=== PATIENT | female | born 1955 | race Caucasian/White ===

== ENCOUNTER 2018-07-12 14:17 | Emergency (ER) | payer OTHER, SELFPAY ==
[2018-07-12 14:29] VITALS: BP 122/84; PULSE 86; RESP 18; TEMP 36.6; O2SAT 99
--- NOTE | 2018-07-12 16:24 | W.ED.GENAD ---
Discharge Plan Disposition Patient Disposition: HOME Condition: Improving Discharge Details Chief Complaint: Laceration Clinical Impression: Laceration of knee, right Primary Care Provider: None,None ED Provider: Franky Reardon Home Meds and New Rx's Prescriptions: No Action cephalexin [Keflex] 500 mg capsule 500 mg PO QID 10 Days Qty: 40 RF: 0 trazodone 50 mg Tablet 50 mg PO HS PRNRF: 0 sertraline 100 mg Tablet 100 mg PO DAILY RF: 0 ranitidine HCl 150 mg Tablet 150 mg PO BID RF: 0 Discharge Instructions Instructions: Laceration (ED) Additional Instructions: Watch for signs of infection return immediately if these occur otherwise return to the emergency department in 12-14 days for suture removal. Stand Alone Forms: Work Release Referrals: [facility] Emergency Dept. [Outside] (12-14 days for suture removal) Discharge Data Discharge Date/Time-TO BE ENTERED AT DEPARTURE: 07/12/18 16:57 Medical Decision Making Right knee laceration with skin tear, irregular border wound edges revised. Approximately total area of injury is 6 cm x 4 cm. visible tendon is slightly noted with exploring wound to base but no obvious tendon injury. Patient has full range of motion of lower extremity, pulse sensation and full range of motion is also noted distal to the injury with no other apparent injury noted. Patient is full weightbearing so I doubt fracture. Patient gave verbal consent for wound closure. Please see procedure note for wound closure. Tdap was updated. Given clean wound that was extensively irrigated I do not feel that patient needs to be prophylactically placed upon antibiotic's but patient was encouraged to watch for signs of infection and return immediately if these occur otherwise to keep wound clean and dry and to utilize an Goyo wrap and to not perform any deep bending or squatting type motions of the knee as skin was very thin and possible for tearing through sutures may occur given location of large flap-like wound with skin tear. After discussion of diagnosis and plan of care patient has no further needs, questions, or concerns and states clear understanding to return to the emergency department for any worsening symptoms. HPI General Mode of arrival: wheelchair. Date/Time Provider Initiated Documentation: 07/12/18 14:32. Limitations to Documentation: no limitations. Information obtained by: patient and RN notes reviewed. History of Present Illness 63 year old F presents to the emergency department with the chief complaint of right knee injury, described as moderate, with intensity rated at 8. Quality is described as sharp, and is localized to the right and lower extremity. Patient started experiencing this minute(s) (30) and it has been constant. No relieving factors improve symptom(s), Patient notes no other symptoms.. Patient did receive the following treatments prior to arrival, none Related Data Home Medications Medication Instructions Recorded Confirmed ranitidine HCl 150 mg PO BID 07/12/18 07/15/18 sertraline 100 mg PO DAILY 07/12/18 07/15/18 trazodone 50 mg PO HS PRN 07/12/18 07/15/18 cephalexin [Keflex] 500 mg PO QID 10 Days #40 cap 07/15/18 Previous Rx's Medication Instructions Recorded cephalexin [Keflex] 500 mg PO QID 10 Days #40 cap 07/15/18 Allergies Allergy/AdvReac Type Severity Reaction Status Date / Time peanut Allergy Severe Anaphylaxsi Unverified 07/15/18 14:10 s Sulfa (Sulfonamide Allergy Anaphylaxsi Unverified 07/15/18 14:10 Antibiotics) s General Stated Complaint: Laceration YONATAN: 3 Review of Systems Cardiovascular Denies syncope and Denies lightheadedness Musculoskeletal Denies deformity, Denies limited range of motion and Denies numbness Integumentary/Breasts Reports as per HPI Neurologic Denies syncope, Denies numbness and Denies paresthesias [facility] Medical History Anxiety (Chronic) COPD (chronic obstructive pulmonary disease) (Chronic) GERD (gastroesophageal reflux disease) (Chronic) Social History Smoking/Tobacco Use Status: Current every day Exam Const General: cooperative and no acute distress Orientation: alert, awake and oriented x3 Limitations: mental status not altered Resp Effort & Inspection: normal respiratory effort and able to speak in complete sentences Cardio Rate: regular rate Rhythm: regular rhythm Neuro General: alert, awake, oriented x3, gait normal, tone normal, moves all extremities, normal light touch, pain and propioception and no focal motor deficits Motor: no movement abnormalities noted Sensory Exam: no sensory deficits noted Extrem General: normal exam except as noted Right lower extremity: knee Details: laceration (distal anterior knee) Course Vital Signs Temperature 36.6 C 07/12/18 14:29 Pulse 86 07/12/18 14:29 Respiratory Rate 18 07/12/18 14:29 Blood Pressure 122/84 07/12/18 14:29 Pulse Oximetry 99 07/12/18 14:29 Temperature 36.6 C 07/12/18 14:29 Temperature Source Temporal Artery Scan 07/12/18 14:29 Pulse 86 07/12/18 14:29 Respiratory Rate 18 07/12/18 14:29 Respiratory Effort Non-Labored 07/12/18 14:31 Blood Pressure 122/84 07/12/18 14:29 Blood Pressure Position Sitting 07/12/18 14:29 Pulse Oximetry 99 07/12/18 14:29 Oxygen Delivery Method Room Air 07/12/18 14:29 Oxygen Flow Rate 0 07/12/18 14:29 Pain Level 3 07/12/18 14:54 Procedures Laceration right knee: Site: lower extremity Side (If applicable): right Description: flap, irregular, clean and other Depth: involves tendon (Visible tendon but no injury) Local Anesthetic: Lidocaine 1% and with Epi Amount of anesthesia used (mL): 10 Pre-repair: wound explored, irrigated extensively, deep structures intact and wound margins revised Skin layer closed with: vicryl Size (cm): 4-0 Number of sutures: 9 Technique: simple, interrupted Subcutaneous layer closed with: vicryl Size: 4-0 Number of sutures: 2 Technique: simple, interrupted
--- NOTE | 2018-07-12 16:27 | ED.GENADUL_ITS ---
Discharge Plan Disposition Patient Disposition: HOME Condition: Improving Discharge Details Chief Complaint: Laceration Clinical Impression: Laceration of knee, right Primary Care Provider: None,None ED Provider: Franky Reardon Home Meds and New Rx's Prescriptions: No Action cephalexin [Keflex] 500 mg capsule 500 mg PO QID 10 Days Qty: 40 RF: 0 trazodone 50 mg Tablet 50 mg PO HS PRNRF: 0 sertraline 100 mg Tablet 100 mg PO DAILY RF: 0 ranitidine HCl 150 mg Tablet 150 mg PO BID RF: 0 Discharge Instructions Instructions: Laceration (ED) Additional Instructions: Watch for signs of infection return immediately if these occur otherwise return to the emergency department in 12-14 days for suture removal. Stand Alone Forms: Work Release Referrals: [facility] Emergency Dept. [Outside] (12-14 days for suture removal) Discharge Data Discharge Date/Time-TO BE ENTERED AT DEPARTURE: 07/12/18 16:57 Medical Decision Making Right knee laceration with skin tear, irregular border wound edges revised. Approximately total area of injury is 6 cm x 4 cm. visible tendon is slightly noted with exploring wound to base but no obvious tendon injury. Patient has full range of motion of lower extremity, pulse sensation and full range of motion is also noted distal to the injury with no other apparent injury noted. Patient is full weightbearing so I doubt fracture. Patient gave verbal consent for wound closure. Please see procedure note for wound closure. Tdap was updated. Given clean wound that was extensively irrigated I do not feel that patient needs to be prophylactically placed upon antibiotic's but patient was encouraged to watch for signs of infection and return immediately if these occur otherwise to keep wound clean and dry and to utilize an Goyo wrap and to not perform any deep bending or squatting type motions of the knee as skin was very thin and possible for tearing through sutures may occur given location of large flap-like wound with skin tear. After discussion of diagnosis and plan of care patient has no further needs, questions, or concerns and states clear understanding to return to the emergency department for any worsening symptoms. HPI General Mode of arrival: wheelchair . Date/Time Provider Initiated Documentation: 07/12/18 14:32 . Limitations to Documentation: no limitations . Information obtained by: patient and RN notes reviewed . History of Present Illness 63 year old F presents to the emergency department with the chief complaint of right knee injury, described as moderate, with intensity rated at 8. Quality is described as sharp, and is localized to the right and lower extremity. Patient started experiencing this minute(s) (30) and it has been constant. No relieving factors improve symptom(s), Patient notes no other symptoms.. Patient did receive the following treatments prior to arrival, none Related Data Home Medications Medication Instructions Recorded Confirmed ranitidine HCl 150 mg PO BID 07/12/18 07/15/18 sertraline 100 mg PO DAILY 07/12/18 07/15/18 trazodone 50 mg PO HS PRN 07/12/18 07/15/18 cephalexin [Keflex] 500 mg PO QID 10 Days #40 cap 07/15/18 Previous Rx's Medication Instructions Recorded cephalexin [Keflex] 500 mg PO QID 10 Days #40 cap 07/15/18 Allergies Allergy/AdvReac Type Severity Reaction Status Date / Time peanut Allergy Severe Anaphylaxsi Unverified 07/15/18 14:10 s Sulfa (Sulfonamide Allergy Anaphylaxsi Unverified 07/15/18 14:10 Antibiotics) s General Stated Complaint: Laceration YONATAN: 3 Review of Systems Cardiovascular Denies syncope and Denies lightheadedness Musculoskeletal Denies deformity, Denies limited range of motion and Denies numbness Integumentary/Breasts Reports as per HPI Neurologic Denies syncope, Denies numbness and Denies paresthesias [facility] Medical History Anxiety (Chronic) COPD (chronic obstructive pulmonary disease) (Chronic) GERD (gastroesophageal reflux disease) (Chronic) Social History Smoking/Tobacco Use Status: Current every day Exam Const General: cooperative and no acute distress Orientation: alert, awake and oriented x3 Limitations: mental status not altered Resp Effort & Inspection: normal respiratory effort and able to speak in complete sentences Cardio Rate: regular rate Rhythm: regular rhythm Neuro General: alert, awake, oriented x3, gait normal, tone normal, moves all extremities, normal light touch, pain and propioception and no focal motor deficits Motor: no movement abnormalities noted Sensory Exam: no sensory deficits noted Extrem General: normal exam except as noted Right lower extremity: knee Details: laceration (distal anterior knee) Course Vital Signs Temperature 36.6 C 07/12/18 14:29 Pulse 86 07/12/18 14:29 Respiratory Rate 18 07/12/18 14:29 Blood Pressure 122/84 07/12/18 14:29 Pulse Oximetry 99 07/12/18 14:29 Temperature 36.6 C 07/12/18 14:29 Temperature Source Temporal Artery Scan 07/12/18 14:29 Pulse 86 07/12/18 14:29 Respiratory Rate 18 07/12/18 14:29 Respiratory Effort Non-Labored 07/12/18 14:31 Blood Pressure 122/84 07/12/18 14:29 Blood Pressure Position Sitting 07/12/18 14:29 Pulse Oximetry 99 07/12/18 14:29 Oxygen Delivery Method Room Air 07/12/18 14:29 Oxygen Flow Rate 0 07/12/18 14:29 Pain Level 3 07/12/18 14:54 Procedures Laceration right knee: Site: lower extremity Side (If applicable): right Description: flap, irregular, clean and other Depth: involves tendon (Visible tendon but no injury) Local Anesthetic: Lidocaine 1% and with Epi Amount of anesthesia used (mL): 10 Pre-repair: wound explored, irrigated extensively, deep structures intact and wound margins revised Skin layer closed with: vicryl Size (cm): 4-0 Number of sutures: 9 Technique: simple, interrupted Subcutaneous layer closed with: vicryl Size: 4-0 Number of sutures: 2 Technique: simple, interrupted
--- NOTE | 2018-07-12 16:30 | NUR.NOTE ---
STENOCAPTIONER approximated right knee lac with 2 internal sutures and 9 external sutures, area dressed with bactracin under gauze zelalem wrap Nursing Note:
== END 2018-07-12 16:57 | disposition home or self-care (01) ==
LOC: ER 16:48
PROVIDERS: Emergency Provider Nurse Practitioner Family
DX: S81.011A Laceration without foreign body, right knee, initial encounter (principal); W01.0XXA Fall on same level from slipping, tripping and stumbling without subsequent striking against object, initial encounter
CPT/HCPCS: 12031; 90471

== ENCOUNTER 2018-07-15 13:22 | Emergency (ER) | payer OTHER, SELFPAY ==
[2018-07-15 14:05] VITALS: BP 108/75; PULSE 117; RESP 18; TEMP 36.5; O2SAT 95
--- NOTE | 2018-07-15 15:09 | DI.RAD_ITS ---
SYMPTOM/DIAGNOSIS: FELL, KNEE PAIN RIGHT KNEE: There are no prior comparison exams. No fracture or joint effusion is seen. There are degenerative changes of the lateral femoral tibial joint with spurring at the lateral femoral condyle. Mild spurring is seen at the patella. IMPRESSION: Degenerative changes. No acute abnormality.
--- NOTE | 2018-07-15 16:28 | DI.VRAD_ITS ---
EXAM: XR Right Knee, 3 Views EXAM DATE/TIME: 07/15/2018 3:40 PM CLINICAL HISTORY: 63 years old, female; Signs and symptoms; Other: Fell yesterday, generalized knee pain TECHNIQUE: XR Right knee 3 views. COMPARISON: No relevant prior studies available. FINDINGS: Bones/joints: Vertical lucency through the lateral tibial plateau extending into proximal tibial shaft may represent nondisplaced fracture. Recommend CT for further evaluation. Mild suprapatellar joint effusion. Tricompartmental joint space narrowing consistent with degenerative changes 7 mm ossific fragment along the lateral tibial plateau may represent old avulsion fracture Soft tissues: Normal. IMPRESSION: 1. Vertical lucency through the lateral tibial plateau extending into proximal tibial shaft may represent nondisplaced fracture. Recommend CT for further evaluation. 2. Mild suprapatellar joint effusion. Dictated and Authenticated by: Nancy Rasheed MD. Ordering:EVANGELIST Bates MD
--- NOTE | 2018-07-15 16:32 | DI.CT_ITS ---
SYMPTOM/DIAGNOSIS: ? TIBIAL PLATEAU FX RIGHT KNEE CT: Comparison is made with plain films performed earlier the same day. The bones appear osteopenic. A joint effusion is seen. There is a small Johnson's cyst. There is a question of an ACL tear. The proximal tibia appears more anteriorly positioned with respect to the distal femur. There are smoothly corticated bony densities seen posterior and lateral to the tibia. No tibial plateau fracture is seen. There is a small declivity at the medial articular aspect of the patella suspicious for an acute fracture. Degenerative changes are seen in the femoral tibial and patellofemoral joints. IMPRESSION: 1. Fracture at the medial border of the patella. 2. Question of an ACL tear. Joint effusion. 3. No evidence of a tibial plateau fracture.
[2018-07-15] MEDS: Acetaminophen 500 MG TAB 1000 MG PO (16:44)
[2018-07-15] MEDS: Ibuprofen 800 MG TAB PO (16:44)
--- NOTE | 2018-07-15 17:06 | DI.VRAD_ITS ---
EXAM: CT Right Lower Extremity Without IV Contrast, Knee EXAM DATE/TIME: 07/15/2018 4:33 PM CLINICAL HISTORY: 63 years old, female; Signs and symptoms; Other: Concern for tibial plateau FX TECHNIQUE: CT of the Right lower extremity without intravenous contrast was performed. Exam focused on the knee. All CT scans at this facility use at least one of these dose optimization techniques: automated exposure control; mA and/or kV adjustment per patient size (includes targeted exams where dose is matched to clinical indication); or iterative reconstruction. Coronal and sagittal reformatted images were created and reviewed. COMPARISON: CR XR knee RT 3V AP,lat,ti 07/15/2018 3:35 PM FINDINGS: Bones/joints: There is no evidence of acute fracture. There is no evidence of malalignment or dislocation.Well-corticated avulsion fracture adjacent to the lateral tibial plateau consistent with prior fracture. Osteophyte formation in the medial femoral condyle and lateral tibial plateau Mild suprapatellar joint effusion. Soft tissues: 2.1 cm Johnson's cyst IMPRESSION: 1. There is no evidence of acute fracture. There is no evidence of malalignment or dislocation. 2. Well-corticated avulsion fracture adjacent to the lateral tibial plateau consistent with prior fracture. 3. Mild suprapatellar joint effusion. Dictated and Authenticated by: Nancy Rasheed MD. Ordering:EVANGELIST Bates MD
--- NOTE | 2018-07-15 17:26 | W.ED.GENAD ---
Discharge Plan Disposition Patient Disposition: HOME Condition: Good Discharge Details Chief Complaint: Cellulitis Clinical Impression: Dehiscence of wound of skin, Acute pain of right knee Reason For Visit: right leg pain ( sutures ) Primary Care Provider: None,None ED Provider: Paulo Reese Home Meds and New Rx's Prescriptions: New cephalexin [Keflex] 500 mg capsule 500 mg PO QID 10 Days Qty: 40 RF: 0 No Action trazodone 50 mg Tablet 50 mg PO HS PRNRF: 0 sertraline 100 mg Tablet 100 mg PO DAILY RF: 0 ranitidine HCl 150 mg Tablet 150 mg PO BID RF: 0 Discharge Instructions Instructions: Knee Pain (ED) Additional Instructions: Please take the antibiotic as directed. Please return in the next 5 days for wound reassessment, and please return in the next 7-10 days for suture removal. Please change the bandages daily and the way that we showed you. If you notice any worsening of your symptoms, or any new symptoms such as spreading redness, worsening swelling, worsening pain vomiting, diarrhea, fever, chills, shortness of breath, chest pain, numbness, weakness, or fainting , please return immediately to the emergency department for reevaluation. Please follow up with your primary care provider as soon as possible for reassessment and reevaluation. As always, it was a pleasure participating in your medical care today. Stand Alone Forms: Work Release Discharge Data Discharge Date/Time-TO BE ENTERED AT DEPARTURE: 07/15/18 18:00 Medical Decision Making This is a pleasant 63-year-old female who presents for evaluation of persistent knee pain after a fall 3 days ago with subsequent suturing. Physical exam demonstrates unfortunate dehiscence of the lateral lower component of the suturing. I feel this is most likely secondary to the patient bending her knee, perhaps during her sleep, and the area of notable tension over the anterior component of the knee. Although dehiscence was present for the 2-3 lateral sutures there, there is no evidence of significant infection, erythema, discharge, or other abnormality. The other locations demonstrate excellent wound edge healing. No evidence of significant erythema to suggest severe cellulitis. No evidence of exposed bone or tendon. Because of the patient's mild persistent pain we did get an x-ray which showed potential lucency, however subsequent CT scan shows no evidence of tibial plateau fracture. There is evidence of an old healing fracture but no other significant abnormality. Patient's pain appears to be well controlled at this time with Tylenol and Motrin. She is able to ambulate with the assistance of a cane. Because the area has been dehisced for up to 2 days, I do not think that it is appropriate to re-suture at this time. Because of the dehiscence though we will prescribe an antibiotic for prevention of infection. We have cleaned the wound here in the ED, a place triple antibiotic ointment, and re-bandaged and covered the wound. Myself and nursing staff has spent a notable amount of time educating the patient on ways to clean, the importance of daily bandage changes, and signs or symptoms concerning for infection. Because the patient has recently reestablished here in [place] she does not yet have a primary care provider I have recommended that she return for wound check in the next 3-4 days. We will reassess potential need for orthopedic follow-up at that time. We will contact case management per primary care provider set up in follow-up. I have extensively reviewed the treatment plan and discharge instructions with the patient. I have addressed all patient concerns at this time. The patient was made aware of what symptoms to monitor for that would warrant a return to the emergency department. Discussed the plan with the patient, they demonstrate verbal understanding and agreement with our assessment and plan at this time. Knee Xray FINDINGS: Bones/joints: Vertical lucency through the lateral tibial plateau extending into proximal tibial shaft may represent nondisplaced fracture. Recommend CT for further evaluation. Mild suprapatellar joint effusion. Tricompartmental joint space narrowing consistent with degenerative changes 7 mm ossific fragment along the lateral tibial plateau may represent old avulsion fracture Soft tissues: Normal. IMPRESSION: 1. Vertical lucency through the lateral tibial plateau extending into proximal tibial shaft may represent nondisplaced fracture. Recommend CT for further evaluation. 2. Mild suprapatellar joint effusion. Dictated and Authenticated by: Nancy Rasheed MD. CT Knee FINDINGS: Bones/joints: There is no evidence of acute fracture. There is no evidence of malalignment or dislocation.Well-corticated avulsion fracture adjacent to the lateral tibial plateau consistent with prior fracture. Osteophyte formation in the medial femoral condyle and lateral tibial plateau Mild suprapatellar joint effusion. Soft tissues: 2.1 cm Johnson's cyst IMPRESSION: 1. There is no evidence of acute fracture. There is no evidence of malalignment or dislocation. 2. Well-corticated avulsion fracture adjacent to the lateral tibial plateau consistent with prior fracture. 3. Mild suprapatellar joint effusion. Dictated and Authenticated by: Nancy Rasheed MD. HPI General Date/Time Provider Initiated Documentation: 07/15/18 14:57. HPI Narrative: This is a pleasant 63-year-old female who 3 days ago fell and tripped, landing on her right knee, and suffering from a laceration on the knee. At that time she had a chevron shaped laceration over the anterior aspect of the knee. 2 deep sutures were placed, as well as multiple superficial sutures. She has kept the area bandaged, however she has noticed continued pain over the last 2 days. She has mild to moderate pain with ambulating. She has noticed continued mild discharge from the wound, denies any redness, or systemic symptoms of fever, chills, numbness tingling or weakness. She denies any new trauma. She denies any other complaints at this time. She is come in for reevaluation out of concern for her symptoms. Patient denies any recent surgeries, IV illicit drug use, pertinent family history. Of note the patient recently just moved back to the area, and has not been established with a primary care provider yet. Related Data Home Medications Medication Instructions Recorded Confirmed ranitidine HCl 150 mg PO BID 07/12/18 07/15/18 sertraline 100 mg PO DAILY 07/12/18 07/15/18 trazodone 50 mg PO HS PRN 07/12/18 07/15/18 cephalexin [Keflex] 500 mg PO QID 10 Days #40 cap 07/15/18 Previous Rx's Medication Instructions Recorded cephalexin [Keflex] 500 mg PO QID 10 Days #40 cap 07/15/18 Allergies Allergy/AdvReac Type Severity Reaction Status Date / Time peanut Allergy Severe Anaphylaxsi Unverified 07/15/18 14:10 s Sulfa (Sulfonamide Allergy Anaphylaxsi Unverified 07/15/18 14:10 Antibiotics) s General Stated Complaint: Cellulitis YONATAN: 4 Review of Systems Review of Systems All systems reviewed & are unremarkable except as noted in HPI and below PFSH Medical History Anxiety (Chronic) COPD (chronic obstructive pulmonary disease) (Chronic) GERD (gastroesophageal reflux disease) (Chronic) Social History Smoking/Tobacco Use Status: Current every day Exam Narrative Exam Narrative: 1.Const: Well-nourished, Well-developed, appearing stated age 2.Eyes: PERRL, no conjunctival injection, and symmetrical lids. 3.ENT: Atraumatic external nose and ears. Moist MM. Neck: Symmetric, trachea midline, No thyromegaly. 4.CVS: +S1/S2, No murmurs or gallops. Peripheral pulses 2+ and equal in all extremities. Brisk capillary refill in all extremities. 5.RESP: Unlabored respiratory effort. Clear to auscultation bilaterally. No wheezes rales or rhonchi 6.GI: Soft, Nontender/Nondistended, No hepatosplenomegaly. No guarding or rebound. 7.MSK: Mild to moderate tenderness over proximal tibia over the tibial plateau, as well as mild tenderness over the patella, unfortunately this is slightly obfuscated by the location of her laceration being over the areas of tenderness. No significant tenderness of the proximal fibula. Compartments are soft, sensation, and pulses are intact distal to the injury site. No evidence of significant erythema, purulent drainage, or other abnormality. Range of motion is intact, present for the knee without difficulty. 8.Skin: Over the area of the right knee excellent suturing with good wound edge reapproximation is in place except for the lateral lower component. There appears to be an unfortunate dehiscence of 3 simple interrupted sutures. No evidence of bony or tendon involvement or exposure. Skin appears to otherwise be healing well. Does appear to be good granulation tissue forming. No evidence of active bleeding, no clear significant erythema or signs of severe infection. No odor suggestive of gangrene. 9.Neuro: strategic account director II-XII grossly intact. Sensation grossly intact, no focal neurologic deficits. 10.Psych: (AAO) x3. Appropriate mood and affect Course Vital Signs Temperature 36.5 C 07/15/18 14:05 Pulse 117 H 07/15/18 14:05 Respiratory Rate 18 07/15/18 14:05 Blood Pressure 108/75 07/15/18 14:05 Pulse Oximetry 95 07/15/18 14:05 Temperature 36.5 C 07/15/18 14:05 Temperature Source Temporal Artery Scan 07/15/18 14:05 Pulse 117 H 07/15/18 14:05 Respiratory Rate 18 07/15/18 14:05 Respiratory Effort 07/15/18 14:08 Blood Pressure 108/75 07/15/18 14:05 Pulse Oximetry 95 07/15/18 14:05 Oxygen Delivery Method Room Air 07/15/18 14:05 Oxygen Flow Rate 0 07/15/18 14:05 Pain Level 5 07/15/18 14:05
[2018-07-15] MEDS: Cephalexin 500 MG CAP PO (17:54)
[2018-07-15 17:55] VITALS: BP 110/75; PULSE 85; RESP 18; TEMP 36.5; O2SAT 95
--- NOTE | 2018-07-16 09:29 | PDOC.ERCMPRO ---
Care Management Progress Note 07/16-Dr. Reese requested assistance with a PCP (patient does not have one) f/u and establishing care as soon as possible for wound dehiscence. Johanna Beard, [facility] research consultant. Called [facility] and spoke with Seema. Seema scheduled Cathie for Sunday, 07/17 at 2:45 with Alberta Barrios NP. Seema requested provider notes and demographics be sent to [facility] for which they were. This CM called Cathie with the above appt and she states she can make appt. Cathie has this CM's contact information if further assistance is needed.
--- NOTE | 2018-07-16 09:34 | CMPROGNOTE_ITS ---
Care Management Progress Note 07/16-Dr. Reese requested assistance with a PCP (patient does not have one) f/u and establishing care as soon as possible for wound dehiscence. Johanna Beard, [facility] button machine operator. Called [facility] and spoke with Seema. Seema scheduled Cathie for Sunday, 07/17 at 2:45 with Alberta Barrios NP. Seema requested provider notes and demographics be sent to [facility] for which they were. This CM called Cathie with the above appt and she states she can make appt. Cathie has this CM's contact information if further assistance is needed.
== END 2018-07-15 18:00 | disposition home or self-care (01) ==
PROVIDERS: Emergency Provider Student in an Organized Health Care Education/Training Program
DX: T81.30XA Disruption of wound, unspecified, initial encounter (principal); M25.561 Pain in right knee; M25.461 Effusion, right knee
CPT/HCPCS: 73562; 99284; 73700

== ENCOUNTER 2018-07-16 14:00 | Emergency (ER) | payer OTHER, SELFPAY ==
[2018-07-16 14:17] VITALS: BP 120/70; PULSE 96; RESP 16; TEMP 36.4; O2SAT 96
--- NOTE | 2018-07-16 15:01 | W.ED.GENAD ---
Discharge Plan Disposition Patient Disposition: HOME Discharge Details Chief Complaint: Orthopedic Clinical Impression: Patella fracture, Wound infection Primary Care Provider: None,None ED Provider: Bony Morillo Home Meds and New Rx's Prescriptions: Continued trazodone 50 mg Tablet 50 mg PO HS PRNRF: 0 sertraline 100 mg Tablet 100 mg PO DAILY RF: 0 ranitidine HCl 150 mg Tablet 150 mg PO BID RF: 0 Discharge Instructions Instructions: Wound Infection (ED), Patellar Fracture (ED), Knee Immobilizer (ED) Additional Instructions: Please follow-up with Dr. Norris. He will be happy to see you in his clinic today. Continue to take antibiotic as prescribed. Use knee and low crutches crutches until cleared. Return to the ER for any worsening or new concerning symptoms. Referrals: Murtaza Norris MD [ [facility] STAFF PHYSICIAN] - Discharge Data Discharge Date/Time-TO BE ENTERED AT DEPARTURE: 07/16/18 15:51 Medical Decision Making 63-year-old female who tripped and fell on 07/12/2018 and sustained rt knee laceration. She was seen here in the emerge department and had primary closure performed with deep sutures placed. Wound dehisced and she was seen here in the ED again yesterday. Imaging was done and initially interpreted as negative. CT of the rt knee over read by radiology as patellar fracture. Patient called to return to the emergency department. Patient has full active extension of right knee. Patient is afebrile. She has been taking Keflex as prescribed. Wound assessed -erythema noted with granulation tissue. Dressing applied. Patient placed in knee immobilizer and provided crutches. I called and spoke with Dr. Norris who will see the patient today in office. Patient was called and advised to return to the ED given new findings seen on imaging. She should not be charged for this repeat visit today in ED. HPI General Mode of arrival: ambulatory. Date/Time Provider Initiated Documentation: 07/16/18 14:34. Limitations to Documentation: no limitations. Information obtained by: patient. HPI Narrative: 63-year-old female who tripped and fell on 07/12/2018 and sustained rt knee laceration. She was seen here in the emergency department and had primary closure performed with deep sutures placed. Wound dehisced and she was seen here in the ED again yesterday. Imaging was done and initially interpreted as negative. CT of the rt knee over read by radiology as patellar fracture. Patient called to return to the emergency department for further evaluation. Related Data Home Medications Medication Instructions Recorded Confirmed ranitidine HCl 150 mg PO BID 07/12/18 07/30/18 sertraline 100 mg PO DAILY 07/12/18 07/30/18 trazodone 50 mg PO HS PRN 07/12/18 07/30/18 Allergies Allergy/AdvReac Type Severity Reaction Status Date / Time peanut Allergy Severe Anaphylaxsi Verified 07/30/18 11:01 s Sulfa (Sulfonamide Allergy Anaphylaxsi Verified 07/30/18 11:01 Antibiotics) s General Stated Complaint: Orthopedic YONATAN: 4 Review of Systems Musculoskeletal Reports as per HPI [facility] Medical History Anxiety (Chronic) COPD (chronic obstructive pulmonary disease) (Chronic) GERD (gastroesophageal reflux disease) (Chronic) Social History Smoking and Tabacco status: Current every day Exam Skin Wounds: wounds noted (deep right knee wound with mild surrounding erythema and granulation tissue) Extrem Right lower extremity: knee Details: tenderness (about laceration), normal ROM and knee ligament exam normal Course Vital Signs Temperature 36.4 C L 07/16/18 14:17 Pulse 96 H 07/16/18 14:17 Respiratory Rate 16 07/16/18 14:17 Blood Pressure 120/70 07/16/18 14:17 Pulse Oximetry 96 07/16/18 14:17 Temperature 36.4 C L 07/16/18 14:17 Temperature Source Skin 07/16/18 14:17 Pulse 96 H 07/16/18 14:17 Respiratory Rate 16 07/16/18 14:17 Respiratory Effort Non-Labored 07/16/18 14:17 Blood Pressure 120/70 07/16/18 14:17 Blood Pressure Position Sitting 07/16/18 14:17 Pulse Oximetry 96 07/16/18 14:17 Oxygen Delivery Method Room Air 07/16/18 14:17 Oxygen Flow Rate 0 07/16/18 14:17 Pain Level 3 07/16/18 14:17
--- NOTE | 2018-07-16 15:04 | ED.GENADUL_ITS ---
Discharge Plan Disposition Patient Disposition: HOME Discharge Details Chief Complaint: Orthopedic Clinical Impression: Patella fracture, Wound infection Primary Care Provider: None,None ED Provider: Bony Morillo Home Meds and New Rx's Prescriptions: Continued trazodone 50 mg Tablet 50 mg PO HS PRNRF: 0 sertraline 100 mg Tablet 100 mg PO DAILY RF: 0 ranitidine HCl 150 mg Tablet 150 mg PO BID RF: 0 Discharge Instructions Instructions: Wound Infection (ED), Patellar Fracture (ED), Knee Immobilizer (ED) Additional Instructions: Please follow-up with Dr. Norris. He will be happy to see you in his clinic today. Continue to take antibiotic as prescribed. Use knee and low crutches crutches until cleared. Return to the ER for any worsening or new concerning symptoms. Referrals: Murtaza Norris MD [ [facility] STAFF PHYSICIAN] - Discharge Data Discharge Date/Time-TO BE ENTERED AT DEPARTURE: 07/16/18 15:51 Medical Decision Making 63-year-old female who tripped and fell on 07/12/2018 and sustained rt knee l aceration. She was seen here in the emerge department and had primary closure performed with deep sutures placed. Wound dehisced and she was seen here in the ED again yesterday. Imaging was done and initially interpreted as negative. CT of the rt knee over read by radiology as patellar fracture. Patient called to return to the emergency department. Patient has full active extension of right knee. Patient is afebrile. She has been taking Keflex as prescribed. Wound assessed - erythema noted with granulation tissue. Dressing applied. Patient placed in knee immobilizer and provided crutches. I called and spoke with Dr. Norris who will see the patient today in office. Patient was called and advised to return to the ED given new findings seen on imaging. She should not be charged for this repeat visit today in ED. HPI General Mode of arrival: ambulatory . Date/Time Provider Initiated Documentation: 07/16/18 14:34 . Limitations to Documentation: no limitations . Information obtained by: patient . HPI Narrative: 63-year-old female who tripped and fell on 07/12/2018 and sustained rt knee laceration. She was seen here in the emergency department and had primary closure performed with deep sutures placed. Wound dehisced and she was seen here in the ED again yesterday. Imaging was done and initially interpreted as negative. CT of the rt knee over read by radiology as patellar fracture. Patient called to return to the emergency department for further evaluation. Related Data Home Medications Medication Instructions Recorded Confirmed ranitidine HCl 150 mg PO BID 07/12/18 07/30/18 sertraline 100 mg PO DAILY 07/12/18 07/30/18 trazodone 50 mg PO HS PRN 07/12/18 07/30/18 Allergies Allergy/AdvReac Type Severity Reaction Status Date / Time peanut Allergy Severe Anaphylaxsi Verified 07/30/18 11:01 s Sulfa (Sulfonamide Allergy Anaphylaxsi Verified 07/30/18 11:01 Antibiotics) s General Stated Complaint: Orthopedic YONATAN: 4 Review of Systems Musculoskeletal Reports as per HPI [facility] Medical History Anxiety (Chronic) COPD (chronic obstructive pulmonary disease) (Chronic) GERD (gastroesophageal reflux disease) (Chronic) Social History Smoking and Tabacco status: Current every day Exam Skin Wounds: wounds noted (deep right knee wound with mild surrounding erythema and granulation tissue) Extrem Right lower extremity: knee Details: tenderness (about laceration), normal ROM and knee ligament exam normal Course Vital Signs Temperature 36.4 C L 07/16/18 14:17 Pulse 96 H 07/16/18 14:17 Respiratory Rate 16 07/16/18 14:17 Blood Pressure 120/70 07/16/18 14:17 Pulse Oximetry 96 07/16/18 14:17 Temperature 36.4 C L 07/16/18 14:17 Temperature Source Skin 07/16/18 14:17 Pulse 96 H 07/16/18 14:17 Respiratory Rate 16 07/16/18 14:17 Respiratory Effort Non-Labored 07/16/18 14:17 Blood Pressure 120/70 07/16/18 14:17 Blood Pressure Position Sitting 07/16/18 14:17 Pulse Oximetry 96 07/16/18 14:17 Oxygen Delivery Method Room Air 07/16/18 14:17 Oxygen Flow Rate 0 07/16/18 14:17 Pain Level 3 07/16/18 14:17
[2018-07-16 15:23] VITALS: BP 120/70; PULSE 96; RESP 16; TEMP 36.4; O2SAT 96
== END 2018-07-16 15:51 | disposition home or self-care (01) ==
PROVIDERS: Emergency Provider Student in an Organized Health Care Education/Training Program
DX: S82.001A Unspecified fracture of right patella, initial encounter for closed fracture (principal); T81.41XA Infection following a procedure, superficial incisional surgical site, initial encounter; W01.0XXA Fall on same level from slipping, tripping and stumbling without subsequent striking against object, initial encounter; J44.9 Chronic obstructive pulmonary disease, unspecified; F17.210 Nicotine dependence, cigarettes, uncomplicated
CPT/HCPCS: E0114; L1830

== ENCOUNTER 2018-10-08 13:24 | Outpatient (REF) | payer OTHER, SELFPAY ==
[2018-10-08 21:29] LABS: HCT 38.7 % (36.0-46.0); HGB 12.9 g/dL (12.0-15.5); Mean Corp. HGB Concentration 33.3 g/dL (32.0-36.0); Mean Corpuscular Hemoglobin 31.2 pg (27.0-33.0); Mean Corpuscular Volume 93.5 fL (80-95); Platelet Count 359 x1000/uL (130-400); RBC 4.14 m/cumm (4.00-5.20); RBC Distribution Width 14.3 % (11.7-14.6); White Blood Cell Count 12.39 k/cumm (4.4-10.8)
[2018-10-08 21:35] LABS: Iron 47 ug/dL (50-175); Total Iron Binding Capacity 316 ug/dL (250-450); Transferrin Sat 15 % (15-50)
[2018-10-08 21:47] LABS: ALT 35 U/L (12-78); AST 24 U/L (15-37); Albumin 3.8 g/dL (3.4-5.0); Alkaline Phosphatase 97 U/L (46-116); Anion Gap 7.1 mmol/L (3-11); BUN 19 mg/dL (7-18); Bilirubin, Total 0.1 mg/dL (0.2-1.0); CO2 28.9 mmol/L (21.0-32.0); CREATININE 0.64 mg/dL (0.55-1.02); Calcium 8.8 mg/dL (8.5-10.1); Chloride 102 mmol/L (98-107); Glucose 67 mg/dL (70-100); Potassium 3.9 mmol/L (3.5-5.1); Sodium 138 mmol/L (136-145); TSH (W/Ref FT4) 1.47 uIU/mL (0.358-3.74); Total Protein 6.8 g/dL (6.4-8.2)
== END 2018-10-08 13:44 ==
LOC: NCHCN 13:24
PROVIDERS: PCP Orthopaedic Surgery; Visit Provider Nurse Practitioner Family
DX: R53.83 Other fatigue (principal); F10.11 Alcohol abuse, in remission
CPT/HCPCS: 80053; 85027; 83540; 83550; 84443

== ENCOUNTER 2018-10-22 15:13 | Outpatient (REF) | payer OTHER, SELFPAY ==
--- NOTE | 2018-10-22 14:45 | PAPFT_PTH ---
PATIENT: Cathie Stern LOC: [facility]#:[id number] AGE/SX: 63/F ROOM: RE10/22/[address]: Meme Brown : 1955 BED: DIS: 10/22/2018 SPEC #: [id number] RECD: 10/23/18 13:02 STATUS: MANJINDER RESlava #: [id number] [place]: 10/22/18 14:[address]: Meme Brown DEPT: [facility] Cytology RECD BY: Heavenly Voss ENTERED: 10/23/18 13:02 SP TYPE: PAPFT OTHR DR: Murtaza Norris MD Tissues: 1 - CX/ENDOCX FOR PAP SMEARS Procedures: PAP THIN PREP/UVM Screening HPV DNA PROBE Comments: [id number] (CHLAMYDIA/GC)
[2018-10-22 22:48] LABS: Abs Immature Grans 0.03 k/cumm (0.0-0.09); Absolute Basophil Count 0.06 k/cumm (0.0-0.2); Absolute Eosinophil Count 0.17 k/cumm (0.0-0.7); Absolute Lymphocyte Count 4.31 k/cumm (1.2-3.4); Absolute Monocyte Count 0.82 k/cumm (0.11-0.7); Absolute Neutrophil Count 4.82 k/cumm (1.2-6.7); Basophils % 0.6; Eosinophils % 1.7; HCT 42.5 % (36.0-46.0); HGB 14.3 g/dL (12.0-15.5); Immature Grans % 0.3; Lymphocytes % 42.2; Mean Corp. HGB Concentration 33.6 g/dL (32.0-36.0); Mean Corpuscular Hemoglobin 31.2 pg (27.0-33.0); Mean Corpuscular Volume 92.8 fL (80-95); Neutrophils % 47.2; Platelet Count 424 x1000/uL (130-400); RBC 4.58 m/cumm (4.00-5.20); White Blood Cell Count 10.21 k/cumm (4.4-10.8)
[2018-10-22 23:14] LABS: ALT 26 U/L (12-78); AST 21 U/L (15-37); Albumin 4.2 g/dL (3.4-5.0); Alkaline Phosphatase 69 U/L (46-116); Anion Gap 11.1 mmol/L (3-11); BUN 12 mg/dL (7-18); Bilirubin, Total 0.4 mg/dL (0.2-1.0); CO2 27.9 mmol/L (21.0-32.0); CREATININE 0.62 mg/dL (0.55-1.02); Calcium 9.4 mg/dL (8.5-10.1); Chloride 100 mmol/L (98-107); Cholesterol 243 mg/dL (50-200); Glucose 83 mg/dL (70-100); HDL Cholesterol 64 mg/dL (40-60); LDL CHOLESTEROL 161 mg/dL (<100); Magnesium 1.9 mg/dL (1.8-2.4); Sodium 139 mmol/L (136-145); Total Protein 7.3 g/dL (6.4-8.2); Triglyceride 72 mg/dL (30-150); Vitamin B12 503 pg/mL (193-986)
[2018-10-24 09:50] LABS: Hepatitis C Ab w Rflx HCV PCR Negative (NEGAT)
[2018-10-24 13:40] LABS: Chlamydia Result Negative; GC Result Negative; Specimen Description SEE COMMENTS
== END 2018-10-22 15:33 ==
LOC: NCHCN 15:13
PROVIDERS: PCP Orthopaedic Surgery; Visit Provider Nurse Practitioner Family
DX: Z00.00 Encounter for general adult medical examination without abnormal findings (principal); R42 Dizziness and giddiness; R07.9 Chest pain, unspecified; D72.829 Elevated white blood cell count, unspecified; K92.1 Melena; M19.90 Unspecified osteoarthritis, unspecified site; Z72.0 Tobacco use; Z11.59 Encounter for screening for other viral diseases; Z12.4 Encounter for screening for malignant neoplasm of cervix; Z11.51 Encounter for screening for human papillomavirus (HPV)
CPT/HCPCS: 80053; 80061; 83721; 86803; 87491; 87591; 88142; 82607; 83735; 85025; 87624

== ENCOUNTER 2018-10-22 15:30 | Outpatient (CLI) | payer OTHER, SELFPAY ==
--- NOTE | 2018-10-22 16:40 | DI.RAD_ITS ---
SYMPTOMS/DIAGNOSIS: CHEST PAIN, FATIGUE, TOBACCO USE, R07.0, R53.83, Z72.0 PA AND LATERAL CHEST: The heart is normal in size. The lungs are clear. The mediastinal structures and pleura appear intact. CONCLUSION: Normal chest.
== END 2018-10-22 15:50 ==
PROVIDERS: PCP Nurse Practitioner Family; Visit Provider Nurse Practitioner Family
DX: R07.9 Chest pain, unspecified (principal); R53.83 Other fatigue; Z72.0 Tobacco use
CPT/HCPCS: 71046

== ENCOUNTER 2018-11-01 10:43 | Emergency (ER) | payer OTHER, SELFPAY ==
[2018-11-01] VITALS (31 sets, daily range): BP systolic 86–131; BP diastolic 40–69; PULSE 74–97; RESP 13–41; TEMP 36.6; O2SAT 92–98
--- NOTE | 2018-11-01 10:49 | W.ED.GENAD ---
Discharge Plan Disposition Patient Disposition: HOME Condition: Fair Discharge Details Chief Complaint: Chest Pain Clinical Impression: Pneumonia, Pneumonitis, Leukocytosis, Current smoker Primary Care Provider: Meme Brown ED Provider: Stephany Quarles Home Meds and New Rx's Prescriptions: New azithromycin 250 mg tablet See Rx Instructions .ROUTE .COMPLEX Qty: 6 RF: 0 prednisone 20 mg tablet 40 mg PO DAILY Qty: 10 RF: 0 Continued omeprazole 20 mg capsule,delayed release(DR/EC) 20 mg PO DAILY RF: 0 albuterol sulfate [Ventolin HFA] 90 mcg/actuation HFA aerosol inhaler 2 puff IH Q6H PRNRF: 0 loratadine [Claritin] 10 mg tablet 10 mg PO DAILY RF: 0 bisacodyl [Dulcolax (bisacodyl)] 5 mg tablet,delayed release (DR/EC) 5 mg PO ONCE Qty: 4 RF: 0 polyethylene glycol 3350 17 gram powder in packet 255 g PO DAILY Qty: 15 RF: 0 trazodone 50 mg Tablet 50 mg PO HS PRNRF: 0 sertraline 100 mg Tablet 100 mg PO DAILY RF: 0 Discharge Instructions Instructions: How to Stop Smoking (ED), Pneumonia (ED) Additional Instructions: Encourage hydration. Tylenol and ibuprofen as needed for discomfort. Please take antibiotic and steroids as prescribed. If you develop fever/chills, increased pain, difficulty breathing, shortness of breath or other new/worsening symptoms please seek care urgently once again Stop smoking, information on how to stop is attached. Please keep appointment on Sunday with your primary care provider Referrals: Meme Brown [Primary Care Provider] - Discharge Data Discharge Date/Time-TO BE ENTERED AT DEPARTURE: 11/01/18 14:09 Medical Decision Making Patient is 63-year-old female presenting today with chief complaint of chest pain and shakiness. She reports she has had chest heaviness intermittently, primarily when it worked with exertion, for some time now. However, yesterday and today she states that this was greatly increased and she was experiencing shakiness with this symptom. Is currently asymptomatic. Denies any recent illness. States that she has pain is more to the right side, does not radiate. States that she can have shortness of breath associated with this, is not feeling short of breath at this time. No personal or familial history of cardiac disease. Does have a family history of blood clot. Patient reports that she took full dose of aspirin this morning. Patient has history of anxiety, COPD, GERD. EKG reviewed by Dr. Mann, no acute ischemic findings noted. Patient has normal sinus rhythm. Was seen for similar episode last year at another emergency department. At that point she reports it was much worse, I could not breathe and my oxygen was in the 80s. States that she was diagnosed with COPD exacerbation. Patient is an active smoker. For the chest x-ray, I am concerned for possible lesion in left lower lobe. Contacted by lab, WBC 26. this was last measured 10/22 at which time it was 10. Will obtain CT of chest. Patient denies any cough, she is an active smoker and smoked for several years. D-dimer still pending. Lactate 1.8. Patient has received 1L of fluid thus far. Troponin is less than 0.02. His symptoms again yesterday, I do not feel that this needs to be repeated. Consulted with radiologist regarding CT findings. She advised she needs upper lobe groundglass lesions consistent with emphysema. Also notes changes lower concerning for infection versus inflammatory or allergic etiology. Advises no focal abnormality. Discussed these findings with Dr. Mann. We reviewed the CT scan. Discussed the patient's lactate and white count. We decided upon treating patient with antibiotics and steroids. Encourage smoking cessation. This combination will cover both infectious source as well as possible inflammatory source. This is likely the source of the chest discomfort and shortness of breath. Patient has an appointment with primary care on Sunday. She is given strict return precautions. All of her questions and concerns were addressed, she is in agreement this plan. [facility] General Mode of arrival: ambulatory. Date/Time Provider Initiated Documentation: 11/01/18 10:47. Limitations to Documentation: no limitations. Information obtained by: patient and RN notes reviewed. History of Present Illness 63 year old F presents to the emergency department with the chief complaint of Chest pain, described as moderate, with intensity rated at 6. Quality is described as other (heavy and pressure), and is localized to the chest. Patient reports no radiation. Patient started experiencing this month(s) and it has been intermittent and now resolved. Immobilization improves symptom(s), Movement worsens symptoms (notes it more when at work, can happen when at rest) . Patient notes chest pain, shortness of breath (when havind symptoms, currently asymptomatic) and weakness; denies confusion, cough, diaphoresis, fever/chills, headaches, loss of appetite, malaise, nausea/vomiting, rash and syncope. Patient did receive the following treatments prior to arrival, none Related Data Home Medications Medication Instructions Recorded Confirmed sertraline 100 mg PO DAILY 07/12/18 10/25/18 trazodone 50 mg PO HS PRN 07/12/18 10/25/18 albuterol sulfate HFA 90 2 puff IH Q6H PRN 10/25/18 10/25/18 mcg/actuation aerosol inhaler bisacodyl 5 mg tablet,delayed 5 mg PO ONCE #4 tab 10/25/18 10/25/18 release loratadine 10 mg tablet 10 mg PO DAILY 10/25/18 10/25/18 omeprazole 20 mg capsule,delayed 20 mg PO DAILY 10/25/18 10/25/18 release polyethylene glycol 3350 17 gram 255 g PO DAILY #15 each 10/25/18 10/25/18 oral powder packet azithromycin See Rx Instructions .ROUTE 11/01/18 .COMPLEX #6 tab prednisone 40 mg PO DAILY #10 tab 11/01/18 Previous Rx's Medication Instructions Recorded bisacodyl 5 mg tablet,delayed 5 mg PO ONCE #4 tab 10/25/18 release polyethylene glycol 3350 17 gram 255 g PO DAILY #15 each 10/25/18 oral powder packet azithromycin See Rx Instructions .ROUTE 11/01/18 .COMPLEX #6 tab prednisone 40 mg PO DAILY #10 tab 11/01/18 Allergies Allergy/AdvReac Type Severity Reaction Status Date / Time peanut Allergy Severe Anaphylaxsi Verified 10/25/18 10:59 s Sulfa (Sulfonamide Allergy Anaphylaxsi Verified 10/25/18 10:59 Antibiotics) s General YONATAN: 4 Review of Systems Constitutional Reports as per HPI, Denies chills, Denies fever(s), Denies headache(s), Denies lethargy and Denies poor appetite Eyes Denies change in vision ENT Denies dizziness and Denies headache(s) Cardiovascular Reports as per HPI, Reports chest pain (intermittent, since resolved), Denies syncope, Denies rapid heart rate, Denies pedal edema, Denies irregular heart rhythm, Denies lightheadedness, Denies radiating jaw, neck or arm pain, Denies palpitations, Denies dyspnea and Reports dyspnea on exertion Respiratory Reports as per HPI, Denies chest congestion, Denies cough, Denies hemoptysis, Denies pain on inspiration, Denies pain with cough, Denies dyspnea, Reports dyspnea on exertion and Denies wheezing Gastrointestinal Reports as per HPI, Denies abdominal pain, Denies diarrhea, Denies nausea and Denies vomiting Musculoskeletal Reports as per HPI and Denies back pain Integumentary/Breasts Reports as per HPI and Denies rash Neurologic Reports as per HPI, Denies dizziness, Denies syncope and Denies headache(s) Endocrine Denies palpitations Allergic/Immunologic Denies wheezing [facility] Medical History Blood in stool (Acute) Chest pain (Acute) Anxiety (Chronic) COPD (chronic obstructive pulmonary disease) (Chronic) GERD (gastroesophageal reflux disease) (Chronic) Leukocytosis (Chronic) Tobacco abuse (Chronic) Alcohol abuse, in remission (Inactive) Social History Smoking/Tobacco Use Status: Current every day Tobacco Type: cigarettes Alcohol Intake: former Year quit: 2016 Drug use: Never Do you feel safe at home: Yes Do you feel safe in your relationship?: Yes Exam Const General: cooperative, healthy appearing, comfortable, no acute distress and well developed Nutritional Appearance: average body habitus and well nourished Orientation: alert, awake and oriented x3 HENMT Head: normal to inspection Ears: hearing grossly normal bilaterally Mouth: moist mucous membranes Chest Chest: normal inspection of the chest, normal palpation of entire chest wall and no crepitus Resp Effort & Inspection: normal respiratory effort, able to speak in complete sentences and no respiratory distress Auscultation: clear to auscultation bilaterally, no rales, no rhonchi and no wheezes Cardio Rate: regular rate Rhythm: regular rhythm Heart Sounds: S1 normal and S2 normal GI Inspection: normal to inspection, no edema and non-distended Palpation: soft, no hepatosplenomegaly, not firm, no guarding, not rigid and nontender Auscultation: normal bowel sounds Back/Spine/Pelvis Back: no CVA tenderness Thoracic/Lumbar Spine: thoracic and lumbar spine normal to inspection Skin General skin exam: no rashes or lesions noted Trauma: no lacerations or abrasions Neuro General: alert, awake and oriented x3 Cognition: normal cognition Speech: speech normal Gait: normal gait Extrem General: normal to inspection, normal capillary refill, no pedal edema, no calf tenderness and normal gait Psych Appearance: grossly normal and well kempt Mental Status: mental status grossly normal Speech and Movement: speech and movement normal
[2018-11-01 11:21] LABS: Abs Immature Grans 0.11 k/cumm (0.0-0.09); Basophils % 0.2; Eosinophils % 0.5; HGB 14.2 g/dL (12.0-15.5); Immature Grans % 0.4; Lymphocytes % 16.1; Mean Corp. HGB Concentration 33.8 g/dL (32.0-36.0); Mean Corpuscular Hemoglobin 31.6 pg (27.0-33.0); Mean Corpuscular Volume 93.3 fL (80-95); Mean Platelet Volume 10.2 fL (8.0-11.0); Monocytes % 1.4; Neutrophils % 81.4; Platelet Count 386 x1000/uL (130-400); RBC Distribution Width 13.7 % (11.7-14.6)
--- NOTE | 2018-11-01 11:31 | DI.RAD_ITS ---
SYMPTOMS/DIAGNOSIS: CHEST PAIN Comparison is made with [id number]. The cardiac and mediastinal contours have a normal appearance. The lungs appear clear. There are old left lateral rib fractures. There is mild hyperinflation. There are mild degenerative changes in the spine. IMPRESSION: No acute abnormality.
[2018-11-01 11:34] LABS: Absolute Basophil Count 0.05 k/cumm (0.0-0.2); Absolute Eosinophil Count 0.13 k/cumm (0.0-0.7); Absolute Monocyte Count 0.37 k/cumm (0.11-0.7); Absolute Neutrophil Count 21.24 k/cumm (1.2-6.7); Diff Comment Diff Reviewed; RBC Morphology Normal; White Blood Cell Count 26.09 k/cumm (4.4-10.8)
[2018-11-01 11:38] LABS: ALT 30 U/L (12-78); AST 28 U/L (15-37); Albumin 4.2 g/dL (3.4-5.0); Alkaline Phosphatase 75 U/L (46-116); Anion Gap 9.8 mmol/L (3-11); BUN 12 mg/dL (7-18); Bilirubin, Total 0.3 mg/dL (0.2-1.0); CO2 28.2 mmol/L (21.0-32.0); CREATININE 0.68 mg/dL (0.55-1.02); Calcium 9.4 mg/dL (8.5-10.1); Chloride 101 mmol/L (98-107); Glucose 110 mg/dL (70-100); Magnesium 1.8 mg/dL (1.8-2.4); Potassium 3.6 mmol/L (3.5-5.1); Sodium 139 mmol/L (136-145); Total Protein 7.8 g/dL (6.4-8.2)
[2018-11-01 11:39] LABS: Troponin I < 0.02 ng/mL (0.00-0.06)
[2018-11-01 11:45] LABS: INR 0.9 (0.9-1.1); PTT Activated 25.2 sec (21.0-31.4); Prothrombin Time 9.3 sec (9.3-11.0)
[2018-11-01] MEDS: Normal Saline 1,000 ML 1000 ML IV (11:45)
--- NOTE | 2018-11-01 11:54 | DI.CT_ITS ---
SYMPTOMS/DIAGNOSIS: LEUKOCYTOSIS, CHEST PAIN, SHORTNESS OF BREATH WITH EXERTION CHEST CT FOR PULMONARY EMBOLISM: CT angiography was performed with multi slice acquisition and multi planar and 3D reconstruction. The pulmonary arteries and aorta are well opacified with IV contrast and no pulmonary emboli or aortic dissection is seen. There are no pleural or pericardial effusions. There is no hilar or mediastinal adenopathy. There are changes of mild central lobular emphysema. There are also mildly increased interstitial markings in the upper lobes. There are bilateral ground-glass opacities, which are greater peripherally. The lower lobes show some motion but appear clear. No bony abnormalities are seen. The visualized portions of the upper abdomen are unremarkable. IMPRESSION: Bilateral upper lobe ground-glass opacities could represent pneumonitis. There are mild underlying emphysematous changes in the upper lobes. No pulmonary emboli are seen.
[2018-11-01 11:58] LABS: Lactate-non-spesis 1.8 mmol/l (0.6-1.4)
[2018-11-01 12:00] LABS: D-Dimer 675 ng/mlFEU (<500)
[2018-11-01] MEDS: Omnipaque 350 MG/ML 100 ML BTL IJ (12:13)
== END 2018-11-01 14:09 | disposition home or self-care (01) ==
PROVIDERS: Emergency Provider Physician Assistant; PCP Nurse Practitioner Family
DX: J18.9 Pneumonia, unspecified organism (principal); F17.210 Nicotine dependence, cigarettes, uncomplicated; J44.9 Chronic obstructive pulmonary disease, unspecified
CPT/HCPCS: 36415; 71275; 80053; 93005; 96360; 96361; 99285; 71046; 83605; 83735; 84484; 85025; 85379; 85610; 85730; 93010; 99284; J3490

== ENCOUNTER 2018-11-13 00:56 | Outpatient (CLI) | payer OTHER, SELFPAY ==
--- NOTE | 2018-11-13 08:15 | MERGE_ITS ---
*[facility]* *[facility]* [address] [place] [address] Date of study: 11/13/2018 Transthoracic Echocardiography M-mode, complete 2D, complete spectral Doppler, and color Doppler *STUDY CONCLUSIONS* Summary: 1. Left ventricle: The cavity size was normal. Wall thickness was normal. Systolic function was normal. The estimated ejection fraction was 60-65%. Wall motion was normal; there were no regional wall motion abnormalities. Diastolic parameters were normal. 2. Right ventricle: The cavity size was normal. Wall thickness was normal. Systolic function was normal. 3. Pulmonary arteries: Pulmonary systolic pressure was mildly increased, in the range of 35mm Hg to 40mm Hg. *PATIENT PRESENTATION* Height: 175.3cm ((69in) ) S/D Pressure: 112 / 63 Weight: 65.8kg ((144.7lb) ) BSA: 1.79m^2 Test start time: 08:15 AM. Test stop time: 09:15 AM. PERFORMING Unknown ORDERING Meme Brown Aprn REFERRING Meme Brown Aprn PERFORMING [facility] [employer] WORK[employer] RT Isabell Ba)(KORTNEY)TATYANA *PROCEDURE DATA* Procedure information: The patient was identified by two identifiers. This study was interpreted by [facility]. Pertinent images and digital data are archived for permanent storage and are available for subsequent review. No prior study was available for comparison. Study status: Routine. Transthoracic echocardiography. M-mode, complete 2D, complete spectral Doppler, and color Doppler. A Transthoracic Echocardiogram was performed. Scanning was performed from the parasternal, apical, subcostal, and suprasternal notch acoustic windows. Images were obtained using an [id number] cardiac ultrasound machine. Image quality was adequate. Study completion: The patient tolerated the procedure well. There were no complications. History: PMH: Chest pain r07.9. *CARDIAC ANATOMY* Left ventricle: The cavity size was normal. Wall thickness was normal. Systolic function was normal. The estimated ejection fraction was 60-65%. Wall motion was normal; there were no regional wall motion abnormalities. Diastolic parameters were normal. Aortic valve: Trileaflet; normal thickness leaflets. Mobility was not restricted. Doppler: Transvalvular velocity was within the normal range. There was no stenosis. There was no significant regurgitation. VTI ratio of LVOT to aortic valve: 0.59. Valve area (VTI): 1.8cm^2. Indexed valve area (VTI): 1cm^2/m^2. Peak velocity ratio of LVOT to aortic valve: 0.66. Valve area (Vmax): 2.1cm^2. Indexed valve area (Vmax): 1.1cm^2/m^2. Mean velocity ratio of LVOT to aortic valve: 0.57. Valve area (Vmean): 1.8cm^2. Indexed valve area (Vmean): 1cm^2/m^2. Mean gradient (S): 4.6mm Hg. Peak gradient (S): 7.5mm Hg. Aorta: Aortic root: The aortic root was normal in size. Ascending aorta: The ascending aorta was normal in size. Mitral valve: Structurally normal valve. Mobility was not restricted. Doppler: Transvalvular velocity was within the normal range. There was no evidence for stenosis. There was trivial regurgitation. Valve area by pressure half-time: 4.2cm^2. Indexed valve area by pressure half-time: 2.3cm^2/m^2. Peak gradient (D): 2.5mm Hg. Left atrium: The atrium was normal in size. Right ventricle: The cavity size was normal. Wall thickness was normal. Systolic function was normal. Pulmonic valve: Doppler: Transvalvular velocity was within the normal range. There was no evidence for stenosis. There was no significant regurgitation. Tricuspid valve: Structurally normal valve. Doppler: Transvalvular velocity was within the normal range. There was no evidence for stenosis. There was mild regurgitation. Pulmonary artery: Pulmonary systolic pressure was mildly increased, in the range of 35mm Hg to 40mm Hg. Right atrium: The atrium was normal in size. Pericardium: There was no pericardial effusion. Systemic veins: Inferior vena cava: Well visualized. The vessel was patent and normal in size. The respirophasic diameter changes were in the normal range (greater than or equal to 50%). Baseline ECG: Normal sinus rhythm. Measurements Left ventricle Value Reference LV ID, ED, PLAX 4.5 cm 3.5 - 6.0 LV ID, ES, PLAX 2.6 cm 2.1 - 4.0 LV PW thickness, ED, PLAX 1.0 cm LV end-diastolic volume, 1-p A2C 85 ml LV ejection fraction, 1-p A2C 70 % LV end-diastolic volume, 1-p A4C 66 ml LV ejection fraction, 1-p A4C 67 % LV e', lateral 0.09 m/sec LV E/e', lateral 9 LV e', medial 0.114 m/sec LV E/e', medial 7 LV e', average 0.102 m/sec LV E/e', average 8 Ventricular septum Value Reference IVS thickness, ED, PLAX 0.8 cm LVOT Value Reference LVOT ID, A-P 2.0 cm LVOT area 3.1 cm^2 LVOT peak velocity, S 0.9 m/sec LVOT mean velocity, S 0.59 m/sec LVOT VTI, S 20.2 cm LVOT peak gradient, S 3.3 mm Hg LVOT mean gradient, S 1.6 mm Hg Stroke volume (SV), LVOT DP 63 ml Stroke index (SV/bsa), LVOT DP 35 ml/m^2 Aortic valve Value Reference Aortic valve peak velocity, S 1.4 m/sec Aortic valve mean velocity, S 1.03 m/sec Aortic valve VTI, S 34.0 cm Aortic mean gradient, S 4.6 mm Hg Aortic peak gradient, S 7.5 mm Hg VTI ratio, LVOT/AV 0.59 Aortic valve area, VTI 1.8 cm^2 Velocity ratio, peak, LVOT/AV 0.66 Aortic valve area, peak velocity 2.1 cm^2 Velocity ratio, mean, LVOT/AV 0.57 Aortic valve area, mean velocity 1.8 cm^2 Aortic valve area/bsa, mean velocity 1 cm^2/m^2 Aorta Value Reference Aortic root ID, ED 2.9 cm Ascending aorta ID, A-P, S 3.3 cm Left atrium Value Reference LA ID, A-P, ES 2.4 cm LA ID/bsa, A-P 1.3 cm/m^2 <=2.2 LA area, ES, A4C 17.3 cm^2 8.8 - 23.4 LA area, ES, A2C 16 cm^2 LA volume/bsa, ES, 1-p A4C 29 ml/m^2 LA volume, ES, 2-p 44 ml LA volume/bsa, ES, 2-p 25 ml/m^2 LA/aortic root ratio 0.83 Mitral valve Value Reference Mitral E-wave peak velocity 0.79 m/sec Mitral A-wave peak velocity 0.75 m/sec Mitral deceleration time 181 ms 150 - 230 Mitral pressure half-time 53 ms Mitral peak gradient, D 2.5 mm Hg Mitral E/A ratio, peak 1.05 Mitral valve area, PHT, DP 4.2 cm^2 Pulmonary veins Value Reference Pulmonary vein peak velocity, S 0.78 m/sec Pulmonary vein peak velocity, D 0.56 m/sec Pulmonary vein velocity ratio, peak, 1.38 S/D Pulmonary vein A-wave reversal peak 0.3 m/sec velocity Tricuspid valve Value Reference Tricuspid regurg peak velocity 2.2 m/sec Tricuspid peak RV-RA gradient 18.8 mm Hg Right atrium Value Reference RA area, ES, A4C 12.9 cm^2 8.3 - 19.5 Legend: (L) and (H) melani values outside specified reference range. I have personally reviewed the images and have reviewed and edited the reported findings. Electronically signed by Zaheer Ruiz 11/13/2018 10:17
== END 2018-11-13 01:16 ==
PROVIDERS: PCP Nurse Practitioner Family; Visit Provider Nurse Practitioner Family
DX: R07.9 Chest pain, unspecified (principal); J44.9 Chronic obstructive pulmonary disease, unspecified
CPT/HCPCS: 93306

== ENCOUNTER 2018-11-15 01:14 | Outpatient (CLI) | payer OTHER, SELFPAY ==
--- NOTE | 2018-11-15 08:30 | ETT_ITS ---
*[facility]* *[facility]* [address] [place] [address] Stress Electrocardiography Daren protocol Date of study: 11/15/2018 *PATIENT PRESENTATION* Height: 175.3cm (69in) Blood Pressure: Weight: 65.9kg (145lb) BSA: 1.79m^2 Referring physician: Meme Brown Aprn Ordering physician: Meme Brown Aprn Impressions: Normal study after maximal exercise. Summary: 1. Stress: The target heart rate was achieved. Indication: R07.9. History: REASON FOR TESTING: PATIENT PRESENTED TO THE ER ON 11/01/18 WITH NONRADIATING RIGHT SIDED CHEST PAIN/PRESSURE. PATIENT REPORTS INCREASED FATIGUE AND INTERMITTENT RIGHT SIDED CHEST PRESSURE (OCCASIONALLY WITH SOB) WITH ACTIVITY OVER THE LAST 3-4 MONTHS. SHE REPORTS CHEST PAIN/PRESSURE THAT IS RELEIVED WITH REST. SHE DENIES CHEST PAIN/PRESSURE SOB UPON ARRIVAL TO TESTING TODAY. SIGNIFICANT PAST MEDICAL HISTORY: GERD, ANXIETY. SMOKING STATUS: CURRENT SMOKER. SMOKED 45 YEARS 1 PPD. EXERCISE ROUTINE: DAILY ADL'S. PMH: COPD. Risk factors: Current tobacco use. Dyslipidemia. Cholesterol: 243mg/dl. HDL: 64mg/dl. LDL: 161mg/dl. Triglycerides: 72mg/dl. ALLERGIES: SULFA, PEANUTS. MEDICATIONS: TRAZODONE 50 MG HS PRN, SERTRALINE 100 MG DAILY, LORATADINE 10 MG DAILY, VENTOLIN HFA 90 MCG IH PRN, OMEPRAZOLE 20 MG DAILY, ALEVE 200 MG PRN. Protocol: Daren protocol. Baseline ECG: NORMAL SINUS RHYTHM. HR 78 BPM. Stress protocol: + +---+ + !Stage !HR !BP (mmHg) ! + +---+ + !Baseline supine !78 !108/60 (76) ! + +---+ + !Baseline standing !88 !100/60 (73) ! + +---+ + !Stage I; 1.7mph, 10degrees; 3 min!138!180/90 (120)! + +---+ + !Recovery; 1 min !122!180/60 (100)! + +---+ + !Recovery; 3 min !85 !130/70 (90) ! + +---+ + !Recovery; 6 min !90 !110/60 (77) ! + +---+ + * Stress results: STRESS TEST ENDED IN 4 MINUTES 55 SECONDS DUE TO FATIGUE AND SOB. NORMAL HEART RATE AND BLOOD PRESSURE. MAX HEART RATE: 146. 91 % OF TARGET HEART RATE ACHIEVED. MET'S: 6.93. RARE PAC AND PVC. NO ANGINA. NO SIGNIFICANT ST SEGMENT CHANGES. MILDLY DIMINISHED FUNCTIONAL CAPACITY: Maximal heart rate during stress was 146bpm (92% of maximal predicted heart rate). The maximal predicted heart rate was 159bpm. The target heart rate was achieved. The rate-pressure product for the peak heart rate and blood pressure was 53045hf Hg/min. Study data: Mitesh Glasgow MD supervised and was readily available during the procedure. This study was interpreted by [facility]. Study status: Routine. Consent: The risks, benefits, and alternatives to the procedure were explained to the patient and informed consent was obtained. Procedure: Initial setup. A baseline ECG was recorded. Surface ECG leads and manual cuff blood pressure measurements were monitored. Heart sounds: Normal. Lung sounds: Normal. Treadmill exercise testing was performed using the Daren protocol. Study completion: The patient tolerated the procedure well and was discharged from the lab. Discharge: The patient left the laboratory in stable condition. Birthdate: Patient birthdate: 1955. Sex: Gender: female. Study date: Study date: 11/15/2018. Study time: 00:01 AM. Signature Documentation: The Stress ECG portion of this study was interpreted by Mitesh Glasgow MD. Electronically signed by Mitesh Glasgow 11/15/2018 15:10
== END 2018-11-15 01:34 ==
PROVIDERS: PCP Nurse Practitioner Family; Visit Provider Nurse Practitioner Family
DX: R07.9 Chest pain, unspecified (principal); R06.02 Shortness of breath
CPT/HCPCS: 93017

== ENCOUNTER 2018-11-26 06:27 | Day surgery (SDC) | payer OTHER, SELFPAY ==
--- NOTE | 2018-11-26 06:32 | W.PM.HP.N ---
Date of service: 11/26/18 Assessment and Plan (1) Family history of colon cancer requiring screening colonoscopy: Current visit: Yes Status: Acute A\\ 63 year old with extensive family history of colon cancer and occult blood positive here to discuss colonoscopy She complains of fatigue, increased SOB and chest heaviness P\\ Colonoscopy under sedation. Risks, benefits and complications have been reviewed. Complications include but are not limited to bleeding, pain, perforation, missed small lesion/polyp, sore throat, aspiration and adverse reaction to the medications. Questions were entertained and answered to their satisfaction and they wished to proceed. No guarantees were given or implied. (2) Family history of colon cancer: (3) Occult blood positive stool: History of Present Illness Narrative: Ms. Stern is a pleasant 63-year-old female who has a strong family history of colon cancer. She has 2 paternal aunts that were diagnosed with colon cancer in their early to mid 60s. Her father was diagnosed with stage IV colon cancer at age 70. There is also a family history of pancreatic cancer stomach cancer Fallopian tube cancer. She was having colonoscopies every 5 years starting at age 42 until she had a splenic rupture in 2012 due to the colonoscopy. She cannot remember if she ever had polyps. She comes in today to discuss another colonoscopy. She had some occult blood test done which was positive. She is not anemic although has been having fatigue since June of this year. She also complains of some heaviness in her chest. She had an EKG done at the primary care physician's office and is now scheduled for a stress test on October 31 and an echo on November 14. She also feels more short of breath and she did last year. She had extensive blood work done which did not show any significant abnormalities. She denies any unintentional weight loss, changes in bowel habits, melena or hematochezia, pain. She is a former heavy drinker but quit 3 years ago. She does still smoke on a daily basis and is working on trying to quit that. ECHO done after I saw her: Summary: 1. Left ventricle: The cavity size was normal. Wall thickness was normal. Systolic function was normal. The estimated ejection fraction was 60-65%. Wall motion was normal; there were no regional wall motion abnormalities. Diastolic parameters were normal. 2. Right ventricle: The cavity size was normal. Wall thickness was normal. Systolic function was normal. 3. Pulmonary arteries: Pulmonary systolic pressure was mildly increased, in the range of 35mm Hg to 40mm Hg. Stress Test: Impressions: Normal study after maximal exercise. Summary: 1. Stress: The target heart rate was achieved. Review of Systems Cardiovascular Denies chest pain, Denies chest pain at rest, Denies rapid heart rate, Denies irregular heart rhythm, Denies dyspnea and Denies dyspnea on exertion Respiratory Denies cough, Denies dyspnea and Denies dyspnea on exertion PFSH Medical History Blood in stool (Acute) Chest pain (Acute) Anxiety (Chronic) COPD (chronic obstructive pulmonary disease) (Chronic) GERD (gastroesophageal reflux disease) (Chronic) Leukocytosis (Chronic) Tobacco abuse (Chronic) Alcohol abuse, in remission (Inactive) Surgical History History of colonoscopy (Chronic) Family History Father Colon cancer Paternal Aunt Colon cancer Paternal Aunt Colon cancer Mother Fallopian tube malignant neoplasm Maternal Uncle Stomach cancer Other Pancreatic cancer Social History Smoking/Tobacco Use Status: Current every day Tobacco Type: cigarettes Smoking cigarettes per day: 10 Alcohol Intake: former Year quit: 2015 Drug use: Never Substance use type: does not use Do you feel safe at home: Yes Meds Home Medications Medication Instructions Recorded Confirmed Type sertraline 100 mg PO DAILY 07/12/18 11/25/18 History trazodone 50 mg PO HS PRN 07/12/18 11/25/18 History albuterol sulfate HFA 90 2 puff IH Q6H PRN 10/25/18 11/25/18 History mcg/actuation aerosol inhaler bisacodyl 5 mg tablet,delayed 5 mg PO ONCE #4 tab 10/25/18 10/25/18 Rx release loratadine 10 mg tablet 10 mg PO DAILY 10/25/18 11/25/18 History omeprazole 20 mg capsule,delayed 20 mg PO DAILY 10/25/18 11/25/18 History release polyethylene glycol 3350 17 gram 255 g PO DAILY #15 each 10/25/18 10/25/18 Rx oral powder packet Allergies Allergy/AdvReac Type Severity Reaction Status Date / Time peanut Allergy Severe Anaphylaxsi Verified 11/25/18 11:10 s Sulfa (Sulfonamide Allergy Anaphylaxsi Verified 11/25/18 11:10 Antibiotics) s Exam HENMT Head: normocephalic and atraumatic Resp Effort & Inspection: normal respiratory effort Auscultation: clear to auscultation bilaterally Cardio Rate: regular rate Rhythm: regular rhythm Heart Sounds: no gallops, no murmurs and no rubs
--- NOTE | 2018-11-26 06:39 | W.COLOREPORT ---
Date of service: 11/26/18 Time of Service: : Colonoscopy Report Date of procedure: 11/26/18 Pre-op diagnosis general: Family hx of colon cancer, occult blood, colon cancer screening Post-op diagnosis procedure note: other (Multiple polyps and sigmoid diverticulosis) Procedure: Colonoscopy with polypectomy Surgeon: Magda Connell Anesthesia proc note operative: other (General/ ASA 2/Mikhail Snider, LORENZO) Estimated blood loss (mL): 3 Pathology: other (Sigmoid polyps X6, rectal polyps x3) Complications: None Disposition: same day Indications: Mrs. Stern is a pleasant 63 year old female with positive occult blood and a family history of colon cancer who was seen in the office for a colonoscopy. Risks, benefits and complications have been reviewed. Complications include but are not limited to bleeding, pain, perforation, missed small lesion/polyp, sore throat, aspiration and adverse reaction to the medications. Questions were entertained and answered to their satisfaction and they wished to proceed. No guarantees were given or implied. Prep: Miralax/Dulcolax Procedure Start Time: Procedure End Time: : Retraction Time: 28 minutes Findings: Multiple small (<1cm) flat polyps in the sigmoid and rectum. Moderate sigmoid diverticula Procedure Description: After informed consent was obtained the patient was taken to the procedure room and placed in a left decubitous position. Monitors were applied and a time out was done. The patients name, date of , procedure, allergies to medications and metal in their body was reviewed. The patient was then sedated. Once sedated and comfortable a rectal exam was done. External exam was normal. Internal exam revealed a normal sphincter tone and no palpable masses. The scope was then introduced and retro-flexed. Small internal hemorrhoids were identified. There were no masses. A couple of flat polyps were noted. The scope was then advanced to the cecum with some difficulty due to tortuousity. The TI and appendiceal orifice were identified. The prep was good. The scope was then slowly retracted over 28 minutes back into the rectum. Polyps were removed with cold forceps x6 in the sigmoid colon and x3 in the rectum. Moderate Dicverticulosis was also noted in the sigmoid colon. The scope was removed and the patient was woken up and taken back to Same day surgery in stable condition. The patient tolerated the procedure well and there were no immediate complications. Follow up: The patient should follow up in 3-5 years unless they develop changes in bowel habits or other new gastrointestinal complaints.
--- NOTE | 2018-11-26 06:41 | W.PM.DSUDISC ---
Discharge Plan Disposition Patient Disposition: HOME Condition: Good Discharge Details Reason For Visit: Colonoscopy Attending Provider: Magda Connell Primary Care Provider: Meme Brown Home Meds and New Rx's Prescriptions: Continued omeprazole 20 mg capsule,delayed release(DR/EC) 20 mg PO DAILY RF: 0 albuterol sulfate [Ventolin HFA] 90 mcg/actuation HFA aerosol inhaler 2 puff IH Q6H PRNRF: 0 loratadine [Claritin] 10 mg tablet 10 mg PO DAILY RF: 0 trazodone 50 mg Tablet 50 mg PO HS PRNRF: 0 sertraline 100 mg Tablet 100 mg PO DAILY RF: 0 Discontinued bisacodyl [Dulcolax (bisacodyl)] 5 mg tablet,delayed release (DR/EC) 5 mg PO ONCE Qty: 4 RF: 0 polyethylene glycol 3350 17 gram powder in packet 255 g PO DAILY Qty: 15 RF: 0 Discharge Instructions Instructions: Colonoscopy (DC), Diverticulosis (DC), Colorectal Polyps (DC) Additional Instructions: Findings: multiple small polyps Diverticulosis Follow up: 3-5 years Please call if you develop: fevers >101.5 Nausea or Vomiting Abdominal pain that is not transient DAY SURGERY UNIT POST COLONOSCOPY INSTRUCTIONS 1. Because there will be medication in your system for the next 24 hours, you may feel a little sleepy. Your coordination will be affected. Therefore: a. Do not drive or operate dangerous equipment for 24 hours. b. Do not drink alcohol beverages for 24 hours (not even beer). c. Plan to go home and rest for the day. 2. Generally there are no restrictions on your activity after a day or so has gone by, but you may feel a bit fatigued for a few days. 3 After you arrive home you may have a light meal and return to a normal diet as you can tolerate it without feeling sick to your stomach. 4. After surgery, you may feel pain or discomfort. This should be only transient, but if it persists please contact your doctor. 5. If there are any questions regarding the findings of your procedure, please feel free to contact your doctor. 6. If you are unable to contact your doctor with a problem, contact the hospital at [phone]. 7. Continue all your regular medications unless directed otherwise. I understand the above instructions and have no questions. Signature of Patient or Responsible Adult Escort Date/Time Name of Responsible Adult Escort Signature of Nurse Date/Time Activity:: Activity as Tolerated Diet:: High Fiber diet Discharge Orders Discharge Orders: Discharge Order (Routine); Ordered 11/26/18 Ordered By: Magda Connell DS: Diagnosis Discharge Diagnosis (1) Family history of colon cancer requiring screening colonoscopy: Status: Acute (2) Diverticulosis: Status: Acute (3) Colorectal polyp detected on colonoscopy: Status: Acute (4) S/P colonoscopy: Status: Acute
[2018-11-26 06:52] VITALS: BP 106/68; PULSE 90; RESP 16; TEMP 36.3; O2SAT 97
[2018-11-26] MEDS: Lactated Ringers 1,000 ML 80 ML IV (07:07)
--- NOTE | 2018-11-26 07:55 | BOWEL_PTH ---
PATIENT: Cathie Stern LOC: [facility] U#:[id number] AGE/SX: 63/F ROOM: RE11/26/[address]: Magda Connell MD : [id number] BED: DIS: 11/26/2018 SPEC #: [id number] RECD: 11/26/18 12:49 STATUS: MANJINDER REQ #: [id number] [place]: 11/26/18 07:[address]: Magda Connell DEPT: Surgical Specimen RECD BY: Heavenly Voss ENTERED: 11/26/18 12:49 SP TYPE: Bowel OTHR DR: Meme Brown Tissues: 1 - BIOPSY BOWEL 2 - BIOPSY BOWEL Procedures: GROSS AND MICRO LEVEL 4 Comments: [id number]
[2018-11-26 08:54] VITALS: BP 105/64; PULSE 70; RESP 16; TEMP 35.5; O2SAT 98
== END 2018-11-26 09:34 | disposition home or self-care (01) ==
PROVIDERS: PCP Nurse Practitioner Family; Visit Provider Surgery
PROC: 0DJD8ZZ Inspection of Lower Intestinal Tract, Via Natural or Artificial Opening Endoscopic (ICD-10-PCS; CPT 45378; principal; 2018-11-26 07:30)
DX: Z12.11 Encounter for screening for malignant neoplasm of colon (principal); Z80.0 Family history of malignant neoplasm of digestive organs; K63.5 Polyp of colon; K62.1 Rectal polyp; K57.30 Diverticulosis of large intestine without perforation or abscess without bleeding; K64.8 Other hemorrhoids; Q43.8 Other specified congenital malformations of intestine
CPT/HCPCS: 45380; 88305; NC

== ENCOUNTER 2018-12-18 14:40 | Outpatient (CLI) | payer OTHER, SELFPAY | END 2018-12-18 15:00 | PROVIDERS: PCP Nurse Practitioner Family; Visit Provider Nurse Practitioner Family | DX: R69 Illness, unspecified (principal) ==

== ENCOUNTER 2019-01-13 00:51 | Outpatient (CLI) | payer OTHER, SELFPAY ==
--- NOTE | 2019-01-13 13:00 | DI.CTLCSR_ITS ---
SYMPTOMS/DIAGNOSIS: TOBACCO USE, Z72.[address] FOR LUNG CANCER SCREENING: Comparison is made with chest CT for pulmonary embolism dated [id number]. The heart size is normal. There are mild coronary artery and aortic calcifications. The aorta is normal in diameter. No pleural or pericardial effusions are seen. No mass or adenopathy is identified. The previously noted infiltrates have cleared. There are mild underlying emphysematous changes. A few tiny calcifications are seen in the left lower lobe. No suspicious pulmonary nodules are identified. IMPRESSION: Lung RADS Category I, negative annual low dose screening CT is recommended.
== END 2019-01-13 01:11 ==
PROVIDERS: PCP Nurse Practitioner Family; Visit Provider Nurse Practitioner Family
DX: Z12.2 Encounter for screening for malignant neoplasm of respiratory organs (principal); J43.9 Emphysema, unspecified; Z72.0 Tobacco use; I70.0 Atherosclerosis of aorta; R91.8 Other nonspecific abnormal finding of lung field
CPT/HCPCS: G0297

== ENCOUNTER 2019-04-17 03:30 | Outpatient (CLI) | payer OTHER, SELFPAY ==
[2019-04-17] MEDS: Inhaler, Assist Device 1 EACH MC (10:54)
[2019-04-17] MEDS: Albuterol HFA 18 GM 200 PUFF INH IH (10:55)
--- NOTE | 2019-04-17 11:22 | PFT_ITS ---
PULMONARY FUNCTION TEST REPORT DATE OF SERVICE: April 17, 2019 REQUESTING PROVIDER: Meme Brown APRN Spirometry shows severe obstructive airways disease with significant bronchodilator response. Lung volumes show no evidence of restriction. There is mild hyperinflation and air trapping. Diffusion capacity severely reduced, even when corrected to alveolar volume. Airways resistance elevated. IMPRESSION: Severe obstructive airways disease with significant bronchodilator response. This is associated with mild hyperinflation and air trapping and severe diffusion defect. Clinical correlation recommended. JO/rai D/
== END 2019-04-17 03:50 ==
PROVIDERS: PCP Nurse Practitioner Family; Visit Provider Nurse Practitioner Family
DX: I27.20 Pulmonary hypertension, unspecified (principal); F17.210 Nicotine dependence, cigarettes, uncomplicated
CPT/HCPCS: 94060; 94150; 94726; 94729

== ENCOUNTER 2019-07-19 08:15 | Emergency (ER) | payer OTHER, SELFPAY ==
[2019-07-19] VITALS (50 sets, daily range): BP systolic 90–155; BP diastolic 37–93; PULSE 79–107; RESP 1–27; TEMP 36.6; O2SAT 90–100
--- NOTE | 2019-07-19 08:30 | ED.GENADUL_ITS ---
Discharge Plan Disposition Patient Disposition: HOME Condition: Improving Discharge Details Chief Complaint: Chest Pain Clinical Impression: Acute exacerbation of chronic obstructive pulmonary disease Primary Care Provider: Meme Brown ED Provider: Kenia Guevara Home Meds and New Rx's Prescriptions: New ipratropium-albuterol 0.5 mg-3 mg(2.5 mg base)/3 mL solution for nebulization 3 ml IH Q6H PRN (Reason: shortness of breath or wheezing) Qty: 15 RF: 0 prednisone 20 mg tablet See Rx Instructions .ROUTE .COMPLEX Qty: 12 RF: 0 doxycycline hyclate 100 mg tablet 100 mg PO BID 7 Days Qty: 14 RF: 0 Continued omeprazole 20 mg capsule,delayed release(DR/EC) 20 mg PO BID RF: 0 albuterol sulfate [Ventolin HFA] 90 mcg/actuation HFA aerosol inhaler 2 puff IH Q6H PRNRF: 0 loratadine [Claritin] 10 mg tablet 10 mg PO DAILY PRNRF: 0 sertraline 100 mg Tablet 100 mg PO DAILY RF: 0 Discharge Instructions Instructions: COPD (Chronic Obstructive Pulmonary Disease) (ED) Additional Instructions: Take the steroids until finished. Use the Symbicort inhaler twice daily. Use the albuterol inhaler and nebulizer machine as needed and directed. If you have no improvement or worsening of symptoms in the next several days, you can start the antibiotics. Call your primary care doctor's office on Sunday to schedule a follow-up appointment for reevaluation within the next week. Follow-up with the respiratory therapy department for pulmonary rehab. Return to the emergency department if you develop any significant worsening or concerning symptoms. Discharge Data Discharge Physician: Kenia Guevara Medical Decision Making 62-year-old female with a history of COPD, current tobacco smoker, anxiety, GERD presents with cough and cold symptoms for the past 4 days, worse with chest pressure this morning. She admits to cough with green and yellow sputum. Denies any known fever and has had a slightly decreased appetite. States her symptoms are improved at this time. EKG on arrival notes a rate of 91, sinus with no acute ST ischemic changes. She has diminished breath sounds with scattered wheezing throughout. Differential diagnosis most likely consistent with COPD, bronchitis, versus pneumonia or other acute viral process. History and presentation not consistent with ACS, dissection or PE. Considering patient's age and history, will obtain a cardiac work-up, chest x-ray and give a DuoNeb and Solu-Medrol and reassess. 0940 --labs and imaging reviewed. White blood cell count 10.9. Magnesium 1.6. Troponin negative. Chest x-ray notes findings consistent with COPD but no acute disease. 0950 -- pt reassessed --states she feels slightly better. O2 sat 93% on room air. She has improvement in air movement but increasing wheezing left chest. Will give another albuterol neb and reassess. 1045 -- pt reassessed --states she only feels slightly better. O2 sat 92% when sleeping, increases to 96% awake. She has improved air movement but increase in wheezing throughout. Nurse states that pt is falling asleep during treatments and questions whether she is receiving all of it. Respiratory called to give additional albuterol and will reassess. 1130 -- pt reassessed --states she feels better but would like another neb. Continued improved air movement and wheezing. Will give another neb and reassess. She states she thinks she feels ok to go home. 1205 --patient feels much better and is requesting to go home. Per discussion with respiratory therapy, patient can qualify for pulmonary rehab and would benefit from Symbicort per her recent PFT results in April. She never followed up with her PCP following these results. Patient would also benefit from home nebulizer machine which was provided. Urinalysis obtained due to intermittent dysuria and results negative. She was advised to call her primary care doctor on Sunday for follow-up and to return here with any worsening symptoms. Medical Records Medical records reviewed: Yes I reviewed the patient's medical records. Imaging Data Radiologic Study: Radiologist's impression: XR Chest, 2 Views Exam date and time: 07/19/2019 9:01 AM Age: 64 years old Clinical indication: Other: Cough, shortness of breath, R/O pneumonia TECHNIQUE: Imaging protocol: XR of the chest Views: 2 views. COMPARISON: CR XR CHEST 2V PA LATERAL 11/01/2018 11:29 AM FINDINGS: Lungs: Hyperexpanded lung senior consistent with COPD.. No focal consolidation Pleural space: Unremarkable. No pleural effusion. No pneumothorax. Heart/Mediastinum: Unremarkable. No cardiomegaly. Bones/joints: Unremarkable. IMPRESSION: Hyperexpanded lung senior consistent with COPD. Lab Data Lab results reviewed: Yes I reviewed the patient's lab results. Labs: Laboratory Tests Range/Units 07/19/19 07/19/19 08:25 08:25 WBC (4.4-10.8) k/cumm 10.91 H RBC (4.00-5.20) m/cumm 4.58 Hgb (12.0-15.5) g/dL 14.2 Hct (36.0-46.0) % 41.7 MCV (80-95) fL 91.0 MCH (27.0-33.0) pg 31.0 MCHC (32.0-36.0) g/dL 34.1 RDW (11.7-14.6) % 13.6 Plt Count (130-400) x1000/uL 389 MPV (8.0-11.0) fL 10.4 Immature Gran % % 0.2 Neutrophils % 60.1 Lymphocytes % 25.3 Monocytes % 10.2 Eosinophils % 3.4 Basophils % 0.8 Absolute Neutrophils (1.2-6.7) k/cumm 6.56 Absolute Lymphocytes (1.2-3.4) k/cumm 2.76 Absolute Monocytes (0.11-0.7) k/cumm 1.11 H Absolute Eosinophils (0.0-0.7) k/cumm 0.37 Absolute Basophils (0.0-0.2) k/cumm 0.09 Sodium (136-145) mmol/L 141 Potassium (3.5-5.1) mmol/L 4.0 Chloride (98-107) mmol/L 103 Carbon Dioxide (21.0-32.0) mmol/L 28.9 Anion Gap (3-11) mmol/L 9.1 BUN (7-18) mg/dL 11 Creatinine (0.55-1.02) mg/dL 0.60 Estimated GFR/1.73 m2 (mL/min/1.73m2) >= 60.00 Glucose (74-106) mg/dL 105 Calcium (8.5-10.1) mg/dL 8.4 L Magnesium (1.8-2.4) mg/dL 1.6 L Total Bilirubin (0.2-1.0) mg/dL 0.2 AST (15-37) U/L 23 ALT (14-59) U/L 25 Alkaline Phosphatase (46-116) U/L 72 Troponin I (<0.06) ng/Ml < 0.05 NT-Pro-B Natriuret Pep (<300) pg/mL 88 Total Protein (6.4-8.2) g/dL 7.7 Albumin (3.4-5.0) g/dL 4.0 ECG Data Attestation: I personally reviewed and interpreted this ECG (s) as follows: Interpretation: Rate of 91, sinus, occasional PACs. No acute ST elevation or depression. OH 138. QTc 431. QRS 84. HPI General Mode of arrival: ambulatory . Date/Time Provider Initiated Documentation: 07/19/19 08:18 . Limitations to Documentation: no limitations . Information obtained by: patient . History of Present Illness 64 year old F presents to the emergency department with the chief complaint of cough with yellow/green sputum, shortness of breath, chest tightness, and is localized to the chest. Patient reports no radiation. Patient started experiencing this day(s) (4) and it has been intermittent. Rest improves symptom(s), Other factors that worsen symptoms (shortness of breath, chest tightness worse with exertion) . Patient notes chest pain (tightness; none at present), cough (yellow/green sputum) and shortness of breath (intermittent; none at present); denies fever/chills, loss of appetite, malaise, nausea/vomiting, rash and seizure. Patient did receive the following treatments prior to arrival, other (inhaler w/ some relief; dayquil) Related Data Home Medications Medication Instructions Recorded Confirmed sertraline 100 mg PO DAILY 07/12/18 07/19/19 albuterol sulfate 90 mcg/actuation 2 puff IH Q6H PRN 10/25/18 07/19/19 aerosol inhaler loratadine 10 mg tablet 10 mg PO DAILY PRN 10/25/18 07/19/19 omeprazole 20 mg capsule,delayed 20 mg PO BID 10/25/18 07/19/19 release doxycycline hyclate 100 mg PO BID 7 Days #14 tab 07/19/19 ipratropium-albuterol 3 ml IH Q6H PRN #15 ml 07/19/19 prednisone See Rx Instructions .ROUTE 07/19/19 .COMPLEX #12 tab Previous Rx's Medication Instructions Recorded doxycycline hyclate 100 mg PO BID 7 Days #14 tab 07/19/19 ipratropium-albuterol 3 ml IH Q6H PRN #15 ml 07/19/19 prednisone See Rx Instructions .ROUTE 07/19/19 .COMPLEX #12 tab Allergies Allergy/AdvReac Type Severity Reaction Status Date / Time peanut Allergy Severe Anaphylaxsi Verified 07/19/19 08:25 s Sulfa (Sulfonamide Allergy Anaphylaxsi Verified 07/19/19 08:25 Antibiotics) s General Stated Complaint: Chest Pain YONATAN: 2 Review of Systems All systems reviewed & are unremarkable except as noted in HPI and below Constitutional Constitutional: Reports as per HPI, Denies chills and Denies fever(s) Eyes Eyes: Denies blurry vision ENT Ears, Nose, Mouth, and Throat: Denies dizziness, Denies sore throat and Denies throat swelling Cardiovascular Cardiovascular: Reports chest pain and Reports dyspnea Respiratory Respiratory: Reports cough and Reports dyspnea Gastrointestinal Gastrointestinal: Denies abdominal pain, Denies diarrhea and Denies vomiting Genitourinary Genitourinary: Denies hematuria and Denies dysuria Musculoskeletal Musculoskeletal: Denies back pain and Denies numbness Integumentary/Breasts Skin/Breast: Denies lesions and Denies rash Neurologic Neurologic: Denies dizziness, Denies focal weakness and Denies numbness Allergic/Immunologic Allergic/Immunologic: Denies throat swelling [facility] Medical History Alcohol abuse, in remission (Inactive) Anxiety (Chronic) Blood in stool (Acute) Chest pain (Acute) COPD (chronic obstructive pulmonary disease) (Chronic) GERD (gastroesophageal reflux disease) (Chronic) Leukocytosis (Chronic) Tobacco abuse (Chronic) Surgical History History of colonoscopy (Chronic) Pt states ruptured spleen s/p colonoscopy 2012 requiring ICU stay and two month recovery. History of hammer toe correction (Acute) (right) History of knee surgery (Acute) Torn meniscus repair (left) Family History Father Colon cancer Stage 4 at diagnosis at age 70 Paternal Aunt Colon cancer Paternal Aunt Colon cancer Mother Fallopian tube malignant neoplasm Maternal Uncle Stomach cancer Other Pancreatic cancer Social History Smoking/Tobacco Use Status: Current every day Tobacco Type: cigarettes Alcohol Intake: former Year quit: 2016 Drug use: Never Substance use type: does not use Do you feel safe at home: Yes Do you feel safe in your relationship?: Yes Exam Const General: cooperative, healthy appearing and no acute distress HENMT Head: normal to inspection Face and sinus: normal facial exam Eyes General: appearance normal, both eyes and all related structures EOM: EOM intact bilaterally Neck Neck: normal visual inspection and No submandibular swelling Lymphatic: no lymphadenopathy noted Chest Chest: normal inspection of the chest and no tenderness Resp Effort & Inspection: normal respiratory effort and able to speak in complete sentences Auscultation: diminished lung sounds bilaterally throughout and wheezes scattered wheezes Cardio Rate: regular rate Rhythm: regular rhythm GI Inspection: normal to inspection Palpation: soft, not firm, not rigid and nontender Auscultation: normal bowel sounds Skin General skin exam: no rashes or lesions noted Neuro General: alert, awake and oriented x3 Cognition: normal cognition Speech: speech normal Motor: muscle tone normal throughout Sensory Exam: no sensory deficits noted Extrem General: normal to inspection, full ROM, normal capillary refill, no calf tenderness bilaterally and no edema Psych Appearance: grossly normal Mental Status: mental status grossly normal Speech and Movement: speech and movement normal Affect: normal affect Course Vital Signs Vital signs: Vital Signs Temperature 97.9 F 07/19/19 08:19 Pulse 99 H 07/19/19 08:19 Respiratory Rate 20 07/19/19 08:19 Blood Pressure 155/90 H 07/19/19 08:19 Pulse Oximetry 96 07/19/19 08:19 Temperature 97.9 F 07/19/19 08:19 Temperature Source Skin 07/19/19 08:19 Pulse 99 H 07/19/19 08:19 Respiratory Rate 20 07/19/19 08:26 Respiratory Effort Non-Labored 07/19/19 08:26 Respiratory Depth Normal 07/19/19 08:26 Respiratory Pattern Normal 07/19/19 08:26 Blood Pressure 155/90 H 07/19/19 08:19 Blood Pressure Position Sitting 07/19/19 08:19 Pulse Oximetry 96 07/19/19 08:19 Oxygen Delivery Method Room Air 07/19/19 08:19 Oxygen Flow Rate 0 07/19/19 08:19 Pain Level 6 07/19/19 08:26
[2019-07-19] MEDS: methylPREDNISolone SUCC 125 MG VIAL IVP (08:56)
[2019-07-19] MEDS: Albuterol/Ipratropium 3 ML UPD VIAL UPD ×3 (08:56→11:42)
[2019-07-19 08:57] LABS: Abs Immature Grans 0.02 k/cumm (0.0-0.09); Absolute Basophil Count 0.09 k/cumm (0.0-0.2); Absolute Eosinophil Count 0.37 k/cumm (0.0-0.7); Absolute Lymphocyte Count 2.76 k/cumm (1.2-3.4); Absolute Monocyte Count 1.11 k/cumm (0.11-0.7); Absolute Neutrophil Count 6.56 k/cumm (1.2-6.7); Basophils % 0.8; Eosinophils % 3.4; HCT 41.7 % (36.0-46.0); HGB 14.2 g/dL (12.0-15.5); Immature Grans % 0.2 %; Lymphocytes % 25.3; Mean Corp. HGB Concentration 34.1 g/dL (32.0-36.0); Mean Platelet Volume 10.4 fL (8.0-11.0); Monocytes % 10.2; Neutrophils % 60.1; Platelet Count 389 x1000/uL (130-400); RBC 4.58 m/cumm (4.00-5.20); RBC Distribution Width 13.6 % (11.7-14.6); White Blood Cell Count 10.91 k/cumm (4.4-10.8)
--- NOTE | 2019-07-19 09:01 | DI.RAD_ITS ---
EXAM: XR CHEST 2V PA LATERAL INDICATION: cough, shortness of breath, r/o pneumonia. COMPARISON: CT CHEST LUNG CANCER SCREEN from 01/13/2019 TECHNIQUE: 2D digital imaging was performed. FINDINGS: The heart size is normal. The lungs are hyperinflated consistent with COPD. There are old left rib fractures. No infiltrate, effusion or pneumothorax is seen. IMPRESSION: No acute abnormality.
[2019-07-19 09:16] LABS: ALT 25 U/L (14-59); AST 23 U/L (15-37); Alkaline Phosphatase 72 U/L (46-116); Anion Gap 9.1 mmol/L (3-11); BUN 11 mg/dL (7-18); Bilirubin, Total 0.2 mg/dL (0.2-1.0); CO2 28.9 mmol/L (21.0-32.0); Calcium 8.4 mg/dL (8.5-10.1); Chloride 103 mmol/L (98-107); Glucose 105 mg/dL (74-106); Magnesium 1.6 mg/dL (1.8-2.4); NT-proBNP 88 pg/mL (<300); Sodium 141 mmol/L (136-145); Total Protein 7.7 g/dL (6.4-8.2)
--- NOTE | 2019-07-19 09:16 | DI.VRAD_ITS ---
PROCEDURE INFORMATION: Exam: XR Chest, 2 Views Exam date and time: 07/19/2019 9:01 AM Age: 64 years old Clinical indication: Other: Cough, shortness of breath, R/O pneumonia TECHNIQUE: Imaging protocol: XR of the chest Views: 2 views. COMPARISON: CR XR CHEST 2V PA LATERAL 11/01/2018 11:29 AM FINDINGS: Lungs: Hyperexpanded lung senior consistent with COPD.. No focal consolidation Pleural space: Unremarkable. No pleural effusion. No pneumothorax. Heart/Mediastinum: Unremarkable. No cardiomegaly. Bones/joints: Unremarkable. IMPRESSION: Hyperexpanded lung senior consistent with COPD. Dictated and Authenticated by: Nancy Rasheed MD. Ordering:LUIS Aquino MD
[2019-07-19 09:17] LABS: Troponin I < 0.05 ng/Ml (<0.06)
[2019-07-19] MEDS: Albuterol 2.5 MG/3 ML INH SOLN VIAL 5 MG UPD (10:05)
[2019-07-19] MEDS: MAGNESIUM SULFATE 1 GM/100 ML BAG IVPB (10:05)
[2019-07-19] MEDS: Normal Saline Flush 10 ML SYR IVP ×2 (10:11→11:11)
[2019-07-19] MEDS: Normal Saline 1,000 ML 1000 ML IV (11:11)
[2019-07-19 12:17] LABS: Bilirubin Negative (Negative); Blood Negative (Negative); Clarity Clear (Clear); Glucose Negative (Negative); Ketones Negative (Negative); Leukocyte Esterase Negative (Negative); Nitrite Negative (Negative); Urobilinogen 0.2 EU/dL (Up TO 0.2)
[2019-07-19] MEDS: Budesonide/Formoterol 160/4.5 6 GM 60 PUFF INH IH (13:00)
--- NOTE | 2019-07-19 13:08 | RESPIRATORY ---
07/19/19-Met withPt to discuss her COPD symptoms and how to manage them by introducing her to the [facility] initiative and COPD Action plan. Instructed Pt on MDI and spacer use . Pt was able to demonstrate back to me satisfactory.A Pulm Rehab referral was obtained,as well.
== END 2019-07-19 13:05 | disposition home or self-care (01) ==
PROVIDERS: Emergency Provider Physician Assistant; PCP Nurse Practitioner Family
DX: J44.1 Chronic obstructive pulmonary disease with (acute) exacerbation (principal); R05 Cough; E83.42 Hypomagnesemia; R30.0 Dysuria; F17.210 Nicotine dependence, cigarettes, uncomplicated
CPT/HCPCS: 36415; 80053; 94640; 96361; 96365; 96375; 99285; 71046; 81003; 83735; 83880; 84484; 85025; J2930; J3475; J7613; J7620

== ENCOUNTER 2019-07-20 09:01 | Emergency (ER) | payer OTHER, SELFPAY ==
[2019-07-20] VITALS (32 sets, daily range): BP systolic 98–138; BP diastolic 53–72; PULSE 87–119; RESP 4–30; TEMP 36.7–37; O2SAT 94–108
--- NOTE | 2019-07-20 09:28 | W.ED.GENAD ---
Discharge Plan Disposition Patient Disposition: HOME Condition: Improving Discharge Details Chief Complaint: Chest Pain Clinical Impression: Acute exacerbation of chronic obstructive pulmonary disease Primary Care Provider: Meme Brown ED Provider: Kenia Guevara Home Meds and New Rx's Prescriptions: Continued omeprazole 20 mg capsule,delayed release(DR/EC) 20 mg PO BID RF: 0 albuterol sulfate [Ventolin HFA] 90 mcg/actuation HFA aerosol inhaler 2 puff IH Q6H PRNRF: 0 loratadine [Claritin] 10 mg tablet 10 mg PO DAILY PRNRF: 0 sertraline 100 mg Tablet 100 mg PO DAILY RF: 0 ipratropium-albuterol 0.5 mg-3 mg(2.5 mg base)/3 mL solution for nebulization 3 ml IH Q6H PRN (Reason: shortness of breath or wheezing) Qty: 15 RF: 0 prednisone 20 mg tablet See Rx Instructions .ROUTE .COMPLEX Qty: 12 RF: 0 doxycycline hyclate 100 mg tablet 100 mg PO BID 7 Days Qty: 14 RF: 0 budesonide-formoterol [Symbicort] 160-4.5 mcg/actuation Hfa Aerosol Inhaler 2 puff INHALATION BID RF: 0 Discharge Instructions Instructions: COPD (Chronic Obstructive Pulmonary Disease) (ED) Additional Instructions: Take your steroids and antibiotics until finished. Take the next dose tomorrow. Continue your albuterol neb treatments as needed and directed. Take your Symbicort as directed. Call your primary care doctor's office tomorrow to schedule a follow-up appointment for reevaluation this week. Follow-up with respiratory for follow-up for pulmonary rehab. Return to the emergency department if you develop any worsening or new concerning symptoms. Stand Alone Forms: Work Release Discharge Data Discharge Date/Time-TO BE ENTERED AT DEPARTURE: 07/20/19 12:27 Discharge Physician: Kenia Guevara Medical Decision Making [id number] -- 64-year-old female with a history of anxiety, COPD and GERD who was seen here yesterday for acute COPD exacerbation and discharged after improved returns today with shortness of breath and chest tightness that is worse with ambulation. She states she was able to eat last night but was up all night due to her symptoms. She states she smoked 1 cigarette last night and this morning. She states she feels fine when at rest but with walking she becomes much more short of breath with chest tightness. She denies any known fever. Patient was seen here yesterday for cold symptoms in addition to shortness of breath and chest tightness and was diagnosed with COPD exacerbation and treated with multiple nebs and steroids with improvement. She was sent home with a nebulizer machine and started on Symbicort. She states she used several nebs at home without significant relief. She takes she took her steroid dose that was due for today last evening because she thought this when she was supposed to take it. EKG on arrival notes a rate of 94, sinus with no acute ST ischemic changes. Patient appears in no acute distress. She is speaking in full sentences. Her oxygen saturation is 97%. She appears pleasant, talkative and comfortable. She has slightly diminished breath sounds throughout with wheezing noted in right chest. Suspect that patient still with COPD exacerbation, but will obtain a CT chest to rule out any other acute disease. Will ambulate to assess her oxygen saturation. 1030 --labs reviewed. White blood cell count 14, which is likely due to steroids. Normal troponin. BNP 377. CT chest pending. Patient states she feels better. She states she returned because she was concerned about a previous episode 2 years ago in which she came to the ED and then returned the following day due to worsening symptoms. Reassured patient that her lung sounds have improved, her oxygen saturation is 97%, and she appears clinically improved and stable. Will ambulate patient. 1130 --CT chest negative. Patient ambulated with respiratory and O2 saturation 95%. Patient did have some increase of heart rate but she stated she felt fine while ambulating. Patient feels good to go home. Advised to follow up with the primary care doctor for re-evaluation this week and with respiratory for pulmonary rehab. Usual and customary return precautions given prior to discharge. Medical Records Medical records reviewed: Yes I reviewed the patient's medical records. Imaging Data Radiologic Study: Radiologist's impression: CT Angiography Chest With Contrast Exam date and time: 07/20/2019 10:22 AM Age: 64 years old Clinical indication: Other: Chest tightness, SOB, R/O pe TECHNIQUE: Imaging protocol: Computed tomographic angiography of the chest with intravenous contrast. 3D rendering: MIP and/or 3D reconstructed images were created by the technologist. Radiation optimization: All CT scans at this facility use at least one of these dose optimization techniques: automated exposure control; mA and/or kV adjustment per patient size (includes targeted exams where dose is matched to clinical indication); or iterative reconstruction. Contrast material: OMNIPAQUE 350; Contrast volume: 62 ml; Contrast route: IV; COMPARISON: CT CHEST LUNG CANCER SCREEN 01/13/2019 12:57 PM FINDINGS: Pulmonary arteries: Negative for acute pulmonary embolism. Aorta: Unremarkable. No aortic aneurysm. No aortic dissection. Lungs: Emphysematous changes. No consolidation. No masses. Pleural space: Unremarkable. No pneumothorax. No pleural effusion. Heart: Unremarkable. No cardiomegaly. No pericardial effusion. Lymph nodes: Unremarkable. No enlarged lymph nodes. Bones/joints: Unremarkable. No acute fracture. Soft tissues: Unremarkable. IMPRESSION: Negative for acute pulmonary embolism. Lab Data Lab results reviewed: Yes I reviewed the patient's lab results. Labs: Laboratory Tests Range/Units 07/20/19 07/20/19 07/20/19 09:30 09:30 09:30 WBC (4.4-10.8) k/cumm 14.83 H D RBC (4.00-5.20) m/cumm 4.44 Hgb (12.0-15.5) g/dL 13.5 Hct (36.0-46.0) % 40.7 MCV (80-95) fL 91.7 MCH (27.0-33.0) pg 30.4 MCHC (32.0-36.0) g/dL 33.2 RDW (11.7-14.6) % 13.8 Plt Count (130-400) x1000/uL 395 MPV (8.0-11.0) fL 10.3 Immature Gran % % 0.3 Neutrophils % 83.7 Lymphocytes % 12.1 Monocytes % 2.9 Eosinophils % 0.5 Basophils % 0.5 Absolute Neutrophils (1.2-6.7) k/cumm 12.41 H Absolute Lymphocytes (1.2-3.4) k/cumm 1.79 Absolute Monocytes (0.11-0.7) k/cumm 0.43 Absolute Eosinophils (0.0-0.7) k/cumm 0.07 Absolute Basophils (0.0-0.2) k/cumm 0.07 Sodium (136-145) mmol/L 142 Potassium (3.5-5.1) mmol/L 3.3 L Chloride (98-107) mmol/L 103 Carbon Dioxide (21.0-32.0) mmol/L 29.9 Anion Gap (3-11) mmol/L 9.1 BUN (7-18) mg/dL 10 Creatinine (0.55-1.02) mg/dL 0.60 Estimated GFR/1.73 m2 (mL/min/1.73m2) >= 60.00 Glucose (74-106) mg/dL 109 H Calcium (8.5-10.1) mg/dL 8.8 Magnesium (1.8-2.4) mg/dL 1.9 Total Bilirubin (0.2-1.0) mg/dL 0.2 AST (15-37) U/L 17 ALT (14-59) U/L 22 Alkaline Phosphatase (46-116) U/L 72 Troponin I (<0.06) ng/Ml < 0.05 NT-Pro-B Natriuret Pep (<300) pg/mL 377 H Total Protein (6.4-8.2) g/dL 7.5 Albumin (3.4-5.0) g/dL 3.8 Urine Color (Yellow) Urine Clarity (Clear) Urine pH (5-8) Ur Specific [place] (1.005-1.025) Urine Protein (Negative) mg/dL Urine Ketones (Negative) mg/dL Urine Blood (Negative) Urine Nitrite (Negative) Urine Bilirubin (Negative) Urine Urobilinogen (Up TO 0.2) EU/dL Ur Leukocyte Esterase (Negative) Urine Glucose (Negative) mg/dL Range/Units 07/20/19 10:35 WBC (4.4-10.8) k/cumm RBC (4.00-5.20) m/cumm Hgb (12.0-15.5) g/dL Hct (36.0-46.0) % MCV (80-95) fL MCH (27.0-33.0) pg MCHC (32.0-36.0) g/dL RDW (11.7-14.6) % Plt Count (130-400) x1000/uL MPV (8.0-11.0) fL Immature Gran % % Neutrophils % Lymphocytes % Monocytes % Eosinophils % Basophils % Absolute Neutrophils (1.2-6.7) k/cumm Absolute Lymphocytes (1.2-3.4) k/cumm Absolute Monocytes (0.11-0.7) k/cumm Absolute Eosinophils (0.0-0.7) k/cumm Absolute Basophils (0.0-0.2) k/cumm Sodium (136-145) mmol/L Potassium (3.5-5.1) mmol/L Chloride (98-107) mmol/L Carbon Dioxide (21.0-32.0) mmol/L Anion Gap (3-11) mmol/L BUN (7-18) mg/dL Creatinine (0.55-1.02) mg/dL Estimated GFR/1.73 m2 (mL/min/1.73m2) Glucose (74-106) mg/dL Calcium (8.5-10.1) mg/dL Magnesium (1.8-2.4) mg/dL Total Bilirubin (0.2-1.0) mg/dL AST (15-37) U/L ALT (14-59) U/L Alkaline Phosphatase (46-116) U/L Troponin I (<0.06) ng/Ml NT-Pro-B Natriuret Pep (<300) pg/mL Total Protein (6.4-8.2) g/dL Albumin (3.4-5.0) g/dL Urine Color (Yellow) Straw Urine Clarity (Clear) Clear Urine pH (5-8) 6.0 Ur Specific [place] (1.005-1.025) 1.010 Urine Protein (Negative) mg/dL Negative Urine Ketones (Negative) mg/dL Negative Urine Blood (Negative) Negative Urine Nitrite (Negative) Negative Urine Bilirubin (Negative) Negative Urine Urobilinogen (Up TO 0.2) EU/dL 0.2 Ur Leukocyte Esterase (Negative) Negative Urine Glucose (Negative) mg/dL Negative ECG Data Attestation: I personally reviewed and interpreted this ECG (s) as follows: Interpretation: Rate of 94, sinus, no acute ST elevation or depression. RI 128. QTc 423. QRS 84. HPI General Mode of arrival: ambulatory. Date/Time Provider Initiated Documentation: 07/20/19 09:02. Limitations to Documentation: no limitations. Information obtained by: patient. History of Present Illness 64 year old F presents to the emergency department with the chief complaint of Chest tightness and shortness of breath, Patient started experiencing this day(s) (5) and it has been intermittent. Rest improves symptom(s), Movement worsens symptoms . Patient notes chest pain (Tightness with ambulation), cough and shortness of breath; denies fever/chills, headaches, loss of appetite, malaise, nausea/vomiting, rash and seizure. Patient did receive the following treatments prior to arrival, other (Nebs, Symbicort, steroids) Related Data Home Medications Medication Instructions Recorded Confirmed sertraline 100 mg PO DAILY 07/12/18 07/20/19 albuterol sulfate 90 mcg/actuation 2 puff IH Q6H PRN 10/25/18 07/20/19 aerosol inhaler loratadine 10 mg tablet 10 mg PO DAILY PRN 10/25/18 07/20/19 omeprazole 20 mg capsule,delayed 20 mg PO BID 10/25/18 07/20/19 release doxycycline hyclate 100 mg PO BID 7 Days #14 tab 07/19/19 07/20/19 ipratropium-albuterol 3 ml IH Q6H PRN #15 ml 07/19/19 07/20/19 prednisone See Rx Instructions .ROUTE 07/19/19 07/20/19 .COMPLEX #12 tab budesonide-formoterol [Symbicort] 2 puff INHALATION BID 07/20/19 07/20/19 Previous Rx's Medication Instructions Recorded doxycycline hyclate 100 mg PO BID 7 Days #14 tab 07/19/19 ipratropium-albuterol 3 ml IH Q6H PRN #15 ml 07/19/19 prednisone See Rx Instructions .ROUTE 07/19/19 .COMPLEX #12 tab Allergies Allergy/AdvReac Type Severity Reaction Status Date / Time peanut Allergy Severe Anaphylaxsi Verified 07/20/19 09:24 s Sulfa (Sulfonamide Allergy Anaphylaxsi Verified 07/20/19 09:24 Antibiotics) s General Stated Complaint: Chest Pain YONATAN: 2 Review of Systems All systems reviewed & are unremarkable except as noted in HPI and below Constitutional Constitutional: Reports as per HPI, Denies chills and Denies fever(s) Eyes Eyes: Denies blurry vision ENT Ears, Nose, Mouth, and Throat: Denies dizziness, Denies sore throat and Denies throat swelling Cardiovascular Cardiovascular: Reports chest pain and Reports dyspnea Respiratory Respiratory: Reports cough and Reports dyspnea Gastrointestinal Gastrointestinal: Denies abdominal pain, Denies diarrhea and Denies vomiting Genitourinary Genitourinary: Denies hematuria and Denies dysuria Musculoskeletal Musculoskeletal: Denies back pain and Denies numbness Integumentary/Breasts Skin/Breast: Denies lesions and Denies rash Neurologic Neurologic: Denies dizziness, Denies focal weakness and Denies numbness Allergic/Immunologic Allergic/Immunologic: Denies throat swelling [facility] Social History Smoking/Tobacco Use Status: Current every day Tobacco Type: cigarettes Alcohol Intake: former Year quit: 2016 Drug use: Never Substance use type: does not use Do you feel safe at home: Yes Do you feel safe in your relationship?: Yes Exam Const General: cooperative, healthy appearing and no acute distress HENMT Head: normal to inspection Face and sinus: normal facial exam Eyes General: appearance normal, both eyes and all related structures EOM: EOM intact bilaterally Neck Neck: normal visual inspection and No submandibular swelling Lymphatic: no lymphadenopathy noted Chest Chest: normal inspection of the chest and no tenderness Resp Effort & Inspection: normal respiratory effort and able to speak in complete sentences Auscultation: diminished lung sounds bilaterally (slightly diminished throughout) and wheezes right lower and right upper Cardio Rate: tachycardic Rhythm: regular rhythm GI Inspection: normal to inspection Palpation: soft, not firm, not rigid and nontender Auscultation: normal bowel sounds Skin General skin exam: no rashes or lesions noted Neuro General: alert, awake and oriented x3 Cognition: normal cognition Speech: speech normal Motor: muscle tone normal throughout Sensory Exam: no sensory deficits noted Extrem General: normal to inspection, full ROM, normal capillary refill, no calf tenderness bilaterally and no edema Psych Appearance: grossly normal Mental Status: mental status grossly normal Speech and Movement: speech and movement normal Affect: normal affect Course Vital Signs Vital signs: Vital Signs Temperature 98.1 F 07/20/19 09:20 Pulse 104 H 07/20/19 09:20 Respiratory Rate 29 H 07/20/19 09:20 Blood Pressure 127/60 07/20/19 09:20 Pulse Oximetry 96 07/20/19 09:20 Temperature 98.1 F 07/20/19 09:20 Temperature Source Skin 07/20/19 09:20 Pulse 104 H 07/20/19 09:20 Respiratory Rate 29 H 07/20/19 09:20 Blood Pressure 127/60 07/20/19 09:20 Blood Pressure Position Sitting 07/20/19 09:20 Pulse Oximetry 96 07/20/19 09:20 Oxygen Delivery Method Room Air 07/20/19 09:20 Oxygen Flow Rate 0 07/20/19 09:20 Pain Level 3 07/20/19 09:20
[2019-07-20] MEDS: methylPREDNISolone SUCC 125 MG VIAL 80 MG IVP (09:30)
[2019-07-20] MEDS: Albuterol/Ipratropium 3 ML UPD VIAL (09:31)
[2019-07-20 09:46] LABS: Abs Immature Grans 0.04 k/cumm (0.0-0.09); Absolute Lymphocyte Count 1.79 k/cumm (1.2-3.4); Absolute Monocyte Count 0.43 k/cumm (0.11-0.7); Absolute Neutrophil Count 12.41 k/cumm (1.2-6.7); Basophils % 0.5; Eosinophils % 0.5; HCT 40.7 % (36.0-46.0); HGB 13.5 g/dL (12.0-15.5); Immature Grans % 0.3 %; Lymphocytes % 12.1; Mean Corp. HGB Concentration 33.2 g/dL (32.0-36.0); Mean Corpuscular Hemoglobin 30.4 pg (27.0-33.0); Mean Corpuscular Volume 91.7 fL (80-95); Mean Platelet Volume 10.3 fL (8.0-11.0); Monocytes % 2.9; Neutrophils % 83.7; Platelet Count 395 x1000/uL (130-400); RBC 4.44 m/cumm (4.00-5.20); RBC Distribution Width 13.8 % (11.7-14.6); White Blood Cell Count 14.83 k/cumm (4.4-10.8)
[2019-07-20] MEDS: Normal Saline 500 ML IV (09:50)
[2019-07-20 09:51] LABS: Absolute Basophil Count 0.07 k/cumm (0.0-0.2); Absolute Eosinophil Count 0.07 k/cumm (0.0-0.7)
[2019-07-20 09:57] LABS: ALT 22 U/L (14-59); AST 17 U/L (15-37); Albumin 3.8 g/dL (3.4-5.0); Alkaline Phosphatase 72 U/L (46-116); Anion Gap 9.1 mmol/L (3-11); BUN 10 mg/dL (7-18); Bilirubin, Total 0.2 mg/dL (0.2-1.0); CO2 29.9 mmol/L (21.0-32.0); Calcium 8.8 mg/dL (8.5-10.1); Chloride 103 mmol/L (98-107); Glucose 109 mg/dL (74-106); Potassium 3.3 mmol/L (3.5-5.1); Sodium 142 mmol/L (136-145); Total Protein 7.5 g/dL (6.4-8.2)
[2019-07-20 10:04] LABS: Magnesium 1.9 mg/dL (1.8-2.4); NT-proBNP 377 pg/mL (<300)
[2019-07-20 10:06] LABS: Troponin I < 0.05 ng/Ml (<0.06)
[2019-07-20] MEDS: Omnipaque 350 MG/ML 100 ML BTL IJ (10:23)
--- NOTE | 2019-07-20 10:24 | DI.CT_ITS ---
EXAM: CT CHEST PE CTA CLINICAL HISTORY: chest tightness, sob, r/o PE TECHNIQUE: Post IV contrast using pulmonary embolism protocol. Axial CT angiography was performed with multi-slice acquisition and multi-planar and/or 3D reconstruc tions. COMPARISON: No exams were available for comparison FINDINGS: There is no evidence of pulmonary emboli or aortic dissection. No pericardial effusions are seen. T here is no evidence of pneumothorax, rib or spine fracture. The heart size is normal. There are mil d underlying emphysematous changes. Visualized portions of the upper abdomen are unremarkable. IMPRESSION: Negative CT angiography of the chest. No evidence of pulmonary emboli.
[2019-07-20 10:41] LABS: Bilirubin Negative (Negative); Blood Negative (Negative); Clarity Clear (Clear); Glucose Negative (Negative); Ketones Negative (Negative); Leukocyte Esterase Negative (Negative); Nitrite Negative (Negative); Urobilinogen 0.2 EU/dL (Up TO 0.2)
--- NOTE | 2019-07-20 11:25 | DI.VRAD_ITS ---
PROCEDURE INFORMATION: Exam: CT Angiography Chest With Contrast Exam date and time: 07/20/2019 10:22 AM Age: 64 years old Clinical indication: Other: Chest tightness, SOB, R/O pe TECHNIQUE: Imaging protocol: Computed tomographic angiography of the chest with intravenous contrast. 3D rendering: MIP and/or 3D reconstructed images were created by the technologist. Radiation optimization: All CT scans at this facility use at least one of these dose optimization techniques: automated exposure control; mA and/or kV adjustment per patient size (includes targeted exams where dose is matched to clinical indication); or iterative reconstruction. Contrast material: OMNIPAQUE 350; Contrast volume: 62 ml; Contrast route: IV; COMPARISON: CT CHEST LUNG CANCER SCREEN 01/13/2019 12:57 PM FINDINGS: Pulmonary arteries: Negative for acute pulmonary embolism. Aorta: Unremarkable. No aortic aneurysm. No aortic dissection. Lungs: Emphysematous changes. No consolidation. No masses. Pleural space: Unremarkable. No pneumothorax. No pleural effusion. Heart: Unremarkable. No cardiomegaly. No pericardial effusion. Lymph nodes: Unremarkable. No enlarged lymph nodes. Bones/joints: Unremarkable. No acute fracture. Soft tissues: Unremarkable. IMPRESSION: Negative for acute pulmonary embolism. Dictated and Authenticated by: Janis Diehl MD. Ordering:LUIS Aquino MD
== END 2019-07-20 12:27 | disposition home or self-care (01) ==
PROVIDERS: Emergency Provider Physician Assistant; PCP Nurse Practitioner Family
DX: J44.1 Chronic obstructive pulmonary disease with (acute) exacerbation (principal); R07.89 Other chest pain; F17.210 Nicotine dependence, cigarettes, uncomplicated
CPT/HCPCS: 36415; 71275; 80053; 93005; 94640; 96361; 96374; 99285; 81003; 83735; 83880; 84484; 85025; 93010; J2930; J3490; J7620

== ENCOUNTER 2019-08-01 13:06 | Outpatient (CLI) | payer OTHER, SELFPAY ==
--- NOTE | 2019-08-01 | DI.RAD_ITS ---
EXAM: XR CHEST 2V PA LATERAL INDICATION: COPD, J44.9. COMPARISON: XR CHEST 2V PA LATERAL from 07/19/2019 TECHNIQUE: 2D digital imaging was performed. FINDINGS: The lungs again appear hyperinflated. The heart size is normal. There are old left rib fractures. No infiltrate, effusion or pneumothorax is seen. IMPRESSION: No acute abnormality. DATA REPOSITORY: RADIATION DOSE DELIVERED:
== END 2019-08-01 13:26 ==
PROVIDERS: PCP Nurse Practitioner Family; Visit Provider Nurse Practitioner Family
DX: J44.9 Chronic obstructive pulmonary disease, unspecified (principal)
CPT/HCPCS: 71046

== ENCOUNTER 2019-08-12 15:33 | Outpatient (REF) | payer OTHER, SELFPAY ==
[2019-08-12 21:25] LABS: HCT 39.9 % (36.0-46.0); HGB 13.1 g/dL (12.0-15.5); Mean Corp. HGB Concentration 32.8 g/dL (32.0-36.0); Mean Corpuscular Hemoglobin 30.5 pg (27.0-33.0); Mean Corpuscular Volume 92.8 fL (80-95); Mean Platelet Volume 10.6 fL (8.0-11.0); Platelet Count 364 x1000/uL (130-400); RBC Distribution Width 14.4 % (11.7-14.6); White Blood Cell Count 8.74 k/cumm (4.4-10.8)
[2019-08-12 23:08] LABS: ALT 17 U/L (14-59); AST 19 U/L (15-37); BUN 15 mg/dL (7-18); CREATININE 0.57 mg/dL (0.55-1.02); Calcium 8.9 mg/dL (8.5-10.1); Calculated LDL 172 mg/dL (<100); Chloride 104 mmol/L (98-107); Cholesterol 257 mg/dL (<200); Glucose 73 mg/dL (74-106); HDL Cholesterol 64 mg/dL (40-60); Potassium 4.8 mmol/L (3.5-5.1); Sodium 141 mmol/L (136-145); Triglyceride 106 mg/dL (<150)
[2019-08-13 09:25] LABS: TSH 1.04 uIU/mL (0.36-3.74)
[2019-08-14 05:30] LABS: Vitamin D 25 Total 31.4 ng/ml (30-100)
== END 2019-08-12 15:53 ==
LOC: NCHCN 15:33
PROVIDERS: PCP Nurse Practitioner Family; Visit Provider Nurse Practitioner Family
DX: E78.5 Hyperlipidemia, unspecified (principal); R53.83 Other fatigue
CPT/HCPCS: 80048; 80061; 82306; 85027; 84443; 84450; 84460

== ENCOUNTER 2019-08-26 01:33 | Outpatient (CLI) | payer OTHER, SELFPAY ==
--- NOTE | 2019-08-26 08:00 | ETT_ITS ---
APPROVED REPORT Exam: Exercise Treadmill Patient Location: Out-Patient Room/Bed: Stress Nurse: Mira Farias RN BMI: 20.37 Baseline Rhythm: Sinus Rhythm Indications: Chest pain. Medical History Medical History: COPD, HTN, Hyperlipidemia, Smoking Allergies: sulfa Cardiac Risk Factors: HTN, Hyperlipidemia, COPD, Smoking Pretest Chest Pain Characteristics: Exertional Chest pain Exercise History: Physically active Stress Test Details Test: Exercise stress testing was performed using a Daren protocol. Rest Stress HR Resting HR Supine: 62 bpm Max Heart Rate (APMHR): 158 bpm Resting HR Standin bpm Target HR (85% APMHR): 134 bpm Max HR Achieved: 148 bpm % of APMHR: 93 Recovery HR: 73 bpm HR response to stress: Abnormal HR response to stress BP Resting BP Supine: 128/70 mmHg Resting BP Standin/100 mmHg Max BP: 170/78 mmHg Recovery BP: 138/80 mmHg BP response to stress: Normal blood pressure response to stress. ECG Resting ECG: Sinus Rhythm Stress ECG: Sinus Tachycardia ST Change: No significant ST segment changes Arrhythmia: None Recovery ECG: Sinus Rhythm Recovery ST Change: No significant ST segment changes Recovery Arrhythmia: None Medications Administered Nitroglycerlin ( mg at ) Clinical Reason for Termination: Dyspnea Stress Symptoms: Dyspnea Exercise duration: 4 min9 sec Highest Stage Reached: Stage 2: 2.5 mph at 12% grade. Exercise capacity: 6.00 METs Functional Capacity: Moderately diminished capacity Angina Score: None Stress ECG Conclusion 1. The patient exercised for 4 minutes (6 METS). Rate-pressure product was 24,000. 2. Exercise was stopped due to dyspnea. 3. There is no evidence of ischemia on the ECG at this level of stress. 4. The Barajas Score ( 4) estimates an annual cardiovascular mortality of 1% and a five year survival of 94%. Using the Barajas Score there is an intermediate probability of angiographic coronary disease. Protocol Used: Daren Protocol Stress Test Summary STAGE Time (mins) Speed (mph) Grade (%) HR BP SYMPTOMS METS Supine 62 128/70 Standing 73 150/100 1 3 1.7 10 130 160/94 4.6 2 6 2.5 12 140 Dyspnea 7 1 min recovery 121 170/78 3 min recovery 83 140/80 6 min recovery 73 138/80
== END 2019-08-26 01:53 ==
PROVIDERS: PCP Nurse Practitioner Family; Visit Provider Nurse Practitioner Family
DX: R07.89 Other chest pain (principal); I10 Essential (primary) hypertension; E78.5 Hyperlipidemia, unspecified; J44.9 Chronic obstructive pulmonary disease, unspecified; F17.200 Nicotine dependence, unspecified, uncomplicated
CPT/HCPCS: 93017

== ENCOUNTER 2019-09-24 01:09 | Outpatient (CLI) | payer OTHER, SELFPAY ==
--- NOTE | 2019-09-24 14:10 | DI.US_ITS ---
APPROVED REPORT EXAM: Comprehensive 2D, Doppler, and color-flow Echocardiogram Patient Location: Out-Patient Web Engineer: Sona Hampton RDCS (AE) Indications: MAZARIEGOS Conclusion Left Ventricle : The left ventricle is normal size. The left ventricular systolic function is normal. The left ventricular ejection fraction is within the normal range. There is normal left ventricular wall thickness. There is normal LV segmental wall motion. The left ventricular diastolic function is normal. LVEF is 50-55%. Right Ventricle : The right ventricle is normal size. The right ventricular systolic function is norm al. Atria : The left atrium size is normal. The right atrium size is normal. Valves: There are no hemodynamically significant valvular lesions. Great Vessels : IVC is normal in size and collapses >50% with inspiration. RVSP is 27 mmHg. Compared to echocardiogram dated 11/13/2018: There is no significant change. Wall motion Left Ventricle The left ventricle is normal size. The left ventricular systolic function is normal. The left ventric ular ejection fraction is within the normal range. There is normal left ventricular wall thickness. T here is normal LV segmental wall motion. The left ventricular diastolic function is normal. There is no ventricular septal defect visualized. LVEF is 50-55%. Right Ventricle The right ventricle is normal size. The right ventricular systolic function is normal. Atria The left atrium size is normal. The right atrium size is normal. The interatrial septum is intact wit h no evidence for an atrial septal defect. Aortic Valve Aortic valve is probably trileaflet. There is no aortic valvular stenosis. No aortic regurgitation is present. Mitral Valve The mitral valve is normal in structure. No evidence of mitral valve stenosis. Trace mitral regurgita tion. Tricuspid Valve The tricuspid valve is normal in structure. There is no tricuspid valve stenosis. Trace tricuspid reg urgitation. Pulmonic Valve Pulmonic valve is not well visualized. There is no pulmonic valvular stenosis. There is no pulmonic v alvular regurgitation. Great Vessels The aortic root is normal in size. Ascending aorta is not well visualized. Aortic arch is not well vi sualized. IVC is normal in size and collapses >50% with inspiration. RVSP is 27 mmHg. Pericardium There is no pericardial effusion. 2D Dimensions IVSD d PLAX 0.84 cm F: 0.6-1.0 LV Vol A2C d MOD 65.3 mL LVPW d PLAX 0.86 cm F: 0.6 - 1.0 LV Vol A4C d MOD 57.9 mL LVID d PLAX 4.26 cm F: 3.8 - 5.2 LA vol/ BSA A2C s A-L 8.7 mL/m2 LVDs 3.45 cm F: 2.2 - 3.5 LA vol/ BSA A4C s A-L 12.3 mL/m2 Ao Root d 2.46 cm F: 2.7 - 3.3 LA Vol/ BSA Biplane s A-L 11.3 mL/m2 LV EF Teichholz 38.4 % LA Area A4C s MOD 10.09 cm2 LVEF (Diamond's) 53.59 % F: 54 - 74 LA Area A2C s MOD 7.80 cm2 LV Volume 50.45 mL F: 46 - 106 LV EF A4C MOD 50.8 % LV Volume Index 28.02 mL/m2 F: 29 - 61 LV EF A2C MOD 54.0 % LV Vol Biplane MOD 64.9 mL LV EF Biplane MOD 53.6 % FS 18.35 % M-Mode TAPSE 1.98 cm (M/F) <1.7 LV Diastology MV E' medial 0.070 (>0.07 m/s) E/A Ratio 0.7 LV E/e MED 7.85 (<14) MV E Vmax 0.55 (0.4-1.3 m/s) MV E' lateral 0.083 (>0.1 m/s) MV A Vmax 0.80 (0.4-1.3 m/s) LV E/e LAT 6.55 (<14) MV E/A Ratio 0.67 MV E/E' medial 7.86 MV E/E' lateral 6.59 Aortic Valve LVOT Vmax 0.90 m/s LVOT Mean Cliff. 0.63 m/s LVOT Peak Grad 3.2 mmHg LVOT Mean Grad 1.8 mmHg LVOT VTI 0.171 m AoV Vmax 1.27 (0.5-1.3 m/s) Velocity Ratio 0.70 AoV Mean Cliff. 0.90 m/s AoV Peak Grad 6.5 mmHg AoV Mean Grad 3.6 (<5 mmHg) AoV VTI 0.227 (0.18-0.25 m) Mitral Valve MV DT 256 (160-240 msec) MV PHT 74 msec MV Area PHT 2.97 cm2 Pulmonary Valve PV Vmax 0.93 (0.5-1.5 m/s) RVOT Peak Gr. 1.36 mmHg PV Peak Grad 3.5 mmHg RVOT Mean Gr. 0.70 mmHg PV Mean Grad 1.7 mmHg RVOT VTI 0.127 m PV VTI 0.192 m RVOT Vmax 0.58 m/s Tricuspid Valve TR Peak Grad 24.5 mmHg TR Vmax 2.48 m/s RA Pressure 3.00 mmHg RVSP (TR) 27.5 mmHg
== END 2019-09-24 01:29 ==
PROVIDERS: PCP Nurse Practitioner Family; Visit Provider Nurse Practitioner Family
DX: R06.09 Other forms of dyspnea (principal); I10 Essential (primary) hypertension
CPT/HCPCS: 93306

== ENCOUNTER 2020-01-29 00:27 | Outpatient (CLI) | payer MEDICAID, SELFPAY ==
--- NOTE | 2020-01-29 13:24 | DI.MAMMO_ITS ---
EXAM: MAMMO SCREENING CLINICAL HISTORY: SCREENING, Z12.31, TECHNIQUE: Mammograms were interpreted according to the usual protocol including computer analysis w [employer] CAD system, tomosynthesis and C-view imaging. COMPARISON: FINDINGS: The breasts are of moderate density with fairly symmetrical distribution of tissue. No dominant mass or clumped microcalcification identified in either breast. No prior studies available for compariso n. IMPRESSION: No specific evidence of malignancy at this time. Routine screening examinations are suggested yearly intervals in this age group according to the ACS ACR guidelines. BI-RADS Cat 1 - Negative Breast Density - Category B - Scattered areas of fibroglandular density
== END 2020-01-29 00:47 ==
PROVIDERS: PCP Nurse Practitioner Family; Visit Provider Nurse Practitioner Family
DX: Z12.31 Encounter for screening mammogram for malignant neoplasm of breast (principal); R92.2 Inconclusive mammogram
CPT/HCPCS: 77063; 77067

== ENCOUNTER 2020-04-19 13:47 | Outpatient (CLI) | payer MEDICAID, SELFPAY ==
--- NOTE | 2020-04-19 13:15 | DI.RAD_ITS ---
EXAM: XR KNEE LT 4V AP,LAT,IBAN,PAT CLINICAL HISTORY: knee pain TECHNIQUE: COMPARISON: CR XR KNEE RT 4V AP,LAT,IBAN,PAT from 04/19/2020 FINDINGS: Four views of each knee were obtained. The cartilaginous joint spaces appear fairly well maintained except for probable mild narrowing lateral tibiofemoral cartilaginous joint spaces. There are mild m arginal osteophytes involving tibiofemoral joints and patellofemoral joints bilaterally. No other si gnificant focal bony abnormality is seen. IMPRESSION: Mild degenerative changes of both knees. RADIATION DOSE DELIVERED: Total DLP
== END 2020-04-19 14:07 ==
PROVIDERS: PCP Nurse Practitioner Family; Referring Provider Nurse Practitioner Family; Visit Provider Physician Assistant
DX: M17.0 Bilateral primary osteoarthritis of knee (principal)
CPT/HCPCS: 73562; 73564

== ENCOUNTER 2020-04-21 01:40 | Outpatient (CLI) | payer MEDICAID, SELFPAY ==
--- NOTE | 2020-04-21 | DI.US_ITS ---
EXAM: US CAROTID CLINICAL HISTORY: RT CAROTID BRUIT,R09.89. TECHNIQUE: Ultrasound carotids performed using grayscale, color-flow, and spectral Doppler imaging. COMPARISON: No exams were available for comparison FINDINGS: RIGHT CAROTID ARTERY: Plaque: Minimal. Velocity elevation: None. LEFT CAROTID ARTERY: Plaque: Minimal. Velocity elevation: None. VERTEBRAL ARTERIES: Antegrade flow. Measurements: R Bulb: 64.3cm/s PS / 18cm/s ED R CCA: 85.5cm/s PS / 25.1cm/s ED R ECA: 122.9cm/s PS / 13.7cm/s ED R ICA Prox: 75.9cm/s PS /24.6cm/s ED R ICA Mid: 81cm/s PS / 30.4cm/s ED R ICA Distal: 127.3cm/s PS /44.1cm/s ED R Vert: 70.9cm/s PS / 21cm/s ED R SVR: 1.49 R DVR: 1.76 L Bulb: 75.9cm/s PS /25.3cm/s ED L CCA: 102.7cm/s PS / 30.4cm/s ED L ECA: 137.4cm/s PS /18.1cm/s ED L ICA Prox:100.5cm/s PS / 35.4cm/s ED L ICA Mid: 98.3cm/sPS / 34cm/s ED L ICA Distal: 106.3cm/s PS / 44.8cm/s ED L Vert: 54.7cm/s PS / 16.3cm/s ED L SVR: 1.04 L DVR: 1.47 IMPRESSION: No evidence for hemodynamically significant carotid stenosis. Criteria for Carotid Stenosis: Normal: ICA PSV <125 cm/s no plaque or intimal thickening is visible. <50% stenosis: ICA PSV <125 cm/s and plaque or intimal thickening is visible. 50-69% stenosis: ICA PSV is 125-250 cm/s and plaque is visible. >70% stenosis to near occlusion: ICA PSV >250 cm/s with visible plaque and luminal narrowing. DATA REPOSITORY:
== END 2020-04-21 02:00 ==
PROVIDERS: PCP Nurse Practitioner Family; Visit Provider Nurse Practitioner Family
DX: R09.89 Other specified symptoms and signs involving the circulatory and respiratory systems (principal)
CPT/HCPCS: 93880

== ENCOUNTER 2020-04-26 10:04 | Outpatient (REF) | payer MEDICAID, SELFPAY | END 2020-04-26 10:24 | LOC: NCHCN 10:04 | PROVIDERS: PCP Nurse Practitioner Family; Visit Provider Nurse Practitioner Family | DX: F32.9 Major depressive disorder, single episode, unspecified (principal); F41.9 Anxiety disorder, unspecified | CPT/HCPCS: 82306 ==

== ENCOUNTER 2020-08-11 15:12 | Outpatient (REF) | payer MEDICAID, SELFPAY ==
[2020-08-11 22:24] LABS: ALT 22 U/L (14-59); AST 17 U/L (15-37); Anion Gap 7.7 mmol/L (3-11); BUN 18 mg/dL (7-18); CO2 26.3 mmol/L (21.0-32.0); CREATININE 0.6 mg/dL (0.55-1.02); Calculated LDL 217 mg/dL (<100); Chloride 104 mmol/L (98-107); Cholesterol 301 mg/dL (<200); Glucose 88 mg/dL (74-106); HDL Cholesterol 61 mg/dL (40-60); Potassium 4.5 mmol/L (3.5-5.1); Sodium 138 mmol/L (136-145); Triglyceride 116 mg/dL (<150)
[2020-08-11 22:32] LABS: Calcium 9.5 mg/dL (8.5-10.1)
[2020-08-12 04:59] LABS: Vitamin D 25 Total 73.6 ng/ml (30-100)
== END 2020-08-11 15:13 | disposition home or self-care (01) ==
LOC: NCHCN 15:12
PROVIDERS: PCP Nurse Practitioner Family; Visit Provider Nurse Practitioner Family
DX: E78.5 Hyperlipidemia, unspecified (principal); F32.9 Major depressive disorder, single episode, unspecified; Z13.21 Encounter for screening for nutritional disorder
CPT/HCPCS: 80048; 80061; 82306; 84450; 84460

== ENCOUNTER 2020-09-16 15:02 | Outpatient (REF) | payer MEDICAID, SELFPAY ==
[2020-09-16 20:47] LABS: Iron 93 ug/dL (50-170); Total Iron Binding Capacity 382 ug/dL (250-450); Transferrin Sat 24 % (15-50)
[2020-09-16 20:57] LABS: Ferritin 103 ng/mL (8-252); TSH (W/Ref FT4) 0.92 uIU/mL (0.36-3.74)
== END 2020-09-16 15:03 | disposition home or self-care (01) ==
LOC: NCHCN 15:02
PROVIDERS: PCP Nurse Practitioner Family; Visit Provider Nurse Practitioner Family
DX: G25.81 Restless legs syndrome (principal); E78.5 Hyperlipidemia, unspecified; R79.89 Other specified abnormal findings of blood chemistry
CPT/HCPCS: 82728; 83540; 83550; 84443

== ENCOUNTER 2020-12-15 18:42 | Emergency (ER) | payer MEDICAID, SELFPAY ==
[2020-12-15] VITALS (29 sets, daily range): BP systolic 94–142; BP diastolic 54–72; PULSE 79–107; RESP 7–26; TEMP 36.6; O2SAT 91–100
--- NOTE | 2020-12-15 18:45 | DI.RAD_ITS ---
Exam(s) XR PORTABLE CHEST AP EXAM: XR PORTABLE CHEST AP CLINICAL HISTORY: sob TECHNIQUE: 2D digital imaging was performed. COMPARISON: CR XR CHEST 2V PA LATERAL from 08/01/2019 FINDINGS: LUNGS: Clear. No pleural abnormality seen. HEART: Normal. MEDIASTINUM: Normal. BONES: Old left lateral rib fractures. IMPRESSION: No acute pulmonary findings. DATA REPOSITORY: RADIATION DOSE DELIVERED:
--- NOTE | 2020-12-15 18:45 | RT.EKG_ITS ---
APPROVED REPORT Exam: Resting ECG Reason for Exam: sob Patient Location: E HR:88 bpm ECG Measurements Heart Rate 88 AXIS NE 140 P 87 QRSd 77 QRS 80 QT 354 T 72 QTc 429 Conclusion Sinus rhythm...normal P axis, V-rate 60- 99 Probable left atrial enlargement...P >50mS, <-0.10mV V1. No STEMI. I have reviewed and interpreted ECG and agree with software generated interpretation.
--- NOTE | 2020-12-15 18:51 | ED.GENADUL_ITS ---
Discharge Plan Disposition Patient Disposition: HOME Condition: Improving Discharge Details Clinical Impression: Acute exacerbation of chronic obstructive pulmonary disease Primary Care Provider: Meme Brown ED Provider: Stephany Quarles Home Meds and New Rx's Prescriptions: New cefpodoxime 200 mg tablet 200 mg PO BID Qty: 10 RF: 0 prednisone 50 mg tablet 50 mg PO DAILY Qty: 4 RF: 0 Continued omeprazole 20 mg capsule,delayed release(DR/EC) 20 mg PO DAILY RF: 0 albuterol sulfate [Ventolin HFA] 90 mcg/actuation HFA aerosol inhaler 2 puff IH Q6H PRNRF: 0 sertraline 100 mg Tablet 150 mg PO DAILY RF: 0 ipratropium-albuterol 0.5 mg-3 mg(2.5 mg base)/3 mL solution for nebulization 3 ml IH Q6H PRN (Reason: shortness of breath or wheezing) Qty: 15 RF: 0 budesonide-formoterol [Symbicort] 160-4.5 mcg/actuation Hfa Aerosol Inhaler 2 puff INHALATION BID RF: 0 atorvastatin 40 mg tablet 40 mg PO HS RF: 0 trazodone 50 mg tablet 50 mg PO HS PRNRF: 0 famotidine 20 mg tablet 20 mg PO DAILY RF: 0 ropinirole 2 mg tablet See Rx Instructions .ROUTE .COMPLEX RF: 0 fluticasone propionate 50 mcg/actuation spray,suspension 1 spray INTRANASAL BID RF: 0 Discharge Instructions Instructions: Cefpodoxime Proxetil (By mouth), COPD (Chronic Obstructive Pulmonary Disease) (ED) Additional Instructions: Your history, exam and work-up is most consistent with COPD exacerbation. Please encourage hydration. Please continue to try to cut back on smoking. You are given a dose of steroids here tonight, your next dose is not due until tomorrow, please continue with the prednisone as prescribed. We will also begin you on antibiotics in the event that there is also a bacterial component to this. Please take the antibiotics as prescribed. Even if symptoms improve, please take the entire course. Please continue with your inhalers as previously prescribed. Please follow-up with your primary care as previously scheduled tomorrow. If you develop increased shortness of breath, increased work of breathing or other new/worsening symptom please seek care urgently once again. Referrals: Alberta Barrios [NURSE PRACTITIONER] - Discharge Data Discharge Date/Time-TO BE ENTERED AT DEPARTURE: 12/15/20 22:13 Medical Decision Making Patient is a pleasant 65-year-old female presenting today with chief complaint of shortness of breath x4 days. Symptoms have progressively been worsening. Feels similar to when she had COPD historically. States that she has been having some chest pressure. Symptoms are worsened with exertion and improves when at rest. Patient has been taking her typical medication with no missed doses. States that initially her symptoms were improved with her inhaler. However, this is no longer offering relief for her. She denies any fevers or chills. Denies any GI upset. Patient is fully vaccinated against COVID-19. Past medical history significant for COPD, active smoker, anxiety, GERD. Patient did undergo surgery in September for bunion on left foot. Describes healing well and uneventfully after surgical intervention. On exam, patient appears anxious. She is hypertensive and tachycardic. She is tachypneic but did not appreciate any of her work of breathing. She is diffusely wheezing noted on exam, questions of some rhonchi in the lower lobes. No lower extremity edema, no calf discomfort. Differential at this time includes COPD exacerbation, ACS, infection, pulmonary embolism. History and exam is not consistent with dissection. Will give full dose aspirin, DuoNeb, obtain chest x-ray. After DuoNeb, patient reports feeling slightly improved. Her wheezing is much diminished compared to initial exam. Will augment with Solu-Medrol and give second neb FINDINGS: Lungs: Unremarkable. No consolidation. Pleural spaces: Unremarkable. No pleural effusion. No pneumothorax. Heart/Mediastinum: Unremarkable. No cardiomegaly. Bones/joints: Unremarkable. IMPRESSION: No acute findings. Labs reviewed. H&H stable. Jitendra has WBC of 18. She has been afebrile. No signficant sputum production. No other areas of infection. As patient has hx of COPD. and is an active smoker, will augment with abx for her COPD exacerbation. D-dimer WNL. Troponin WNL, as this has been ongoing for 3 days, and she reports full resolution of her pressure after improving her respiratory status, repeat troponin is not warranted at this time. BNP WNL. Patient continues to be much improved, resting comfortably. Will continue on abx and steroids. She has appointment with PCP tomorrow. Encouraged smoking cessation. Strict return precautions discussed. She has inhaler at home. Has been maintaining her O2 well. We discussed disposition. She feels ready to go home at this time. All of her questions and concerns were addressed, she is in agreement with this plan. HPI General Mode of arrival: wheelchair . Date/Time Provider Initiated Documentation: 12/15/20 18:48 . Limitations to Documentation: no limitations . Information obtained by: patient and RN notes reviewed . History of Present Illness 65 year old F presents to the emergency department with the chief complaint of shortness of breath, described as moderate, with intensity rated at 6. Quality is described as other (pressure), and is localized to the chest. Patient reports no radiation. Patient started experiencing this day(s) and it has been intermittent. No relieving factors improve symptom( s), Movement worsens symptoms . Patient notes no other symptoms.. Patient did receive the following treatments prior to arrival, none Related Data Home Medications Medication Instructions Recorded Confirmed sertraline 150 mg PO DAILY 07/12/18 12/15/20 albuterol sulfate 90 mcg/actuation 2 puff IH Q6H PRN 10/25/18 12/15/20 aerosol inhaler omeprazole 20 mg capsule,delayed 20 mg PO DAILY 10/25/18 12/15/20 release ipratropium-albuterol 3 ml IH Q6H PRN #15 ml 07/19/19 04/19/20 budesonide-formoterol [Symbicort] 2 puff INHALATION BID 07/20/19 12/15/20 atorvastatin 40 mg PO HS 12/15/20 12/15/20 cefpodoxime 200 mg PO BID #10 tab 12/15/20 famotidine 20 mg PO DAILY 12/15/20 12/15/20 fluticasone propionate 1 spray INTRANASAL BID 12/15/20 12/15/20 prednisone 50 mg PO DAILY #4 tab 12/15/20 ropinirole See Rx Instructions .ROUTE .COMPLEX 12/15/20 12/15/20 trazodone 50 mg PO HS PRN 12/15/20 12/15/20 Previous Rx's Medication Instructions Recorded ipratropium-albuterol 3 ml IH Q6H PRN #15 ml 07/19/19 cefpodoxime 200 mg PO BID #10 tab 12/15/20 prednisone 50 mg PO DAILY #4 tab 12/15/20 Allergies Allergy/AdvReac Type Severity Reaction Status Date / Time peanut Allergy Severe Anaphylaxsi Verified 04/19/20 13:07 s disulfiram [From Antabuse] Allergy Unverified 12/15/20 18:50 Sulfa (Sulfonamide Allergy Anaphylaxsi Verified 04/19/20 13:07 Antibiotics) s General Stated Complaint: SOB YONATAN: 2 Review of Systems Constitutional Constitutional: Reports as per HPI, Denies chills, Denies fever(s), Denies headache(s), Denies lethargy and Denies poor appetite Eyes Eyes: Denies change in vision ENT Ears, Nose, Mouth, and Throat: Denies dizziness and Denies headache(s) Cardiovascular Cardiovascular: Reports as per HPI, Reports dyspnea and Reports dyspnea on exertion Respiratory Respiratory: Reports as per HPI, Denies chest congestion, Denies cough, Denies pain on inspiration, Denies pain with cough, Reports dyspnea and Reports dyspnea on exertion Gastrointestinal Gastrointestinal: Reports as per HPI, Denies abdominal pain, Denies diarrhea, Denies nausea and Denies vomiting Musculoskeletal Musculoskeletal: Reports as per HPI and Denies back pain Integumentary/Breasts Skin/Breast: Reports as per HPI and Denies rash Neurologic Neurologic: Reports as per HPI, Denies dizziness and Denies headache(s) [facility] Medical History (Updated 12/15/20 @ 21:42 by SAVANAH Galicia) Alcohol abuse, in remission Anxiety Blood in stool Chest pain COPD (chronic obstructive pulmonary disease) GERD (gastroesophageal reflux disease) Leukocytosis Primary osteoarthritis of left knee Steroid injection: 04/19/2020 Primary osteoarthritis of right knee Steroid injection: 04/19/2020 Tobacco abuse Surgical History History of colonoscopy 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 History of hammer toe correction (right) History of knee surgery Torn meniscus repair (left) Family History Father Colon cancer Stage 4 at diagnosis at age 70 Paternal Aunt Colon cancer Paternal Aunt Colon cancer Mother Fallopian tube malignant neoplasm Maternal Uncle Stomach cancer Other Pancreatic cancer Social History Smoking/Tobacco Use Status: Current every day Tobacco Type: cigarettes Smoking risk assessment performed?: Yes Alcohol Intake: former Year quit: 2016 Drug use: Never Substance use type: does not use Do you feel safe at home: Yes Do you feel safe in your relationship?: Yes Exam Const General: cooperative, comfortable, no acute distress, well developed, anxious and ill appearing acutely Nutritional Appearance: average body habitus and well nourished Orientation: alert, awake and oriented x3 HENMT Head: normal to inspection Ears: hearing grossly normal bilaterally Mouth: moist mucous membranes Chest Chest: normal inspection of the chest, normal palpation of entire chest wall and no crepitus Resp Effort & Inspection: normal respiratory effort, able to speak in complete sentences, no cough, labored, no respiratory distress and tachypneic Auscultation: no rales, no rhonchi and wheezes (diffuse ) expiratory wheezes Cardio Rate: tachycardic Rhythm: regular rhythm Heart Sounds: S1 normal and S2 normal GI Inspection: normal to inspection, no edema and non-distended Palpation: soft, no hepatosplenomegaly, not firm, no guarding, not rigid and nontender Auscultation: normal bowel sounds Back/Spine/Pelvis Back: no CVA tenderness Thoracic/Lumbar Spine: thoracic and lumbar spine normal to inspection Skin General skin exam: no rashes or lesions noted Trauma: no lacerations or abrasions Neuro General: patient alert, patient awake and patient oriented x3 Cognition: normal cognition Speech: speech normal Gait: normal gait Extrem General: normal to inspection, capillary refill normal, no pedal edema, no calf tenderness, normal gait and other (2+ distal pulses in all extremities) Psych Appearance: grossly normal and well kempt Mental Status: mental status grossly normal Speech and Movement: speech and movement normal Course Vital Signs Vital signs: Vital Signs Temperature 36.6 C 12/15/20 18:46 Pulse 107 H 12/15/20 18:46 Respiratory Rate 26 H 12/15/20 18:46 Blood Pressure 142/72 H 12/15/20 18:46 Pulse Oximetry 95 12/15/20 18:46 Temperature 36.6 C 12/15/20 18:46 Temperature Source Skin 12/15/20 18:46 Pulse 107 H 12/15/20 18:46 Respiratory Rate 26 H 12/15/20 18:46 Blood Pressure 142/72 H 12/15/20 18:46 Blood Pressure Position Sitting 12/15/20 18:46 Pulse Oximetry 95 12/15/20 18:46 Oxygen Delivery Method Room Air 12/15/20 18:46 Oxygen Flow Rate 0 12/15/20 18:46 Pain Level 6 12/15/20 18:46
--- NOTE | 2020-12-15 19:12 | DI.VRAD_ITS ---
PROCEDURE INFORMATION: Exam: XR Chest Exam date and time: 12/15/2020 6:53 PM Age: 65 years old Clinical indication: Other: SOB TECHNIQUE: Imaging protocol: XR of the chest. Views: 1 view. COMPARISON: CR XR CHEST 2V PA LATERAL 08/01/2019 12:38 PM FINDINGS: Lungs: Unremarkable. No consolidation. Pleural spaces: Unremarkable. No pleural effusion. No pneumothorax. Heart/Mediastinum: Unremarkable. No cardiomegaly. Bones/joints: Unremarkable. IMPRESSION: No acute findings. Dictated and Authenticated by: Joseph Mccullough MD. Ordering:DEREK Hammond MD
[2020-12-15] MEDS: Albuterol/Ipratropium 3 ML UPD VIAL UPD ×2 (19:15→21:39)
[2020-12-15 19:45] LABS: Abs Immature Grans 0.08 10^3/uL (0.0-0.06); Absolute Lymphocyte Count 6.15 10^3/uL (1.2-3.4); Absolute Monocyte Count 0.87 10^3/uL (0.1-0.8); Basophils % 0.8; Eosinophils % 2.9; HCT 39.9 % (36.0-46.0); HGB 13.3 g/dL (11.2-15.7); Immature Grans % 0.4; Lymphocytes % 33.4; MCH 31.2 pg (27.0-33.0); MCHC 33.3 % (32.0-36.0); MCV 93.7 fL (80-95); Monocytes % 4.7; Neutrophils % 57.8; Nucleated RBC 0 %; Platelet Count 397 10^3/uL (130-400); RBC 4.26 10^6/uL (3.93-5.22); RDW 15.1 % (11.7-14.6); RDW-SD 52.1 fL; WBC 18.42 10^3/uL (4.4-10.8)
[2020-12-15 20:46] LABS: Absolute Basophil Count 0.15 10^3/uL (0.0-0.2); Absolute Eosinophil Count 0.53 10^3/uL (0.0-0.7); Absolute Neutrophil Count 10.65 10^3/uL (1.2-6.7)
[2020-12-15 20:52] LABS: ALT 24 U/L (14-59); AST 22 U/L (15-37); Albumin 3.7 g/dL (3.4-5.0); Alkaline Phosphatase 70 U/L (46-116); Anion Gap 12.6 mmol/L (3-11); BUN 10 mg/dL (7-18); Bilirubin, Total 0.2 mg/dL (0.2-1.0); CO2 25.4 mmol/L (21.0-32.0); CREATININE 0.7 mg/dL (0.55-1.02); Calcium 8.8 mg/dL (8.5-10.1); Chloride 107 mmol/L (98-107); Glucose 101 mg/dL (74-106); NT-proBNP 98 pg/mL (<300); Potassium 3.4 mmol/L (3.5-5.1); Sodium 145 mmol/L (136-145); Total Protein 7.2 g/dL (6.4-8.2)
[2020-12-15 20:53] LABS: Troponin I < 0.05 ng/mL (<0.06)
[2020-12-15 20:54] LABS: INR 0.9 (0.9-1.1); Prothrombin Time 9.4 sec (9.3-11.0)
[2020-12-15 21:13] LABS: D-Dimer 396 ng/mlFEU (<500)
[2020-12-15 21:24] LABS: Diff Comment Diff Reviewed; RBC Morphology Normal
[2020-12-15] MEDS: Cefpodoxime 200 MG TAB 400 MG PO (21:49)
== END 2020-12-15 22:13 | disposition home or self-care (01) ==
PROVIDERS: Emergency Provider Physician Assistant; PCP Nurse Practitioner Family
DX: J44.1 Chronic obstructive pulmonary disease with (acute) exacerbation (principal); F17.210 Nicotine dependence, cigarettes, uncomplicated
CPT/HCPCS: 80053; 93005; 94640; 99284; 71045; 83735; 83880; 84484; 85025; 85379; 85610; 85730; 93010; 99283; J7620

== ENCOUNTER 2020-12-16 17:55 | Outpatient (REF) | payer MEDICAID, SELFPAY ==
[2020-12-18 13:00] LABS: COVID-19 RT-PCR UVMMC Result Negative (Negative)
== END 2020-12-16 17:56 | disposition home or self-care (01) ==
LOC: NCHCN 17:55
PROVIDERS: PCP Nurse Practitioner Family; Visit Provider Nurse Practitioner Family
DX: R06.03 Acute respiratory distress (principal); Z20.822 Contact with and (suspected) exposure to COVID-19
CPT/HCPCS: U0003

== ENCOUNTER 2020-12-30 09:18 | Outpatient (CLI) | payer MEDICAID, SELFPAY ==
--- NOTE | 2020-12-30 | DI.RAD_ITS ---
Exam(s) XR KNEE RT 3V AP,LAT,IBAN EXAM: XR KNEE RT 3V AP,LAT,IBAN CLINICAL HISTORY: RT KNEE JOINT PAIN, M25.561. TECHNIQUE: 2D digital imaging was performed. COMPARISON: CR XR KNEE RT 3V AP,LAT,IBAN from 04/19/2020 FINDINGS: There is no evidence of fracture. There appears to be a small joint effusion. There are advanced de generative changes in the lateral compartment again noted. Lesser degenerative changes in the medial and patellofemoral compartment. Degenerative subarticular cyst in the lateral tibial plateau is not ed. IMPRESSION: DATA REPOSITORY: RADIATION DOSE DELIVERED:
== END 2020-12-30 09:38 ==
PROVIDERS: PCP Nurse Practitioner Family; Visit Provider Nurse Practitioner Family
DX: M25.561 Pain in right knee (principal)
CPT/HCPCS: 73562

== ENCOUNTER 2021-06-14 01:10 | Outpatient (CLI) | payer MEDICAID, SELFPAY ==
--- NOTE | 2021-06-14 | DI.CTLCSR_ITS ---
Exam(s) CT CHEST LUNG CANCER SCREEN EXAM: CT CHEST LUNG CANCER SCREEN CLINICAL HISTORY: SCREENING FOR LUNG CA, SMOKER, F17.200 TECHNIQUE: Imaging Protocol: Axial computed tomography images with coronal and sagittal reformatted images were created and reviewed COMPARISON: CT CT CHEST LUNG CANCER SCREEN from 01/13/[address] CHEST PE CTA from 07/20/2019 FINDINGS: Tracheobronchial tree: Patent where visualized. Pulmonary parenchyma: No consolidation or dominant measurable mass. Centrilobular and paraseptal emph ysematous changes are present. There is a calcified granuloma in the left lower lobe. There is a st able perifissural nodule associated with the right major fissure. Lung Nodules: No noncalcified pulmonary nodules. Mediastinum and Chanda: No dominant adenopathy or fluid collection. The esophagus is unremarkable. Thyroid gland: Unremarkable. Lymph nodes: Unremarkable. Pleura: No effusion or pneumothorax. Heart: The heart is not dilated. Coronary artery calcifications are present. No pericardial effusion . Aorta: Thoracic aorta non-dilated.Atherosclerosis. Upper abdomen: Unremarkable. Soft Tissues: Unremarkable. Bones: Within normal limits. IMPRESSION: 1. Stable left lower lobe calcified granuloma and right perifissural nodule. 2. No noncalcified pulmonary nodules. Lung RADS Cat 2 - Benign Appearance / Behavior: Nodules with a very low likelihood of becoming a clin ically active cancer due to size or lack of growth Lung-RADS 1.0 CATEGORIES: Category 0 - Prior chest CT exam(s) being located for comparison. Category 1 - Annual screening in 12 months. No nodules or definitely benign nodules. Category 2 - Annual screening in 12 months. Benign appearance. Nodules with low likelihood of becomin g active cancer. Category 3 - 6-month follow-up. Probably benign. Short-term follow-up suggested. Nodules with low lik elihood of becoming active cancer. Category 4A - 3-month follow-up and CT/PET if >8 mm in size. Suspicious finding. Findings which requi re additional testing. Category 4B - Findings which require additional testing and tissue sampling. Suspicious finding. Modifier S- Potentially clinically significant finding. (Non lung cancer) RADIATION DOSE DELIVERED: 79.89mGy.cm Total DLP 1.84mGy CTDIvol 79.89mGy.cm Total DLP 1.84mGy CTDIvol DATA REPOSITORY: All CT scans at this facility are submitted to the National Radiology Data Registry (NRDR) Dose Index Registry (DIR) with the [employer] (ACR). RADIATION OPTIMIZATION: All CT scans at this facility use at least one of these dose optimization te chniques: automated exposure control; mA and/or kV adjustment per patient size (includes targeted exa ms where dose is matched to clinical indication); or iterative reconstruction.
== END 2021-06-14 01:30 ==
PROVIDERS: PCP Nurse Practitioner Family; Visit Provider Nurse Practitioner Family
DX: Z12.2 Encounter for screening for malignant neoplasm of respiratory organs (principal); F17.210 Nicotine dependence, cigarettes, uncomplicated; J98.4 Other disorders of lung; J84.10 Pulmonary fibrosis, unspecified
CPT/HCPCS: 71271

== ENCOUNTER 2021-10-23 12:07 | Emergency (ER) | payer MEDICAID, SELFPAY ==
[2021-10-23] VITALS (20 sets, daily range): BP systolic 114–133; BP diastolic 66; PULSE 91–108; RESP 18–30; TEMP 37.8; O2SAT 90–96
--- NOTE | 2021-10-23 11:45 | DI.RAD_ITS ---
Exam(s) XR CHEST 2V PA LATERAL EXAM: XR CHEST 2V PA LATERAL CLINICAL HISTORY: SOB. TECHNIQUE: 2D digital imaging was performed. COMPARISON: CR,XR XR PORTABLE CHEST AP from 12/15/2020 FINDINGS: 2 views: Heart size is normal. The mediastinum is not widened. Bilateral hyperinflation noted. There is platelike atelectasis in the left lung base. Mild pleural thickening in the right lung base. No pleural effusions. No pneumothorax. IMPRESSION: Bilateral hyperinflation. Platelike atelectasis in left lung base. Pleural thickening in the right lung base. Recommend follow-up chest x-ray in 2 weeks, earlier if clinically indicated DATA REPOSITORY: RADIATION DOSE DELIVERED:
--- NOTE | 2021-10-23 12:00 | RT.EKG_ITS ---
APPROVED REPORT Exam: Resting ECG Reason for Exam: chest pain Patient Location: E HR:90 bpm ECG Measurements Heart Rate 90 AXIS MI 136 P 86 QRSd 78 QRS 81 QT 361 T 73 QTc 442 Conclusion Sinus rhythm...normal P axis, V-rate 60- 99. Sinus. Normal axis. No STEMI. I have reviewed and interpreted ECG and agree with software generated interpretation.
[2021-10-23] MEDS: methylPREDNISolone SUCC 125 MG VIAL IVP (12:51)
[2021-10-23 12:53] LABS: Abs Immature Grans 0.04 10^3/uL (0.0-0.06); Absolute Basophil Count 0.05 10^3/uL (0.0-0.2); Absolute Eosinophil Count 0.02 10^3/uL (0.0-0.7); Absolute Lymphocyte Count 2.75 10^3/uL (1.2-3.4); Absolute Neutrophil Count 5.09 10^3/uL (1.2-6.7); Basophils % 0.6; Eosinophils % 0.2; HCT 41.9 % (36.0-46.0); HGB 13.6 g/dL (11.2-15.7); Immature Grans % 0.4; Lymphocytes % 30.4; MCH 30.2 pg (27.0-33.0); MCHC 32.5 % (32.0-36.0); MCV 93 fL (80-95); Monocytes % 12.2; Neutrophils % 56.2; Platelet Count 323 10^3/uL (130-400); RBC 4.51 10^6/uL (3.93-5.22); RDW 14.7 % (11.7-14.6); RDW-SD 50.8 fL; WBC 9.05 10^3/uL (4.4-10.8)
--- NOTE | 2021-10-23 13:14 | DI.VRAD_ITS ---
PROCEDURE INFORMATION: Exam: XR Chest Exam date and time: 10/23/2021 1:05 PM Age: 66 years old Clinical indication: Shortness of breath TECHNIQUE: Imaging protocol: XR of the chest. Views: 2 views. COMPARISON: CT CHEST LUNG CANCER SCREEN 06/14/2021 1:47 PM FINDINGS: Lungs: Clear lungs. Pleural spaces: No sizable pleural effusion. No pneumothorax. Heart/Mediastinum: Cardiomediastinal silhouette is within normal limits. Bones/joints: No acute displaced fracture or dislocation. IMPRESSION: No acute cardiopulmonary process. Dictated and Authenticated by: Hay Morris MD. Ordering:HUYEN Wilkins MD
[2021-10-23 13:15] LABS: ALT 35 U/L (14-59); AST 32 U/L (15-37); Albumin 3.8 g/dL (3.4-5.0); Alkaline Phosphatase 72 U/L (46-116); Anion Gap 7.9 mmol/L (3-11); BUN 14 mg/dL (7-18); Bilirubin, Total 0.2 mg/dL (0.2-1.0); CO2 29.1 mmol/L (21.0-32.0); CREATININE 0.6 mg/dL (0.55-1.02); Calcium 8.5 mg/dL (8.5-10.1); Chloride 99 mmol/L (98-107); Glucose 92 mg/dL (74-106); Magnesium 2.2 mg/dL (1.8-2.4); NT-proBNP 242 pg/mL (<300); Potassium 3.9 mmol/L (3.5-5.1); Sodium 136 mmol/L (136-145); Total Protein 7.6 g/dL (6.4-8.2); Troponin I < 50 ng/L (<or=60)
[2021-10-23 13:24] LABS: D-Dimer 751 ng/mlFEU (<500)
[2021-10-23] MEDS: Albuterol/Ipratropium 3 ML UPD VIAL UPD (13:30)
[2021-10-23 13:37] LABS: COVID-19 PCR Negative (Negative); Influenza B PCR Negative (Negative); RSV PCR Negative (Negative)
[2021-10-23 13:40] LABS: Influenza A PCR Positive (Negative)
--- NOTE | 2021-10-23 15:03 | W.ED.GENAD ---
Discharge Plan Disposition Patient Disposition: HOME Condition: Stable Discharge Details Clinical Impression: Influenza A, Acute exacerbation of chronic obstructive pulmonary disease Primary Care Provider: Alberta Barrios ED Provider: Franky Reardon Home Meds and New Rx's Prescriptions: New Xofluza 40 mg tablet 40 mg PO ONCE Qty: 2 0RF Rx Instructions: as a single dose albuterol sulfate 1.25 mg/3 mL solution for nebulization 1.25 mg inhalation QID PRN (Reason: shortness of breath or wheezing) Qty: 75 0RF prednisone 20 mg tablet 40 mg PO DAILY Qty: 8 0RF Continued omeprazole 20 mg capsule,delayed release(DR/EC) 20 mg PO DAILY albuterol sulfate [Ventolin HFA] 90 mcg/actuation HFA aerosol inhaler 2 puff IH Q6H PRN loratadine [Claritin] 10 mg tablet 10 mg PO DAILY gabapentin 300 mg capsule 300 mg PO BID sertraline 100 mg Tablet 100 mg PO DAILY ipratropium-albuterol 0.5 mg-3 mg(2.5 mg base)/3 mL solution for nebulization 3 ml IH Q6H PRN (Reason: shortness of breath or wheezing) Qty: 15 0RF Label Comments: does not use budesonide-formoterol [Symbicort] 160-4.5 mcg/actuation Hfa Aerosol Inhaler 2 puff INHALATION BID atorvastatin 40 mg tablet 40 mg PO HS Label Comments: TAKE 1 TABLET BY MOUTH ONCE DAILY AT BEDTIME trazodone 50 mg tablet 50 mg PO HS PRN Label Comments: TAKE 1 TABLET BY MOUTH AT BEDTIME NEEDED famotidine 20 mg tablet 20 mg PO DAILY Label Comments: TAKE 1 TABLET BY MOUTH ONCE DAILY fluticasone propionate 50 mcg/actuation spray,suspension 1 spray INTRANASAL BID Discharge Instructions Instructions: Influenza (ED), COPD (Chronic Obstructive Pulmonary Disease) (ED) Additional Instructions: Please stay well-hydrated and get plenty of rest. It is important that you start Xofluza immediately this evening including your onset of symptoms. If the pharmacy is unable to service medication or it is too expensive for you please have them call the emergency department and we will switch this to Tamiflu. Please be aware that you were seen during a time of global shortage of iodine contrast media. This means an alternative approach to your diagnosis and treatment may have been employed in order to provide optimal care during the shortage. If you have any worsening of symptoms please go to the emergency department at his nearest ER or call 911. Stand Alone Forms: Work Release Referrals: Alberta Barrios [Primary Care Provider] - 5 days Discharge Data Discharge Date/Time-TO BE ENTERED AT DEPARTURE: 10/23/21 15:25 Medical Decision Making Patient presenting to the emergency department via EMS for chief complaint of shortness of breath. Patient reports that this is similar to her COPD exacerbation that she gets almost yearly in the spring. Patient does state mild cough that she has had since Sunday and overall not feeling well. Patient recently had COVID approximately 1 month ago and recovered after about 10 days. Patient is fully vaccinated and has received a booster. Physical exam shows mild tachypnea with increased work of breathing but no severe respiratory distress, diminished lung sounds with very mild scattered wheezing but no focal findings noted, no tachycardia, no hypoxia. Review of vital signs show slightly elevated temp at 37 8 but patient denies any fever. We will plan on giving patient steroids, DuoNeb, and performing standard work-up for chest pain/shortness of breath. Review of EKG shows sinus rhythm, rate of 90, no acute signs of STEMI, otherwise nondiagnostic EKG. Review of labs show a unremarkable CBC that only shows slightly elevated monocytes, CMP is unremarkable, negative troponin, BNP of 242, patient is positive for influenza A but negative for COVID or RSV. Patient did have slightly elevated D-dimer of 751. Chest x-ray and radiologist interpretation shows no acute cardiopulmonary process. Reassessed patient and breathing has improved along with airflow on lung sounds. Given that patient is stable with no worrisome findings I feel that she is safe for discharge. Did discuss with patient elevated D-dimer along with national shortage of contrast media for PE CT studies. Given that this patient was evaluated during a time of global shortage of iodinated contrast media and based on the guidance from the [employer] of [employer], best practices, and local institutional approaches to alternative paths for evaluating and managing the patient that may have been employed in order to provide optimal care during the shortage. Current situation was discussed with the patient. After this discussion and patient's clinical indication and course appearing more consistent with influenza type illness versus PE I do feel that she is still safe for discharge. Patient does state understanding to return immediately for reassessment for any new or significant worsening of symptoms. After discussion of diagnosis and plan of care patient has no further needs, questions, or concerns and states clear understanding to return to the emergency department for any worsening symptoms. HPI General Mode of arrival: EMS. Date/Time Provider Initiated Documentation: 10/23/21 13:28. Limitations to Documentation: no limitations. Information obtained by: patient and RN notes reviewed. History of Present Illness 66 year old F presents to the emergency department with the chief complaint of Shortness of breath and fatigue, described as moderate and similar to prior episodes, with intensity rated at 3. Quality is described as other (Chest tightness), Patient started experiencing this day(s) (2) and it has been constant. No relieving factors improve symptom(s), Other factors that worsen symptoms (Activity) . Patient notes no other symptoms.. Patient did receive the following treatments prior to arrival, other ([id number] cold meds) Related Data Home Medications Medication Instructions Recorded Confirmed sertraline 100 mg tablet 100 mg PO DAILY 07/12/18 10/23/21 albuterol sulfate 90 mcg/actuation 2 puff inhalation Q6H PRN 10/25/18 10/23/21 aerosol inhaler (Ventolin HFA) omeprazole 20 mg capsule,delayed 20 mg PO DAILY 10/25/18 10/23/21 release ipratropium 0.5 mg-albuterol 3 mg 3 ml inhalation Q6H PRN shortness 07/19/19 09/12/21 (2.5 mg base)/3 mL nebulization of breath or wheezing #15 mL soln budesonide-formoterol HFA 160 2 puff inhalation BID 07/20/19 10/23/21 mcg-4.5 mcg/actuation aerosol inhaler (Symbicort) atorvastatin 40 mg tablet 40 mg PO HS 12/15/20 10/23/21 famotidine 20 mg tablet 20 mg PO DAILY 12/15/20 10/23/21 fluticasone propionate 50 1 spray intranasal BID 12/15/20 10/23/21 mcg/actuation nasal spray,suspension trazodone 50 mg tablet 50 mg PO HS PRN 12/15/20 10/23/21 gabapentin 300 mg capsule 300 mg PO BID 08/19/21 10/23/21 loratadine 10 mg tablet (Claritin) 10 mg PO DAILY 09/12/21 10/23/21 albuterol sulfate 1.25 mg/3 mL 1.25 mg (3 mL) inhalation QID PRN 10/23/21 solution for nebulization shortness of breath or wheezing #75 mL baloxavir marboxil 40 mg tablet 40 mg PO ONCE #2 tabs 10/23/21 (Xofluza) prednisone 20 mg tablet 40 mg PO DAILY #8 tabs 10/23/21 Previous Rx's Medication Instructions Recorded ipratropium 0.5 mg-albuterol 3 mg 3 ml inhalation Q6H PRN shortness 07/19/19 (2.5 mg base)/3 mL nebulization of breath or wheezing #15 mL soln albuterol sulfate 1.25 mg/3 mL 1.25 mg (3 mL) inhalation QID PRN 10/23/21 solution for nebulization shortness of breath or wheezing #75 mL baloxavir marboxil 40 mg tablet 40 mg PO ONCE #2 tabs 10/23/21 (Xofluza) prednisone 20 mg tablet 40 mg PO DAILY #8 tabs 10/23/21 Allergies Allergy/AdvReac Type Severity Reaction Status Date / Time disulfiram [From Antabuse] Allergy Unverified 09/12/21 11:29 Sulfa (Sulfonamide Allergy Anaphylaxsi Verified 09/12/21 11:29 Antibiotics) s tree nut Allergy ANGIO EDEMA Verified 09/12/21 11:29 General Stated Complaint: SOB YONATAN: 2 Review of Systems Constitutional Constitutional: Reports body ache(s), Reports chills, Denies headache(s) and Reports malaise Eyes Eyes: Denies eye discharge ENT Ears, Nose, Mouth, and Throat: Denies headache(s), Denies nasal congestion and Denies neck pain Cardiovascular Cardiovascular: Reports chest pain, Denies rapid heart rate, Denies pedal edema, Denies leg edema, Reports dyspnea and Reports dyspnea on exertion Respiratory Respiratory: Denies chest congestion, Reports cough, Reports dyspnea, Reports dyspnea on exertion and Denies wheezing Gastrointestinal Gastrointestinal: Denies abdominal pain, Denies diarrhea and Denies nausea Musculoskeletal Musculoskeletal: Denies joint swelling and Denies neck pain Integumentary/Breasts Skin/Breast: Denies rash Neurologic Neurologic: Denies headache(s) Allergic/Immunologic Allergic/Immunologic: Denies wheezing PFSH All Active Problems Influenza A (Acute) Nasal septal perforation (Acute) Insomnia (Acute) Restless leg syndrome (Acute) Ptosis (Acute) Chronic rhinitis (Acute) Primary osteoarthritis of left knee (Acute) Steroid injection:07/28/21; 04/04/2021; 12/27/2020; 04/19/2020 Primary osteoarthritis of right knee (Acute) Steroid injection: 07/28/21; 04/04/2021; 12/27/2020; 04/19/2020 Acute exacerbation of chronic obstructive pulmonary disease (Acute) Acute exacerbation of chronic obstructive pulmonary disease (Acute) S/P colonoscopy (Acute ~11/26/18) Colorectal polyp detected on colonoscopy (Acute ~11/26/18) Diverticulosis (Acute ~11/26/18) Encounter for colorectal cancer screening (Acute) Family history of colon cancer requiring screening colonoscopy (Acute) Medical History Alcohol abuse, in remission Anxiety Blood in stool Chest pain COPD (chronic obstructive pulmonary disease) GERD (gastroesophageal reflux disease) Leukocytosis Tobacco abuse Surgical History History of colonoscopy Pt states ruptured spleen s/p colonoscopy 2012 requiring ICU stay and two month recovery. History of hammer toe correction (right) History of knee surgery Torn meniscus repair (left) History of tonsillectomy History of wisdom tooth extraction Family History Father Colon cancer Stage 4 at diagnosis at age 70 Paternal Aunt Colon cancer Paternal Aunt Colon cancer Mother Fallopian tube malignant neoplasm Maternal Uncle Stomach cancer Other Pancreatic cancer Social History Smoking/Tobacco Use Status: Current every day Tobacco Type: cigarettes Smoking risk assessment performed?: Yes Alcohol Intake: former Year quit: 2016 Drug use: Never Substance use type: does not use Pets and animals: No Do you feel safe at home: Yes Do you feel safe in your relationship?: Yes Exam Const General: cooperative, comfortable and in distress mild and respiratory Orientation: alert, awake and oriented x3 HENMT Head: normal to inspection, normocephalic and atraumatic Neck Neck: normal visual inspection, full ROM, no meningeal signs and trachea midline Resp Effort & Inspection: normal respiratory effort, able to speak in complete sentences, cough Quality of cough: dry and tachypneic Auscultation: diminished lung sounds bilaterally throughout and wheezes (Mild diffuse) scattered wheezes Cardio Rate: regular rate Rhythm: regular rhythm Heart Sounds: S1 normal, S2 normal, normal S1 and S2, no click, no gallops, no murmurs and no rubs Pulses: radial pulses present Skin General skin exam: no rashes or lesions noted and dry skin (warm) Neuro General: patient alert, patient awake, patient oriented x3, gait normal and moves all extremities Cognition: normal cognition Speech: speech normal Extrem General: normal to inspection, full ROM, capillary refill normal and no pedal edema Course Vital Signs Vital signs: Vital Signs Temperature 37.8 C H 10/23/21 12:09 Pulse 91 H 10/23/21 12:09 Respiratory Rate 18 10/23/21 12:09 Blood Pressure 114/66 10/23/21 12:09 Pulse Oximetry 94 10/23/21 12:09 Temperature 37.8 C H 10/23/21 12:09 Temperature Source Skin 10/23/21 12:09 Pulse 91 H 10/23/21 12:17 Pulse 105 H 10/23/21 14:40 Respiratory Rate 19 10/23/21 14:40 Respiratory Effort 10/23/21 12:55 Respiratory Depth Normal 10/23/21 12:55 Respiratory Pattern Normal 10/23/21 12:55 Blood Pressure 114/66 10/23/21 12:17 Blood Pressure Mean 75 10/23/21 12:17 Pulse Oximetry 92 10/23/21 14:40 Oxygen Delivery Method Room Air 10/23/21 12:09 Oxygen Flow Rate 0 10/23/21 12:09 Pain Level 6 10/23/21 12:09 Lab/Test Results Lab/Test Results: Laboratory Tests Range/Units 10/23/21 10/23/21 10/23/21 12:35 12:35 12:35 WBC (4.4-10.8) 10^3/uL RBC (3.93-5.22) 10^6/uL Hgb (11.2-15.7) g/dL Hct (36.0-46.0) % MCV (80-95) fL MCH (27.0-33.0) pg MCHC (32.0-36.0) % RDW (11.7-14.6) % Plt Count (130-400) 10^3/uL MPV (8.0-11.0) fL Immature Gran % Neutrophils % Lymphocytes % Monocytes % Eosinophils % Basophils % Nucleated RBC % (0.0-0.3) % Absolute Neutrophils (1.2-6.7) 10^3/uL Absolute Lymphocytes (1.2-3.4) 10^3/uL Absolute Monocytes (0.1-0.8) 10^3/uL Absolute Eosinophils (0.0-0.7) 10^3/uL Absolute Basophils (0.0-0.2) 10^3/uL D-Dimer (<500) ng/mlFEU 751 H Sodium (136-145) mmol/L 136 Potassium (3.5-5.1) mmol/L 3.9 Chloride (98-107) mmol/L 99 Carbon Dioxide (21.0-32.0) mmol/L 29.1 Anion Gap (3-11) mmol/L 7.9 BUN (7-18) mg/dL 14 Creatinine (0.55-1.02) mg/dL 0.6 Estimated GFR/1.73 m2 (mL/min/1.73m2) >= 60.00 Glucose (74-106) mg/dL 92 Calcium (8.5-10.1) mg/dL 8.5 Magnesium Cancelled 2.2 Total Bilirubin (0.2-1.0) mg/dL 0.2 AST (15-37) U/L 32 ALT (14-59) U/L 35 Alkaline Phosphatase (46-116) U/L 72 Troponin I (<or=60) ng/L < 50 NT-Pro-B Natriuret Pep Cancelled 242 Total Protein (6.4-8.2) g/dL 7.6 Albumin (3.4-5.0) g/dL 3.8 COVID-19 Source SARS-CoV-2 (PCR) (Negative) Influenza Type A (PCR) (Negative) Influenza Type B (PCR) (Negative) RSV (PCR) (Negative) Range/Units 10/23/21 10/23/21 12:35 12:55 WBC (4.4-10.8) 10^3/uL 9.05 RBC (3.93-5.22) 10^6/uL 4.51 Hgb (11.2-15.7) g/dL 13.6 Hct (36.0-46.0) % 41.9 MCV (80-95) fL 93 MCH (27.0-33.0) pg 30.2 MCHC (32.0-36.0) % 32.5 RDW (11.7-14.6) % 14.7 H Plt Count (130-400) 10^3/uL 323 MPV (8.0-11.0) fL 10.0 Immature Gran % 0.4 Neutrophils % 56.2 Lymphocytes % 30.4 Monocytes % 12.2 Eosinophils % 0.2 Basophils % 0.6 Nucleated RBC % (0.0-0.3) % 0.0 Absolute Neutrophils (1.2-6.7) 10^3/uL 5.09 Absolute Lymphocytes (1.2-3.4) 10^3/uL 2.75 Absolute Monocytes (0.1-0.8) 10^3/uL 1.10 H Absolute Eosinophils (0.0-0.7) 10^3/uL 0.02 Absolute Basophils (0.0-0.2) 10^3/uL 0.05 D-Dimer (<500) ng/mlFEU Sodium (136-145) mmol/L Potassium (3.5-5.1) mmol/L Chloride (98-107) mmol/L Carbon Dioxide (21.0-32.0) mmol/L Anion Gap (3-11) mmol/L BUN (7-18) mg/dL Creatinine (0.55-1.02) mg/dL Estimated GFR/1.73 m2 (mL/min/1.73m2) Glucose (74-106) mg/dL Calcium (8.5-10.1) mg/dL Magnesium Total Bilirubin (0.2-1.0) mg/dL AST (15-37) U/L ALT (14-59) U/L Alkaline Phosphatase (46-116) U/L Troponin I (<or=60) ng/L NT-Pro-B Natriuret Pep Total Protein (6.4-8.2) g/dL Albumin (3.4-5.0) g/dL COVID-19 Source Not Applicable SARS-CoV-2 (PCR) (Negative) Negative Influenza Type A (PCR) (Negative) Positive A Influenza Type B (PCR) (Negative) Negative RSV (PCR) (Negative) Negative
--- NOTE | 2021-11-02 08:05 | NUR.NOTE ---
Nursing Note: Patient called stating Mikaela had called her but did not know what it was about. I checked and she has an inhaler in the pharmacy. They will bring it down today. She will pick it up tomorrow. Seema Herrera
== END 2021-10-23 15:25 | disposition home or self-care (01) ==
PROVIDERS: Emergency Provider Nurse Practitioner Family; PCP Nurse Practitioner Family
DX: J10.1 Influenza due to other identified influenza virus with other respiratory manifestations (principal); J44.1 Chronic obstructive pulmonary disease with (acute) exacerbation; F17.210 Nicotine dependence, cigarettes, uncomplicated; R06.02 Shortness of breath; R07.9 Chest pain, unspecified
CPT/HCPCS: 36415; 80053; 87637; 93005; 96374; 99284; 71046; 83735; 83880; 84484; 85025; 85379; 93010; J2930; J7620

== ENCOUNTER 2022-01-30 08:56 | Outpatient (CLI) | payer MEDICAID, SELFPAY ==
--- NOTE | 2022-01-30 08:15 | DI.RAD_ITS ---
Exam(s) XR STANDING ALIGNMENT EXAM: XR STANDING ALIGNMENT CLINICAL HISTORY: eval alignment for TKA. TECHNIQUE: 2D digital imaging was performed. Four images were obtained. COMPARISON: CR XR KNEE RT 3V AP,LAT,IBAN from 12/30/2020 FINDINGS: BONES: The hips are well maintained. Moderately severe degenerative changes are seen in the right kn ee with joint space narrowing and periarticular spurring present. The findings are most marked in th e lateral femoral tibial joint space. Mild degenerative changes are seen in the left knee. The ankl es are well maintained.There is no significant leg length discrepancy. SOFT TISSUE: Normal. IMPRESSION: Osteoarthritis of the knees, right greater than left. DATA REPOSITORY: RADIATION DOSE DELIVERED:
== END 2022-01-30 08:57 | disposition home or self-care (01) ==
LOC: DIORS 08:56
PROVIDERS: PCP Nurse Practitioner Family; Referring Provider Nurse Practitioner Family; Visit Provider Student in an Organized Health Care Education/Training Program
DX: M17.0 Bilateral primary osteoarthritis of knee (principal)
CPT/HCPCS: 77073

== ENCOUNTER 2022-03-06 02:45 | Outpatient (CLI) | payer MEDICAID, SELFPAY ==
[2022-03-06 09:39] LABS: HCT 41.6 % (36.0-46.0); HGB 13.7 g/dL (11.2-15.7); MCH 30.1 pg (27.0-33.0); MCHC 32.9 % (32.0-36.0); MCV 91 fL (80-95); MPV 9.5 fL (8.0-11.0); Platelet Count 412 10^3/uL (130-400); RBC 4.55 10^6/uL (3.93-5.22); RDW 13.2 % (11.7-14.6); RDW-SD 43.9 fL; WBC 11.42 10^3/uL (4.4-10.8)
[2022-03-06 10:32] LABS: Anion Gap 8.6 mmol/L (3-11); BUN 16 mg/dL (7-18); CO2 28.4 mmol/L (21.0-32.0); CREATININE 0.7 mg/dL (0.55-1.02); Calcium 9.3 mg/dL (8.5-10.1); Chloride 100 mmol/L (98-107); Estimated GFR 95.92 (mL/min/1.73m2); Glucose 89 mg/dL (74-106); Potassium 3.7 mmol/L (3.5-5.1); Sodium 137 mmol/L (136-145)
== END 2022-03-06 02:46 | disposition home or self-care (01) ==
LOC: LBO 02:45
PROVIDERS: PCP Nurse Practitioner Family; Visit Provider Student in an Organized Health Care Education/Training Program
DX: M25.561 Pain in right knee (principal); M17.11 Unilateral primary osteoarthritis, right knee; Z01.818 Encounter for other preprocedural examination; Z01.812 Encounter for preprocedural laboratory examination
CPT/HCPCS: 36415; 80048; 85027

== ENCOUNTER 2022-03-08 07:36 | Day surgery (SDC) | payer MEDICAID, SELFPAY ==
--- NOTE | 2022-03-08 07:23 | W.PM.DS.N ---
DS: Diagnosis Discharge Diagnosis (1) Primary osteoarthritis of right knee: Status: Chronic Discharge Plan Disposition Patient Disposition: HOME Condition: Good Discharge Details Reason For Visit: Right knee DJD Attending Provider: Dre Diaz Primary Care Provider: Alberta Barrios Home Meds and New Rx's Prescriptions: New acetaminophen 500 mg tablet 500 mg PO Q6H PRN (Reason: pain) Qty: 60 2RF aspirin 81 mg tablet,delayed release (DR/EC) 81 mg PO BID 30 Days Qty: 60 0RF docusate sodium [Colace] 100 mg capsule 100 mg PO BID Qty: 30 0RF oxycodone 5 mg tablet 5 mg PO Q4H PRN (Reason: severe post-operative pain) Qty: 18 0RF Rx Instructions: Take one tablet up to every 4 hours as needed for severe pain dexamethasone 4 mg tablet 4 mg PO DAILY Qty: 2 0RF Rx Instructions: Starting Post-Operative Day #1 (Day after surgery) for 2 days meloxicam 15 mg tablet 15 mg PO DAILY Qty: 30 0RF Continued omeprazole 20 mg capsule,delayed release(DR/EC) 20 mg PO DAILY albuterol sulfate [Ventolin HFA] 90 mcg/actuation HFA aerosol inhaler 2 puff IH Q6H PRN loratadine [Claritin] 10 mg tablet 10 mg PO DAILY gabapentin 300 mg capsule 300 mg PO BID albuterol sulfate 1.25 mg/3 mL solution for nebulization 1.25 mg inhalation QID PRN (Reason: shortness of breath or wheezing) Qty: 75 0RF sertraline 100 mg Tablet 100 mg PO DAILY ipratropium-albuterol 0.5 mg-3 mg(2.5 mg base)/3 mL solution for nebulization 3 ml IH Q6H PRN (Reason: shortness of breath or wheezing) Qty: 15 0RF Label Comments: does not use budesonide-formoterol [Symbicort] 160-4.5 mcg/actuation Hfa Aerosol Inhaler 2 puff INHALATION BID atorvastatin 40 mg tablet 40 mg PO HS Label Comments: TAKE 1 TABLET BY MOUTH ONCE DAILY AT BEDTIME trazodone 50 mg tablet 50 mg PO HS PRN Label Comments: TAKE 1 TABLET BY MOUTH AT BEDTIME NEEDED famotidine 20 mg tablet 20 mg PO DAILY Label Comments: TAKE 1 TABLET BY MOUTH ONCE DAILY fluticasone propionate 50 mcg/actuation spray,suspension 1 spray INTRANASAL BID Discharge Instructions Additional Instructions: Total Knee Discharge Instructions Activity: The most important activity is to walk. You should try to take short walks a few times a day. It is important that when resting you work on keeping the knee straight. Avoid putting a pillow behind the knee as this will encourage flexion. Work on range of motion exercises as provided by Physical Therapy. - Start outpatient physical therapy within 2 weeks. - You should wear the RAFA hose on both legs for 2 weeks. You may remove these at night. You may also use any compression sock in place of the RAFA hose. - Utilize [employer] to review exercises, see videos on exercises and obtain basic information pertaining to your surgery and your recovery. Dressing: Remove the Goyo wrap by 2 days after your surgery and put on the RAFA stocking given to you from the hospital. Keep the surgical dressing (underneath the GOYO wrap) in place for at least one week. After the first week it may be removed and replaced with light gauze and tape or nothing. The wound and dressing may get wet after 3 days but avoid soaking the dressing or otherwise it will need to be changed. Many people prefer covering the dressing with cling wrap (saran wrap) to minimize it from getting soaked. If it gets wet, just pat dry. If it starts to peel off then it will need to be changed. Medications: - You should take Tylenol and anti-inflammatory, Meloxicam, as your primary pain control medications. - You have been prescribed a stronger pain medication Oxycodone for breakthrough pain, take as needed as prescribed. - You have take a stomach acid reduction agent Omeprazole at baseline to help reduce stomach acid and reflux - continue with this medication. - You take Gabapentin twice daily - continue with this medication. - You also have been prescribed Decadron for 2 days post-operatively which will help reduce post-operative pain and nausea. - You will be taking Aspirin 81mg twice a day for DVT prevention unless instructed otherwise. - If you have constipation you should take Colace (which has been prescribed) or Miralax (is available [id number]). It takes most people 3-4 days to have a bowel movement. Follow-up: 2 weeks If you have any acute concerns or questions, please do not hesitate to contact the office at [phone]. You may contact Dr. Diaz with any questions after hours through the hospital at [phone] or on his cell phone at [phone]. Referrals: Dre Diaz MD [ [facility] STAFF PHYSICIAN] - Equipment/Supplies: Walker Activity:: Elevate Remove Dressings/Wound Care:: Do Not Remove Shower/Bathe:: Cover Diet:: As Tolerated Discharge Orders Discharge Orders: Discharge Order (Routine); Ordered 03/08/22 Ordered By: Dre Diaz DS: Summary Time Spent with Patient providing and/or coordinating discharge services: Less than 30 minutes Status at Discharge Functional status at discharge: uses cane/walker Overall status at discharge: patient is progressing back to baseline Mental Status: mental status grossly normal Speech and Movement: speech and movement normal Mood: congruent mood Affect: normal affect Exam Psych Mental Status: mental status grossly normal Speech and Movement: speech and movement normal Mood: congruent mood Affect: normal affect DS: Data Vitals/I&O Vitals and I&O: Intake & Output 03/07/22 03/07/22 03/08/22 11:59 23:59 11:59 Weight 148 lb 15.991 oz PFSH All Active Problems Nasal septal perforation (Acute) Insomnia (Acute) Restless leg syndrome (Acute) Ptosis (Acute) Chronic rhinitis (Acute) Primary osteoarthritis of left knee (Acute) Steroid injection: 01/30/22; 10/27/21; 07/28/21; 04/04/2021; 12/27/2020; 04/19/2020 Primary osteoarthritis of right knee (Chronic) Steroid injection: 10/27/21; 07/28/21; 04/04/2021; 12/27/2020; 04/19/2020 Acute exacerbation of chronic obstructive pulmonary disease (Acute) Acute exacerbation of chronic obstructive pulmonary disease (Acute) S/P colonoscopy (Acute ~11/26/18) Colorectal polyp detected on colonoscopy (Acute ~11/26/18) Diverticulosis (Acute ~11/26/18) Encounter for colorectal cancer screening (Acute) Family history of colon cancer requiring screening colonoscopy (Acute) Medical History Alcohol abuse, in remission Anxiety Blood in stool 1 episode Chest pain happened in October 2021 - due to stress at work and had flu COPD (chronic obstructive pulmonary disease) GERD (gastroesophageal reflux disease) Leukocytosis Tobacco abuse Surgical History History of colonoscopy Pt states ruptured spleen s/p colonoscopy 2012 requiring ICU stay and two month recovery. History of hammer toe correction (right) History of knee surgery Torn meniscus repair (left) History of tonsillectomy History of wisdom tooth extraction Family History Father Colon cancer Stage 4 at diagnosis at age 70 Paternal Aunt Colon cancer Paternal Aunt Colon cancer Mother Fallopian tube malignant neoplasm Maternal Uncle Stomach cancer Other Pancreatic cancer Social History Smoking/Tobacco Use Status: Current every day Tobacco Type: cigarettes Tobacco: How many years used: 40 Smoking risk assessment performed?: Yes Alcohol Intake: former Year quit: 2016 Drug use: Never Substance use type: does not use current occupation: [employer] Pets and animals: No Do you feel safe at home: Yes Do you feel safe in your relationship?: Yes
[2022-03-08 07:58] VITALS: BP 110/62; PULSE 78; RESP 17; TEMP 36.3; O2SAT 96
[2022-03-08] MEDS: Acetaminophen 500 MG TAB 1000 MG PO (08:35)
[2022-03-08] MEDS: Gabapentin 300 MG CAP PO (08:35)
--- NOTE | 2022-03-08 08:55 | W.ANESPRE ---
General Info Date of Service Date Performed: 03/08/22 Height: 5 ft 9 in Weight: 66.5 kg Body Mass Index (BMI): 21.6 Surgical Procedure: Operation Date: 03/08/22 11:10 Proposed Procedure Side Surgeon p Knee Total Arthroplasty, OrthoAlign, Cementless PS Right Dre Diaz MD Meds Allergies and Home Medications Allergies Allergy/AdvReac Type Severity Reaction Status Date / Time disulfiram [From Antabuse] Allergy Other (See Unverified 03/08/22 08:20 Comment) Sulfa (Sulfonamide Allergy Anaphylaxsi Verified 03/08/22 08:20 Antibiotics) s tree nut Allergy ANGIO EDEMA Verified 03/08/22 08:20 Home Medication Medication Instructions Recorded sertraline 100 mg tablet 100 mg PO DAILY 07/12/18 albuterol sulfate 90 mcg/actuation 2 puff inhalation Q6H PRN 10/25/18 aerosol inhaler (Ventolin HFA) omeprazole 20 mg capsule,delayed 20 mg PO DAILY 10/25/18 release ipratropium 0.5 mg-albuterol 3 mg 3 ml inhalation Q6H PRN shortness 07/19/19 (2.5 mg base)/3 mL nebulization of breath or wheezing #15 mL soln budesonide-formoterol HFA 160 2 puff inhalation BID 07/20/19 mcg-4.5 mcg/actuation aerosol inhaler (Symbicort) atorvastatin 40 mg tablet 40 mg PO HS 12/15/20 famotidine 20 mg tablet 20 mg PO DAILY 12/15/20 fluticasone propionate 50 1 spray intranasal BID 12/15/20 mcg/actuation nasal spray,suspension trazodone 50 mg tablet 50 mg PO HS PRN 12/15/20 gabapentin 300 mg capsule 300 mg PO BID 08/19/21 loratadine 10 mg tablet (Claritin) 10 mg PO DAILY 09/12/21 albuterol sulfate 1.25 mg/3 mL 1.25 mg (3 mL) inhalation QID PRN 10/23/21 solution for nebulization shortness of breath or wheezing #75 mL acetaminophen 500 mg tablet 500 mg PO Q6H PRN pain #60 tabs 03/08/22 aspirin 81 mg tablet,delayed 81 mg PO BID 30 days #60 tabs 03/08/22 release dexamethasone 4 mg tablet 4 mg PO DAILY #2 tabs 03/08/22 docusate sodium 100 mg capsule 100 mg PO BID #30 caps 03/08/22 (Colace) meloxicam 15 mg tablet 15 mg PO DAILY #30 tabs 03/08/22 oxycodone 5 mg tablet 5 mg PO Q4H PRN severe 03/08/22 post-operative pain #18 tabs Current Visit Medications: Current Medications Generic Name Dose Route Start Last Admin Trade Name Freq PRN Reason Stop Dose Admin Acetaminophen 1,000 mg 03/08/22 06:00 03/08/22 08:35 Acetaminophen 500 Mg Tab PO 03/08/22 16:00 1,000 mg PREOP [place] Administration Acetaminophen 1,000 mg 03/08/22 14:00 Acetaminophen 500 Mg Tab PO TID [place] Aspirin 81 mg 03/08/22 20:00 Aspirin E.C. 81 Mg Tabec PO BID [place] Celecoxib 200 mg 03/08/22 20:00 Celecoxib 200 Mg Cap PO BID [place] Docusate Sodium 100 mg 03/08/22 07:21 Docusate Sodium 100 Mg Cap PO BID PRN PRN Constipation Gabapentin 300 mg 03/08/22 06:00 03/08/22 08:35 Gabapentin 300 Mg Cap PO 03/08/22 16:00 300 mg PREOP [place] Administration Gabapentin 300 mg 03/08/22 22:00 Gabapentin 300 Mg Cap PO HS [place] Hydromorphone HCl 0.5 mg 03/08/22 07:21 Hydromorphone 2 Mg/Ml Syr IVP Q2H PRN PRN Tranexamic Acid 1,000 mg/ 60 mls @ 360 mls/hr 03/08/22 06:00 Sodium Chloride IVPB 03/08/22 16:00 PREOP [place] Ringer's Solution 1,000 mls @ 80 mls/hr 03/08/22 06:00 IV 04/06/22 23:59 INFUSION [place] Cefazolin Sodium/Dextrose 2 gm in 50 mls @ 100 mls/hr 03/08/22 06:00 Ancef Duplex IVPB 03/08/22 16:00 PREOP [place] Cefazolin Sodium/Dextrose 1 gm in 50 mls @ 100 mls/hr 03/08/22 08:00 Ancef Duplex IVPB 03/09/22 00:29 Q8H [place] IV Miscellaneous Supplies 1 each 03/08/22 06:00 Iv Access IV 04/06/22 23:59 DIRECTED [place] Ondansetron HCl 4 mg 03/08/22 07:21 Ondansetron 4 Mg/2 Ml Vial IVP Q6H PRN PRN Nausea Oxycodone HCl 0 mg 03/08/22 07:21 Oxycodone 5 Mg Tab PO Q3H PRN PRN Pain Pantoprazole Sodium 40 mg 03/09/22 07:30 Pantoprazole 40 Mg Tabcr PO DAILY@0730 [place] Polyethylene Glycol 17 gm 03/08/22 07:21 Polyethylene Glycol 3350 17 Gm Packet PO BID PRN PRN Constipation Sodium Chloride 0 ml 03/08/22 06:00 Normal Saline Flush 10 Ml Syr IV 04/06/22 23:59 PRN PRN Sodium Chloride 0 ml 03/08/22 06:00 Normal Saline 10 Ml Vial IJ 04/06/22 23:59 DIRECTED PRN Sterile Water 0 ml 03/08/22 06:00 Water,Injection,Sterile 10 Ml Vial IJ 04/06/22 23:59 DIRECTED PRN PFSH Active Problems Active Problems: Problem Status Onset Code Nasal septal perforation J34.89 Insomnia G47.00 Restless leg syndrome G25.81 Ptosis H02.409 Chronic rhinitis J31.0 Primary osteoarthritis of left knee M17.12 Primary osteoarthritis of right knee M17.11 Acute exacerbation of chronic obstructive pulmonary disease J44.1 Acute exacerbation of chronic obstructive pulmonary disease J44.1 S/P colonoscopy ~11/26/18 Z98.890 Colorectal polyp detected on colonoscopy ~11/26/18 K63.5 Diverticulosis ~11/26/18 K57.90 Encounter for colorectal cancer screening Z12.11, Z12.12 Family history of colon cancer requiring screening colonoscopy Z80.0 Medical History Medical History Alcohol abuse, in remission Anxiety Blood in stool 1 episode Chest pain happened in October 2021 - due to stress at work and had flu COPD (chronic obstructive pulmonary disease) GERD (gastroesophageal reflux disease) Leukocytosis Tobacco abuse Surgical History Surgical History History of colonoscopy Pt states ruptured spleen s/p colonoscopy 2012 requiring ICU stay and two month recovery. History of hammer toe correction (right) History of knee surgery Torn meniscus repair (left) History of tonsillectomy History of wisdom tooth extraction Tobacco Smoking/Tobacco Use Status: Current every day Tobacco Type: cigarettes Alcohol Alcohol Intake: former Year quit: 2016 Substance Use Substance use: Never Substance use type: does not use Vital Signs and Lab Results Vital Signs Most Recent Vital Signs in EMR: Most Recent Vital Signs Temp Pulse Resp BP Pulse Ox 36.3 C L 78 17 110/62 96 03/08/22 07:58 03/08/22 07:58 03/08/22 07:58 03/08/22 07:58 03/08/22 07:58 Lab Results Blood Type / Crossmatch: No Data to Display Complete Blood Count: White Blood Count 11.42 10^3/uL (4.4-10.8) H 03/06/22 09:31 Red Blood Count 4.55 10^6/uL (3.93-5.22) 03/06/22 09:31 Hemoglobin 13.7 g/dL (11.2-15.7) 03/06/22 09:31 Hematocrit 41.6 % (36.0-46.0) 03/06/22 09:31 Platelet Count 412 10^3/uL (130-400) H 03/06/22 09:31 Complete Metabolic Panel: Sodium Level 137 mmol/L (136-145) 03/06/22 09:31 Potassium Level 3.7 mmol/L (3.5-5.1) 03/06/22 09:31 Chloride Level 100 mmol/L (98-107) 03/06/22 09:31 Carbon Dioxide Level 28.4 mmol/L (21.0-32.0) 03/06/22 09:31 Blood Urea Nitrogen 16 mg/dL (7-18) 03/06/22 09:31 Creatinine 0.7 mg/dL (0.55-1.02) 03/06/22 09:31 Calcium Level 9.3 mg/dL (8.5-10.1) 03/06/22 09:31 Glucose Level 89 mg/dL (74-106) 03/06/22 09:31 Liver Function Panel: No Data to Display Coagulation Panel: No Data to Display Cardiac Panel: No Data to Display Arterial Blood Gas: No Data to Display Venous Blood Gas: No Data to Display Pancreas Panel: No Data to Display Thyroid Panel: No Data to Display Infectious Disease: No Data to Display Blood Cultures: No Data to Display Toxicology Panel: No Data to Display Imaging and Studies Imaging and Studies Study information below may be from another EMR and interpreted by another provider. Please see original notes in EMR for more complete details. EKG Summary: 10/30: sinus. Stress Test Summary: 08/28: no evidence of ischemia. Echocardiogram Summary: 09/28: LVEF 50-55%, no sig valvular lesions. X-Ray Summary: 10/30: hyperinflation. Carotid Artery Summary:: 04/30: no sig stenosis. Pulmonary Function Summary: 2019: severe obstructive dz with sig bronchodilator response, mild air trapping and severe diffusion defect. Anesthesia Assessment and Plan Anesthesia History Personal History: No History of Anesthesia Complications Family History: No Family History of Anesthesia Complications Exercise Tolerance Exercise Tolerance: Metabolic Equivalents>4 Pertinent Negatives Pertinent Negatives: No Symptoms of GERD, No Major Cardiovascular Symptoms or Complaints, No Major Pulmonary Symptoms or Complaints and No History of CVA/TIA Cardiac & Pulmonary Exam Cardiac Exam: Normal S1/S2 Heart Sounds Pulmonary Exam: Clear Bilateral Breath Sounds Implantable Cardiac Device Does patient have a Pacemaker or an ICD?: No Airway Exam Known Difficult Airway: No Mallampati Class: 1 Mouth Opening: Normal (> 3cm) Thyromental Distance: Greater than 3 cm Neck Range of Motion: Full ROM Neck Circumference: Normal Teeth Condition: Normal Dentition and Removable Dentures/Plates Upper (Left upper partial out) ASA Classification ASA Score: ASA 3 Emergency Case?: No NPO Status NPO Status: NPO Clears >2 hours, Solids >8 hours Anesthesia Plan Resuscitation Status: Full Code Anesthesia Technique: Spinal Anesthesia Airway Planned: Natural Airway Pain Management: Surgeon and patient request nerve block Monitors Used: Standard Monitors Preoperative Comments:: 67 yo female for right TKA. Sig PMHx: RLS, COPD/current smoker, GERD, anxiety, former EtOH (quit 2016), nasal septal perforation. Previous Anes: no issues. Previous Airway: none on file.
[2022-03-08] MEDS: Lactated Ringers 1,000 ML 80 ML IV (09:38)
[2022-03-08 10:29] VITALS: BMI 21.6
[2022-03-08 10:48] VITALS: BP 111/72; PULSE 69; RESP 15; TEMP 36.2; O2SAT 96
[2022-03-08 11:42] VITALS: BP 92/63; PULSE 63; RESP 12; TEMP 36.4; O2SAT 98
[2022-03-08 11:47] VITALS: BP 91/48; PULSE 60; RESP 13; TEMP 36.4; O2SAT 99
--- NOTE | 2022-03-08 11:55 | PDOC.ANES ---
Documented by User: Amie Torres 03/08/22 11:59 Nerve Block Single Injection Procedure Date and Time Date Performed: 03/08/22 Procedure Start: 10:45 Location Where Procedure Performed Procedure Location: Day Surgery Unit Reason Performed: Postoperative Analgesia Requesting Provider: Dre Diaz Timeout Performed Timeout Performed: Yes Monitoring Used ECG, Blood Pressure and SpO2 Sterility Sterility: Hand Hygiene, Surgical Cap, Surgical Mask, Sterile Gloves, Eye Protection and Chlorhexidine Sedation Given During Procedure Sedation Given (Indicate Dose Given): No Sedation given Patient Mental Status Patient Mental Status: Awake Nerve Block 1st Nerve Block: Laterality: Right Block Type: Adductor Canal Needle / Catheter Used: 100mm SonoPlex II Local Anesthetic Bolus (Indicate Dose Given): Lidocaine used for local infiltration of skin Additives (Indicate Dose Given): Precedex Dose:: 50mcg Ultrasound: Sterile probe cover and gel used Ultrasound Image Saved?: Yes Nerve Stimulator: Not Used Paresthesia: None Procedure Tolerated: No Complications and Patient tolerated well Procedure Outcome: Successful Performed By: Amie Torres Supervised By: Mee Flood Documented by User: Mee Flood CRNA 03/08/22 12:00 Nerve Block Single Injection Nerve Block 1st Nerve Block: Local Anesthetic Bolus (Indicate Dose Given): Injected in 3-5ml increments after negative blood aspiration and Bupivacaine 0.25% Dose:: 15mL
--- NOTE | 2022-03-08 12:01 | PDOC.ANES ---
Date of service: 03/08/22 Time of Service: 12:01 Anesthesia Note Report Anesthesia Note: Reference: Pt A/O x4 in preop area, c/o general tiredness, but otherrwise acting appropriately w/ staff; tolerated adductor block well. No medications given during this time. Pt in OR, transferred self to table from stretcher. Stated she did not feel well, BP 88/45. Pt positioning self for spinal w/ assistance of OR staff, stated she felt increasingly worse, BP recheck 65/40. OR staff placed pt supine on OR table. Pt oriented, however noted to be sleepy compared to preop eval. IVF bolus started, in addition to second IV 18g placed and additional IVF administered. Pt continued to state she did not feel well, c/o weird headache I don't know how to describe it. Discussed w/ OR team, with Dr. Diaz present at bedside. Pt moved to the PACU for further observation. Pt continued to be sleepy, yet oriented and answering questions appropriately. Continued to c/o weird headache. Surgery cancelled. Pt transferred to the ED for further evaluation.
[2022-03-08 12:02] VITALS: BP 107/45; PULSE 67; RESP 14; TEMP 36.4; O2SAT 99
== END 2022-03-08 07:37 | disposition home or self-care (01) ==
LOC: SUR 07:36
PROVIDERS: PCP Nurse Practitioner Family; Visit Provider Student in an Organized Health Care Education/Training Program
PROC: (CPT 27447; principal; 2022-03-08 11:00)
DX: M17.11 Unilateral primary osteoarthritis, right knee (principal); J44.9 Chronic obstructive pulmonary disease, unspecified; K21.9 Gastro-esophageal reflux disease without esophagitis; F17.210 Nicotine dependence, cigarettes, uncomplicated; Z53.09 Procedure and treatment not carried out because of other contraindication
CPT/HCPCS: 80053; 85610; 85730; J1100; J2405; J2704

== ENCOUNTER 2022-03-08 12:02 | Emergency (ER) | payer MEDICAID, SELFPAY ==
[2022-03-08] VITALS (8 sets, daily range): BP systolic 100–110; BP diastolic 58–64; PULSE 58–89; RESP 12–20; TEMP 36.2–36.6; O2SAT 93–98
--- NOTE | 2022-03-08 12:00 | RT.EKG_ITS ---
APPROVED REPORT Exam: Resting ECG Reason for Exam: hypotension Patient Location: E HR:60 bpm ECG Measurements Heart Rate 60 AXIS WI 134 P 82 QRSd 86 QRS 81 QT 459 T 71 QTc 457 Conclusion Sinus rhythm...normal P axis, V-rate 60- 99 sinus rhytm, normal axis, normal intervals, non ischemic
--- NOTE | 2022-03-08 12:12 | DI.RAD_ITS ---
Exam(s) XR CHEST 1V IN DI DEPT EXAM: XR CHEST 1V IN DI DEPT CLINICAL HISTORY: hypotension during preop. TECHNIQUE: 2D digital imaging was performed. COMPARISON: CR,XR XR CHEST 2V PA LATERAL from 10/23/2021 FINDINGS: LUNGS: Clear. No pleural abnormality seen. HEART: Normal. MEDIASTINUM: Normal. OTHER FINDINGS: None. IMPRESSION: No acute pulmonary findings. DATA REPOSITORY: RADIATION DOSE DELIVERED: Total DLP
--- NOTE | 2022-03-08 12:20 | W.ED.GENAD ---
Discharge Plan Disposition Patient Disposition: HOME Condition: Improving Discharge Details Chief Complaint: GenMedical Clinical Impression: Hypotension, Altered mental status Primary Care Provider: Alberta Barrios ED Provider: Enoc Coleman Home Meds and New Rx's Prescriptions: No Action omeprazole 20 mg capsule,delayed release(DR/EC) 20 mg PO DAILY albuterol sulfate [Ventolin HFA] 90 mcg/actuation HFA aerosol inhaler 2 puff IH Q6H PRN loratadine [Claritin] 10 mg tablet 10 mg PO DAILY gabapentin 300 mg capsule 300 mg PO BID albuterol sulfate 1.25 mg/3 mL solution for nebulization 1.25 mg inhalation QID PRN (Reason: shortness of breath or wheezing) Qty: 75 0RF sertraline 100 mg Tablet 100 mg PO DAILY ipratropium-albuterol 0.5 mg-3 mg(2.5 mg base)/3 mL solution for nebulization 3 ml IH Q6H PRN (Reason: shortness of breath or wheezing) Qty: 15 0RF Label Comments: does not use budesonide-formoterol [Symbicort] 160-4.5 mcg/actuation Hfa Aerosol Inhaler 2 puff INHALATION BID atorvastatin 40 mg tablet 40 mg PO HS Label Comments: TAKE 1 TABLET BY MOUTH ONCE DAILY AT BEDTIME trazodone 50 mg tablet 50 mg PO HS PRN Label Comments: TAKE 1 TABLET BY MOUTH AT BEDTIME NEEDED famotidine 20 mg tablet 20 mg PO DAILY Label Comments: TAKE 1 TABLET BY MOUTH ONCE DAILY fluticasone propionate 50 mcg/actuation spray,suspension 1 spray INTRANASAL BID meloxicam 15 mg tablet 15 mg PO DAILY Qty: 30 0RF Discharge Instructions Instructions: Hypotension (ED) Additional Instructions: Please follow-up with Dr. Diaz next week to reschedule knee surgery; please return to the emergency department for any worsening symptoms. Medical Decision Making 67-year-old female presents from preop area was being prepped for right knee replacement, patient had been n.p.o. since last night, bupivacaine nerve block of right lower extremity was administered, patient was also given Precedex; patient endorses feeling lightheaded and fatigued this morning, denies chest pain or shortness of breath, noted to be hypotensive as low as 60 systolic and tachycardic into the 100s. Fluid bolus was administered with improvement of blood pressure. Patiently currently resting, does appear fatigued, with pallor and dry skin also dry oral mucosa blood pressure 104 systolic currently, consider hypovolemia leading to near syncope and hypotension versus metabolic derangement versus hypoglycemia versus vagal response versus less consider ACS, less likely central neurologic process or PE or infectious etiology given history and physical. We will continue with fluid resuscitation will obtain labs chest x-ray EKG, close reassessment of mental status and vital signs. Disposition pending results and reassessment 15: 54 patient resting comfortably no acute distress. Alert oriented. Blood pressure improved. Mental status and clinical picture greatly improved. Of note labs showing relative anemia 3 points below patient's baseline, patient denies any active bleeding such as dark tarry stool bloody stool vaginal bleeding urinary losses or losses from trauma or vomiting. Bedside guaiac negative for blood in stool. Patient is hungry and would like he would also like some coffee. Will allow patient to eat and drink. Family at bedside. Disposition likely home pending results and reassessment 14: 50 patient resting notably feeling much better greatly improved symptomatically. Color and energy greatly improved. Patient to follow-up with Dr. Diaz next week to reschedule knee surgery. Family here to take her home. Given home care instructions and return precautions. Consider component of dehydration/hypovolemia versus hypoglycemia versus medication reaction versus vagal response. HPI General Date/Time Provider Initiated Documentation: 03/08/22 12:05. HPI Narrative: 67-year-old female presents transferred from preop, patient was being prepped for right knee replacement, has been n.p.o. since last night, endorses feeling acutely unwell lightheaded, noted to be hypotensive as low as the 60s systolic and tachycardic into the 100s, denies chest pain or shortness of breath. Was given fluids with improvement of blood pressure. Still feeling lightheaded/presyncopal. Medications administered this morning include bupivacaine nerve block of lower extremity as well as Precedex Related Data Home Medications Medication Instructions Recorded Confirmed sertraline 100 mg tablet 100 mg PO DAILY 07/12/18 03/08/22 albuterol sulfate 90 mcg/actuation 2 puff inhalation Q6H PRN 10/25/18 03/08/22 aerosol inhaler (Ventolin HFA) omeprazole 20 mg capsule,delayed 20 mg PO DAILY 10/25/18 03/08/22 release ipratropium 0.5 mg-albuterol 3 mg 3 ml inhalation Q6H PRN shortness 07/19/19 03/08/22 (2.5 mg base)/3 mL nebulization of breath or wheezing #15 mL soln budesonide-formoterol HFA 160 2 puff inhalation BID 07/20/19 03/08/22 mcg-4.5 mcg/actuation aerosol inhaler (Symbicort) atorvastatin 40 mg tablet 40 mg PO HS 12/15/20 03/08/22 famotidine 20 mg tablet 20 mg PO DAILY 12/15/20 03/08/22 fluticasone propionate 50 1 spray intranasal BID 12/15/20 03/08/22 mcg/actuation nasal spray,suspension trazodone 50 mg tablet 50 mg PO HS PRN 12/15/20 03/08/22 gabapentin 300 mg capsule 300 mg PO BID 08/19/21 03/08/22 loratadine 10 mg tablet (Claritin) 10 mg PO DAILY 09/12/21 03/08/22 albuterol sulfate 1.25 mg/3 mL 1.25 mg (3 mL) inhalation QID PRN 10/23/21 03/08/22 solution for nebulization shortness of breath or wheezing #75 mL meloxicam 15 mg tablet 15 mg PO DAILY #30 tabs 03/08/22 Previous Rx's Medication Instructions Recorded ipratropium 0.5 mg-albuterol 3 mg 3 ml inhalation Q6H PRN shortness 07/19/19 (2.5 mg base)/3 mL nebulization of breath or wheezing #15 mL soln albuterol sulfate 1.25 mg/3 mL 1.25 mg (3 mL) inhalation QID PRN 10/23/21 solution for nebulization shortness of breath or wheezing #75 mL meloxicam 15 mg tablet 15 mg PO DAILY #30 tabs 03/08/22 Allergies Allergy/AdvReac Type Severity Reaction Status Date / Time disulfiram [From Antabuse] Allergy Other (See Unverified 03/08/22 08:20 Comment) Sulfa (Sulfonamide Allergy Anaphylaxsi Verified 03/08/22 08:20 Antibiotics) s tree nut Allergy ANGIO EDEMA Verified 03/08/22 08:20 General Stated Complaint: GenMedical YONATAN: 3 Review of Systems Narrative: Review of Systems Constitutional: Fatigue, lightheadedness Eyes: negative ENT: negative Cardiovascular: negative Respiratory: negative Gastrointestinal: negative : negative Musculoskeletal: negative Skin: negative Neurologic: negative Psych: negative PFSH All Active Problems (Updated 03/08/22 @ 14:54 by Enoc Coleman MD) Hypotension (Acute) Altered mental status (Acute) Nasal septal perforation (Acute) Insomnia (Acute) Restless leg syndrome (Acute) Ptosis (Acute) Chronic rhinitis (Acute) Primary osteoarthritis of left knee (Acute) Steroid injection: 01/30/22; 10/27/21; 07/28/21; 04/04/2021; 12/27/2020; 04/19/2020 Primary osteoarthritis of right knee (Chronic) Steroid injection: 10/27/21; 07/28/21; 04/04/2021; 12/27/2020; 04/19/2020 Acute exacerbation of chronic obstructive pulmonary disease (Acute) Acute exacerbation of chronic obstructive pulmonary disease (Acute) S/P colonoscopy (Acute ~11/26/18) Colorectal polyp detected on colonoscopy (Acute ~11/26/18) Diverticulosis (Acute ~11/26/18) Encounter for colorectal cancer screening (Acute) Family history of colon cancer requiring screening colonoscopy (Acute) Medical History Alcohol abuse, in remission Anxiety Blood in stool 1 episode Chest pain happened in October 2021 - due to stress at work and had flu COPD (chronic obstructive pulmonary disease) GERD (gastroesophageal reflux disease) Leukocytosis Tobacco abuse Surgical History History of colonoscopy Pt states ruptured spleen s/p colonoscopy 2012 requiring ICU stay and two month recovery. History of hammer toe correction (right) History of knee surgery Torn meniscus repair (left) History of tonsillectomy History of wisdom tooth extraction Family History Father Colon cancer Stage 4 at diagnosis at age 70 Paternal Aunt Colon cancer Paternal Aunt Colon cancer Mother Fallopian tube malignant neoplasm Maternal Uncle Stomach cancer Other Pancreatic cancer Social History Smoking/Tobacco Use Status: Current every day Tobacco Type: cigarettes Tobacco: How many years used: 40 Smoking risk assessment performed?: Yes Alcohol Intake: former Year quit: 2016 Drug use: Never Substance use type: does not use current occupation: [employer] Pets and animals: No Do you feel safe at home: Yes Do you feel safe in your relationship?: Yes Exam Narrative Exam Narrative: Physical Examination General: alert, awake, cooperative, appears fatigued and uncomfortable HEENT: Dry oral mucosa; normocephalic, atraumatic; PERRL, EOM intact, conjunctiva normal; no nasal discharge Neck: supple, trachea midline; full ROM Chest: normal to inspection Respiratory: normal respiratory effort, speaking in full sentences, clear to auscultation, no wheezing, rales or rhonchi Cardiac: regular rate, regular rhythm, S1S2 intact, no murmurs rubs or gallops GI: abdomen soft, non-tender, non-distended; no palpable mass or hepatosplenomegaly Skin: Pale, dry Neuro: AAOx3, normal speech, moving all extremities; following commands moving all extremities with full strength Extremities: No peripheral edema Psych: Appropriate mood and affect Course Vital Signs Vital signs: Vital Signs Temperature 36.2 C L 03/08/22 12:06 Pulse 89 03/08/22 12:06 Respiratory Rate 16 03/08/22 12:06 Blood Pressure 104/61 03/08/22 12:06 Pulse Oximetry 98 03/08/22 12:06 Temperature 36.2 C L 03/08/22 12:06 Pulse 89 03/08/22 12:06 Respiratory Rate 16 03/08/22 12:06 Blood Pressure 104/61 03/08/22 12:06 Blood Pressure Position Supine 03/08/22 12:06 Pulse Oximetry 98 03/08/22 12:06 Oxygen Delivery Method Room Air 03/08/22 12:06 Oxygen Flow Rate 0 03/08/22 12:06 Pain Level 0 03/08/22 12:06
--- NOTE | 2022-03-08 12:30 | DI.CT_ITS ---
Exam(s) CT HEAD WO EXAM: CT HEAD WO CLINICAL HISTORY: acute headache, hypotension. TECHNIQUE: Imaging Protocol: Axial computed tomography images with coronal and sagittal reformatted images were created and reviewed COMPARISON: No exams were available for comparison FINDINGS: The ventricular system is normal in appearance. No evidence of acute intracranial hemorrhage, mass effect, or midline shift. The orbital structures are unremarkable. The temporal bone structures appear intact. Calvarium: Normal. Visualized Paranasal sinuses/Mastoids: Mild mucoperiosteal thickening paranasal sinuses bilaterally c onsistent with mild chronic sinusitis. Clear mastoid air cells.. IMPRESSION: No evidence of acute intracranial process. RADIATION DOSE DELIVERED: 807.48mGy.cm Total DLP 807.48mGy.cm Total DLP !Error CTDIvol DATA REPOSITORY: All CT scans at this facility are submitted to the National Radiology Data Registry (NRDR) Dose Index Registry (DIR) with the [employer] (A[employer]). RADIATION OPTIMIZATION: All CT scans at this facility use at least one of these dose optimization te chniques: automated exposure control; mA and/or kV adjustment per patient size (includes targeted exa ms where dose is matched to clinical indication); or iterative reconstruction.
[2022-03-08] MEDS: Normal Saline 500 ML 1000 ML IV (13:24)
[2022-03-08 13:29] LABS: Abs Immature Grans 0.01 10^3/uL (0.0-0.06); Absolute Basophil Count 0.06 10^3/uL (0.0-0.2); Absolute Eosinophil Count 0.27 10^3/uL (0.0-0.7); Absolute Lymphocyte Count 3.22 10^3/uL (1.2-3.4); Absolute Monocyte Count 0.59 10^3/uL (0.1-0.8); Absolute Neutrophil Count 3.22 10^3/uL (1.2-6.7); Basophils % 0.8; Eosinophils % 3.7; HCT 30.2 % (36.0-46.0); HGB 10.3 g/dL (11.2-15.7); Immature Grans % 0.1; Lymphocytes % 43.7; MCH 30.7 pg (27.0-33.0); MCHC 34.1 % (32.0-36.0); MCV 90 fL (80-95); MPV 9.8 fL (8.0-11.0); Neutrophils % 43.7; Platelet Count 276 10^3/uL (130-400); RBC 3.35 10^6/uL (3.93-5.22); RDW 13.3 % (11.7-14.6); RDW-SD 43.9 fL; WBC 7.37 10^3/uL (4.4-10.8)
[2022-03-08 13:53] LABS: ALT 16 U/L (14-59); AST 17 U/L (15-37); Albumin 2.7 g/dL (3.4-5.0); Alkaline Phosphatase 48 U/L (46-116); Anion Gap 7.5 mmol/L (3-11); BUN 14 mg/dL (7-18); Bilirubin, Total 0.2 mg/dL (0.2-1.0); CO2 24.5 mmol/L (21.0-32.0); CREATININE 0.5 mg/dL (0.55-1.02); Chloride 111 mmol/L (98-107); Estimated GFR 104.02 (mL/min/1.73m2); Glucose 71 mg/dL (74-106); Potassium 3.2 mmol/L (3.5-5.1); Sodium 143 mmol/L (136-145); Total Protein 5.1 g/dL (6.4-8.2)
[2022-03-08 13:57] LABS: Troponin I < 50 ng/L (<or=60)
[2022-03-08 14:03] LABS: TSH (W/Ref FT4) 0.59 uIU/mL (0.36-3.74)
== END 2022-03-08 15:09 | disposition home or self-care (01) ==
PROVIDERS: Emergency Provider Emergency Medicine; PCP Nurse Practitioner Family
DX: I95.9 Hypotension, unspecified (principal); R41.82 Altered mental status, unspecified; F17.210 Nicotine dependence, cigarettes, uncomplicated
CPT/HCPCS: 80053; 80307; 93005; 99285; 70450; 71045; 81003; 84443; 84484; 85025; 93010; 99284

== ENCOUNTER 2022-03-14 12:40 | Outpatient (REF) | payer MEDICAID, SELFPAY ==
[2022-03-14 19:26] LABS: Abs Immature Grans 0.04 10^3/uL (0.0-0.06); Absolute Monocyte Count 0.78 10^3/uL (0.1-0.8); Basophils % 0.9; Eosinophils % 2.7; HCT 41.7 % (36.0-46.0); Immature Grans % 0.4; Lymphocytes % 38.6; MCH 30.6 pg (27.0-33.0); MCHC 33.6 % (32.0-36.0); MCV 91 fL (80-95); MPV 10.6 fL (8.0-11.0); Monocytes % 7.1; Neutrophils % 50.3; Platelet Count 394 10^3/uL (130-400); RBC 4.58 10^6/uL (3.93-5.22); RDW 13.5 % (11.7-14.6); RDW-SD 45.3 fL; WBC 11.05 10^3/uL (4.4-10.8)
[2022-03-14 19:27] LABS: Absolute Lymphocyte Count 4.27 10^3/uL (1.2-3.4); Absolute Neutrophil Count 5.56 10^3/uL (1.2-6.7)
[2022-03-14 19:52] LABS: ALT 30 U/L (14-59); AST 21 U/L (15-37); Albumin 4.1 g/dL (3.4-5.0); Alkaline Phosphatase 81 U/L (46-116); Anion Gap 6.5 mmol/L (3-11); BUN 20 mg/dL (7-18); Bilirubin, Total 0.2 mg/dL (0.2-1.0); CO2 30.5 mmol/L (21.0-32.0); CREATININE 0.6 mg/dL (0.55-1.02); Calcium 9.5 mg/dL (8.5-10.1); Chloride 101 mmol/L (98-107); Estimated GFR 99.55 (mL/min/1.73m2); Ferritin 75 ng/mL (8-252); Glucose 80 mg/dL (74-106); Potassium 4.5 mmol/L (3.5-5.1); Sodium 138 mmol/L (136-145); Total Protein 7.3 g/dL (6.4-8.2)
[2022-03-14 21:29] LABS: Iron 76 ug/dL (50-170); Total Iron Binding Capacity 360 ug/dL (250-450); Transferrin Sat 21 % (15-50)
== END 2022-03-14 12:41 | disposition home or self-care (01) ==
LOC: LBN 12:40
PROVIDERS: PCP Nurse Practitioner Family; Visit Provider Nurse Practitioner Family
DX: E87.6 Hypokalemia (principal); D64.9 Anemia, unspecified; I95.1 Orthostatic hypotension
CPT/HCPCS: 80053; 82728; 83540; 83550; 85025

== ENCOUNTER 2022-03-29 07:14 | Day surgery (SDC) | payer MEDICAID, SELFPAY ==
[2022-03-29] VITALS (12 sets, daily range): BP systolic 68–114; BP diastolic 42–68; PULSE 65–88; RESP 12–19; TEMP 36.1–36.5; O2SAT 92–99; BMI 21.9
--- NOTE | 2022-03-29 07:28 | W.PM.DS.N ---
DS: Diagnosis Discharge Diagnosis (1) Primary osteoarthritis of right knee: Status: Chronic Discharge Plan Disposition Patient Disposition: HOME Condition: Good Discharge Details Reason For Visit: Right knee DJD Attending Provider: Dre Diaz Primary Care Provider: Alberta Barrios Home Meds and New Rx's Prescriptions: New acetaminophen 500 mg tablet 500 mg PO Q6H PRN (Reason: pain) Qty: 60 2RF aspirin 81 mg tablet,delayed release (DR/EC) 81 mg PO BID 30 Days Qty: 60 0RF docusate sodium [Colace] 100 mg capsule 100 mg PO BID Qty: 30 0RF dexamethasone 4 mg tablet 4 mg PO DAILY Qty: 2 0RF Rx Instructions: Take one tablet once daily for two days oxycodone 5 mg tablet 5 mg PO Q4H PRN (Reason: severe post-operative pain) Qty: 18 0RF Rx Instructions: Take one tablet up to every 4 hours as needed for severe pain meloxicam 15 mg tablet 15 mg PO DAILY Qty: 30 1RF Rx Instructions: Take one tablet daily for pain and inflammation Continued omeprazole 20 mg capsule,delayed release(DR/EC) 20 mg PO DAILY albuterol sulfate [Ventolin HFA] 90 mcg/actuation HFA aerosol inhaler 2 puff IH Q6H PRN loratadine [Claritin] 10 mg tablet 10 mg PO DAILY gabapentin 300 mg capsule 300 mg PO BID albuterol sulfate 1.25 mg/3 mL solution for nebulization 1.25 mg inhalation QID PRN (Reason: shortness of breath or wheezing) Qty: 75 0RF sertraline 100 mg Tablet 100 mg PO DAILY ipratropium-albuterol 0.5 mg-3 mg(2.5 mg base)/3 mL solution for nebulization 3 ml IH Q6H PRN (Reason: shortness of breath or wheezing) Qty: 15 0RF Label Comments: does not use budesonide-formoterol [Symbicort] 160-4.5 mcg/actuation Hfa Aerosol Inhaler 2 puff INHALATION BID atorvastatin 40 mg tablet 40 mg PO HS Label Comments: TAKE 1 TABLET BY MOUTH ONCE DAILY AT BEDTIME trazodone 50 mg tablet 50 mg PO HS PRN Label Comments: TAKE 1 TABLET BY MOUTH AT BEDTIME NEEDED famotidine 20 mg tablet 20 mg PO DAILY Label Comments: TAKE 1 TABLET BY MOUTH ONCE DAILY fluticasone propionate 50 mcg/actuation spray,suspension 1 spray INTRANASAL BID meloxicam 15 mg tablet 15 mg PO DAILY Qty: 30 0RF Discharge Instructions Additional Instructions: Total Knee Discharge Instructions Activity: The most important activity is to walk and to work on gentle motion (both flexion and extension). You should try to take short walks a few times a day. It is important that when resting you work on keeping the knee straight. Avoid putting a pillow behind the knee as this will encourage flexion. Work on range of motion exercises as provided by Physical Therapy. - Start outpatient physical therapy within 2 weeks. - You should wear the RAFA hose on both legs for 2 weeks. You may remove these at night. You may also use any compression sock in place of the RAFA hose. - Utilize [employer] to review exercises, see videos on exercises and obtain basic information pertaining to your surgery and your recovery. Dressing: Remove the Goyo wrap by 2 days after your surgery and put on the RAFA stocking given to you from the hospital. Keep the surgical dressing (underneath the GOYO wrap) in place for at least one week. After the first week it may be removed and replaced with light gauze and tape or nothing. The wound and dressing may get wet after 3 days but avoid soaking the dressing or otherwise it will need to be changed. Many people prefer covering the dressing with cling wrap (saran wrap) to minimize it from getting soaked. If it gets wet, just pat dry. If it starts to peel off then it will need to be changed. Medications: - You should take Tylenol and anti-inflammatory Meloxicam as your primary pain control medications. If the Meloxicam is too expensive or not covered, please call the office for another alternative (Advil/Ibuprofen or Naproxen/Aleve) - You have been prescribed a stronger pain medication Oxycodone for breakthrough pain, take as needed as prescribed. - You take a stomach acid reduction agent Omeprazole at baseline - continue with this medication to help reduce stomach acid and reflux. - You take Gabapentin at baseline - continue to take at night for restlessness and nerve pain. - You will be taking Aspirin 81mg twice a day for DVT prevention unless instructed otherwise. - You have also been prescribed Decadron to take to control post-operative nausea and pain. You will start this tomorrow. - If you have constipation you should take Colace (which has been prescribed) or Miralax (which is available [id number]). It takes most people 3-4 days to have a bowel movement. Follow-up: 2 weeks If you have any acute concerns or questions, please do not hesitate to contact the office at [phone]. You may contact Dr. Diaz with any questions after hours through the hospital at [phone] or on his cell phone at [phone]. Stand Alone Forms: Anesthesia Discharge Inst., Anes.Nerve Block Instructions Referrals: Dre Diaz MD [ [facility] STAFF PHYSICIAN] - Equipment/Supplies: Walker Activity:: Elevate Remove Dressings/Wound Care:: Do Not Remove Shower/Bathe:: Cover Diet:: As Tolerated DS: Summary Time Spent with Patient providing and/or coordinating discharge services: Less than 30 minutes Status at Discharge Functional status at discharge: uses cane/walker Overall status at discharge: patient is progressing back to baseline Mental Status: mental status grossly normal Speech and Movement: speech and movement normal Mood: congruent mood Affect: normal affect Exam Psych Mental Status: mental status grossly normal Speech and Movement: speech and movement normal Mood: congruent mood Affect: normal affect DS: Data Vitals/I&O Vitals and I&O: Intake & Output 03/28/22 03/28/22 03/29/22 11:59 23:59 11:59 Weight 148 lb 15.991 oz 148 lb 15.991 oz PFSH All Active Problems Hypotension (Acute) Altered mental status (Acute) Nasal septal perforation (Acute) Insomnia (Acute) Restless leg syndrome (Acute) Ptosis (Acute) Chronic rhinitis (Acute) Primary osteoarthritis of left knee (Acute) Steroid injection: 01/30/22; 10/27/21; 07/28/21; 04/04/2021; 12/27/2020; 04/19/2020 Primary osteoarthritis of right knee (Chronic) Steroid injection: 10/27/21; 07/28/21; 04/04/2021; 12/27/2020; 04/19/2020 Acute exacerbation of chronic obstructive pulmonary disease (Acute) Acute exacerbation of chronic obstructive pulmonary disease (Acute) S/P colonoscopy (Acute ~11/26/18) Colorectal polyp detected on colonoscopy (Acute ~11/26/18) Diverticulosis (Acute ~11/26/18) Encounter for colorectal cancer screening (Acute) Family history of colon cancer requiring screening colonoscopy (Acute) Medical History Alcohol abuse, in remission Anxiety Blood in stool 1 episode Chest pain happened in October 2021 - due to stress at work and had flu COPD (chronic obstructive pulmonary disease) GERD (gastroesophageal reflux disease) Leukocytosis Tobacco abuse Surgical History History of colonoscopy Pt states ruptured spleen s/p colonoscopy 2012 requiring ICU stay and two month recovery. History of hammer toe correction (right) History of knee surgery Torn meniscus repair (left) History of tonsillectomy History of wisdom tooth extraction Family History Father Colon cancer Stage 4 at diagnosis at age 70 Paternal Aunt Colon cancer Paternal Aunt Colon cancer Mother Fallopian tube malignant neoplasm Maternal Uncle Stomach cancer Other Pancreatic cancer Social History Smoking/Tobacco Use Status: Current every day Tobacco Type: cigarettes Years smoked: 40 Tobacco: How many years used: 40 Smoking risk assessment performed?: Yes Alcohol Intake: former Year quit: 2015 Drug use: Never Substance use type: does not use current occupation: [employer] Pets and animals: No Do you feel safe at home: Yes Do you feel safe in your relationship?: Yes
[2022-03-29] MEDS: Gabapentin 300 MG CAP PO (07:32)
[2022-03-29] MEDS: Acetaminophen 500 MG TAB 1000 MG PO (07:38)
[2022-03-29] MEDS: Lactated Ringers 1,000 ML 80 ML IV (08:00)
--- NOTE | 2022-03-29 08:01 | ANES.PREOP_ITS ---
General Info Date of Service Date Performed: 03/29/22 Height: 5 ft 9 in Weight: 67.585 kg Body Mass Index (BMI): 21.9 Surgical Procedure: Operation Date: 03/29/22 09:10 Proposed Procedure Side Surgeon p Knee Total Arthroplasty with OrthoAlign Right Dre Diaz MD Meds Allergies and Home Medications Allergies Allergy/AdvReac Type Severity Reaction Status Date / Time disulfiram [From Antabuse] Allergy Other (See Unverified 03/28/22 14:52 Comment) Sulfa (Sulfonamide Allergy Anaphylaxsi Verified 03/28/22 14:52 Antibiotics) s tree nut Allergy ANGIO EDEMA Verified 03/28/22 14:52 Home Medication Medication Instructions Recorded sertraline 100 mg tablet 100 mg PO DAILY 07/12/18 albuterol sulfate 90 mcg/actuation 2 puff inhalation Q6H PRN 10/25/18 aerosol inhaler (Ventolin HFA) omeprazole 20 mg capsule,delayed 20 mg PO DAILY 10/25/18 release ipratropium 0.5 mg-albuterol 3 mg 3 ml inhalation Q6H PRN shortness 07/19/19 (2.5 mg base)/3 mL nebulization of breath or wheezing #15 mL soln budesonide-formoterol HFA 160 2 puff inhalation BID 07/20/19 mcg-4.5 mcg/actuation aerosol inhaler (Symbicort) atorvastatin 40 mg tablet 40 mg PO HS 12/15/20 famotidine 20 mg tablet 20 mg PO DAILY 12/15/20 fluticasone propionate 50 1 spray intranasal BID 12/15/20 mcg/actuation nasal spray,suspension trazodone 50 mg tablet 50 mg PO HS PRN 12/15/20 gabapentin 300 mg capsule 300 mg PO BID 08/19/21 loratadine 10 mg tablet (Claritin) 10 mg PO DAILY 09/12/21 albuterol sulfate 1.25 mg/3 mL 1.25 mg (3 mL) inhalation QID PRN 10/23/21 solution for nebulization shortness of breath or wheezing #75 mL meloxicam 15 mg tablet 15 mg PO DAILY #30 tabs 03/08/22 acetaminophen 500 mg tablet 500 mg PO Q6H PRN pain #60 tabs 03/29/22 aspirin 81 mg tablet,delayed 81 mg PO BID 30 days #60 tabs 03/29/22 release dexamethasone 4 mg tablet 4 mg PO DAILY #2 tabs 03/29/22 docusate sodium 100 mg capsule 100 mg PO BID #30 caps 03/29/22 (Colace) meloxicam 15 mg tablet 15 mg PO DAILY #30 tabs 03/29/22 oxycodone 5 mg tablet 5 mg PO Q4H PRN severe 03/29/22 post-operative pain #18 tabs Current Visit Medications: Current Medications Generic Name Dose Route Start Last Admin Trade Name Freq PRN Reason Stop Dose Admin Acetaminophen 1,000 mg 03/29/22 06:00 03/29/22 07:38 Acetaminophen 500 Mg Tab PO 03/29/22 18:00 1,000 mg PREOP [place] Administration Acetaminophen 1,000 mg 03/29/22 08:30 Acetaminophen 500 Mg Tab PO TID [place] Aspirin 81 mg 03/29/22 08:30 Aspirin E.C. 81 Mg Tabec PO BID [place] Dexamethasone 4 mg 03/29/22 08:30 Dexamethasone 4 Mg Tab PO 03/30/22 08:31 DAILY [place] Docusate Sodium 100 mg 03/29/22 07:24 Docusate Sodium 100 Mg Cap PO BID PRN PRN Constipation Gabapentin 300 mg 03/29/22 06:00 03/29/22 07:32 Gabapentin 300 Mg Cap PO 03/29/22 16:00 300 mg PREOP [place] Administration Gabapentin 300 mg 03/29/22 22:00 Gabapentin 300 Mg Cap PO HS [place] Hydromorphone HCl 0.5 mg 03/29/22 07:24 Hydromorphone 2 Mg/Ml Syr IVP Q2H PRN PRN Tranexamic Acid 1,000 mg/ 60 mls @ 360 mls/hr 03/29/22 06:00 Sodium Chloride IVPB 03/29/22 16:00 PREOP [place] Ringer's Solution 1,000 mls @ 80 mls/hr 03/29/22 06:00 03/29/22 08:00 IV 04/27/22 23:59 80 mls/hr INFUSION [place] Administration Cefazolin Sodium/Dextrose 2 gm in 50 mls @ 100 mls/hr 03/29/22 06:00 Ancef Duplex IVPB 04/27/22 23:59 PREOP [place] Cefazolin Sodium/Dextrose 1 gm in 50 mls @ 100 mls/hr 03/29/22 08:00 Ancef Duplex IVPB 03/30/22 00:29 Q8H [facility] IV Miscellaneous Supplies 1 each 03/29/22 06:00 Iv Access IV 04/27/22 23:59 DIRECTED [place] Meloxicam 15 mg 03/29/22 08:30 Meloxicam 15 Mg Tab PO DAILY [facility] Ondansetron HCl 4 mg 03/29/22 07:24 Ondansetron 4 Mg/2 Ml Vial IVP Q6H PRN PRN Nausea Oxycodone HCl 0 mg 03/29/22 07:24 Oxycodone 5 Mg Tab PO Q3H PRN PRN Pain Pantoprazole Sodium 40 mg 03/29/22 07:30 Pantoprazole 40 Mg Tabcr PO DAILY@0730 [place] Polyethylene Glycol 17 gm 03/29/22 07:24 Polyethylene Glycol 3350 17 Gm Packet PO BID PRN PRN Constipation Sodium Chloride 0 ml 03/29/22 06:00 Normal Saline Flush 10 Ml Syr IV 04/27/22 23:59 PRN PRN Sodium Chloride 0 ml 03/29/22 06:00 Normal Saline 10 Ml Vial IJ 04/27/22 23:59 DIRECTED PRN Sterile Water 0 ml 03/29/22 06:00 Water,Injection,Sterile 10 Ml Vial IJ 04/27/22 23:59 DIRECTED PRN PFSH Active Problems Active Problems: Problem Status Onset Code Hypotension I95.9 Altered mental status R41.82 Nasal septal perforation J34.89 Insomnia G47.00 Restless leg syndrome G25.81 Ptosis H02.409 Chronic rhinitis J31.0 Primary osteoarthritis of left knee M17.12 Primary osteoarthritis of right knee M17.11 Acute exacerbation of chronic obstructive pulmonary disease J44.1 Acute exacerbation of chronic obstructive pulmonary disease J44.1 S/P colonoscopy ~11/26/18 Z98.890 Colorectal polyp detected on colonoscopy ~11/26/18 K63.5 Diverticulosis ~11/26/18 K57.90 Encounter for colorectal cancer screening Z12.11, Z12.12 Family history of colon cancer requiring screening colonoscopy Z80.0 Medical History Medical History Alcohol abuse, in remission Anxiety Blood in stool 1 episode Chest pain happened in October 2021 - due to stress at work and had flu COPD (chronic obstructive pulmonary disease) GERD (gastroesophageal reflux disease) Leukocytosis Tobacco abuse Surgical History Surgical History History of colonoscopy Pt states ruptured spleen s/p colonoscopy 2012 requiring ICU stay and two month recovery. History of hammer toe correction (right) History of knee surgery Torn meniscus repair (left) History of tonsillectomy History of wisdom tooth extraction Tobacco Smoking/Tobacco Use Status: Current every day Tobacco Type: cigarettes Years smoked: 40 Alcohol Alcohol Intake: former Year quit: 2016 Substance Use Substance use: Never Substance use type: does not use Vital Signs and Lab Results Vital Signs Most Recent Vital Signs in EMR: Most Recent Vital Signs Temp Pulse Resp BP Pulse Ox 36.1 C L 88 18 114/68 99 03/29/22 07:23 03/29/22 07:23 03/29/22 07:23 03/29/22 07:23 03/29/22 07:23 Lab Results Blood Type / Crossmatch: No Data to Display Complete Blood Count: White Blood Count 11.05 10^3/uL (4.4-10.8) H 03/14/22 12:25 Red Blood Count 4.58 10^6/uL (3.93-5.22) 03/14/22 12:25 Hemoglobin 14.0 g/dL (11.2-15.7) 03/14/22 12:25 Hematocrit 41.7 % (36.0-46.0) 03/14/22 12:25 Platelet Count 394 10^3/uL (130-400) 03/14/22 12:25 Complete Metabolic Panel: Sodium 138 mmol/L (136-145) 03/14/22 12:25 Potassium 4.5 mmol/L (3.5-5.1) 03/14/22 12:25 Chloride 101 mmol/L (98-107) 03/14/22 12:25 Carbon Dioxide 30.5 mmol/L (21.0-32.0) 03/14/22 12:25 BUN 20 mg/dL (7-18) H 03/14/22 12:25 Creatinine 0.6 mg/dL (0.55-1.02) 03/14/22 12:25 Est GFR (CKD-EPI 2020) 99.55 (mL/min/1.73m2) 03/14/22 12:25 Calcium 9.5 mg/dL (8.5-10.1) 03/14/22 12:25 Albumin 4.1 g/dL (3.4-5.0) 03/14/22 12:25 Glucose 80 mg/dL (74-106) 03/14/22 12:25 Liver Function Panel: Alanine Aminotransferase (ALT/SGPT) 30 U/L (14-59) 03/14/22 12: 25 Aspartate Amino Transf (AST/SGOT) 21 U/L (15-37) 03/14/22 12:25 Coagulation Panel: No Data to Display Cardiac Panel: Troponin I < 50 ng/L (<or=60) 03/08/22 Arterial Blood Gas: No Data to Display Venous Blood Gas: No Data to Display Pancreas Panel: No Data to Display Thyroid Panel: Thyroid Stimulating Hormone (TSH) 0.59 uIU/mL (0.36-3.74) 03/08 13:20 Infectious Disease: No Data to Display Blood Cultures: No Data to Display Toxicology Panel: No Data to Display Imaging and Studies Imaging and Studies Study information below may be from another EMR and interpreted by another provider. Please see original notes in EMR for more complete details. EKG Summary: 10/30: sinus. Stress Test Summary: 08/28: no evidence of ischemia. Echocardiogram Summary: 09/28: LVEF 50-55%, no sig valvular lesions. X-Ray Summary: 10/30: hyperinflation. Carotid Artery Summary:: 04/30: no sig stenosis. Pulmonary Function Summary: 2019: severe obstructive dz with sig bronchodilator response, mild air trapping and severe diffusion defect. Anesthesia Assessment and Plan Anesthesia History Personal History: No History of Anesthesia Complications Family History: No Family History of Anesthesia Complications Exercise Tolerance Exercise Tolerance: Metabolic Equivalents>4 Pertinent Negatives Pertinent Negatives: No Symptoms of GERD Cardiac & Pulmonary Exam Cardiac Exam: Normal S1/S2 Heart Sounds Pulmonary Exam: Clear Bilateral Breath Sounds Implantable Cardiac Device Does patient have a Pacemaker or an ICD?: No Airway Exam Known Difficult Airway: No Mallampati Class: 1 Mouth Opening: Normal (> 3cm) Thyromental Distance: Greater than 3 cm Neck Range of Motion: Full ROM Neck Circumference: Normal Teeth Condition: Normal Dentition and Removable Dentures/Plates Upper (Left upper partial out) ASA Classification ASA Score: ASA 2 Emergency Case?: No NPO Status NPO Status: NPO Clears >2 hours, Solids >8 hours Anesthesia Plan Resuscitation Status: Full Code Anesthesia Technique: Spinal Anesthesia Airway Planned: Natural Airway Pain Management: Surgeon and patient request nerve block Monitors Used: Standard Monitors
--- NOTE | 2022-03-29 08:29 | W.ANESNERVE ---
Nerve Block Single Injection Procedure Date and Time Date Performed: 03/29/22 Procedure Start: 08:20 Location Where Procedure Performed Procedure Location: Day Surgery Unit Reason Performed: Postoperative Analgesia Requesting Provider: Dre Diaz Timeout Performed Timeout Performed: Yes Monitoring Used ECG, Blood Pressure, SpO2 and See EMR for corresponding vital signs Sterility Sterility: Hand Hygiene, Surgical Cap, Surgical Mask, Sterile Gloves and Chlorhexidine Sedation Given During Procedure Sedation Given (Indicate Dose Given): No Sedation given Patient Mental Status Patient Mental Status: Awake Nerve Block 1st Nerve Block: Laterality: Right Block Type: Adductor Canal Needle / Catheter Used: 100mm SonoPlex II Local Anesthetic Bolus (Indicate Dose Given): Lidocaine used for local infiltration of skin, Injected in 3-5ml increments after negative blood aspiration and Bupivacaine 0.25% Dose:: 20ml Additives (Indicate Dose Given): None Ultrasound: Sterile probe cover and gel used Ultrasound Image Saved?: Yes Nerve Stimulator: Not Used Paresthesia: None Procedure Tolerated: No Complications and Patient tolerated well Procedure Outcome: Successful Procedure Comment: Tolerated well, states she feels good and hemodynamics are stable. Performed By: Ankush Rutledge
[2022-03-29] MEDS: ceFAZolin 2 GM/50 ML BAG IVPB (08:55)
[2022-03-29] MEDS: ePHEDrine 25 MG/5 ML Syringe IVP ×4 (11:05→11:44)
--- NOTE | 2022-03-29 12:50 | W.ANESPOSTOP ---
Postoperative Evaluation Date, Time and Location Date Performed: 03/29/22 Time Performed: 12:50 Patient Location: Day Surgery Unit Vital Signs Most Recent Imported Vital Signs: Most Recent Vital Signs Temp Pulse Resp BP Pulse Ox 36.3 C L 70 18 99/59 L 95 03/29/22 12:13 03/29/22 12:13 03/29/22 12:13 03/29/22 12:13 03/29/22 12:13 Pain Score Most Recent Pain Score: Most Recent Pain Score Pain Level 0 03/29/22 12:13 Assessment Mental Status: Awake (Alert & Oriented to Patient Baseline) Airway and Respiratory Function: Patent airway with normal (patient baseline) respiratory exam Cardiovascular Function: Hemodynamically Stable Hydration Status: Adequately Hydrated Nausea & Vomiting: No Nausea or Vomiting Pain: Pt. Denies Any Pain Peripheral Nerve Block: Regional nerve block not resolved at time of post operative discharge
[2022-03-29] MEDS: oxyCODONE 5 MG TAB PO (13:37)
--- NOTE | 2022-03-29 13:45 | PT.INIE ---
Date of service: 03/29/22 Time of Service: 13:45 PT Notes Visit Reasons: Right knee DJD Physical Therapy Day Surgery Initial Evaluation Date: 03/29/2022 Referring Doctor: SAVANAH Diallo PT Orders: PT CONSULT: S/p Ortho surgery Precautions: WBAT on R LE with AD. Patient Profile/Admitting Diagnosis: Cathie is a 67-year-old female with degenerative joint disease of the right knee and status post right total knee arthroplasty on postoperative day 0. PMHX: Medical History? Alcohol abuse, in remission Anxiety Blood in stool 1 episode Chest pain happened in October 2021 - due to stress at work and had flu COPD (chronic obstructive pulmonary disease) GERD (gastroesophageal reflux disease) Leukocytosis Tobacco abuse Surgical History? 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 History of hammer toe correction (right) History of knee surgery Torn meniscus repair (left) History of tonsillectomy History of wisdom tooth extraction Social History/Home Situation: Lives alone in a private home with 3 steps to enter with a rail on the right side but will have the assistance of her friend as she recovers at home. Equipment Owned/DME: None Subjective: Agreeable to PT consult. Reports 6 out of 10 pain in the right knee at rest and with movement. Complains of numbness on the right foot. Objective: General Observation: ANUJA wraps to right LE. Cryocuff to right knee. TEDS to left leg. Mental Status: Alert and oriented x4. Pain: 6/10 pain again at the right knee at rest and with movement. ROM: Right Lower Extremity: Hip flexion WFL. Hip abduction WFL. Knee flexion 0 to 100 degrees knee extension 100 degrees to 0 degrees. Able to perform 10 straight leg raises to about 50 degrees with no extensor lag. Ankle dorsiflexion WFL. Ankle plantarflexion WFL. Left Lower Extremity: Hip flexion WFL. Hip abduction WFL. Knee flexion WFL. Ankle dorsiflexion WFL. Ankle plantarflexion WFL. Strength: Right Lower Extremity: Hip flexors 4/5. Hip abductors 4/5. Knee flexors 3-/5. Knee extensors 3-/5. Ankle dorsiflexors 5/5. Ankle plantarflexors 5/5. Left Lower Extremity:Hip flexors 5/5. Hip abductors 5/5. Knee flexors 5/5. Knee extensors 5/5. Ankle dorsiflexors 5/5. Ankle plantarflexors 5/5. Sensation: Intact as to pain and light pressure in bilateral extremity except for the right foot Bed Mobility/Transfers: Supine to sit standby assist Sit to stand contact-guard assist Stand to sit standby assist Bed to chair standby assist Gait: Tolerated level surface ambulation of 150 feet using front wheeled walker with step through gait pattern with no increased report of pain in the right knee. No shortness of breath. No loss of balance. Denies headache, chest pain, and lightheadedness throughout session. Stairs: Negotiated up and down 6 x 4 inch steps and 4 x 6 inch steps of holding onto bilateral rails with step to gait pattern without report of increased pain. Balance: Static Sitting: Normal Dynamic Sitting: Normal Static Standing: Fair Dynamic Standing: Fair Special Tests: Mobility Limitations Standardized Measure [facility] 6 clicks Basic Mobility Inpatient Short Form: Raw Score: 23 CMS Score: 11% deficit Informed Consent/Education: Patient instructed in purpose of PT consult. Packet containing TKA exercise protocol has been given to patient. Education and training on initial set of exercises that can be done at home have been completed with patient. Assessment: Patient presents with clinical signs and symptoms consistent with current/admitting diagnoses that have resulted to mobility limitations, gait instability, generalized weakness, and impairment of motor control as demonstrated by the following impairment level findings: 1. Decreased strength to R knee major muscle groups 2. Impaired standing balance 3. Limitation of joint range of motion in right knee Impairments are contributing to the following functional limitations: 1. Inability to safely ambulate without assistive device 2. Increase completion time for mobility ADL performance 3. Increased fall risk Patient is assessed as a 14744 moderate complexity based on the following: History: 67-year-old female with impairment level findings, functional limitations, and past medical history as indicated above Examination: Demonstrable impairment in strength, balance, and mobility level with underlying impairments and functional limitations as documented above Presentation: Evolving Decision Makin moderate complexity Goals: N/A. PT evaluation and 1-2 treatment sessions only for functional mobility training using recommended AD and for HEP instruction. Plan of Care/Treatment Plan: N/A. PT evaluation and 1-2 treatment session only for functional mobility training using recommended AD and for HEP instruction. DISCHARGE RECOMMENDATIONS: [] Home with no services [] [] Home with services [specify] 96940 times [] SNF for continued rehabilitation [] [] [facility] [] [] SNF versus LTC based on ability to participate and progress [] TREATMENT CODE/TIME: 81890 x 20 minutes, 9753 0 x 10 minutes beginning at 13:45 PM. Thank you for the opportunity to participate in the care of this patient. Chasity Tejeda PT, DPT, CLT [facility] [place], [place]
--- NOTE | 2022-03-29 16:11 | ROE_ITS ---
Date of service: 03/29/22 Time of Service: 10:40 Operative Note Operative Note DATE OF PROCEDURE: 03/29/22 PRE-OP DIAGNOSIS: Right Knee Osteoarthritis with Valgus Deformity POST-OP DIAGNOSIS: same PROCEDURE: Right Total Knee Replacement with Intraoperative Navigation SURGEON: Dre Diaz CASINO FLOOR PERSON: Polly Baca ANESTHESIA TYPE: Spinal Refer to Anesthesia Record ESTIMATED BLOOD LOSS: 50 PATHOLOGY: none sent TOURNIQUET TIME: 0 COMPLICATIONS: None Patient was transported to: PACU Patient's condition: stable Implants: 1. Depuy Attune Cementless Posterior Stabilized Femoral Component, Size 6 2. Depuy Attune Cementless Rotating Platform Tibial Component, Size 5 3. Depuy Attune 6x7 PS/RP Poly 4. Depuy Attune Patellar Component, Size 35 Indications: I have seen Cathie in clinic for symptoms of RIGHT knee arthritis, confirmed with radiographic findings. Cathie has exhausted nonoperative methods and was having significant limitations in daily function and desired better function and less pain. I discussed the technical details of a knee replacement. I explained the risks of the procedure to include, but not limited to, bleeding, infection, pain, stiffness, fracture, damage to nerves and vessels, damage to muscles and tendons, loosening, need for repeat procedure, blood clot and cardiopulmonary demise. Despite these risks, Cathie elected to proceed. Findings: There was significant signs of arthritis throughout the knee, most notably about the lateral tibia but some disease medially as well. Procedure Description: Cathie was greeted in the preoperative holding area where the correct side was identified and marked. The consent was reviewed with the patient and signed. The history and physical was updated. All questions were answered. Preoperative mediacations were administered: Acetaminophen 1000mg, Celebrex 400mg, and Gabapentin 300mg. An adductor canal block was then administered by the anesthesia team in the PACU. Cathie was taken back to the operating room. A spinal anesthestic was then administered. The patient was placed into the supine position on the operating room table. A nonsterile tourniquet was placed high onto the leg. Posts were placed for positioning during the procedure. All bony prominences were well padded. Prophylactic antibiotics in the form of Cefazolin were administered. 1g of Tranxemic Acid was given intravenously within 30 minutes of incision. The right leg was then prepped with Chloraprep and draped in a standard fashion with impervious stockinette. A second prep with Chloraprep was performed prior to application of Iodine impregnated skin protection. A timeout to confirm correct identity, side and site, procedure, allergies, anesthesia, and medical concerns was performed. With the knee in some flexion, a midline incision was made overlying the knee. Full thickness skin flaps were raised once the extensor mechanism was encountered. These were raised medially and laterally. Any bleeding was controlled with electrocautery. Once the extensor mechanism was fully exposed, a medial parapatellar arthrotomy was performed in a flexed position. All bleeding from the arthrotomy and the geniculate arteries was coagulated. A medial subperiosteal peel was performed with electrocautery to the midcoronal plane. The fat pad was removed while keeping the patellar tendon protected. The anterior distal femur synovium was removed for later visualization. The ACL and PCL were resected and the anterior horn of the lateral meniscus was transected. The knee was then flexed with the patella everted. Large osteophytes from the tibia were removed. Large osteophytes from the femur were removed. A single starting pin was then placed 1cm anterior to the PCL insertion and the notch in the direction of the femoral head. The OrthoAlign device was applied over the pin. It was oriented to be in line with the epicondylar axis and the trochlear groove. It was then pinned into place. The navigation computer was then turned on and calibrated. The distal femur cut was set at 0 degrees varus/valgus and 2.5 degrees flexion. The distal femur cutting guide then was positioned for a 9mm cut. The distal femur was cut with an oscillating saw while protecting the soft tissues. The tibia was then addressed. The OrthoAlign device was placed over the tibial tubercle and medial tibia and secured into position. Once again, OrthoAlign was calibrated and then set for a 0 degree varus/valgus cut and 5 degrees of posterior slope. With this locked into position, the cut thickness stylus was used to assess cut thickness. The lateral side, most involved side, was set for a 2mm cut from the lowest point posteriorly. This was then held in position and pinned into place with 2 additional pins and a cross pin for stability. The medial and lateral collateral ligaments were protected and the cut was performed. With this completed, it was assessed and noted to be of appropriate dimensions. The guide and OrthoAlign was removed. A spacer block was inserted and the knee was brought into extension. The 6mm spacer block provided full extension, without hyperextension and with stability of both the medial and lateral collateral ligaments was assessed. The pins from the femur and the tibia were then removed. The distal femur was then sized. The anterior stylus was placed onto the lateral ridge of the anterior femur. This indicated a size 6 femur. The external rotation of the guide was adjusted to 3 degrees to match the epicondylar axis, perpendicular to Corinth?s line. The 4-in-1 cutting guide was the placed. The posterior medial femur cut was evaluated and appeared of good thickness. The spacer block was inserted underneath the cutting guide and stability was confirmed in 90 degrees of flexion. An katharine wing was used to confirm appropriate position of the anterior cut to avoid notching. This cutting guide was ensured to be flush on the cut surface and then pinned into place with headed pins. While protecting the soft tissues, quad tendon, and collateral ligaments, the anterior and posterior cuts were performed with a saw. The central two pins were removed and the posterior and anterior chamfers were cut next. The notch-cutting guide was placed. This was pinned to lateralize the femoral component as much as possible while keeping it flush on the cut surface. This was then pinned into position. A reciprocating saw was used to make the notch cut. A rasp smoothed the cut surfaces. The medial and lateral menisci were removed. A trial femoral component was then inserted, impacted down to the cut surfaces, and the lug holes were drilled. A provisional trial tibial component was placed and the knee was brought through range of motion. There was noted to be excellent extension and flexion. There was no significant instability. The polyethylene was trialed until there was good flexion and extension with excellent stability to the medial and lateral collaterals. The patella was tracking without thumbs. A size 7mm polyethylene component provided the best range of motion and stability with less than 2mm gapping with medial and lateral stress and full extension without significant hyperextension. The tibial cut surface was fully exposed. The tibia was then sized as a 5. The tibia had been previously marked during trialing to correspond to the center of the tibial component to help with rotation. The trial was aligned to this mealni, approximately rotated to the medial 1/3rd of the tibial tubercle. The trial was pinned into place. The tibia was prepared with a reamer and a keel punch and lug holes. The knee was then brought into extension and the patella was measured as 24mm. Using the patellar clamp and cut guide, this was resected to a flat surface with at least 13mm of thickness remaining. The size 38 patella fit the best. This was oriented and then clamped into position. The lugs were drilled. The trial components were removed. The final components were opened on the back table. The periosteal and capsular tissues, especially posteriorly, around the knee were then systematically injected with a periarticular cocktail consisting of 246mg of Ropivacaine, 0.5mg of Epinephrine, 0.08mg of Clonidine, and 30mg of Ketorolac, diluted to 100cc. On the back table, with the implants opened, the cement was mixed. One batch of high viscosity cement was prepared with vacuum assistance. After the cement was ready a small amount was placed on the cut surface of the patella and the patellar button was clamped into position and held. While the cement was hardening, the cementless knee components were placed. Starting with the tibial component, the tibia was subluxed anteriorly and the lug holes of the component were lined up. The tibia was then impacted with an impactor and mallet until the tibial component was in contact with the tibia. Then, the femoral component was inserted. The lug holes were aligned and the component was impacted into position. The final polyethylene was then inserted. The knee was irrigated with Surgiphor Betadine solution. This was allowed to sit in the knee for 3 minutes and then it was thoroughly irrigated out with saline. After the cement had finally cured, approximately 15min, the clamp was removed from the patella and the knee was taken through range of motion. The patella was tracking with a no-thumbs technique. The capsule was then reapproximated with a No. 1 Vicryl at multiple locations. The capsule was finally closed with a No. 2 Stratafix, barbed suture. Deep tissues were then reapproximated with 0 Vicryl and 2-0 Vicryl. The skin was closed with a running 3-0 Monocryl in a subcuticular fashion. This was reinforced with skin glue. A Mepilex silver dressing was applied along with a [id number] ANUJA wrap. A CryoCuff was applied. Cathie was transferred to the hospital bed without difficulty an suffering no apparent complication. Cathie has a good prognosis. Physical therapy will start today and without restrictions, weight-bearing as tolerated. Aspirin 81mg BID will be used for DVT prophylaxis.
== END 2022-03-29 12:23 | disposition home or self-care (01) ==
PROVIDERS: PCP Nurse Practitioner Family; Visit Provider Student in an Organized Health Care Education/Training Program
PROC: (CPT 27447; principal; 2022-03-29 09:00)
DX: M17.11 Unilateral primary osteoarthritis, right knee (principal); K21.9 Gastro-esophageal reflux disease without esophagitis; J44.9 Chronic obstructive pulmonary disease, unspecified
CPT/HCPCS: 27447; 20985; 76942; 97162; 97530; J0690; J1100; J2250; J2370; J2405

== ENCOUNTER 2022-04-01 20:43 | Observation (INO) | payer MEDICAID, SELFPAY ==
--- NOTE | 2022-04-01 20:45 | RT.EKG_ITS ---
APPROVED REPORT Exam: Resting ECG Reason for Exam: shortness of breath Patient Location: E HR:86 bpm ECG Measurements Heart Rate 86 AXIS SC 140 P -20 QRSd 80 QRS -19 QT 365 T -2 QTc 438 Conclusion Sinus rhythm...normal P axis, V-rate 60- 99 Probable left atrial enlargement...P >50mS, <-0.10mV V1 Physician: new inverted t wave in lead 3, no semi, stable otherwise
--- NOTE | 2022-04-01 20:45 | DI.CT_ITS ---
Exam(s) CT CHEST PE CTA EXAM: CT CHEST PE CTA CLINICAL HISTORY: right side crackles, eval for pe and pneumonia. TECHNIQUE: Imaging Protocol: CT angiography of the chest was performed using pulmonary embolus jules col. Multi planar reconstructions were performed. CONTRAST MATERIAL: Intravenous: Omnipaque 350 Contrast volume: 100 cc COMPARISON: CT CT CHEST LUNG CANCER SCREEN from 06/14/2021 CR,XR XR CHEST 2V PA LATERAL from 10/23/2021 CR XR CHEST 1V IN DI DEPT from 03/08/2022 FINDINGS: CHEST: PULMONARY ARTERIES: There are no intraluminal filling defects to suggest acute pulmonary emboli. LUNGS: There are no infiltrates nor evidence of pulmonary infarction.. There are no pleural effusions . Mild focal pleural thickening is noted over the diaphragmatic surface of the right lung base. Jhonny ign appearance. MEDIASTINUM: There is no hilar nor mediastinal adenopathy. Visualized thyroid unremarkable. CARDIAC: Heart size is upper normal. There is no pericardial effusion.Caliber of the thoracic aorta is within normal limits. There is no significant shift of the interventricular septum. PARTIALLY VISUALIZED UPPERMOST ABDOMEN: No adrenal masses. Calcified splenic capsule again noted. N o splenomegaly. OSSEOUS: No significant osseous lesions.. IMPRESSION: 1. No evidence of acute pulmonary emboli. No evidence of pulmonary infarction.No pleural effusions. Benign-appearing focal pleural thickenings in the right lung base. 2. No infiltrates. No intrathoracic adenopathy. RADIATION DOSE DELIVERED: 293.1mGy.cm Total DLP DATA REPOSITORY: All CT scans at this facility are submitted to the National Radiology Data Registry (NRDR) Dose Index Registry (DIR) with the [employer] (ACR). RADIATION OPTIMIZATION: All CT scans at this facility use at least one of these dose optimization te chniques: automated exposure control; mA and/or kV adjustment per patient size (includes targeted exa ms where dose is matched to clinical indication); or iterative reconstruction.
[2022-04-01 20:51] VITALS: BP 108/55; PULSE 88; RESP 19; TEMP 37
--- NOTE | 2022-04-01 21:12 | W.ED.GENAD ---
Discharge Plan Disposition Patient Disposition: [facility] INPATIENT Condition: Stable Discharge Details Chief Complaint: GenMedical Clinical Impression: Fever and chills Primary Care Provider: Alberta Barrios ED Provider: Paulo Reese Home Meds and New Rx's Prescriptions: No Action omeprazole 20 mg capsule,delayed release(DR/EC) 20 mg PO DAILY albuterol sulfate [Ventolin HFA] 90 mcg/actuation HFA aerosol inhaler 2 puff IH Q6H PRN loratadine [Claritin] 10 mg tablet 10 mg PO DAILY gabapentin 300 mg capsule 300 mg PO BID albuterol sulfate 1.25 mg/3 mL solution for nebulization 1.25 mg inhalation QID PRN (Reason: shortness of breath or wheezing) Qty: 75 0RF acetaminophen 500 mg tablet 500 mg PO Q6H PRN (Reason: pain) Qty: 60 2RF aspirin 81 mg tablet,delayed release (DR/EC) 81 mg PO BID 30 Days Qty: 60 0RF docusate sodium [Colace] 100 mg capsule 100 mg PO BID Qty: 30 0RF dexamethasone 4 mg tablet 4 mg PO DAILY Qty: 2 0RF Rx Instructions: Take one tablet once daily for two days oxycodone 5 mg tablet 5 mg PO Q4H PRN (Reason: severe post-operative pain) Qty: 18 0RF Rx Instructions: Take one tablet up to every 4 hours as needed for severe pain meloxicam 15 mg tablet 15 mg PO DAILY Qty: 30 1RF Rx Instructions: Take one tablet daily for pain and inflammation sertraline 100 mg Tablet 100 mg PO DAILY ipratropium-albuterol 0.5 mg-3 mg(2.5 mg base)/3 mL solution for nebulization 3 ml IH Q6H PRN (Reason: shortness of breath or wheezing) Qty: 15 0RF Label Comments: does not use budesonide-formoterol [Symbicort] 160-4.5 mcg/actuation Hfa Aerosol Inhaler 2 puff INHALATION BID atorvastatin 40 mg tablet 40 mg PO HS Label Comments: TAKE 1 TABLET BY MOUTH ONCE DAILY AT BEDTIME trazodone 50 mg tablet 50 mg PO HS PRN Label Comments: TAKE 1 TABLET BY MOUTH AT BEDTIME NEEDED famotidine 20 mg tablet 20 mg PO DAILY Label Comments: TAKE 1 TABLET BY MOUTH ONCE DAILY fluticasone propionate 50 mcg/actuation spray,suspension 1 spray INTRANASAL BID meloxicam 15 mg tablet 15 mg PO DAILY Qty: 30 0RF Medical Decision Making 67-year-old female with a past medical history of COPD, GERD, recent right total knee replacement on 03/29/[address] Diaz, who presents today for evaluation of fever chills, cough, and shortness of breath. Patient states that starting on , the day after the procedure she developed some mild congestion, this was shortly thereafter followed by shortness of breath chest tightness then fever at home. She admits to fever of 101 at home over the last day. She denies vomiting or diarrhea. She admits to shortness of breath and chest tightness but denies any severe pleuritic type pain. She denies any arm neck or shoulder pain. No history of blood clots or PEs. She is on no estrogen. She denies any productivity to her cough. She denies any significant change in her right knee. Some mild swelling. They did just take off the Goyo wrap today, so they do not know if it is changed visually over the last 3 or 4 days. She denies any urinary complaints. Physical exam demonstrates a slightly warm slightly red right knee, however this appears postoperative. Mild crackles in the right lower lung field. Differential is highest for pneumonia, but PE is also on the differential. We will get angiographic imaging secondary to her shortness of breath, tightness. Differential includes pneumonia, UTI. 11:[address] scan has returned, show some incidental pulmonary nodules, but no evidence of infection, consolidation or pulmonary embolism. Laboratory work-up has returned and shows mild white count of 12.6, mild left shift. Lactate is normal. Procalcitonin is 0.1. Electrolytes stable. Urinalysis is negative for infection, flu, COVID, RSV are negative. Patient still feels extremely weak, fatigued, short of breath. Troponin and EKG are inconsistent with STEMI or ACS at this time. Symptoms inconsistent with PE or dissection. The patient and her family member at bedside to confirm that she had a temperature of 101 at home, but she is afebrile here. It does sound like she may have taken some Tylenol prior to coming here. No clear evidence of an infectious etiology at this time. Dr. Diaz it did reviewed the pictures of the knee, he feels that its current state is consistent with normal postoperative findings. Pain does not appear to be out of proportion with movement of the knee at this time. She does have some soreness of course, but she is still able to move it without significant pain currently. I am uncertain as to the exact cause of her symptoms. She was given a breathing treatment and this did help with her breathing and tightness slightly. There may be a asthma/COPD component. However I am uncertain what caused the potential fever. There is no clear evidence of infection at this time in the lungs, the urine, or the knee. However because of the patient's symptomatology, her risk, and her previous symptoms I do feel that a 12 to 24-hour observation is reasonable. I did discuss observation versus discharge, and the patient was unequivocally preferential to observation. I discussed the case with Dr. Garrison. He agrees with the assessment and plan. I have extensively reviewed the treatment plan and discharge instructions with the patient. I have addressed all patient concerns at this time. The patient was made aware of what symptoms to monitor for that would warrant a return to the emergency department. Discussed the plan with the patient, they demonstrate verbal understanding and agreement with our assessment and plan at this time. The documentation in this chart was dictated using [employer] dictation software. Please excuse any dictation errors. FINDINGS: Pulmonary arteries: No pulmonary emboli. Aorta: No aortic aneurysm. No aortic dissection. Lungs: Chronic minor subpleural nodules right lung base similar to prior. Scattered additional small pulmonary nodules very similar to prior. Follow-up as per institutional protocol. Minor pulmonary emphysema similar to prior. No airspace consolidation. Pleural spaces: No pneumothorax. No pleural effusion. Heart: No cardiomegaly. No pericardial effusion. Lymph nodes: No enlarged lymph nodes. Spleen: Chronic appearing splenic calcifications similar to prior likely sequela of prior infection or trauma. Bones/joints: No acute fracture. Soft tissues: Gynecomastia. IMPRESSION: 1. No pulmonary emboli are seen. No pneumonia. 2. Incidental findings as described. Thank you for allowing us to participate in the care of your patient. Dictated and Authenticated by: Estefanía Chanel MD 04/01/2022 10:37 PM Eastern Time ([place] & [place]) HPI General Date/Time Provider Initiated Documentation: 04/01/22 20:50. HPI Narrative: 67-year-old female with a past medical history of COPD, GERD, recent right total knee replacement on 03/29/[address] Diaz, who presents today for evaluation of fever chills, cough, and shortness of breath. Patient states that starting on , the day after the procedure she developed some mild congestion, this was shortly thereafter followed by shortness of breath chest tightness then fever at home. She admits to fever of 101 at home over the last day. She denies vomiting or diarrhea. She admits to shortness of breath and chest tightness but denies any severe pleuritic type pain. She denies any arm neck or shoulder pain. No history of blood clots or PEs. She is on no estrogen. She denies any productivity to her cough. She denies any significant change in her right knee. Some mild swelling. They did just take off the Goyo wrap today, so they do not know if it is changed visually over the last 3 or 4 days. She denies any urinary complaints. Related Data Home Medications Medication Instructions Recorded Confirmed sertraline 100 mg tablet 100 mg PO DAILY 07/12/18 04/01/22 albuterol sulfate 90 mcg/actuation 2 puff inhalation Q6H PRN 10/25/18 04/01/22 aerosol inhaler (Ventolin HFA) omeprazole 20 mg capsule,delayed 20 mg PO DAILY 10/25/18 04/01/22 release ipratropium 0.5 mg-albuterol 3 mg 3 ml inhalation Q6H PRN shortness 07/19/19 04/01/22 (2.5 mg base)/3 mL nebulization of breath or wheezing #15 mL soln budesonide-formoterol HFA 160 2 puff inhalation BID 07/20/19 04/01/22 mcg-4.5 mcg/actuation aerosol inhaler (Symbicort) atorvastatin 40 mg tablet 40 mg PO HS 12/15/20 04/01/22 famotidine 20 mg tablet 20 mg PO DAILY 12/15/20 04/01/22 fluticasone propionate 50 1 spray intranasal BID 12/15/20 04/01/22 mcg/actuation nasal spray,suspension trazodone 50 mg tablet 50 mg PO HS PRN 12/15/20 04/01/22 gabapentin 300 mg capsule 300 mg PO BID 08/19/21 04/01/22 loratadine 10 mg tablet (Claritin) 10 mg PO DAILY 09/12/21 04/01/22 albuterol sulfate 1.25 mg/3 mL 1.25 mg (3 mL) inhalation QID PRN 10/23/21 04/01/22 solution for nebulization shortness of breath or wheezing #75 mL meloxicam 15 mg tablet 15 mg PO DAILY #30 tabs 03/08/22 04/01/22 acetaminophen 500 mg tablet 500 mg PO Q6H PRN pain #60 tabs 03/29/22 04/01/22 aspirin 81 mg tablet,delayed 81 mg PO BID 30 days #60 tabs 03/29/22 04/01/22 release dexamethasone 4 mg tablet 4 mg PO DAILY #2 tabs 03/29/22 04/01/22 docusate sodium 100 mg capsule 100 mg PO BID #30 caps 03/29/22 04/01/22 (Colace) meloxicam 15 mg tablet 15 mg PO DAILY #30 tabs 03/29/22 04/01/22 oxycodone 5 mg tablet 5 mg PO Q4H PRN severe 03/29/22 04/01/22 post-operative pain #18 tabs Previous Rx's Medication Instructions Recorded ipratropium 0.5 mg-albuterol 3 mg 3 ml inhalation Q6H PRN shortness 07/19/19 (2.5 mg base)/3 mL nebulization of breath or wheezing #15 mL soln albuterol sulfate 1.25 mg/3 mL 1.25 mg (3 mL) inhalation QID PRN 10/23/21 solution for nebulization shortness of breath or wheezing #75 mL meloxicam 15 mg tablet 15 mg PO DAILY #30 tabs 03/08/22 acetaminophen 500 mg tablet 500 mg PO Q6H PRN pain #60 tabs 03/29/22 aspirin 81 mg tablet,delayed 81 mg PO BID 30 days #60 tabs 03/29/22 release dexamethasone 4 mg tablet 4 mg PO DAILY #2 tabs 03/29/22 docusate sodium 100 mg capsule 100 mg PO BID #30 caps 03/29/22 (Colace) meloxicam 15 mg tablet 15 mg PO DAILY #30 tabs 03/29/22 oxycodone 5 mg tablet 5 mg PO Q4H PRN severe 03/29/22 post-operative pain #18 tabs Allergies Allergy/AdvReac Type Severity Reaction Status Date / Time disulfiram [From Antabuse] Allergy Other (See Unverified 03/28/22 14:52 Comment) Sulfa (Sulfonamide Allergy Anaphylaxsi Verified 03/28/22 14:52 Antibiotics) s tree nut Allergy ANGIO EDEMA Verified 03/28/22 14:52 General Stated Complaint: GenMedical YONATAN: 2 Review of Systems All systems reviewed & are unremarkable except as noted in HPI and below PFSH All Active Problems (Updated 04/01/22 @ 23:36 by Paulo Reese DO) Fever and chills (Acute) Hypotension (Acute) Altered mental status (Acute) Nasal septal perforation (Acute) Insomnia (Acute) Restless leg syndrome (Acute) Ptosis (Acute) Chronic rhinitis (Acute) Primary osteoarthritis of left knee (Acute) Steroid injection: 01/30/22; 10/27/21; 07/28/21; 04/04/2021; 12/27/2020; 04/19/2020 Primary osteoarthritis of right knee (Chronic) Steroid injection: 10/27/21; 07/28/21; 04/04/2021; 12/27/2020; 04/19/2020 Acute exacerbation of chronic obstructive pulmonary disease (Acute) Acute exacerbation of chronic obstructive pulmonary disease (Acute) S/P colonoscopy (Acute ~11/26/18) Colorectal polyp detected on colonoscopy (Acute ~11/26/18) Diverticulosis (Acute ~11/26/18) Encounter for colorectal cancer screening (Acute) Family history of colon cancer requiring screening colonoscopy (Acute) Medical History Alcohol abuse, in remission Anxiety Blood in stool 1 episode Chest pain happened in October 2021 - due to stress at work and had flu COPD (chronic obstructive pulmonary disease) GERD (gastroesophageal reflux disease) Leukocytosis Tobacco abuse Surgical History History of colonoscopy 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 History of hammer toe correction (right) History of knee surgery Torn meniscus repair (left) History of tonsillectomy History of wisdom tooth extraction Family History Father Colon cancer Stage 4 at diagnosis at age 70 Paternal Aunt Colon cancer Paternal Aunt Colon cancer Mother Fallopian tube malignant neoplasm Maternal Uncle Stomach cancer Other Pancreatic cancer Social History Smoking/Tobacco Use Status: Current every day Tobacco Type: cigarettes Years smoked: 40 Tobacco: How many years used: 40 Smoking risk assessment performed?: Yes Alcohol Intake: former Year quit: 2015 Drug use: Never Substance use type: does not use current occupation: [employer] Pets and animals: No Do you feel safe at home: Yes Do you feel safe in your relationship?: Yes Exam Narrative Exam Narrative: 1.Const: Well-nourished, Well-developed, appearing stated age 2.Eyes: PERRL, no conjunctival injection, and symmetrical lids. 3.ENT: Atraumatic external nose and ears. Moist MM. Neck: Symmetric, trachea midline, No thyromegaly. 4.CVS: +S1/S2, No murmurs or gallops. Peripheral pulses 2+ and equal in all extremities. Brisk capillary refill in all extremities. 5.RESP: Unlabored respiratory effort. Mild crackles in the right lower lung field. 6.GI: Soft, Nontender/Nondistended, No hepatosplenomegaly. No guarding or rebound. 7.MSK: Normocephalic, Extremities w/o deformity. Right lower extremity demonstrates small amount of redness, slight warmth, and otherwise dry and intact incision site. Mild right inguinal lymphadenopathy which is likely postoperative in nature. 8.Skin: Warm, Dry. No rashes or lesions. 9.Neuro: quality assurance monitor II-XII grossly intact. Sensation grossly intact, no focal neurologic deficits. 10.Psych: (AAO) x3. Appropriate mood and affect Course Vital Signs Vital signs: Vital Signs Temperature 37.0 C 04/01/22 20:51 Pulse 88 04/01/22 20:51 Respiratory Rate 19 04/01/22 20:51 Blood Pressure 108/55 L 04/01/22 20:51 Temperature 37.0 C 04/01/22 20:51 Temperature Source Temporal Artery Scan 04/01/22 20:51 Pulse 88 04/01/22 20:51 Respiratory Rate 19 04/01/22 20:51 Blood Pressure 108/55 L 04/01/22 20:51 Blood Pressure Position Supine 04/01/22 20:51 Oxygen Delivery Method Room Air 04/01/22 20:51 Oxygen Flow Rate 0 04/01/22 20:51 Pain Level 6 04/01/22 20:51 Lab/Test Results Lab/Test Results: 04/01/22 21:01 Blood Blood Culture - Pending 04/01/22 21:01 Blood Blood Culture - Pending
[2022-04-01 21:22] LABS: Abs Immature Grans 0.08 10^3/uL (0.0-0.06); Absolute Basophil Count 0.06 10^3/uL (0.0-0.2); Absolute Eosinophil Count 0.09 10^3/uL (0.0-0.7); Absolute Lymphocyte Count 2.91 10^3/uL (1.2-3.4); Absolute Monocyte Count 0.81 10^3/uL (0.1-0.8); Basophils % 0.5; Eosinophils % 0.7; HCT 34.2 % (36.0-46.0); HGB 11.3 g/dL (11.2-15.7); Immature Grans % 0.6; MCH 30.3 pg (27.0-33.0); MCV 92 fL (80-95); MPV 10.2 fL (8.0-11.0); Monocytes % 6.4; Neutrophils % 68.8; Platelet Count 326 10^3/uL (130-400); RBC 3.73 10^6/uL (3.93-5.22); RDW 14.4 % (11.7-14.6); RDW-SD 48.7 fL; WBC 12.65 10^3/uL (4.4-10.8)
[2022-04-01] MEDS: Normal Saline 500 ML IV (21:25)
[2022-04-01 21:35] LABS: INR 0.9 (0.9-1.1); PTT Activated 29.5 sec (21.0-27.5); Prothrombin Time 9.3 sec (9.3-11.0)
[2022-04-01 21:42] LABS: ALT 31 U/L (14-59); AST 26 U/L (15-37); Albumin 3.1 g/dL (3.4-5.0); Alkaline Phosphatase 65 U/L (46-116); BUN 13 mg/dL (7-18); Bilirubin, Total 0.4 mg/dL (0.2-1.0); CREATININE 0.7 mg/dL (0.55-1.02); Calcium 8.6 mg/dL (8.5-10.1); Chloride 102 mmol/L (98-107); Estimated GFR 95.92 (mL/min/1.73m2); Glucose 117 mg/dL (74-106); Potassium 3.4 mmol/L (3.5-5.1); Sodium 137 mmol/L (136-145); Troponin I < 50 ng/L (<or=60)
[2022-04-01] MEDS: Ketorolac 15 MG/ML VIAL IVP (21:52)
[2022-04-01 21:54] VITALS: RESP 19
[2022-04-01] MEDS: Omnipaque 350 MG/ML 100 ML BTL IJ (22:22)
--- NOTE | 2022-04-01 22:37 | DI.VRAD_ITS ---
PROCEDURE INFORMATION: Exam: CTA Chest With Contrast Exam date and time: 04/01/2022 22:11 Age: 67 years old Clinical indication: Other: Right side crackles; Additional info: Eval for pe and pneumonia TECHNIQUE: Imaging protocol: Computed tomographic angiography of the chest with contrast. 3D rendering (Not supervised by radiologist): MIP and/or 3D reconstructed images were created by the technologist. COMPARISON: CT CHEST PE CTA 07/20/2019 10:24 FINDINGS: Pulmonary arteries: No pulmonary emboli. Aorta: No aortic aneurysm. No aortic dissection. Lungs: Chronic minor subpleural nodules right lung base similar to prior. Scattered additional small pulmonary nodules very similar to prior. Follow-up as per institutional protocol. Minor pulmonary emphysema similar to prior. No airspace consolidation. Pleural spaces: No pneumothorax. No pleural effusion. Heart: No cardiomegaly. No pericardial effusion. Lymph nodes: No enlarged lymph nodes. Spleen: Chronic appearing splenic calcifications similar to prior likely sequela of prior infection or trauma. Bones/joints: No acute fracture. Soft tissues: Gynecomastia. IMPRESSION: 1. No pulmonary emboli are seen. No pneumonia. 2. Incidental findings as described. Dictated and Authenticated by: Estefanía Chanel MD. Ordering:EVANGELIST Bates MD
[2022-04-01 22:42] LABS: COVID-19 PCR Negative (Negative); Influenza A PCR Negative (Negative); Influenza B PCR Negative (Negative); RSV PCR Negative (Negative)
[2022-04-01 22:44] LABS: Source Nasopharynx
[2022-04-01 22:57] LABS: Bilirubin Negative (Negative); Blood Negative (Negative); Clarity Clear (Clear); Glucose Negative (Negative); Ketones Negative (Negative); Leukocyte Esterase Negative (Negative); Nitrite Negative (Negative); Urobilinogen 0.2 EU/dL (Up TO 0.2); pH 6.5 (5-8)
[2022-04-01 23:05] LABS: Procalcitonin 0.1 ng/mL
[2022-04-01 23:12] VITALS: RESP 19; RESP 4
[2022-04-01] MEDS: Albuterol/Ipratropium 3 ML UPD VIAL UPD (23:12)
[2022-04-01 23:53] VITALS: BP 105/68; PULSE 78; RESP 16; O2SAT 94
[2022-04-02 00:15] VITALS: BP 108/69; PULSE 88; RESP 19; TEMP 37.3; O2SAT 95
--- NOTE | 2022-04-02 00:28 | W.PM.HP.N ---
Date of service: 04/01/22 Time of Service: 23:35 Assessment and Plan Assessment and plan (1) Acute exacerbation of chronic obstructive pulmonary disease: Status: Acute Assessment and plan: The patients presenting complaints are most c/w COPD exacerbation. Likely triggered by post-operative infection, possibly viral as CT chest did not show pneumonia. Will treat with steroids and antibiotic to treat this. Continue outpatient controller medications and nebulized MING/AMANDA prn. (2) Fever and chills: Status: Acute Assessment and plan: the fever complicates the presentation. Likely viral illness. I don't think the knee looks infected. Blood cultures have been taken, CT not c/w PE, urinalysis negative. Will observe. (3) Restless leg syndrome: Status: Acute Assessment and plan: Continue home gabapentin. (4) Status post total right knee replacement: Status: Acute Assessment and plan: Will ask for orthopedics to look at the knee, continue routine post-operative care. (5) Tobacco abuse: Assessment and plan: estefany SHER (6) GERD (gastroesophageal reflux disease): Assessment and plan: Continue PPI and famoitidine. (7) DVT prophylaxis: Status: Acute Assessment and plan: She has been on ASA post-op. Stop this and start prophylactic LMWH. History of Present Illness History of Present Illness Chief Complaint: fever, SOB Narrative: 67 yo F smoker with COPD who presented on POD #4 s/p uncomplicated right TKR who presents with 3 days of progressive cough, dyspnea, and fever to 101 at home. She started with a cough on , the day after having her knee replacement and going home. She started feeling more short of breath on Sunday, the day prior to admission. Gradual onset of SOB, no chest pain. She was getting winded walking to the bathroom, which was not the case the prevoius day. She is bringing up sputum. On the day of admission she felt chills and had a fever to 101 on thermometer at home, and this prompted her to come in. Her duonebs at home were helping SOB some. Mucinex helps her bring up phlegm. She has not had an increase in the post-operative pain or swelling in that leg, though it was wrapped since surgery until today. Review of Systems Constitutional Constitutional: Reports as per HPI, Denies anorexia, Denies headache(s), Denies lethargy and Denies weakness Eyes Eyes: Denies change in vision and Denies irritation ENT Ears, Nose, Mouth, and Throat: Denies dizziness, Denies headache(s), Denies nasal congestion, Denies nasal discharge and Denies sore throat Cardiovascular Cardiovascular: Denies chest pain, Denies lightheadedness, Denies palpitations, Reports dyspnea on exertion and Denies orthopnea Respiratory Respiratory: Reports change in phlegm color, Denies hemoptysis, Reports excessive phlegm production, Reports dyspnea on exertion and Reports wheezing Gastrointestinal Gastrointestinal: Denies abdominal pain, Denies change in stool character, Denies heartburn, Reports nausea and Denies vomiting Genitourinary Genitourinary: Denies hematuria, Denies dysuria and Denies urinary incontinence Integumentary/Breasts Skin/Breast: Denies rash and Denies skin ulcer Neurologic Neurologic: Denies dizziness, Denies headache(s), Denies sensory deficit and Denies weakness Psychiatric Psychiatric: Denies mood swings Endocrine Endocrine: Denies palpitations Hematologic/Lymphatic Hematologic/Lymphatic: Denies easy bleeding Allergic/Immunologic Allergic/Immunologic: Reports wheezing PFSH All Active Problems (Updated 04/02/22 @ 00:49 by Juan Hull) DVT prophylaxis (Acute) Status post total right knee replacement (Acute) Fever and chills (Acute) Hypotension (Acute) Altered mental status (Acute) Nasal septal perforation (Acute) Insomnia (Acute) Restless leg syndrome (Acute) Ptosis (Acute) Chronic rhinitis (Acute) Primary osteoarthritis of left knee (Acute) Steroid injection: 01/30/22; 10/27/21; 07/28/21; 04/04/2021; 12/27/2020; 04/19/2020 Primary osteoarthritis of right knee (Chronic) Steroid injection: 10/27/21; 07/28/21; 04/04/2021; 12/27/2020; 04/19/2020 Acute exacerbation of chronic obstructive pulmonary disease (Acute) Acute exacerbation of chronic obstructive pulmonary disease (Acute) S/P colonoscopy (Acute ~11/26/18) Colorectal polyp detected on colonoscopy (Acute ~11/26/18) Diverticulosis (Acute ~11/26/18) Encounter for colorectal cancer screening (Acute) Family history of colon cancer requiring screening colonoscopy (Acute) Medical History Alcohol abuse, in remission Anxiety Blood in stool 1 episode Chest pain happened in October 2021 - due to stress at work and had flu COPD (chronic obstructive pulmonary disease) GERD (gastroesophageal reflux disease) Leukocytosis Tobacco abuse Surgical History History of colonoscopy Pt states ruptured spleen s/p colonoscopy 2012 requiring ICU stay and two month recovery. History of hammer toe correction (right) History of knee surgery Torn meniscus repair (left) History of tonsillectomy History of wisdom tooth extraction Family History Father Colon cancer Stage 4 at diagnosis at age 70 Paternal Aunt Colon cancer Paternal Aunt Colon cancer Mother Fallopian tube malignant neoplasm Maternal Uncle Stomach cancer Other Pancreatic cancer Social History (Updated 04/02/22 @ 00:38 by Juan Hull) Smoking/Tobacco Use Status: Current every day Tobacco Type: cigarettes Years smoked: 40 Tobacco: How many years used: 40 Smoking risk assessment performed?: Yes Alcohol Intake: former Year quit: 2016 Drug use: Never Substance use type: does not use current occupation: [employer] Pets and animals: No Do you feel safe at home: Yes Do you feel safe in your relationship?: Yes Additional Social history: Lives alone in [place], friend Kandice helping care for her post-op. 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 Meds Allergies and Home Medications Allergies Allergy/AdvReac Type Severity Reaction Status Date / Time disulfiram [From Antabuse] Allergy Other (See Unverified 03/28/22 14:52 Comment) Sulfa (Sulfonamide Allergy Anaphylaxsi Verified 03/28/22 14:52 Antibiotics) s tree nut Allergy ANGIO EDEMA Verified 03/28/22 14:52 Home Medications Medication Instructions Recorded Confirmed Type sertraline 100 mg tablet 100 mg PO DAILY 07/12/18 04/01/22 History albuterol sulfate 90 mcg/actuation 2 puff inhalation Q6H PRN 10/25/18 04/01/22 History aerosol inhaler (Ventolin HFA) omeprazole 20 mg capsule,delayed 20 mg PO DAILY 10/25/18 04/01/22 History release ipratropium 0.5 mg-albuterol 3 mg 3 ml inhalation Q6H PRN shortness 07/19/19 04/01/22 Rx (2.5 mg base)/3 mL nebulization of breath or wheezing #15 mL soln budesonide-formoterol HFA 160 2 puff inhalation BID 07/20/19 04/01/22 History mcg-4.5 mcg/actuation aerosol inhaler (Symbicort) atorvastatin 40 mg tablet 40 mg PO HS 12/15/20 04/01/22 History famotidine 20 mg tablet 20 mg PO DAILY 12/15/20 04/01/22 History fluticasone propionate 50 1 spray intranasal BID 12/15/20 04/01/22 History mcg/actuation nasal spray,suspension trazodone 50 mg tablet 50 mg PO HS PRN 12/15/20 04/01/22 History gabapentin 300 mg capsule 300 mg PO BID 08/19/21 04/01/22 History loratadine 10 mg tablet (Claritin) 10 mg PO DAILY 09/12/21 04/01/22 History albuterol sulfate 1.25 mg/3 mL 1.25 mg (3 mL) inhalation QID PRN 10/23/21 04/01/22 Rx solution for nebulization shortness of breath or wheezing #75 mL meloxicam 15 mg tablet 15 mg PO DAILY #30 tabs 03/08/22 04/01/22 Rx acetaminophen 500 mg tablet 500 mg PO Q6H PRN pain #60 tabs 03/29/22 04/01/22 Rx aspirin 81 mg tablet,delayed 81 mg PO BID 30 days #60 tabs 03/29/22 04/01/22 Rx release dexamethasone 4 mg tablet 4 mg PO DAILY #2 tabs 03/29/22 04/01/22 Rx docusate sodium 100 mg capsule 100 mg PO BID #30 caps 03/29/22 04/01/22 Rx (Colace) meloxicam 15 mg tablet 15 mg PO DAILY #30 tabs 03/29/22 04/01/22 Rx oxycodone 5 mg tablet 5 mg PO Q4H PRN severe 03/29/22 04/01/22 Rx post-operative pain #18 tabs Exam Narrative Exam Narrative: GEN: Alert and oriented, pleasant and cooperative, gives linear history. No acute distress at rest. HEENT: Head atraumatic. Conjunctiva clear, no icterus. PEERL, EOMI. no rhinorrhea. MMM, OP benign. Neck is supple with no masses or lymphadenopathy, trachea midline LUNGS: Lungs with slight rales right base, tight with prolonged expiration, only wheeze with forced expiration. CV: RRR with no murmurs, gallops, or rubs. ABD: +BS, soft, NT/ND EXT: no cyanosis, clubbing, or edema. no tenderness/cords in post-operative leg. MSK: No joint redness or swelling other than normal post-op appearing right knee. Mild serosangulnous drainage on bandage. NEURO: CN 2-12 grossly intact. Normal movement of 4 extremities. Normal speech and coordination SKIN: No rashs or open wounds. knee wound C/D/I PSYCH: normal mood and affect Results Imaging CT scan - chest: report reviewed (1. No pulmonary emboli are seen. No pneumonia. 2. Incidental stable nodules, emphysema, splenic calcificationss) EKG: report reviewed (not ischemic) Labs Result diagrams: 04/01/22 21:10 04/01/22 21:10 Labs: Laboratory Results - last 24 hr 04/01/22 04/01/22 04/01/22 21:10 21:10 21:10 WBC 12.65 H RBC 3.73 L Hgb 11.3 Hct 34.2 L MCV 92 MCH 30.3 MCHC 33.0 RDW 14.4 Plt Count 326 MPV 10.2 Immature Gran % 0.6 Neutrophils % 68.8 Lymphocytes % 23.0 Monocytes % 6.4 Eosinophils % 0.7 Basophils % 0.5 Nucleated RBC % 0.0 Absolute Neutrophils 8.70 H Absolute Lymphocytes 2.91 Absolute Monocytes 0.81 H Absolute Eosinophils 0.09 Absolute Basophils 0.06 PT INR APTT VBG Lactate 1.0 Sodium 137 Potassium 3.4 L Chloride 102 Carbon Dioxide 27.0 Anion Gap 8.0 BUN 13 Creatinine 0.7 Est GFR (CKD-EPI 2020) 95.92 Glucose 117 H Calcium 8.6 Total Bilirubin 0.4 AST 26 ALT 31 Alkaline Phosphatase 65 Troponin I < 50 Total Protein 7.0 Albumin 3.1 L Procalcitonin Urine Color Urine Clarity Urine pH Ur Specific [place] Urine Protein Urine Ketones Urine Blood Urine Nitrite Urine Bilirubin Urine Urobilinogen Ur Leukocyte Esterase Urine Glucose COVID-19 Source SARS-CoV-2 (PCR) Influenza Type A (PCR) Influenza Type B (PCR) RSV (PCR) 04/01/22 04/01/22 04/01/22 21:10 21:15 22:02 WBC RBC Hgb Hct MCV MCH MCHC RDW Plt Count MPV Immature Gran % Neutrophils % Lymphocytes % Monocytes % Eosinophils % Basophils % Nucleated RBC % Absolute Neutrophils Absolute Lymphocytes Absolute Monocytes Absolute Eosinophils Absolute Basophils PT 9.3 INR 0.9 APTT 29.5 H VBG Lactate Sodium Potassium Chloride Carbon Dioxide Anion Gap BUN Creatinine Est GFR (CKD-EPI 2020) Glucose Calcium Total Bilirubin AST ALT Alkaline Phosphatase Troponin I Total Protein Albumin Procalcitonin 0.1 Urine Color Urine Clarity Urine pH Ur Specific [place] Urine Protein Urine Ketones Urine Blood Urine Nitrite Urine Bilirubin Urine Urobilinogen Ur Leukocyte Esterase Urine Glucose COVID-19 Source Nasopharynx SARS-CoV-2 (PCR) Negative Influenza Type A (PCR) Negative Influenza Type B (PCR) Negative RSV (PCR) Negative 04/01/22 22:50 WBC RBC Hgb Hct MCV MCH MCHC RDW Plt Count MPV Immature Gran % Neutrophils % Lymphocytes % Monocytes % Eosinophils % Basophils % Nucleated RBC % Absolute Neutrophils Absolute Lymphocytes Absolute Monocytes Absolute Eosinophils Absolute Basophils PT INR APTT VBG Lactate Sodium Potassium Chloride Carbon Dioxide Anion Gap BUN Creatinine Est GFR (CKD-EPI 2020) Glucose Calcium Total Bilirubin AST ALT Alkaline Phosphatase Troponin I Total Protein Albumin Procalcitonin Urine Color Yellow Urine Clarity Clear Urine pH 6.5 Ur Specific [place] 1.010 Urine Protein Negative Urine Ketones Negative Urine Blood Negative Urine Nitrite Negative Urine Bilirubin Negative Urine Urobilinogen 0.2 Ur Leukocyte Esterase Negative Urine Glucose Negative COVID-19 Source SARS-CoV-2 (PCR) Influenza Type A (PCR) Influenza Type B (PCR) RSV (PCR) Last Vital Signs Temp 37.0 C 04/01/22 20:51 Pulse 78 04/01/22 23:53 Resp 16 04/01/22 23:53 BP 105/68 04/01/22 23:53 Pulse Ox 94 04/01/22 23:53
[2022-04-02 00:29] VITALS: BP 108/69; PULSE 88; RESP 19; TEMP 37.3; O2SAT 95
[2022-04-02 00:31] LABS: Troponin I < 50 ng/L (<or=60)
[2022-04-02] MEDS: Nicotine 21 MG/24 HR PATCH TD (00:59)
[2022-04-02] MEDS: Doxycycline Hyclate 100 MG CAP PO (01:32)
[2022-04-02] MEDS: predniSONE 20 MG TAB 60 MG PO (01:33)
[2022-04-02] MEDS: traZODone 50 MG TAB PO (01:35)
[2022-04-02] MEDS: Normal Saline Flush 10 ML SYR IVP (01:36)
[2022-04-02] MEDS: cefTRIAXone 1 GM/50 ML BAG IVPB (01:36)
[2022-04-02] MEDS: Enoxaparin 40 MG/0.4 ML SYR SC (05:14)
[2022-04-02 05:49] LABS: Abs Immature Grans 0.09 10^3/uL (0.0-0.06); Absolute Eosinophil Count 0.01 10^3/uL (0.0-0.7); Absolute Lymphocyte Count 1.14 10^3/uL (1.2-3.4); Basophils % 0.4; Eosinophils % 0.1; HCT 31.6 % (36.0-46.0); HGB 10.7 g/dL (11.2-15.7); Immature Grans % 0.8; Lymphocytes % 10.2; MCH 30.4 pg (27.0-33.0); MCHC 33.9 % (32.0-36.0); MCV 90 fL (80-95); MPV 10.3 fL (8.0-11.0); Monocytes % 2.1; Neutrophils % 86.4; Platelet Count 317 10^3/uL (130-400); RBC 3.52 10^6/uL (3.93-5.22); RDW 14.5 % (11.7-14.6); RDW-SD 47.7 fL; WBC 11.18 10^3/uL (4.4-10.8)
[2022-04-02 05:54] LABS: Absolute Basophil Count 0.04 10^3/uL (0.0-0.2); Absolute Monocyte Count 0.23 10^3/uL (0.1-0.8); Absolute Neutrophil Count 9.66 10^3/uL (1.2-6.7)
[2022-04-02 06:03] LABS: Anion Gap 9.7 mmol/L (3-11); BUN 11 mg/dL (7-18); CO2 25.3 mmol/L (21.0-32.0); CREATININE 0.5 mg/dL (0.55-1.02); Calcium 8.7 mg/dL (8.5-10.1); Chloride 105 mmol/L (98-107); Estimated GFR 104.02 (mL/min/1.73m2); Glucose 120 mg/dL (74-106); Potassium 3.9 mmol/L (3.5-5.1); Sodium 140 mmol/L (136-145)
[2022-04-02] MEDS: oxyCODONE 5 MG TAB PO ×2 (06:12→11:41)
--- NOTE | 2022-04-02 06:29 | OCONE_ITS ---
Date of service: 04/02/22 Time of Service: 06:29 History of Present Illness History of Present Illness Chief Complaint: Difficulty Breathing Narrative: Cathie is a 67-year-old who underwent a knee replacement on the right side on March 29. She was discharged to home on the same day and was doing very well for the first 2 days. However, she noticed some difficulty with breathing on Sunday. She felt that this difficulty was limiting her ability to ambulate, get out of the chair, do any exercise for the knee. While she has had some pain in the right knee she has felt no significant change in the pain. She denies any acute worsening of pain in the right knee. She once again feels limited by her breathing. She feels that she is wheezing and she is unable to get a complete breath. She does report malaise and some chills and feeling febrile at home but all of her vital signs here have been normal and appropria te. She does report having some bleeding under the dressing but not outside of the dressing. Not down the leg. She has still been able to move the right leg when necessary for repositioning and for mobilization. She reports feeling relatively ill overall and just not herself. She has been taking medications from the time of surgery without significant interruption nor addition of anything else. He denies numbness or tingling in the right leg. She denies any nausea or vomiting. Consults Consult date: 04/02/22 Requesting physician: Juan Hull Consult Reason Recent right knee surgery Assessment and Plan Assessment and plan (1) Status post total right knee replacement: Status: Acute Assessment and plan: Cathie is a 67-year-old who is 4 days status post right knee replacement. Her surgery in the initial few days recovery went without issue. However, she has developed subjective fever and chills with difficulty breathing. Her vital signs have been stable here without fever and without tachycardia. She still subjectively reports difficulty with breathing which is limiting her ability ambulate. CT of the chest did not show any acute signs of pneumonia nor of embolus. However, given her subjective concerns and obvious ill feeling, she was admitted to the hospitalist service for further observation and evaluation. In regards to the right knee, it looks fairly appropriate. She does have a small area of skin which is hyperemic from bleeding and from thinning from surgery. However, there is no sign of infection. Her motion and examination is what I would expect for 4 days postoperative. There is no expressible fluid. She is able to tolerate some motion without significant pain and able to straight leg raise. I did redress the wound and will continue to follow it. However, the wound dressing does not need to be removed. This may stay in place. She may weight-bear as tolerated with assistive device. I would recommend physical therapy consult while she is here for further evaluation. Her lab results are also encouraging at this point agree with observation by the medical team for concern of developing pulmonary process although not evident currently. Review of Systems All systems reviewed & are unremarkable except as noted in HPI and below PFSH All Active Problems DVT prophylaxis (Acute) Status post total right knee replacement (Acute) Fever and chills (Acute) Hypotension (Acute) Altered mental status (Acute) Nasal septal perforation (Acute) Insomnia (Acute) Restless leg syndrome (Acute) Ptosis (Acute) Chronic rhinitis (Acute) Primary osteoarthritis of left knee (Acute) Steroid injection: 01/30/22; 10/27/21; 07/28/21; 04/04/2021; 12/27/2020; 04/19/2020 Primary osteoarthritis of right knee (Chronic) Steroid injection: 10/27/21; 07/28/21; 04/04/2021; 12/27/2020; 04/19/2020 Acute exacerbation of chronic obstructive pulmonary disease (Acute) Acute exacerbation of chronic obstructive pulmonary disease (Acute) S/P colonoscopy (Acute ~11/26/18) Colorectal polyp detected on colonoscopy (Acute ~11/26/18) Diverticulosis (Acute ~11/26/18) Encounter for colorectal cancer screening (Acute) Family history of colon cancer requiring screening colonoscopy (Acute) Medical History Alcohol abuse, in remission Anxiety Blood in stool 1 episode Chest pain happened in October 2021 - due to stress at work and had flu COPD (chronic obstructive pulmonary disease) GERD (gastroesophageal reflux disease) Leukocytosis Tobacco abuse Surgical History History of colonoscopy Pt states ruptured spleen s/p colonoscopy 2012 requiring ICU stay and two month recovery. History of hammer toe correction (right) History of knee surgery Torn meniscus repair (left) History of tonsillectomy History of wisdom tooth extraction Family History Father Colon cancer Stage 4 at diagnosis at age 70 Paternal Aunt Colon cancer Paternal Aunt Colon cancer Mother Fallopian tube malignant neoplasm Maternal Uncle Stomach cancer Other Pancreatic cancer Social History Smoking/Tobacco Use Status: Current every day Tobacco Type: cigarettes Years smoked: 40 Tobacco: How many years used: 40 Smoking risk assessment performed?: Yes Alcohol Intake: former Year quit: 2016 Drug use: Never Substance use type: does not use current occupation: [employer] Pets and animals: No Do you feel safe at home: Yes Do you feel safe in your relationship?: Yes Additional Social history: Lives alone in [place], friend Kandice helping care for her post-op. 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 Exam Narrative Exam Narrative: Resting in the hospital bed. No acute distress. Alert and orient x3. She does seem quite tired and not as personable and alert as she has been in the past. There is no obvious increased work of breathing. No audible wheezing. Eyes are anicteric. Neck range of motion is full without significant pain. Evaluation of the right leg shows some bleeding on the Mepilex dressing. This is relatively dried. There is some hyperemia seen around the knee centralized over the central portion of the midline wound. The dressing is removed. There is no active bleeding. There is no area of fluctuance. There is swelling around the knee but most of this appears to be an effusion inside the knee. The skin is particularly hyperemic in the central portion where there is a very small area of patiño discoloration to an area 1 cm in length. There is no surrounding erythema. There is no expressible fluid collection. The skin glue has come off of this area but the deep dermis is still well attached. She is able to straight leg raise. She is also able to actively flex and extend the knee within a small arc of motion from 20 to 80 degrees. Motion within this arc really does not seem to cause any pain. Passively I can get her to about 10 degrees of extension and 90 degrees of flexion but this does cause a pulling type pain about the knee and the leg. After full evaluation, I prepped the wound edges with Betadine and prepared the skin and skin prep. I then applied half-inch Steri-Strips across the incision followed by a Mepilex silver dressing. Results Last Vital Signs Temp 37.3 C 04/02/22 00:29 Pulse 88 04/02/22 00:29 Resp 19 04/02/22 00:29 BP 108/69 04/02/22 00:29 Pulse Ox 95 04/02/22 00:29 Labs Result diagrams: 04/02/22 05:30 04/02/22 05:30 Labs: Laboratory Results - last 24 hr 04/01/22 04/01/22 04/01/22 21:10 21:10 21:10 WBC 12.65 H RBC 3.73 L Hgb 11.3 Hct 34.2 L MCV 92 MCH 30.3 MCHC 33.0 RDW 14.4 Plt Count 326 MPV 10.2 Immature Gran % 0.6 Neutrophils % 68.8 Lymphocytes % 23.0 Monocytes % 6.4 Eosinophils % 0.7 Basophils % 0.5 Nucleated RBC % 0.0 Absolute Neutrophils 8.70 H Absolute Lymphocytes 2.91 Absolute Monocytes 0.81 H Absolute Eosinophils 0.09 Absolute Basophils 0.06 PT INR APTT VBG Lactate 1.0 Sodium 137 Potassium 3.4 L Chloride 102 Carbon Dioxide 27.0 Anion Gap 8.0 BUN 13 Creatinine 0.7 Est GFR (CKD-EPI 2020) 95.92 Glucose 117 H Calcium 8.6 Total Bilirubin 0.4 AST 26 ALT 31 Alkaline Phosphatase 65 Troponin I < 50 Total Protein 7.0 Albumin 3.1 L Procalcitonin Urine Color Urine Clarity Urine pH Ur Specific [place] Urine Protein Urine Ketones Urine Blood Urine Nitrite Urine Bilirubin Urine Urobilinogen Ur Leukocyte Esterase Urine Glucose COVID-19 Source SARS-CoV-2 (PCR) Influenza Type A (PCR) Influenza Type B (PCR) RSV (PCR) 04/01/22 04/01/22 04/01/22 21:10 21:15 22:02 WBC RBC Hgb Hct MCV MCH MCHC RDW Plt Count MPV Immature Gran % Neutrophils % Lymphocytes % Monocytes % Eosinophils % Basophils % Nucleated RBC % Absolute Neutrophils Absolute Lymphocytes Absolute Monocytes Absolute Eosinophils Absolute Basophils PT 9.3 INR 0.9 APTT 29.5 H VBG Lactate Sodium Potassium Chloride Carbon Dioxide Anion Gap BUN Creatinine Est GFR (CKD-EPI 2020) Glucose Calcium Total Bilirubin AST ALT Alkaline Phosphatase Troponin I Total Protein Albumin Procalcitonin 0.1 Urine Color Urine Clarity Urine pH Ur Specific [place] Urine Protein Urine Ketones Urine Blood Urine Nitrite Urine Bilirubin Urine Urobilinogen Ur Leukocyte Esterase Urine Glucose COVID-19 Source Nasopharynx SARS-CoV-2 (PCR) Negative Influenza Type A (PCR) Negative Influenza Type B (PCR) Negative RSV (PCR) Negative 04/01/22 04/02/22 04/02/22 22:50 00:10 05:30 WBC RBC Hgb Hct MCV MCH MCHC RDW Plt Count MPV Immature Gran % Neutrophils % Lymphocytes % Monocytes % Eosinophils % Basophils % Nucleated RBC % Absolute Neutrophils Absolute Lymphocytes Absolute Monocytes Absolute Eosinophils Absolute Basophils PT INR APTT VBG Lactate Sodium 140 Potassium 3.9 Chloride 105 Carbon Dioxide 25.3 Anion Gap 9.7 BUN 11 Creatinine 0.5 L Est GFR (CKD-EPI 2020) 104.02 Glucose 120 H Calcium 8.7 Total Bilirubin AST ALT Alkaline Phosphatase Troponin I < 50 Total Protein Albumin Procalcitonin Urine Color Yellow Urine Clarity Clear Urine pH 6.5 Ur Specific [place] 1.010 Urine Protein Negative Urine Ketones Negative Urine Blood Negative Urine Nitrite Negative Urine Bilirubin Negative Urine Urobilinogen 0.2 Ur Leukocyte Esterase Negative Urine Glucose Negative COVID-19 Source SARS-CoV-2 (PCR) Influenza Type A (PCR) Influenza Type B (PCR) RSV (PCR) 04/02/22 05:30 WBC 11.18 H RBC 3.52 L Hgb 10.7 L Hct 31.6 L MCV 90 MCH 30.4 MCHC 33.9 RDW 14.5 Plt Count 317 MPV 10.3 Immature Gran % 0.8 Neutrophils % 86.4 Lymphocytes % 10.2 Monocytes % 2.1 Eosinophils % 0.1 Basophils % 0.4 Nucleated RBC % 0.0 Absolute Neutrophils 9.66 H Absolute Lymphocytes 1.14 L Absolute Monocytes 0.23 Absolute Eosinophils 0.01 Absolute Basophils 0.04 PT INR APTT VBG Lactate Sodium Potassium Chloride Carbon Dioxide Anion Gap BUN Creatinine Est GFR (CKD-EPI 2020) Glucose Calcium Total Bilirubin AST ALT Alkaline Phosphatase Troponin I Total Protein Albumin Procalcitonin Urine Color Urine Clarity Urine pH Ur Specific [place] Urine Protein Urine Ketones Urine Blood Urine Nitrite Urine Bilirubin Urine Urobilinogen Ur Leukocyte Esterase Urine Glucose COVID-19 Source SARS-CoV-2 (PCR) Influenza Type A (PCR) Influenza Type B (PCR) RSV (PCR)
[2022-04-02 06:32] VITALS: BP 115/73; PULSE 86; RESP 19; TEMP 36.9; O2SAT 94
[2022-04-02 06:34] VITALS: RESP 2; RESP 3; RESP 6
[2022-04-02] MEDS: Albuterol/Ipratropium 3 ML UPD VIAL UPD (06:34)
[2022-04-02 07:30] VITALS: BP 99/66; PULSE 93; RESP 16; TEMP 37; O2SAT 94
[2022-04-02] MEDS: Loratidine 10 MG TAB PO (07:50)
[2022-04-02] MEDS: Docusate Sodium 100 MG CAP PO (07:50)
[2022-04-02] MEDS: Gabapentin 300 MG CAP PO (07:50)
[2022-04-02] MEDS: Sertraline 100 MG TAB PO (07:51)
[2022-04-02] MEDS: Omeprazole 20 MG CAPCR PO (07:51)
[2022-04-02] MEDS: predniSONE 20 MG TAB 40 MG PO (07:51)
[2022-04-02] MEDS: Budesonide/Formoterol 160/4.5 6 GM 60 PUFF INH IH (08:28)
--- NOTE | 2022-04-02 09:31 | INITIAL_ITS ---
- If Service Date Differs Date of service: 04/02/22 Time of Service: 09:31 Care Management Initial Assess REASON FOR HOSPITALIZATION:: shortness ogf breath PAST MEDICAL HISTORY/PAST SURGICAL HISTORY:: All Active Problems (Updated 04/02/22 @ 00:49 by Juan Hull). DVT prophylaxis (Acute). Status post total right knee replacement (Acute). Fever and chills (Acute). Hypotension (Acute). Altered mental status (Acute). Nasal septal perforation (Acute). Insomnia (Acute). Restless leg syndrome (Acute). Ptosis (Acute). Chronic rhinitis (Acute). Primary osteoarthritis of left knee (Acute). Steroid injection: 01/30/22; 10/27/21; 07/28/21; 04/04/2021; 12/27/2020; 04/19/2020. Primary osteoarthritis of right knee (Chronic). Steroid injection: 10/27/21; 07/28/21; 04/04/2021; 12/27/2020; 04/19/2020. Acute exacerbation of chronic obstructive pulmonary disease (Acute). Acute exacerbation of chronic obstructive pulmonary disease (Acute). S/P colonoscopy (Acute ~11/26/18). Colorectal polyp detected on colonoscopy (Acute ~11/26/18). Diverticulosis (Acute ~11/26/18). Encounter for colorectal cancer screening (Acute). Family history of colon cancer requiring screening colonoscopy (Acute). Medical History . Alcohol abuse, in remission. Anxiety. Blood in stool. 1 episode. Chest pain. happened in October 2021 - due to stress at work and had flu. COPD (chronic obstructive pulmonary disease). GERD (gastroesophageal reflux disease). Leukocytosis. Tobacco abuse. Surgical History . History of colonoscopy. 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 History of hammer toe correction. (right). History of knee surgery. Torn meniscus repair (left). History of tonsillectomy. History of wisdom tooth extraction PREVIOUS FUNCTIONAL STATUS/SOCIAL/FAMILY SUPPORTS:: Cathie lives in [place], [place] She has 2 brothers, Mod[place] and Tejas. [place] lives in [place], [place] and Tejas lives in [place], [place] She is independent at baseline and receives no services. CURRENT FUNCTIONAL STATUS:: Cathie was sitting up in a chair visiting with her friend when CM met with her. She was agreeable to conversation and pleasant in interaction. Cathie inquired if her insurance would cover a commode. She is just 4 days post-op from a total knee replacement and had some difficulty getting to the bathroom at home. CM informed her that it is often not covered and we do not have them at [facility] but that they are not terribly expensivre and can be purchased at local pharmacies and [employer]. ADVANCE DIRECTIVES:: none on file Has patient been provided with info about the portal/API?: Yes Did the patient sign up for the portal?: No CODE STATUS:: Full Code INSURANCE COVERAGE / FINANCIAL ISSUES:: Medicaid CURRENT HOME/COMMUNITY SERVICES/EQUIPMENT:: none PRIMARY CARE PHYSICIAN:: Alberta Barrios POTENTIAL DISCHARGE NEEDS:: follow up with PCP and plan of care PATIENT/FAMILY EDUCATION NEEDS:: review of discharge instructions, activity, limitations, follow up plan, discuss Ask Me Three TRANSPORTATION:: via private vehicle with family PLAN:: Anticipate Cathie will discharge home with no new services. She will follow up with her community providers and plan of care and transport with family. CM will follow and continue to assess for discharge concerns.
--- NOTE | 2022-04-02 10:12 | W.PM.DS.N ---
Date of service: 04/02/22 Time of Service: 10:12 DS: Diagnosis Discharge Diagnosis (1) Status post total right knee replacement: Status: Acute Discharge Plan Disposition Patient Disposition: HOME Condition: Stable Discharge Details Reason For Visit: sob, fever Admit Date/Time: 04/01/22 23:28 Admit Provider: Juan Hull Attending Provider: Juan Hull Primary Care Provider: Alberta Barrios Hospital Course Hospital Course: 67 yo F smoker with COPD who presented to the [facility] emergency department on POD #4 s/p uncomplicated right TKR with cc of 3 days of progressive cough, dyspnea, and fever to 101 at home. ? She started with a cough on , the day after having her knee replacement and going home.? She started feeling more short of breath on Sunday, the day prior to admission.? Gradual onset of SOB, no chest pain.? She was getting winded walking to the bathroom, which was not the case the prevoius day.? She was bringing up sputum.? On the day of admission she felt chills and had a fever to 101 on thermometer at home, and this prompted her to come in.? Her duonebs at home were helping SOB some.? Mucinex helps her bring up phlegm.?She has not had an increase in the post-operative pain or swelling in that leg, though it was wrapped since surgery until today.?She was placed on observation on the medical floor. She was given ceftriaxone and prednisone. She had no fevers, vs were stable. She was seen by orthopedics -see their note. She was feeling much better and did not have any shortness of breath, along with clear lungs and a stable SPO2 ` 94% RA. She was discharged to home with prednisone and azithromycin, with family stable. ? Home Meds and New Rx's Prescriptions: New azithromycin 250 mg tablet 250 mg PO DAILY Qty: 4 0RF prednisone 20 mg tablet 40 mg PO DAILY Qty: 10 0RF lorazepam 0.5 mg tablet 0.5 mg PO TID PRNQty: 12 0RF Continued omeprazole 20 mg capsule,delayed release(DR/EC) 20 mg PO DAILY albuterol sulfate [Ventolin HFA] 90 mcg/actuation HFA aerosol inhaler 2 puff IH Q6H PRN loratadine [Claritin] 10 mg tablet 10 mg PO DAILY gabapentin 300 mg capsule 300 mg PO BID albuterol sulfate 1.25 mg/3 mL solution for nebulization 1.25 mg inhalation QID PRN (Reason: shortness of breath or wheezing) Qty: 75 0RF acetaminophen 500 mg tablet 500 mg PO Q6H PRN (Reason: pain) Qty: 60 2RF aspirin 81 mg tablet,delayed release (DR/EC) 81 mg PO BID 30 Days Qty: 60 0RF docusate sodium [Colace] 100 mg capsule 100 mg PO BID Qty: 30 0RF oxycodone 5 mg tablet 5 mg PO Q4H PRN (Reason: severe post-operative pain) Qty: 18 0RF Rx Instructions: Take one tablet up to every 4 hours as needed for severe pain meloxicam 15 mg tablet 15 mg PO DAILY Qty: 30 1RF Rx Instructions: Take one tablet daily for pain and inflammation sertraline 100 mg Tablet 100 mg PO DAILY ipratropium-albuterol 0.5 mg-3 mg(2.5 mg base)/3 mL solution for nebulization 3 ml IH Q6H PRN (Reason: shortness of breath or wheezing) Qty: 15 0RF Label Comments: does not use budesonide-formoterol [Symbicort] 160-4.5 mcg/actuation Hfa Aerosol Inhaler 2 puff INHALATION BID atorvastatin 40 mg tablet 40 mg PO HS Label Comments: TAKE 1 TABLET BY MOUTH ONCE DAILY AT BEDTIME trazodone 50 mg tablet 50 mg PO HS PRN Label Comments: TAKE 1 TABLET BY MOUTH AT BEDTIME NEEDED famotidine 20 mg tablet 20 mg PO DAILY Label Comments: TAKE 1 TABLET BY MOUTH ONCE DAILY fluticasone propionate 50 mcg/actuation spray,suspension 1 spray INTRANASAL BID meloxicam 15 mg tablet 15 mg PO DAILY Qty: 30 0RF Discontinued dexamethasone 4 mg tablet 4 mg PO DAILY Qty: 2 0RF Rx Instructions: Take one tablet once daily for two days Discharge Instructions Instructions: Lorazepam (By mouth), Prednisone (By mouth), Azithromycin (By mouth), How to Stop Smoking (DC), Cigarette Smoking and Your Health (GEN), COPD (Chronic Obstructive Pulmonary Disease) (DC), Anxiety (DC), Chronic Lung Disease and Infection Prevention (DC) Additional Instructions: Take Prednisone as directed for 5 days. Take lorazepam as directed for anxiety - do not take with oxycodone, only use this once your are no longer taking oxycodone, it is sedating. Stand Alone Forms: Nursing Discharge Form Referrals: Alberta Barrios [Primary Care Provider] - (Follow up as needed ) Activity:: Activity as Tolerated Equipment/Supplies:: No Equipment Needed Diet:: As Tolerated Discharge Orders Discharge Orders: Discharge Order (Routine); Ordered 04/02/22 Ordered By: Jasmin Black Discharge Data Discharge Date/Time-TO BE ENTERED AT DEPARTURE: 04/02/22 12:25 DS: Summary Time Spent with Patient providing and/or coordinating discharge services: Greater than 30 minutes Status at Discharge Functional status at discharge: uses cane/walker Overall status at discharge: patient is progressing back to baseline Mental Status: mental status grossly normal Speech and Movement: speech and movement normal Mood: congruent mood Affect: normal affect Exam Narrative Exam Narrative: GEN: Alert and oriented, pleasant and cooperative, gives linear history. No acute distress at rest. HEENT: Head atraumatic. Conjunctiva clear, no icterus. PEERL, EOMI. no rhinorrhea. MMM, OP benign. Neck is supple with no masses or lymphadenopathy, trachea midline LUNGS: Lungs clear bilaterally CV: RRR with no murmurs, gallops, or rubs. ABD: +BS, soft, NT/ND EXT: no cyanosis, clubbing, or edema. no tenderness in calf of post-operative leg, or left leg MSK: No joint redness or swelling other than normal post-op appearing right knee. Mild serosangulnous drainage on bandage. NEURO: CN 2-12 grossly intact. Normal movement of 4 extremities. Normal speech and coordination SKIN: No rashs or open wounds. knee wound C/D/I PSYCH: normal mood and affect Psych Mental Status: mental status grossly normal Speech and Movement: speech and movement normal Mood: congruent mood Affect: normal affect DS: Data Vitals/I&O Vitals and I&O: Vital Signs Temperature 37.0 C 04/02/22 07:30 Temperature Source Tympanic 04/02/22 07:30 Pulse 93 H 04/02/22 07:30 Pulse Rhythm Regular 04/02/22 07:55 Respiratory Rate 16 04/02/22 07:30 Respiratory Effort 04/02/22 07:55 Respiratory Depth Normal 04/02/22 07:55 Respiratory Pattern Normal 04/02/22 07:55 Blood Pressure 99/66 L 04/02/22 07:30 Blood Pressure Position Supine 04/01/22 20:51 Pulse Oximetry 94 04/02/22 07:30 Oxygen Delivery Method Room Air 04/02/22 07:30 Oxygen Flow Rate 0 04/02/22 07:30 Pain Level 0 04/02/22 07:30 Comment 04/02/22 07:30 Intake & Output 04/01/22 04/01/22 04/02/22 11:59 23:59 11:59 Intake Total 500 / 500 430 / 430 Output Total 850 / 850 Balance 500 / 500 -420 / -420 Weight 68.039 kg 68.2 kg Intake: IV 500 / 500 80 / 80 Oral 350 / 350 Output: Urine 850 / 850 Other: Urine Color Dark Brianne Urine Appearance Clear Urine Odor Normal Comment pt said that she had voided before she came up in the [place] at 12mn, instructed to call if she needs to go to bathroom Voiding Methods Bedside Commode Data Completed and Pending Labs on day of discharge: Labs from last 24 hours 04/02/22 04/02/22 04/02/22 05:30 05:30 00:10 WBC 11.18 H RBC 3.52 L Hgb 10.7 L Hct 31.6 L MCV 90 MCH 30.4 MCHC 33.9 RDW 14.5 Plt Count 317 MPV 10.3 Immature Gran % 0.8 Neutrophils % 86.4 Lymphocytes % 10.2 Monocytes % 2.1 Eosinophils % 0.1 Basophils % 0.4 Nucleated RBC % 0.0 Absolute Neutrophils 9.66 H Absolute Lymphocytes 1.14 L Absolute Monocytes 0.23 Absolute Eosinophils 0.01 Absolute Basophils 0.04 PT INR APTT VBG Lactate Sodium 140 Potassium 3.9 Chloride 105 Carbon Dioxide 25.3 Anion Gap 9.7 BUN 11 Creatinine 0.5 L Est GFR (CKD-EPI 2020) 104.02 Glucose 120 H Calcium 8.7 Total Bilirubin AST ALT Alkaline Phosphatase Troponin I < 50 Total Protein Albumin Procalcitonin Urine Color Urine Clarity Urine pH Ur Specific [place] Urine Protein Urine Ketones Urine Blood Urine Nitrite Urine Bilirubin Urine Urobilinogen Ur Leukocyte Esterase Urine Glucose COVID-19 Source SARS-CoV-2 (PCR) Influenza Type A (PCR) Influenza Type B (PCR) RSV (PCR) 1004/01/22 04/01/22 22:50 22:02 21:15 WBC RBC Hgb Hct MCV MCH MCHC RDW Plt Count MPV Immature Gran % Neutrophils % Lymphocytes % Monocytes % Eosinophils % Basophils % Nucleated RBC % Absolute Neutrophils Absolute Lymphocytes Absolute Monocytes Absolute Eosinophils Absolute Basophils PT INR APTT VBG Lactate Sodium Potassium Chloride Carbon Dioxide Anion Gap BUN Creatinine Est GFR (CKD-EPI 2020) Glucose Calcium Total Bilirubin AST ALT Alkaline Phosphatase Troponin I Total Protein Albumin Procalcitonin 0.1 Urine Color Yellow Urine Clarity Clear Urine pH 6.5 Ur Specific [place] 1.010 Urine Protein Negative Urine Ketones Negative Urine Blood Negative Urine Nitrite Negative Urine Bilirubin Negative Urine Urobilinogen 0.2 Ur Leukocyte Esterase Negative Urine Glucose Negative COVID-19 Source Nasopharynx SARS-CoV-2 (PCR) Negative Influenza Type A (PCR) Negative Influenza Type B (PCR) Negative RSV (PCR) Negative 04/01/22 04/01/22 04/01/22 21:10 21:10 21:10 WBC 12.65 H RBC 3.73 L Hgb 11.3 Hct 34.2 L MCV 92 MCH 30.3 MCHC 33.0 RDW 14.4 Plt Count 326 MPV 10.2 Immature Gran % 0.6 Neutrophils % 68.8 Lymphocytes % 23.0 Monocytes % 6.4 Eosinophils % 0.7 Basophils % 0.5 Nucleated RBC % 0.0 Absolute Neutrophils 8.70 H Absolute Lymphocytes 2.91 Absolute Monocytes 0.81 H Absolute Eosinophils 0.09 Absolute Basophils 0.06 PT 9.3 INR 0.9 APTT 29.5 H VBG Lactate 1.0 Sodium Potassium Chloride Carbon Dioxide Anion Gap BUN Creatinine Est GFR (CKD-EPI 2020) Glucose Calcium Total Bilirubin AST ALT Alkaline Phosphatase Troponin I Total Protein Albumin Procalcitonin Urine Color Urine Clarity Urine pH Ur Specific [place] Urine Protein Urine Ketones Urine Blood Urine Nitrite Urine Bilirubin Urine Urobilinogen Ur Leukocyte Esterase Urine Glucose COVID-19 Source SARS-CoV-2 (PCR) Influenza Type A (PCR) Influenza Type B (PCR) RSV (PCR) 04/01/22 21:10 WBC RBC Hgb Hct MCV MCH MCHC RDW Plt Count MPV Immature Gran % Neutrophils % Lymphocytes % Monocytes % Eosinophils % Basophils % Nucleated RBC % Absolute Neutrophils Absolute Lymphocytes Absolute Monocytes Absolute Eosinophils Absolute Basophils PT INR APTT VBG Lactate Sodium 137 Potassium 3.4 L Chloride 102 Carbon Dioxide 27.0 Anion Gap 8.0 BUN 13 Creatinine 0.7 Est GFR (CKD-EPI 2020) 95.92 Glucose 117 H Calcium 8.6 Total Bilirubin 0.4 AST 26 ALT 31 Alkaline Phosphatase 65 Troponin I < 50 Total Protein 7.0 Albumin 3.1 L Procalcitonin Urine Color Urine Clarity Urine pH Ur Specific [place] Urine Protein Urine Ketones Urine Blood Urine Nitrite Urine Bilirubin Urine Urobilinogen Ur Leukocyte Esterase Urine Glucose COVID-19 Source SARS-CoV-2 (PCR) Influenza Type A (PCR) Influenza Type B (PCR) RSV (PCR) 04/01/22 21:15 Blood Blood Culture - Pending 04/01/22 21:15 Blood Blood Culture - Pending Preliminary micro results at discharge 04/01/22 21:15 Blood Culture - Pending Blood 04/01/22 21:15 Blood Culture - Pending Blood PFSH All Active Problems DVT prophylaxis (Acute) Status post total right knee replacement (Acute) Fever and chills (Acute) Hypotension (Acute) Altered mental status (Acute) Nasal septal perforation (Acute) Insomnia (Acute) Restless leg syndrome (Acute) Ptosis (Acute) Chronic rhinitis (Acute) Primary osteoarthritis of left knee (Acute) Steroid injection: 01/30/22; 10/27/21; 07/28/21; 04/04/2021; 12/27/2020; 04/19/2020 Primary osteoarthritis of right knee (Chronic) Steroid injection: 10/27/21; 07/28/21; 04/04/2021; 12/27/2020; 04/19/2020 Acute exacerbation of chronic obstructive pulmonary disease (Acute) Acute exacerbation of chronic obstructive pulmonary disease (Acute) S/P colonoscopy (Acute ~11/26/18) Colorectal polyp detected on colonoscopy (Acute ~11/26/18) Diverticulosis (Acute ~11/26/18) Encounter for colorectal cancer screening (Acute) Family history of colon cancer requiring screening colonoscopy (Acute) Medical History Alcohol abuse, in remission Anxiety Blood in stool 1 episode Chest pain happened in October 2021 - due to stress at work and had flu COPD (chronic obstructive pulmonary disease) GERD (gastroesophageal reflux disease) Leukocytosis Tobacco abuse Surgical History History of colonoscopy Pt states ruptured spleen s/p colonoscopy 2012 requiring ICU stay and two month recovery. History of hammer toe correction (right) History of knee surgery Torn meniscus repair (left) History of tonsillectomy History of wisdom tooth extraction Family History Father Colon cancer Stage 4 at diagnosis at age 70 Paternal Aunt Colon cancer Paternal Aunt Colon cancer Mother Fallopian tube malignant neoplasm Maternal Uncle Stomach cancer Other Pancreatic cancer Social History Smoking/Tobacco Use Status: Current every day Tobacco Type: cigarettes Years smoked: 40 Tobacco: How many years used: 40 Smoking risk assessment performed?: Yes Alcohol Intake: former Year quit: 2016 Drug use: Never Substance use type: does not use current occupation: [employer] Pets and animals: No Do you feel safe at home: Yes Do you feel safe in your relationship?: Yes Additional Social history: Lives alone in [place], friend Kandice helping care for her post-op. 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
[2022-04-02] MEDS: Azithromycin 250 MG TAB 500 MG PO (11:04)
--- NOTE | 2022-04-02 16:35 | PDOC.CMDIS ---
- If Service Date Differs Date of service: 04/02/22 Time of Service: 16:35 LACE Index Scoring Tool - Questions: Length of Stay (in days): 1 Acuity (Admit via E.D.?): Yes Comorbidities: Chronic Pulmonary Disease E.D. Visits: 3 - Answers: Total Score: 9 Risk of Readmission: Low Risk Care Management Discharge Reason for Hospitalization: shortness ogf breath Discharge Plan: Cathie will discharge home with no new services. She will follow up with her community providers and plan of care and transport with family. Patient/Family Education Needs: review of discharge instructions, activity, limitations, follow up plan, discuss Ask Me Three
--- NOTE | 2022-04-02 17:06 | NT_ITS ---
Date of service: 04/02/22 Time of Service: 17:06 PT Notes Visit Reasons: sob, fever Patient was discharged by MD on 10:53 AM and went home on 12:25 PM. No skilled services were provided during this episode of care. Thank you for the opportunity to participate in the care of this patient. Chasity Tejeda PT, DPT, CLT [facility] [place], [place]
== END 2022-04-02 12:25 | disposition home or self-care (01) ==
LOC: ER 23:38 → MS 04-02 00:21
PROVIDERS: Admitting Provider Family Medicine; Emergency Provider Student in an Organized Health Care Education/Training Program; PCP Nurse Practitioner Family; Visit Provider Family Medicine
DX: J44.1 Chronic obstructive pulmonary disease with (acute) exacerbation (principal); R50.9 Fever, unspecified; R05.1 Acute cough; R07.89 Other chest pain; R06.02 Shortness of breath; R94.31 Abnormal electrocardiogram [ECG] [EKG]; Z79.899 Other long term (current) drug therapy; Z79.82 Long term (current) use of aspirin; Z23 Encounter for immunization; K21.9 Gastro-esophageal reflux disease without esophagitis; Z96.651 Presence of right artificial knee joint; Z20.822 Contact with and (suspected) exposure to COVID-19; R91.8 Other nonspecific abnormal finding of lung field; I95.9 Hypotension, unspecified; F17.210 Nicotine dependence, cigarettes, uncomplicated; G25.81 Restless legs syndrome; F10.11 Alcohol abuse, in remission; F41.9 Anxiety disorder, unspecified
CPT/HCPCS: 36415; 71275; 80048; 80053; 84145; 87040; 87637; 90471; 90662; 93005; 94640; 96361; 96365; 96366; 96372; 96374; 99285; J1650; 81003; 83605; 84484; 85025; 85610; 85730; 93010; 99217; G0378; J0696; J1885; J3490; J7512; J7620

== ENCOUNTER 2022-04-10 14:51 | Outpatient (CLI) | payer MEDICAID, SELFPAY ==
--- NOTE | 2022-04-10 13:45 | DI.RAD_ITS ---
Exam(s) XR STANDING ALIGNMENT XR KNEE RT 1V EXAM: XR STANDING ALIGNMENT CLINICAL HISTORY: f/u R TKA. TECHNIQUE: 2D digital imaging was performed. Standing AP views were performed from the pelvis throu gh the ankles. Lateral view of the right knee COMPARISON: CR XR STANDING ALIGNMENT from 01/30/2022 CR XR KNEE RT 1V from 04/10/2022 FINDINGS: BONES: No acute fracture is present. No bony destructive lesion is seen. Leg length discrepancy: The right femoral head projects 5 millimeters superior to the left. JOINTS: Knees: Right knee prosthesis, unremarkable. Anterior soft tissue swelling. Left knee shows spurring from the femoral condyles and tibial plateaus. No joint space narrowing. The ankle joints are unremarkable. The hip joints are maintained. There is bilateral acetabular spurring. SOFT TISSUE: Normal. IMPRESSION: Status post right knee prosthesis. Mild degenerative changes of the left knee. Mild leg length discrepancy. DATA REPOSITORY: RADIATION DOSE DELIVERED:
== END 2022-04-10 14:52 | disposition home or self-care (01) ==
LOC: DIORS 14:51
PROVIDERS: PCP Nurse Practitioner Family; Referring Provider Nurse Practitioner Family; Visit Provider Student in an Organized Health Care Education/Training Program
DX: M17.11 Unilateral primary osteoarthritis, right knee (principal); Z96.651 Presence of right artificial knee joint
CPT/HCPCS: 73560; 77073

== ENCOUNTER 2022-05-29 09:25 | Emergency (ER) | payer MEDICAID, SELFPAY ==
[2022-05-29] VITALS (35 sets, daily range): BP systolic 83–130; BP diastolic 28–88; PULSE 96–125; RESP 14–28; TEMP 37–37.1; O2SAT 94–95
--- NOTE | 2022-05-29 09:45 | RT.EKG_ITS ---
APPROVED REPORT Exam: Resting ECG Reason for Exam: difficulty breathing Patient Location: E HR:108 bpm ECG Measurements Heart Rate 108 AXIS ME 138 P 82 QRSd 75 QRS 78 QT 324 T 75 QTc 433 Conclusion Sinus tachycardia...rate> 99 Right atrial enlargement...P>0.25mV 2 lds or<-0.24mV aVR/aVL
--- NOTE | 2022-05-29 09:58 | ED.GENADUL_ITS ---
Discharge Plan Disposition Patient Disposition: Home Condition: Stable Discharge Details Clinical Impression: Pneumonia, COPD exacerbation Primary Care Provider: Alberta Barrios ED Provider: Stephany Quarles Home Meds and New Rx's Prescriptions: New levofloxacin 750 mg tablet 750 mg PO DAILY Qty: 4 0RF ipratropium-albuterol 0.5 mg-3 mg(2.5 mg base)/3 mL solution for nebulization 3 ml inhalation Q6H PRN (Reason: shortness of breath or wheezing) Qty: 90 0RF Continued omeprazole 20 mg capsule,delayed release(DR/EC) 20 mg PO DAILY albuterol sulfate [Ventolin HFA] 90 mcg/actuation HFA aerosol inhaler 2 puff IH Q6H PRN loratadine [Claritin] 10 mg tablet 10 mg PO DAILY lorazepam 0.5 mg tablet 0.5 mg PO TID PRN (Reason: anxiety) Qty: 12 0RF oxycodone 5 mg tablet 5 mg PO Q8H MDD 15mg PRN (Reason: severe post-operative pain) Qty: 10 0RF Rx Instructions: Take one tablet up to every 8 hours as needed for severe pain gabapentin 300 mg capsule 300 mg PO BID albuterol sulfate 1.25 mg/3 mL solution for nebulization 1.25 mg inhalation QID PRN (Reason: shortness of breath or wheezing) Qty: 75 0RF acetaminophen 500 mg tablet 500 mg PO Q6H PRN (Reason: pain) Qty: 60 2RF meloxicam 15 mg tablet 15 mg PO DAILY Qty: 30 1RF Rx Instructions: Take one tablet daily for pain and inflammation sertraline 100 mg Tablet 100 mg PO DAILY ipratropium-albuterol 0.5 mg-3 mg(2.5 mg base)/3 mL solution for nebulization 3 ml IH Q6H PRN (Reason: shortness of breath or wheezing) Qty: 15 0RF Label Comments: does not use budesonide-formoterol [Symbicort] 160-4.5 mcg/actuation Hfa Aerosol Inhaler 2 puff INHALATION BID atorvastatin 40 mg tablet 40 mg PO HS Label Comments: TAKE 1 TABLET BY MOUTH ONCE DAILY AT BEDTIME trazodone 50 mg tablet 50 mg PO HS PRN Label Comments: TAKE 1 TABLET BY MOUTH AT BEDTIME NEEDED famotidine 20 mg tablet 20 mg PO DAILY Label Comments: TAKE 1 TABLET BY MOUTH ONCE DAILY fluticasone propionate 50 mcg/actuation spray,suspension 1 spray INTRANASAL BID Discharge Instructions Instructions: COPD (Chronic Obstructive Pulmonary Disease) (ED), Pneumonia (ED) Additional Instructions: Your labs and imaging are concerning for pneumonia. You are negative for flu and COVID. Your exam is also concerning for exacerbation of your COPD. Please encourage hydration. Please take the antibiotics and steroids as prescribed. You received both of these today and will not be due for another dose until tomorrow morning. Please call your primary care to schedule follow-up appointment in 1 week for reevaluation. If in the interim you develop increased shortness of breath, chest pain, inability stay hydrated or other new/worsening symptoms please seek care urgently once again. Referrals: Alberta Barrios [Primary Care Provider] - Discharge Data Discharge Date/Time-TO BE ENTERED AT DEPARTURE: 05/29/22 13:57 Medical Decision Making Patient is a pleasant 67-year-old female presents today with chief complaint of shortness of breath. She reports shortness of breath that began 2 days ago and is progressively increasing. She does have a past medical history of COPD. She has an active smoker but is trying to quit. Denies any chest pain. States that she is also had some congestion and sinus pain. Has had subjective fevers and chills at home. States that she has had some nausea but no vomiting. Normal appetite. States that initially she was wheezing but has noted that this has started to diminish. Has been using her nebulizer with minimal improvement. On exam, patient appears anxious and tachypneic. She is belly breathing. Patient is tachycardic at 125 initially but this is come down to 110 when I am in the room with her. She has diminished lung sounds, particularly in the bases. I am not appreciating any significant wheezing. Aside from tachycardia, no murmurs rubs or gallops. Abdomen is benign. She does appear dry on exam. No lower extremity edema, calf tenderness. Of note, she did recently have a right total knee replacement. She is not on any anticoagulation. Primarily concerned at this time for COPD exacerbation likely in the setting viral illness such as flu. Will obtain rapid testing for this. We will begin patient on steroids and DuoNeb. She does report that she has significant anxiety and offered anxiolytic which patient, and her good friend to drive her here. As she did recently have surgical intervention, I did also consider pulmonary embolism we will screen with D-dimer. EKG was obtained and reviewed by Dr. Morillo. No evidence of STEMI. Labs reviewed. Leukocytosis with a white count of 12.8. D-dimer is elevated at 1300. CMP without significant abnormality. Troponin within normal limits. Patient negative for COVID and flu. Contacted by radiologist. No evidence of PE but there are 2 separate areas of patchy infiltrates. Patient received DuoNeb, Ativan, methylprednisolone and is now feeling significantly improved. With the patchy infiltrates, we will begin the patient on Levaquin. We will continue with the steroids and antibiotics for pneumonia and COPD exacerbation. Strict return precautions were discussed. Encourage close follow-up with primary care. All of her questions and concerns were addressed and she is in agreement with this plan. HPI General Date/Time Provider Initiated Documentation: 05/29/22 09:58 . Limitations to Documentation: no limitations . Information obtained by: patient and RN notes reviewed . History of Present Illness 67 year old F presents to the emergency department with the chief complaint of shortness of breath, described as severe and similar to prior episodes, with intensity rated at 1 (she denies any pain at this time). Patient started experiencing this day(s) (2) and it has been constant. Immobilization improves symptom(s), and Medication improves symptom(s), Movement worsens symptoms . Patient notes cough, fever/chills, malaise and shortness of breath; denies headaches, loss of appetite, nausea/vomiting, rash and weakness. Patient did receive the following treatments prior to arrival, other (nebulizer) Related Data Home Medications Medication Instructions Recorded Confirmed sertraline 100 mg tablet 100 mg PO DAILY 07/12/18 05/31/22 albuterol sulfate 90 mcg/actuation 2 puff inhalation Q6H PRN 10/25/18 05/31/22 aerosol inhaler (Ventolin HFA) omeprazole 20 mg capsule,delayed 20 mg PO DAILY 10/25/18 05/31/22 release ipratropium 0.5 mg-albuterol 3 mg 3 ml inhalation Q6H PRN shortness 07/19/19 05/31/22 (2.5 mg base)/3 mL nebulization of breath or wheezing #15 mL soln budesonide-formoterol HFA 160 2 puff inhalation BID 07/20/19 05/31/22 mcg-4.5 mcg/actuation aerosol inhaler (Symbicort) atorvastatin 40 mg tablet 40 mg PO HS 12/15/20 05/31/22 famotidine 20 mg tablet 20 mg PO DAILY 12/15/20 05/31/22 fluticasone propionate 50 1 spray intranasal BID 12/15/20 05/31/22 mcg/actuation nasal spray,suspension trazodone 50 mg tablet 50 mg PO HS PRN 12/15/20 05/31/22 gabapentin 300 mg capsule 300 mg PO BID 08/19/21 05/31/22 loratadine 10 mg tablet (Claritin) 10 mg PO DAILY 09/12/21 05/31/22 albuterol sulfate 1.25 mg/3 mL 1.25 mg (3 mL) inhalation QID PRN 10/23/21 05/31/22 solution for nebulization shortness of breath or wheezing #75 mL acetaminophen 500 mg tablet 500 mg PO Q6H PRN pain #60 tabs 03/29/22 05/31/22 meloxicam 15 mg tablet 15 mg PO DAILY #30 tabs 03/29/22 05/31/22 lorazepam 0.5 mg tablet 0.5 mg PO TID PRN anxiety #12 tabs 04/10/22 05/31/22 oxycodone 5 mg tablet 5 mg PO Q8H PRN severe 04/10/22 05/31/22 post-operative pain #10 tabs ipratropium 0.5 mg-albuterol 3 mg 3 ml inhalation Q6H PRN shortness 05/29/22 05/31/22 (2.5 mg base)/3 mL nebulization of breath or wheezing #90 mL soln levofloxacin 750 mg tablet 750 mg PO DAILY #4 tabs 05/29/22 05/31/22 Previous Rx's Medication Instructions Recorded ipratropium 0.5 mg-albuterol 3 mg 3 ml inhalation Q6H PRN shortness 07/19/19 (2.5 mg base)/3 mL nebulization of breath or wheezing #15 mL soln albuterol sulfate 1.25 mg/3 mL 1.25 mg (3 mL) inhalation QID PRN 10/23/21 solution for nebulization shortness of breath or wheezing #75 mL acetaminophen 500 mg tablet 500 mg PO Q6H PRN pain #60 tabs 03/29/22 meloxicam 15 mg tablet 15 mg PO DAILY #30 tabs 03/29/22 lorazepam 0.5 mg tablet 0.5 mg PO TID PRN anxiety #12 tabs 04/10/22 oxycodone 5 mg tablet 5 mg PO Q8H PRN severe 04/10/22 post-operative pain #10 tabs ipratropium 0.5 mg-albuterol 3 mg 3 ml inhalation Q6H PRN shortness 05/29/22 (2.5 mg base)/3 mL nebulization of breath or wheezing #90 mL soln levofloxacin 750 mg tablet 750 mg PO DAILY #4 tabs 05/29/22 Allergies Allergy/AdvReac Type Severity Reaction Status Date / Time disulfiram [From Antabuse] Allergy Other (See Verified 05/31/22 05:26 Comment) Sulfa (Sulfonamide Allergy Anaphylaxsi Verified 05/31/22 05:26 Antibiotics) s tree nut Allergy ANGIO EDEMA Verified 05/31/22 05:26 General Stated Complaint: RespSymp YONATAN: 3 Review of Systems Constitutional Constitutional: Reports as per HPI and Denies headache(s) ENT Ears, Nose, Mouth, and Throat: Denies dizziness and Denies headache(s) Cardiovascular Cardiovascular: Reports as per HPI, Denies chest pain, Denies chest pain with activity, Denies pedal edema and Denies edema Respiratory Respiratory: Reports as per HPI, Denies chest congestion, Denies pain on inspiration and Denies pain with cough Gastrointestinal Gastrointestinal: Reports as per HPI, Denies abdominal pain, Denies diarrhea, Denies nausea and Denies vomiting Musculoskeletal Musculoskeletal: Reports as per HPI and Denies back pain Integumentary/Breasts Skin/Breast: Reports as per HPI and Denies rash Neurologic Neurologic: Reports as per HPI, Denies dizziness and Denies headache(s) PFSH All Active Problems (Updated 05/31/22 @ 10:22 by Bony Morillo MD) Pneumonia (Acute) COPD exacerbation (Acute) Elevated troponin (Acute) Pneumonia (Acute) Non-ST elevation [place] (NSTEMI) (Acute) History of total right knee replacement (TKR) (Acute 03/29/22) Nasal septal perforation (Acute) Insomnia (Acute) Ptosis (Acute) Chronic rhinitis (Acute) Primary osteoarthritis of left knee (Acute) Steroid injection: 01/30/22; 10/27/21; 07/28/21; 04/04/2021; 12/27/2020; 04/19/2020 Acute exacerbation of chronic obstructive pulmonary disease (Acute) Acute exacerbation of chronic obstructive pulmonary disease (Acute) S/P colonoscopy (Acute ~11/26/18) Colorectal polyp detected on colonoscopy (Acute ~11/26/18) Diverticulosis (Acute ~11/26/18) Encounter for colorectal cancer screening (Acute) Family history of colon cancer requiring screening colonoscopy (Acute) Medical History Alcohol abuse, in remission Anxiety Blood in stool 1 episode Chest pain happened in October 2021 - due to stress at work and had flu COPD (chronic obstructive pulmonary disease) GERD (gastroesophageal reflux disease) Leukocytosis Tobacco abuse Surgical History History of colonoscopy 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 History of hammer toe correction (right) History of knee surgery Torn meniscus repair (left) History of tonsillectomy History of wisdom tooth extraction Family History Father Colon cancer Stage 4 at diagnosis at age 70 Paternal Aunt Colon cancer Paternal Aunt Colon cancer Mother Fallopian tube malignant neoplasm Maternal Uncle Stomach cancer Other Pancreatic cancer Social History Smoking/Tobacco Use Status: Former Tobacco Use Tobacco: How many years used: 40 Smoking risk assessment performed?: Yes Alcohol Intake: former Year quit: 2016 Drug use: Never Substance use type: does not use Details: nicotine patch 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 Moved up from [facility] around 2018. Exam Const General: cooperative, comfortable, no acute distress, well developed and ill appearing Nutritional Appearance: average body habitus and well nourished Orientation: alert, awake and oriented x3 [facility] Head: normal to inspection Ears: hearing grossly normal bilaterally Mouth: moist mucous membranes Chest Chest: normal inspection of the chest, normal palpation of entire chest wall and no crepitus Resp Effort & Inspection: labored, respiratory distress, retractions, no stridor, tachypneic, no tracheal deviation, tripod positioning and uses accessory muscles Auscultation: diminished lung sounds bilaterally in the lower lung senior, no rales, no rhonchi and no wheezes Cardio Rate: tachycardic Rhythm: regular rhythm Heart Sounds: S1 normal and S2 normal GI Inspection: normal to inspection, no edema and non-distended Palpation: soft, no hepatosplenomegaly, not firm, no guarding, not rigid and nontender Auscultation: normal bowel sounds Back/Spine/Pelvis Back: no CVA tenderness Thoracic/Lumbar Spine: thoracic and lumbar spine normal to inspection Skin General skin exam: no rashes or lesions noted (well healing left PATRICIA incision) Trauma: no lacerations or abrasions Neuro General: patient alert, patient awake and patient oriented x3 Cognition: normal cognition Speech: speech normal Gait: normal gait Extrem General: normal to inspection, capillary refill normal, no pedal edema, no calf tenderness and normal gait Psych Appearance: grossly normal and well kempt Mental Status: mental status grossly normal Speech and Movement: speech and movement normal Course Vital Signs Vital signs: Vital Signs Temperature 37.0 C 05/29/22 09:44 Pulse 125 H 05/29/22 09:44 Respiratory Rate 05/29/22 09:44 Blood Pressure 121/88 05/29/22 09:44 Pulse Oximetry 94 05/29/22 09:44 Temperature 37.0 C 05/29/22 09:44 Temperature Source Temporal Artery Scan 05/29/22 09:44 Pulse 125 H 05/29/22 09:44 Respiratory Rate 22 05/29/22 09:44 Blood Pressure 121/88 05/29/22 09:44 Blood Pressure Position Supine 05/29/22 09:44 Pulse Oximetry 94 05/29/22 09:44 Oxygen Delivery Method Room Air 05/29/22 09:44 Oxygen Flow Rate 0 05/29/22 09:44
[2022-05-29 10:38] LABS: Abs Immature Grans 0.06 10^3/uL (0.0-0.06); Basophils % 0.9; Eosinophils % 2.3; HCT 44.9 % (36.0-46.0); HGB 14.5 g/dL (11.2-15.7); Immature Grans % 0.5; Lymphocytes % 26.9; MCH 29.5 pg (27.0-33.0); MCHC 32.3 % (32.0-36.0); MCV 91 fL (80-95); MPV 10.3 fL (8.0-11.0); Monocytes % 9.3; Neutrophils % 60.1; Platelet Count 430 10^3/uL (130-400); RBC 4.91 10^6/uL (3.93-5.22); RDW 14.1 % (11.7-14.6); RDW-SD 47.8 fL; WBC 12.84 10^3/uL (4.4-10.8)
[2022-05-29 10:39] LABS: Absolute Basophil Count 0.12 10^3/uL (0.0-0.2); Absolute Lymphocyte Count 3.45 10^3/uL (1.2-3.4); Absolute Monocyte Count 1.19 10^3/uL (0.1-0.8); Absolute Neutrophil Count 7.72 10^3/uL (1.2-6.7)
[2022-05-29] MEDS: methylPREDNISolone SUCC 125 MG VIAL IVP (10:41)
[2022-05-29 10:43] LABS: BE (Venous) 3 mmol/L (-2-3); HCO3 (Venous) 28 mmol/L (23-28); O2 Sat (Venous) 52 %; TCO2 (Venous) 25 mmol/L (24-29); pCO2 (Venous) 46 mmHg (41-51); pH (Venous) 7.39 (7.31-7.41); pO2 (Venous) 28 mmHg
[2022-05-29] MEDS: LORazepam 2 MG/ML VIAL 0.5 MG IVP (10:43)
[2022-05-29] MEDS: Normal Saline Flush 10 ML SYR IVP (10:45)
[2022-05-29] MEDS: Albuterol/Ipratropium 3 ML UPD VIAL UPD (10:46)
[2022-05-29 10:47] LABS: Lactate 0.8 mmol/L (0.6-1.4)
[2022-05-29 11:00] LABS: ALT 22 U/L (14-59); AST 21 U/L (15-37); Albumin 4.3 g/dL (3.4-5.0); Alkaline Phosphatase 96 U/L (46-116); Anion Gap 7.9 mmol/L (3-11); BUN 17 mg/dL (7-18); Bilirubin, Total 0.2 mg/dL (0.2-1.0); CO2 29.1 mmol/L (21.0-32.0); CREATININE 0.7 mg/dL (0.55-1.02); Calcium 9.6 mg/dL (8.5-10.1); Chloride 99 mmol/L (98-107); Estimated GFR 95.92 (mL/min/1.73m2); Glucose 106 mg/dL (74-106); Potassium 4.6 mmol/L (3.5-5.1); Sodium 136 mmol/L (136-145); Total Protein 8.5 g/dL (6.4-8.2); Troponin I < 50 ng/L (<or=60)
[2022-05-29 11:12] LABS: D-Dimer 1320 ng/mlFEU (<500)
--- NOTE | 2022-05-29 11:15 | DI.CT_ITS ---
Exam(s) CT CHEST PE CTA EXAM: CT CHEST PE CTA CLINICAL HISTORY: SOB, elevated d-dimer. TECHNIQUE: Imaging Protocol: Axial CT angiography was performed with multi-slice acquisition and mu lti-planar reconstructions as well as axial, coronal and sagittal MIP reconstructions. CONTRAST MATERIAL: Intravenous: Omnipaque 350 Contrast volume:70 ml COMPARISON: CT CT CHEST PE CTA from 04/01/2022 FINDINGS: Pulmonary Arteries: No evidence of filling defect to suggest pulmonary emboli. Tracheobronchial tree: Patent where visualized. Mediastinum and Chanda: No dominant adenopathy or fluid collection. Pulmonary parenchyma: Evaluation somewhat limited due to respiratory motion. Patchy infiltrates left lung base. Mild patchy infiltrate posterior right upper lobe. Mild underlying emphysematous change s near apices. Pleura: No effusion or pneumothorax. Heart: The heart is not dilated. Mild coronary artery calcifications are seen. Aorta: Thoracic aorta non-dilated. No aneurysm. No dissection. Atherosclerotic changes. Upper abdomen: Unremarkable. Bones: Unremarkable for age. IMPRESSION: No evidence of pulmonary embolism. Right upper and left lower lobe patchy infiltrates. Findings called to ER provider Stephany Quarles. RADIATION DOSE DELIVERED: 319.51mGy.cm Total DLP DATA REPOSITORY: All CT scans at this facility are submitted to the National Radiology Data Registry (NRDR) Dose Index Registry (DIR) with the [employer] (ACR). RADIATION OPTIMIZATION: All CT scans at this facility use at least one of these dose optimization te chniques: automated exposure control; mA and/or kV adjustment per patient size (includes targeted exa ms where dose is matched to clinical indication); or iterative reconstruction.
[2022-05-29 11:21] LABS: COVID-19 PCR Negative (Negative); Influenza A PCR Negative (Negative); Influenza B PCR Negative (Negative); RSV PCR Negative (Negative)
[2022-05-29] MEDS: Omnipaque 350 MG/ML 500 ML BTL-Imaging package IJ (12:17)
[2022-05-29] MEDS: Normal Saline - Diluent 50 ML VIAL IJ (12:18)
[2022-05-29] MEDS: Normal Saline 500 ML IV (12:24)
[2022-05-29] MEDS: levoFLOXacin 500 MG, levoFLOXacin 250 MG 750 MG PO (13:27)
== END 2022-05-29 13:57 | disposition home or self-care (01) ==
PROVIDERS: Emergency Provider Physician Assistant; PCP Nurse Practitioner Family
DX: J44.1 Chronic obstructive pulmonary disease with (acute) exacerbation (principal); J18.9 Pneumonia, unspecified organism; D72.829 Elevated white blood cell count, unspecified; R79.1 Abnormal coagulation profile; R00.0 Tachycardia, unspecified; F41.9 Anxiety disorder, unspecified; Z96.651 Presence of right artificial knee joint; Z79.51 Long term (current) use of inhaled steroids; Z20.822 Contact with and (suspected) exposure to COVID-19
CPT/HCPCS: 71275; 80053; 82805; 87637; 93005; 94640; 96374; 96375; 99285; 83605; 83735; 84484; 85025; 85379; 93010; 99284; J2060; J2930; J7620

== ENCOUNTER 2022-05-31 05:14 | Emergency (ER) | payer MEDICAID, SELFPAY ==
[2022-05-31] VITALS (98 sets, daily range): BP systolic 99–129; BP diastolic 59–86; PULSE 85–118; RESP 2–35; TEMP 37.2; O2SAT 88–99
--- NOTE | 2022-05-31 05:15 | RT.EKG_ITS ---
APPROVED REPORT Exam: Resting ECG Reason for Exam: Diff Breathing Patient Location: E HR:106 bpm ECG Measurements Heart Rate 106 AXIS TN 135 P 77 QRSd 82 QRS 78 QT 330 T 58 QTc 439 Conclusion Sinus tachycardia...rate> 99 Right atrial enlargement...P>0.25mV 2 lds or<-0.24mV aVR/aVL Nonspecific T abnormalities, lateral leads...T <-0.10mV, I aVL V5 V6
--- NOTE | 2022-05-31 05:15 | DI.RAD_ITS ---
Exam(s) XR PORTABLE CHEST AP EXAM: XR PORTABLE CHEST AP CLINICAL HISTORY: cough. TECHNIQUE: 2D digital imaging was performed. COMPARISON: CR XR CHEST 1V IN DI DEPT from 03/08/2022 FINDINGS: Single AP portable view. Heart size is upper normal. The mediastinum is not widened. Lungs are clear. No infiltrates nor obvious pleural effusions. Healed left-sided rib fractures are again noted. IMPRESSION: No acute pulmonary findings on this single AP portable view of the chest. DATA REPOSITORY: RADIATION DOSE DELIVERED:
--- NOTE | 2022-05-31 05:25 | W.ED.GENAD ---
Discharge Plan Disposition Condition: Serious Discharge Details Chief Complaint: SOB Clinical Impression: Acute exacerbation of chronic obstructive pulmonary disease, Elevated troponin Primary Care Provider: Alberta Barrios ED Provider: Modesto Mar Home Meds and New Rx's Prescriptions: No Action omeprazole 20 mg capsule,delayed release(DR/EC) 20 mg PO DAILY albuterol sulfate [Ventolin HFA] 90 mcg/actuation HFA aerosol inhaler 2 puff IH Q6H PRN loratadine [Claritin] 10 mg tablet 10 mg PO DAILY lorazepam 0.5 mg tablet 0.5 mg PO TID PRN (Reason: anxiety) Qty: 12 0RF oxycodone 5 mg tablet 5 mg PO Q8H MDD 15mg PRN (Reason: severe post-operative pain) Qty: 10 0RF Rx Instructions: Take one tablet up to every 8 hours as needed for severe pain gabapentin 300 mg capsule 300 mg PO BID albuterol sulfate 1.25 mg/3 mL solution for nebulization 1.25 mg inhalation QID PRN (Reason: shortness of breath or wheezing) Qty: 75 0RF acetaminophen 500 mg tablet 500 mg PO Q6H PRN (Reason: pain) Qty: 60 2RF meloxicam 15 mg tablet 15 mg PO DAILY Qty: 30 1RF Rx Instructions: Take one tablet daily for pain and inflammation sertraline 100 mg Tablet 100 mg PO DAILY ipratropium-albuterol 0.5 mg-3 mg(2.5 mg base)/3 mL solution for nebulization 3 ml IH Q6H PRN (Reason: shortness of breath or wheezing) Qty: 15 0RF Label Comments: does not use budesonide-formoterol [Symbicort] 160-4.5 mcg/actuation Hfa Aerosol Inhaler 2 puff INHALATION BID atorvastatin 40 mg tablet 40 mg PO HS Label Comments: TAKE 1 TABLET BY MOUTH ONCE DAILY AT BEDTIME trazodone 50 mg tablet 50 mg PO HS PRN Label Comments: TAKE 1 TABLET BY MOUTH AT BEDTIME NEEDED famotidine 20 mg tablet 20 mg PO DAILY Label Comments: TAKE 1 TABLET BY MOUTH ONCE DAILY fluticasone propionate 50 mcg/actuation spray,suspension 1 spray INTRANASAL BID levofloxacin 750 mg tablet 750 mg PO DAILY Qty: 4 0RF prednisone 20 mg tablet 40 mg PO DAILY 4 Days Qty: 8 0RF ipratropium-albuterol 0.5 mg-3 mg(2.5 mg base)/3 mL solution for nebulization 3 ml inhalation Q6H PRN (Reason: shortness of breath or wheezing) Qty: 90 0RF Medical Decision Making 67 yo female with hx of copd and active smoker, who was seen 2 days ago for shortness of breath and cough and workup including cta reveleaded no PE but did have infiltrates, was treated for copd exacerbation and pneumonia. She has been using breathing treatments at home, prednisone and levofloxacin and despite this continues to feel short of breath and has a cough and subjective fevers. She denies diaphoresis, n/v, abdominal pain. She arrives with ems speaking in 4-5 word sentences, 88% on room air, 96% on 2L NC. She has diffuse wheezing in both lungs in all senior on auscultation. No jvd, no leg swelling, no calf tenderness. Her exam and history seem most consistent with copd exacerbation and pneumonia, given recent negative cta for PE doubt PE as a cause for her symptoms. Will treat with duoneb and iv solumedrol, obtain cxr, ekg, troponin, cbc, cmp and fluvid and reassess. pt stable, 97% on 2L N[place]. She still has diffuse wheezing, will treat with another duoneb. Labs surprisingly reveal troponin over 400, negative 2 days ago when she was here. She denies chest pain or pressure on repeat exam, will obtain delta troponin. Differential Diagnosis Differential Diagnosis: pneumonia, copd, uri Medical Records Medical records reviewed: Yes I reviewed the patient's medical records. Imaging Data Radiologic Study: Attestation: I personally reviewed and interpreted this imaging study as follows: Imaging: X-Ray Radiologist's impression: no acute findings Lab Data Lab results reviewed: Yes I reviewed the patient's lab results. ECG Data Attestation: I personally reviewed and interpreted this ECG (s) as follows: Prior ECG tracings: available for review Interpretation: sinus tachycardia, rate of 106, pr 135 no stemi HPI General Mode of arrival: EMS. Date/Time Provider Initiated Documentation: 05/31/22 05:18. Limitations to Documentation: no limitations. Information obtained by: patient. History of Present Illness 67 year old F presents to the emergency department with the chief complaint of shortness of breath, described as moderate, and it has been constant. No relieving factors improve symptom(s), No exacerbating factors reported . Patient notes no other symptoms. and fever/chills. Patient did receive the following treatments prior to arrival, none Related Data Home Medications Medication Instructions Recorded Confirmed sertraline 100 mg tablet 100 mg PO DAILY 07/12/18 05/31/22 albuterol sulfate 90 mcg/actuation 2 puff inhalation Q6H PRN 10/25/18 05/31/22 aerosol inhaler (Ventolin HFA) omeprazole 20 mg capsule,delayed 20 mg PO DAILY 10/25/18 05/31/22 release ipratropium 0.5 mg-albuterol 3 mg 3 ml inhalation Q6H PRN shortness 07/19/19 05/08/22 (2.5 mg base)/3 mL nebulization of breath or wheezing #15 mL soln budesonide-formoterol HFA 160 2 puff inhalation BID 07/20/19 05/31/22 mcg-4.5 mcg/actuation aerosol inhaler (Symbicort) atorvastatin 40 mg tablet 40 mg PO HS 12/15/20 05/31/22 famotidine 20 mg tablet 20 mg PO DAILY 12/15/20 05/31/22 fluticasone propionate 50 1 spray intranasal BID 12/15/20 05/31/22 mcg/actuation nasal spray,suspension trazodone 50 mg tablet 50 mg PO HS PRN 12/15/20 05/31/22 gabapentin 300 mg capsule 300 mg PO BID 08/19/21 05/31/22 loratadine 10 mg tablet (Claritin) 10 mg PO DAILY 09/12/21 05/31/22 albuterol sulfate 1.25 mg/3 mL 1.25 mg (3 mL) inhalation QID PRN 10/23/21 05/31/22 solution for nebulization shortness of breath or wheezing #75 mL acetaminophen 500 mg tablet 500 mg PO Q6H PRN pain #60 tabs 03/29/22 05/31/22 meloxicam 15 mg tablet 15 mg PO DAILY #30 tabs 03/29/22 05/31/22 lorazepam 0.5 mg tablet 0.5 mg PO TID PRN anxiety #12 tabs 04/10/22 05/31/22 oxycodone 5 mg tablet 5 mg PO Q8H PRN severe 04/10/22 05/31/22 post-operative pain #10 tabs ipratropium 0.5 mg-albuterol 3 mg 3 ml inhalation Q6H PRN shortness 05/29/22 05/31/22 (2.5 mg base)/3 mL nebulization of breath or wheezing #90 mL soln levofloxacin 750 mg tablet 750 mg PO DAILY #4 tabs 05/29/22 05/31/22 prednisone 20 mg tablet 40 mg PO DAILY 4 days #8 tabs 05/29/22 05/31/22 Previous Rx's Medication Instructions Recorded ipratropium 0.5 mg-albuterol 3 mg 3 ml inhalation Q6H PRN shortness 07/19/19 (2.5 mg base)/3 mL nebulization of breath or wheezing #15 mL soln albuterol sulfate 1.25 mg/3 mL 1.25 mg (3 mL) inhalation QID PRN 10/23/21 solution for nebulization shortness of breath or wheezing #75 mL acetaminophen 500 mg tablet 500 mg PO Q6H PRN pain #60 tabs 03/29/22 meloxicam 15 mg tablet 15 mg PO DAILY #30 tabs 03/29/22 lorazepam 0.5 mg tablet 0.5 mg PO TID PRN anxiety #12 tabs 04/10/22 oxycodone 5 mg tablet 5 mg PO Q8H PRN severe 04/10/22 post-operative pain #10 tabs ipratropium 0.5 mg-albuterol 3 mg 3 ml inhalation Q6H PRN shortness 05/29/22 (2.5 mg base)/3 mL nebulization of breath or wheezing #90 mL soln levofloxacin 750 mg tablet 750 mg PO DAILY #4 tabs 05/29/22 prednisone 20 mg tablet 40 mg PO DAILY 4 days #8 tabs 05/29/22 Allergies Allergy/AdvReac Type Severity Reaction Status Date / Time disulfiram [From Antabuse] Allergy Other (See Verified 05/31/22 05:26 Comment) Sulfa (Sulfonamide Allergy Anaphylaxsi Verified 05/31/22 05:26 Antibiotics) s tree nut Allergy ANGIO EDEMA Verified 05/31/22 05:26 General Stated Complaint: SOB YONATAN: 2 Review of Systems All systems reviewed & are unremarkable except as noted in HPI and below Constitutional Constitutional: Denies weakness Respiratory Respiratory: Reports cough and Reports wheezing Gastrointestinal Gastrointestinal: Denies abdominal pain, Denies nausea and Denies vomiting Musculoskeletal Musculoskeletal: Denies joint swelling Neurologic Neurologic: Denies weakness Allergic/Immunologic Allergic/Immunologic: Reports wheezing PFSH All Active Problems (Updated 05/31/22 @ 06:40 by Modesto Mar MD) Pneumonia (Acute) COPD exacerbation (Acute) Elevated troponin (Acute) History of total right knee replacement (TKR) (Acute 03/29/22) Nasal septal perforation (Acute) Insomnia (Acute) Ptosis (Acute) Chronic rhinitis (Acute) Primary osteoarthritis of left knee (Acute) Steroid injection: 01/30/22; 10/27/21; 07/28/21; 04/04/2021; 12/27/2020; 04/19/2020 Acute exacerbation of chronic obstructive pulmonary disease (Acute) Acute exacerbation of chronic obstructive pulmonary disease (Acute) S/P colonoscopy (Acute ~11/26/18) Colorectal polyp detected on colonoscopy (Acute ~11/26/18) Diverticulosis (Acute ~11/26/18) Encounter for colorectal cancer screening (Acute) Family history of colon cancer requiring screening colonoscopy (Acute) Medical History Alcohol abuse, in remission Anxiety Blood in stool 1 episode Chest pain happened in October 2021 - due to stress at work and had flu COPD (chronic obstructive pulmonary disease) GERD (gastroesophageal reflux disease) Leukocytosis Tobacco abuse Surgical History History of colonoscopy Pt states ruptured spleen s/p colonoscopy 2012 requiring ICU stay and two month recovery. History of hammer toe correction (right) History of knee surgery Torn meniscus repair (left) History of tonsillectomy History of wisdom tooth extraction Family History Father Colon cancer Stage 4 at diagnosis at age 70 Paternal Aunt Colon cancer Paternal Aunt Colon cancer Mother Fallopian tube malignant neoplasm Maternal Uncle Stomach cancer Other Pancreatic cancer Social History Smoking/Tobacco Use Status: Former Tobacco Use Tobacco: How many years used: 40 Smoking risk assessment performed?: Yes Alcohol Intake: former Year quit: 2016 Drug use: Never Substance use type: does not use Details: nicotine patch current occupation: [employer] Pets and animals: No Do you feel safe at home: Yes Do you feel safe in your relationship?: Yes Additional Social history: Lives alone in [place], friend Kandice. 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 Moved up from [facility] around 2018. Exam Const General: no acute distress Orientation: alert HENMT Head: normal to inspection Ears: external ears normal General nose exam: external nose normal Mouth: moist mucous membranes Eyes General: appearance normal, both eyes and all related structures Neck Neck: normal visual inspection Resp Effort & Inspection: audible wheezes and cough Auscultation: wheezes Cardio Jugular venous pressure: no JVD Rate: regular rate Heart Sounds: no murmurs Skin General skin exam: no rashes or lesions noted Neuro General: patient alert and patient oriented x3 Extrem General: normal to inspection Psych Mental Status: mental status grossly normal Course Vital Signs Vital signs: Vital Signs Temperature 37.2 C 05/31/22 05:17 Pulse 116 H 05/31/22 05:17 Respiratory Rate 24 05/31/22 05:17 Blood Pressure 122/68 05/31/22 05:17 Pulse Oximetry 88 L 05/31/22 05:17 Temperature 37.2 C 05/31/22 05:17 Temperature Source Oral 05/31/22 05:17 Pulse 116 H 05/31/22 05:17 Respiratory Rate 24 05/31/22 05:17 Respiratory Effort 05/31/22 05:17 Blood Pressure 122/68 05/31/22 05:17 Blood Pressure Position Supine 05/31/22 05:17 Pulse Oximetry 88 L 05/31/22 05:17 Oxygen Delivery Method Room Air 05/31/22 05:17 Oxygen Flow Rate 0 05/31/22 05:17 Pain Level 9 05/31/22 05:17
[2022-05-31] MEDS: methylPREDNISolone SUCC 125 MG VIAL IVP (05:30)
[2022-05-31 05:41] LABS: Abs Immature Grans 0.09 10^3/uL (0.0-0.06); Absolute Eosinophil Count 0.08 10^3/uL (0.0-0.7); Basophils % 0.3; Eosinophils % 0.5; HCT 42.8 % (36.0-46.0); HGB 13.6 g/dL (11.2-15.7); Immature Grans % 0.6; MCH 29.4 pg (27.0-33.0); MCHC 31.8 % (32.0-36.0); MCV 93 fL (80-95); MPV 10.3 fL (8.0-11.0); Monocytes % 7.7; Neutrophils % 58.9; Platelet Count 388 10^3/uL (130-400); RBC 4.62 10^6/uL (3.93-5.22); RDW 14.1 % (11.7-14.6); WBC 15.64 10^3/uL (4.4-10.8)
[2022-05-31 05:42] LABS: Absolute Basophil Count 0.05 10^3/uL (0.0-0.2); Absolute Neutrophil Count 9.21 10^3/uL (1.2-6.7)
[2022-05-31] MEDS: Albuterol/Ipratropium 3 ML UPD VIAL UPD ×3 (05:45→16:06)
[2022-05-31 06:03] LABS: ALT 22 U/L (14-59); AST 27 U/L (15-37); Albumin 4.2 g/dL (3.4-5.0); Alkaline Phosphatase 90 U/L (46-116); Anion Gap 9.9 mmol/L (3-11); BUN 24 mg/dL (7-18); Bilirubin, Total 0.2 mg/dL (0.2-1.0); CO2 31.1 mmol/L (21.0-32.0); CREATININE 0.7 mg/dL (0.55-1.02); Calcium 9.2 mg/dL (8.5-10.1); Chloride 100 mmol/L (98-107); Estimated GFR 95.92 (mL/min/1.73m2); Glucose 105 mg/dL (74-106); Magnesium 1.9 mg/dL (1.8-2.4); Potassium 3.4 mmol/L (3.5-5.1); Sodium 141 mmol/L (136-145); Total Protein 8.4 g/dL (6.4-8.2)
[2022-05-31 06:07] LABS: COVID-19 PCR Negative (Negative); Influenza A PCR Negative (Negative); Influenza B PCR Negative (Negative); NT-proBNP 165 pg/mL (<300); RSV PCR Negative (Negative)
[2022-05-31 06:09] LABS: Troponin I 483 ng/L (<or=60)
[2022-05-31 06:10] LABS: Source Nasopharynx
--- NOTE | 2022-05-31 06:15 | DI.VRAD_ITS ---
PROCEDURE INFORMATION: Exam: XR Chest Exam date and time: 05/31/2022 5:21 AM Age: 67 years old Clinical indication: Cough TECHNIQUE: Imaging protocol: Radiologic exam of the chest. Views: 1 view. COMPARISON: CT CHEST PE CTA 05/29/2022 12:08 PM FINDINGS: Lungs: Unremarkable. No consolidation. Pleural spaces: Unremarkable. No pleural effusion. No pneumothorax. Heart/Mediastinum: Unremarkable. No cardiomegaly. Bones/joints: Unremarkable. IMPRESSION: No acute findings. Dictated and Authenticated by: Ankush Mclaughlin MD. Ordering:AGUSTIN Salvador MD
[2022-05-31] MEDS: Aspirin 325 MG TAB PO (06:34)
[2022-05-31] MEDS: Nicotine 21 MG/24 HR PATCH TD (07:14)
[2022-05-31] MEDS: levoFLOXacin 750 MG/150 ML BAG 100 MG IVPB (07:15)
--- NOTE | 2022-05-31 09:15 | RT.EKG_ITS ---
APPROVED REPORT Exam: Resting ECG Reason for Exam: elevated trop Patient Location: E HR:100 bpm ECG Measurements Heart Rate 100 AXIS MN 134 P 82 QRSd 81 QRS 82 QT 374 T 74 QTc 484 Conclusion Sinus tachycardia...rate> 99 Nonspecific T abnormalities, lateral leads...T <-0.10mV, I aVL V5 V6
[2022-05-31 09:25] LABS: Troponin I 1772 ng/L (<or=60)
[2022-05-31] MEDS: Clopidogrel 300 MG TAB PO (09:54)
[2022-05-31 10:18] LABS: PTT Activated 26.1 sec (21.0-27.5)
--- NOTE | 2022-05-31 10:19 | ED.PROG_ITS ---
Date of service: 05/31/22 Time of Service: 10:19 Medical Decision Making Care was signed out by Dr. Mar, please see his documentation regarding initial ED presentation course. Briefly this 67-year-old female is presenting with ongoing shortness of breath over the past few days. She was seen here in the emerge department [address] and had [address] of the chest that was negative for pulmonary embolism but did show infiltrate. She was started on Levaquin which she has been taking. Yesterday she developed chest pain that was rating to her neck. Pain is since resolved but she continues to have shortness of breath. EKG was nondiagnostic. Troponin elevated at 400. Plan at signout was to repeat troponin and reassess patient for disposition. Repeat troponin 1772. This is a significant increase. Concern for NSTEMI. Patient received aspirin prior to signout. I will order Plavix 300 mg and heparin bolus and infusion. Repeat EKG was reviewed and interpreted by me: Please see report, sinus tachycardia 100 bpm, normal axis, no stemi, nondiagnostic. All results were discussed with the patient. I called [facility] [place] [place] to request transfer for NSTEMI. I discussed case with cardiology on-call, we discussed ED presentation and course and diagnostics. Dr. Villarreal will be the accepting physician with plan for catheterization today. Patient to remain n.p.o. after 11 AM. Cardiology does recommend giving Lipitor 80 mg as well as metoprolol if blood pressure tolerates. Lab Data Lab results reviewed: Yes I reviewed the patient's lab results. Labs: 05/31/22 06:05 Blood Blood Culture - Pending 05/31/22 06:20 Blood Blood Culture - Pending Laboratory Tests Range/Units 05/31/22 05/31/22 05/31/22 05:30 05:30 05:30 WBC (4.4-10.8) 10^3/uL 15.64 H RBC (3.93-5.22) 10^6/uL 4.62 Hgb (11.2-15.7) g/dL 13.6 Hct (36.0-46.0) % 42.8 MCV (80-95) fL 93 MCH (27.0-33.0) pg 29.4 MCHC (32.0-36.0) % 31.8 L RDW (11.7-14.6) % 14.1 Plt Count (130-400) 10^3/uL 388 MPV (8.0-11.0) fL 10.3 Immature Gran % 0.6 Neutrophils % 58.9 Lymphocytes % 32.0 Monocytes % 7.7 Eosinophils % 0.5 Basophils % 0.3 Nucleated RBC % (0.0-0.3) % 0.0 Absolute Neutrophils (1.2-6.7) 10^3/uL 9.21 H Absolute Lymphocytes (1.2-3.4) 10^3/uL 5.00 H Absolute Monocytes (0.1-0.8) 10^3/uL 1.20 H Absolute Eosinophils (0.0-0.7) 10^3/uL 0.08 Absolute Basophils (0.0-0.2) 10^3/uL 0.05 APTT (21.0-27.5) sec Sodium (136-145) mmol/L 141 Potassium (3.5-5.1) mmol/L 3.4 L D Chloride (98-107) mmol/L 100 Carbon Dioxide (21.0-32.0) mmol/L 31.1 Anion Gap (3-11) mmol/L 9.9 BUN (7-18) mg/dL 24 H Creatinine (0.55-1.02) mg/dL 0.7 Est GFR (CKD-EPI 2020) (mL/min/1.73m2) 95.92 Glucose (74-106) mg/dL 105 Calcium (8.5-10.1) mg/dL 9.2 Magnesium (1.8-2.4) mg/dL 1.9 Total Bilirubin (0.2-1.0) mg/dL 0.2 AST (15-37) U/L 27 ALT (14-59) U/L 22 Alkaline Phosphatase (46-116) U/L 90 Troponin I (<or=60) ng/L 483 H* NT-Pro-B Natriuret Pep (<300) pg/mL 165 Total Protein (6.4-8.2) g/dL 8.4 H Albumin (3.4-5.0) g/dL 4.2 COVID-19 Source Nasopharynx SARS-CoV-2 (PCR) (Negative) Negative Influenza Type A (PCR) (Negative) Negative Influenza Type B (PCR) (Negative) Negative RSV (PCR) (Negative) Negative Range/Units 05/31/22 05/31/22 08:44 10:00 WBC (4.4-10.8) 10^3/uL RBC (3.93-5.22) 10^6/uL Hgb (11.2-15.7) g/dL Hct (36.0-46.0) % MCV (80-95) fL MCH (27.0-33.0) pg MCHC (32.0-36.0) % RDW (11.7-14.6) % Plt Count (130-400) 10^3/uL MPV (8.0-11.0) fL Immature Gran % Neutrophils % Lymphocytes % Monocytes % Eosinophils % Basophils % Nucleated RBC % (0.0-0.3) % Absolute Neutrophils (1.2-6.7) 10^3/uL Absolute Lymphocytes (1.2-3.4) 10^3/uL Absolute Monocytes (0.1-0.8) 10^3/uL Absolute Eosinophils (0.0-0.7) 10^3/uL Absolute Basophils (0.0-0.2) 10^3/uL APTT (21.0-27.5) sec 26.1 Sodium (136-145) mmol/L Potassium (3.5-5.1) mmol/L Chloride (98-107) mmol/L Carbon Dioxide (21.0-32.0) mmol/L Anion Gap (3-11) mmol/L BUN (7-18) mg/dL Creatinine (0.55-1.02) mg/dL Est GFR (CKD-EPI 2020) (mL/min/1.73m2) Glucose (74-106) mg/dL Calcium (8.5-10.1) mg/dL Magnesium (1.8-2.4) mg/dL Total Bilirubin (0.2-1.0) mg/dL AST (15-37) U/L ALT (14-59) U/L Alkaline Phosphatase (46-116) U/L Troponin I (<or=60) ng/L 1772 H* NT-Pro-B Natriuret Pep (<300) pg/mL Total Protein (6.4-8.2) g/dL Albumin (3.4-5.0) g/dL COVID-19 Source SARS-CoV-2 (PCR) (Negative) Influenza Type A (PCR) (Negative) Influenza Type B (PCR) (Negative) RSV (PCR) (Negative) Critical Care Time Critical Care Time Critical Care Time: Yes Total Critical Care Time: 45 Attestation: I spent greater than 45 minutes addressing this patient's immediate life threats. Please see MDM section of note. This time was spent engaged in work directly related to the patient's care, exclusive of separate procedures, and failure to initiate these interventions would have likely resulted in clinically significant or life threatening deterioration in the patient's condition. Sign Out Sign Out Data: Sign Out Comment: 67 yo female hx of copd active smoker, several days cough, body aches and dyspnea. Seen 2 days ago, treated as copd exacerbation and pneumonia after cta showed infiltrates but no PE. Since then continued shortness of breath and general malaise despite prednisone and levofloxacin. Exam consistent with copd exacerbation, troponin today elevated over 400. Pending delta troponin, no tele beds currently available, will need admission when tele becomes available. Last updated by Modesto Mar MD at 05/31/22 06:47 Discharge Plan Disposition Patient Disposition: Transfer-Acute Inpatient Care Specific Acute Inpt Facility: [facility] Condition: Serious Discharge Details Clinical Impression: Acute exacerbation of chronic obstructive pulmonary disease, Elevated troponin, Pneumonia, Non-ST elevation AR (NSTEMI) Primary Care Provider: Alberta Barrios ED Provider: Bony Morillo Home Meds and New Rx's Prescriptions: No Action omeprazole 20 mg capsule,delayed release(DR/EC) 20 mg PO DAILY albuterol sulfate [Ventolin HFA] 90 mcg/actuation HFA aerosol inhaler 2 puff IH Q6H PRN loratadine [Claritin] 10 mg tablet 10 mg PO DAILY lorazepam 0.5 mg tablet 0.5 mg PO TID PRN (Reason: anxiety) Qty: 12 0RF oxycodone 5 mg tablet 5 mg PO Q8H MDD 15mg PRN (Reason: severe post-operative pain) Qty: 10 0RF Rx Instructions: Take one tablet up to every 8 hours as needed for severe pain gabapentin 300 mg capsule 300 mg PO BID albuterol sulfate 1.25 mg/3 mL solution for nebulization 1.25 mg inhalation QID PRN (Reason: shortness of breath or wheezing) Qty: 75 0RF acetaminophen 500 mg tablet 500 mg PO Q6H PRN (Reason: pain) Qty: 60 2RF meloxicam 15 mg tablet 15 mg PO DAILY Qty: 30 1RF Rx Instructions: Take one tablet daily for pain and inflammation sertraline 100 mg Tablet 100 mg PO DAILY ipratropium-albuterol 0.5 mg-3 mg(2.5 mg base)/3 mL solution for nebulization 3 ml IH Q6H PRN (Reason: shortness of breath or wheezing) Qty: 15 0RF Label Comments: does not use budesonide-formoterol [Symbicort] 160-4.5 mcg/actuation Hfa Aerosol Inhaler 2 puff INHALATION BID atorvastatin 40 mg tablet 40 mg PO HS Label Comments: TAKE 1 TABLET BY MOUTH ONCE DAILY AT BEDTIME trazodone 50 mg tablet 50 mg PO HS PRN Label Comments: TAKE 1 TABLET BY MOUTH AT BEDTIME NEEDED famotidine 20 mg tablet 20 mg PO DAILY Label Comments: TAKE 1 TABLET BY MOUTH ONCE DAILY fluticasone propionate 50 mcg/actuation spray,suspension 1 spray INTRANASAL BID levofloxacin 750 mg tablet 750 mg PO DAILY Qty: 4 0RF prednisone 20 mg tablet 40 mg PO DAILY 4 Days Qty: 8 0RF ipratropium-albuterol 0.5 mg-3 mg(2.5 mg base)/3 mL solution for nebulization 3 ml inhalation Q6H PRN (Reason: shortness of breath or wheezing) Qty: 90 0RF
[2022-05-31] MEDS: Atorvastatin 40 MG TAB 80 MG PO (10:56)
[2022-05-31 17:02] LABS: PTT Activated 121.8 sec (21.0-27.5)
== END 2022-05-31 16:28 | disposition short-term general hospital (02) ==
PROVIDERS: Emergency Medicine; Emergency Provider Student in an Organized Health Care Education/Training Program; PCP Nurse Practitioner Family
DX: J44.1 Chronic obstructive pulmonary disease with (acute) exacerbation (principal); I21.4 Non-ST elevation (NSTEMI) myocardial infarction; J18.9 Pneumonia, unspecified organism; R77.8 Other specified abnormalities of plasma proteins; F17.200 Nicotine dependence, unspecified, uncomplicated; Z95.1 Presence of aortocoronary bypass graft; Z20.822 Contact with and (suspected) exposure to COVID-19
CPT/HCPCS: 36415; 80053; 87040; 87637; 93005; 94640; 96365; 96366; 96367; 96375; 99291; 71045; 83735; 83880; 84484; 85025; 85730; 93010; J1956; J2930; J7620

== ENCOUNTER 2022-07-10 10:17 | Outpatient (RCR) | payer MEDICAID, SELFPAY | END 2022-07-11 23:59 | disposition home or self-care (01) | LOC: CR 10:17 | PROVIDERS: PCP Nurse Practitioner Family; Visit Provider Internal Medicine Cardiovascular Disease | DX: I25.2 Old myocardial infarction (principal); Z51.89 Encounter for other specified aftercare | CPT/HCPCS: S9472 ==

== ENCOUNTER 2022-07-28 10:21 | Outpatient (RCR) | payer MEDICAID, SELFPAY | END 2022-08-08 23:59 | disposition home or self-care (01) | LOC: CR 10:21 | PROVIDERS: PCP Nurse Practitioner Family; Visit Provider Internal Medicine Cardiovascular Disease | DX: I25.2 Old myocardial infarction (principal); I25.42 Coronary artery dissection; Z51.89 Encounter for other specified aftercare | CPT/HCPCS: S9472 ==

== ENCOUNTER 2022-08-07 17:40 | Emergency (ER) | payer MEDICAID, SELFPAY ==
[2022-08-07 17:45] VITALS: BP 133/88; PULSE 76; RESP 18; TEMP 36.5; O2SAT 92
--- NOTE | 2022-08-07 18:00 | ED.GENADUL_ITS ---
Discharge Plan Disposition Patient Disposition: Home Condition: Improving Discharge Details Chief Complaint: HeadInjury Clinical Impression: Head injury, Abrasion hand Primary Care Provider: Alberta Barrios ED Provider: Enoc Coleman Home Meds and New Rx's Prescriptions: No Action omeprazole 20 mg capsule,delayed release(DR/EC) 20 mg PO DAILY albuterol sulfate [Ventolin HFA] 90 mcg/actuation HFA aerosol inhaler 2 puff IH Q6H PRN loratadine [Claritin] 10 mg tablet 10 mg PO DAILY gabapentin 300 mg capsule 300 mg PO BID albuterol sulfate 1.25 mg/3 mL solution for nebulization 1.25 mg inhalation QID PRN (Reason: shortness of breath or wheezing) Qty: 75 0RF acetaminophen 500 mg tablet 500 mg PO Q6H PRN (Reason: pain) Qty: 60 2RF sertraline 100 mg Tablet 100 mg PO DAILY budesonide-formoterol [Symbicort] 160-4.5 mcg/actuation Hfa Aerosol Inhaler 2 puff INHALATION BID trazodone 50 mg tablet 50 mg PO HS PRN Patient Comments: TAKE 1 TABLET BY MOUTH AT BEDTIME NEEDED famotidine 20 mg tablet 20 mg PO DAILY Patient Comments: TAKE 1 TABLET BY MOUTH ONCE DAILY fluticasone propionate 50 mcg/actuation spray,suspension 1 spray INTRANASAL BID ipratropium-albuterol 0.5 mg-3 mg(2.5 mg base)/3 mL solution for nebulization 3 ml inhalation Q6H PRN (Reason: shortness of breath or wheezing) Qty: 90 0RF atorvastatin 80 mg tablet 1 tab PO HS nicotine 14 mg/24 hr patch 24 hour 1 patch transdermal DAILY metoprolol succinate 100 mg tablet extended release 24 hr 1 tab PO DAILY aspirin 81 mg tablet,delayed release (DR/EC) 1 tab PO DAILY Patient Comments: TAKE 1 TABLET (81MG) BY MOUTH TWICE DAILY FOR 30 DAYS nitroglycerin 0.4 mg tablet, sublingual See Rx Instructions .ROUTE .COMPLEX Rx Instructions: 1 tab sublingually Spiriva with HandiHaler 18 mcg capsule, w/inhalation device 1 inh INHALATION DAILY Discharge Instructions Instructions: Head Injury (ED), Abrasion (ED) Medical Decision Making 67-year-old female history of prior CT was on Plavix discontinued 1 month ago, presents after mechanical slip and fall on ice hit left occipital scalp, sustained superficial small hematoma to this region, no overlying abrasion or laceration, no loss of conscious no vomiting, ambulatory full range of motion of all extremities, hemostatic superficial abrasion to right palm, no midline spinal tenderness, neurologically intact. Hemodynamically stable. Likely simple contusion versus mild concussion. Lower suspicion for intracranial hemorrhage or skull fracture. Low suspicion for spinal cord injury given history and physical. Discussed return precautions for further evaluation which would include but not limited to severe headache nausea vomiting change in consciousness falls or other abnormal symptoms. Patient denies current headache. Is alert oriented interactive. Friend is coming to drive her to her car. HPI General Date/Time Provider Initiated Documentation: 08/07/22 17:48 . HPI Narrative: 67-year-old female history of prior CT, discontinued Plavix approximately 1 sun ago presents after slip and fall on ice hit the back of her head no loss of conscious no nausea no vomiting, also sustained abrasion to right palm. Related Data Home Medications Medication Instructions Recorded Confirmed sertraline 100 mg tablet 100 mg PO DAILY 07/12/18 08/07/22 albuterol sulfate 90 mcg/actuation 2 puff inhalation Q6H PRN 10/25/18 08/07/22 aerosol inhaler (Ventolin HFA) omeprazole 20 mg capsule,delayed 20 mg PO DAILY 10/25/18 08/07/22 release budesonide-formoterol HFA 160 2 puff inhalation BID 07/20/19 08/07/22 mcg-4.5 mcg/actuation aerosol inhaler (Symbicort) famotidine 20 mg tablet 20 mg PO DAILY 12/15/20 08/07/22 fluticasone propionate 50 1 spray intranasal BID 12/15/20 08/07/22 mcg/actuation nasal spray,suspension trazodone 50 mg tablet 50 mg PO HS PRN 12/15/20 08/07/22 gabapentin 300 mg capsule 300 mg PO BID 08/19/21 08/07/22 loratadine 10 mg tablet (Claritin) 10 mg PO DAILY 09/12/21 08/07/22 albuterol sulfate 1.25 mg/3 mL 1.25 mg (3 mL) inhalation QID PRN 10/23/21 08/07/22 solution for nebulization shortness of breath or wheezing #75 mL acetaminophen 500 mg tablet 500 mg PO Q6H PRN pain #60 tabs 03/29/22 06/19/22 ipratropium 0.5 mg-albuterol 3 mg 3 ml inhalation Q6H PRN shortness 05/29/22 08/07/22 (2.5 mg base)/3 mL nebulization of breath or wheezing #90 mL soln aspirin 81 mg tablet,delayed 1 tab PO DAILY 06/21/22 08/07/22 release atorvastatin 80 mg tablet 1 tab PO HS 06/21/22 08/07/22 metoprolol succinate 100 mg 1 tab PO DAILY 06/21/22 06/21/22 tablet,extended release 24 hr nicotine 14 mg/24 hr daily 1 patch transdermal DAILY 06/21/22 08/07/22 transdermal patch nitroglycerin 0.4 mg sublingual See Rx Instructions .Route .COMPLEX 06/21/22 08/07/22 tablet tiotropium bromide 18 mcg capsule 1 inh inhalation DAILY 06/21/22 08/07/22 with inhalation device (Spiriva with HandiHaler) Previous Rx's Medication Instructions Recorded albuterol sulfate 1.25 mg/3 mL 1.25 mg (3 mL) inhalation QID PRN 10/23/21 solution for nebulization shortness of breath or wheezing #75 mL acetaminophen 500 mg tablet 500 mg PO Q6H PRN pain #60 tabs 03/29/22 ipratropium 0.5 mg-albuterol 3 mg 3 ml inhalation Q6H PRN shortness 05/29/22 (2.5 mg base)/3 mL nebulization of breath or wheezing #90 mL soln Allergies Allergy/AdvReac Type Severity Reaction Status Date / Time disulfiram [From Antabuse] Allergy Hives Verified 08/07/22 18:03 Sulfa (Sulfonamide Allergy Anaphylaxsi Verified 08/07/22 17:48 Antibiotics) s tree nut Allergy ANGIO EDEMA Verified 08/07/22 17:48 General Stated Complaint: HeadInjury YONATAN: 3 Review of Systems Narrative: Review of Systems Constitutional: negative Eyes: negative ENT: negative Cardiovascular: negative Respiratory: negative Gastrointestinal: negative : negative Musculoskeletal: negative Skin: Abrasion Neurologic: negative Psych: negative PFSH All Active Problems (Updated 08/07/22 @ 18:03 by Enoc Coleman MD) Head injury (Acute) Abrasion hand (Acute) Nasal septal perforation (Acute) Insomnia (Acute) Ptosis (Acute) Chronic rhinitis (Acute) Primary osteoarthritis of left knee (Acute) Steroid injection: 01/30/22; 10/27/21; 07/28/21; 04/04/2021; 12/27/2020; 04/19/2020 Acute exacerbation of chronic obstructive pulmonary disease (Acute) Acute exacerbation of chronic obstructive pulmonary disease (Acute) S/P colonoscopy (Acute ~11/26/18) Colorectal polyp detected on colonoscopy (Acute ~11/26/18) Diverticulosis (Acute ~11/26/18) Encounter for colorectal cancer screening (Acute) Family history of colon cancer requiring screening colonoscopy (Acute) Medical History (Updated 08/07/22 @ 18:03 by Enoc Cloeman MD) Alcohol abuse, in remission Anxiety Blood in stool 1 episode Chest pain happened in October 2021 - due to stress at work and had flu COPD (chronic obstructive pulmonary disease) Fever and chills GERD (gastroesophageal reflux disease) Leukocytosis Restless leg syndrome Tobacco abuse Surgical History (Updated 06/19/22 @ 12:52 by SAVANAH Mckinley) History of colonoscopy Pt states ruptured spleen s/p colonoscopy 2012 requiring ICU stay and two month recovery. History of hammer toe correction (right) History of knee surgery Torn meniscus repair (left) History of tonsillectomy History of total right knee replacement (TKR) (03/29/22) History of wisdom tooth extraction Family History Father Colon cancer Stage 4 at diagnosis at age 70 Paternal Aunt Colon cancer Paternal Aunt Colon cancer Mother Fallopian tube malignant neoplasm Maternal Uncle Stomach cancer Other Pancreatic cancer Social History Smoking/Tobacco Use Status: Former Tobacco Use Tobacco: How many years used: 40 Smoking risk assessment performed?: Yes Alcohol Intake: former Year quit: 2016 Drug use: Never Substance use type: does not use Details: nicotine patch current occupation: [employer] Pets and animals: No Do you feel safe at home: Yes Do you feel safe in your relationship?: Yes Additional Social history: Lives alone in [place], friend Kandice. 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 Moved up from [facility] around 2018. Exam Narrative Exam Narrative: Physical Examination General: alert, awake, cooperative, resting comfortably, no acute distress HEENT: Small hematoma left occipital scalp no abrasion or laceration normocephalic, TMs clear bilaterally; PERRL, EOM intact, conjunctiva normal; no nasal discharge; moist mucous membranes, oral and pharyngeal mucosa normal, tolerating secretions Neck: supple, trachea midline; full ROM Chest: normal to inspection Respiratory: normal respiratory effort, speaking in full sentences, clear to auscultation, no wheezing, rales or rhonchi Cardiac: regular rate, regular rhythm, S1S2 intact, no murmurs rubs or gallops GI: abdomen soft, non-tender, non-distended; no palpable mass or hepatosplenomegaly Skin: Superficial abrasion to right palm hemostatic Neuro: AAOx3, normal speech, moving all extremities Extremities: Full range of motion ambulatory Psych: Appropriate mood and affect Course Vital Signs Vital signs: Vital Signs Temperature 36.5 C 08/07/22 17:45 Pulse 76 08/07/22 17:45 Respiratory Rate 18 08/07/22 17:45 Blood Pressure 133/88 08/07/22 17:45 Pulse Oximetry 92 08/07/22 17:45 Temperature 36.5 C 08/07/22 17:45 Temperature Source Oral 08/07/22 17:45 Pulse 76 08/07/22 17:45 Respiratory Rate 18 08/07/22 17:45 Respiratory Effort Normal, Non-Labored 08/07/22 17:51 Respiratory Depth Normal 08/07/22 17:51 Respiratory Pattern Normal 08/07/22 17:51 Blood Pressure 133/88 08/07/22 17:45 Blood Pressure Position Sitting 08/07/22 17:45 Pulse Oximetry 92 08/07/22 17:45 Oxygen Delivery Method Room Air 08/07/22 17:45 Oxygen Flow Rate 0 08/07/22 17:45 Pain Level 3 08/07/22 17:45
[2022-08-07] MEDS: Acetaminophen 325 MG TAB 650 MG PO (18:02)
== END 2022-08-07 18:11 | disposition home or self-care (01) ==
LOC: ER 18:12
PROVIDERS: Emergency Provider Emergency Medicine; PCP Nurse Practitioner Family
DX: S60.511A Abrasion of right hand, initial encounter (principal); S00.03XA Contusion of scalp, initial encounter; W00.0XXA Fall on same level due to ice and snow, initial encounter
CPT/HCPCS: 99282; 99283

== ENCOUNTER 2022-09-01 10:01 | Outpatient (RCR) | payer MEDICARE, MEDICAID, SELFPAY | END 2022-09-08 23:59 | disposition home or self-care (01) | LOC: CR 10:01 | PROVIDERS: PCP Nurse Practitioner Family; Visit Provider Internal Medicine Cardiovascular Disease | DX: I25.2 Old myocardial infarction (principal); I25.42 Coronary artery dissection | CPT/HCPCS: S9472 ==

== ENCOUNTER 2022-12-16 16:59 | Emergency (ER) | payer MEDICARE, MEDICAID, SELFPAY ==
--- NOTE | 2022-12-16 17:00 | RT.EKG_ITS ---
APPROVED REPORT Exam: Resting ECG Reason for Exam: chest pain Patient Location: E HR:80 bpm ECG Measurements Heart Rate 80 AXIS MA 143 P 72 QRSd 73 QRS 54 QT 372 T 66 QTc 430 Conclusion Sinus rhythm...normal P axis, V-rate 60- 99 Normal EKG I have reviewed and interpreted ECG and agree with software generated interpretation.
[2022-12-16 17:05] VITALS: BP 118/75; PULSE 82; RESP 18; TEMP 36.7; O2SAT 95
--- NOTE | 2022-12-16 17:30 | DI.RAD_ITS ---
Exam(s) XR PORTABLE CHEST AP EXAM: XR PORTABLE CHEST AP CLINICAL HISTORY: Chest Pain TECHNIQUE: 2D digital imaging was performed. COMPARISON: CR,XR XR PORTABLE CHEST AP from 05/31/2022 FINDINGS: LUNGS: Clear. No pleural abnormality seen. HEART: Normal size. AORTA: Normal diameter. BONES: Unremarkable for age. Soft tissues: Unremarkable. IMPRESSION: No acute findings. DATA REPOSITORY: RADIATION DOSE DELIVERED:
[2022-12-16 17:37] VITALS: RESP 17
--- NOTE | 2022-12-16 17:54 | ED.GENADUL_ITS ---
Discharge Plan Disposition Patient Disposition: Home Condition: Stable Discharge Details Clinical Impression: Pressure in chest Primary Care Provider: Alberta Barrios ED Provider: Paloma Ellison Home Meds and New Rx's Prescriptions: Continued omeprazole 20 mg capsule,delayed release(DR/EC) 20 mg PO DAILY albuterol sulfate [Ventolin HFA] 90 mcg/actuation HFA aerosol inhaler 2 puff IH Q6H PRN loratadine [Claritin] 10 mg tablet 10 mg PO DAILY gabapentin 300 mg capsule 300 mg PO BID albuterol sulfate 1.25 mg/3 mL solution for nebulization 1.25 mg inhalation QID PRN (Reason: shortness of breath or wheezing) Qty: 75 0RF acetaminophen 500 mg tablet 500 mg PO Q6H PRN (Reason: pain) Qty: 60 2RF sertraline 100 mg Tablet 100 mg PO DAILY budesonide-formoterol [Symbicort] 160-4.5 mcg/actuation Hfa Aerosol Inhaler 2 puff INHALATION BID trazodone 50 mg tablet 50 mg PO HS PRN Patient Comments: TAKE 1 TABLET BY MOUTH AT BEDTIME NEEDED famotidine 20 mg tablet 20 mg PO DAILY Patient Comments: TAKE 1 TABLET BY MOUTH ONCE DAILY fluticasone propionate 50 mcg/actuation spray,suspension 1 spray INTRANASAL BID ipratropium-albuterol 0.5 mg-3 mg(2.5 mg base)/3 mL solution for nebulization 3 ml inhalation Q6H PRN (Reason: shortness of breath or wheezing) Qty: 90 0RF atorvastatin 80 mg tablet 1 tab PO HS nicotine 14 mg/24 hr patch 24 hour 1 patch transdermal DAILY metoprolol succinate 100 mg tablet extended release 24 hr 1 tab PO DAILY aspirin 81 mg tablet,delayed release (DR/EC) 1 tab PO DAILY Patient Comments: TAKE 1 TABLET (81MG) BY MOUTH TWICE DAILY FOR 30 DAYS nitroglycerin 0.4 mg tablet, sublingual See Rx Instructions .ROUTE .COMPLEX Rx Instructions: 1 tab sublingually Spiriva with HandiHaler 18 mcg capsule, w/inhalation device 1 inh INHALATION DAILY Discharge Instructions Instructions: Chest Pain (ED) Additional Instructions: No evidence of acute heart attack today. Chest x-ray shows no acute cardiopulmonary abnormality. Follow up with primary care provider in 3-5 days discussed possible outpatient stress test. Return to ED sooner if any worsening chest pain or concerns. Increase oral fluids. Referrals: Alberta Barrios [Primary Care Provider] - 5 days Medical Decision Making 67-year-old female presents to the ER with chief complaint of midsternal chest pressure which began around 1550 while at work. She did take nitro prior to arrival which relieved her pain. She does have a history of cardiac event approximately 6 months ago which she was seen for at [facility]. She reports that her chest pressure is now resolved. She is a former smoker she is wearing a nicotine patch. She is also a former alcoholic. She does take baby aspirin daily. She did take 1 this morning. Other past medical history includes COPD, hypertension, anxiety, GERD, anxiety. She last saw cardiology in June. EKG was reviewed by Dr. Mazin GUSTAFSON attending, old EKG available for review. No STEMI. There is some questionable flattening of the ST segments in V4 V5 V6 lead II. Cardiac work-up ordered. At this time chest pain is relieved. Differential diagnosis includes but not limited to coronary artery disease, anxiety, URI, pneumonia no evidence for PE according to Wells criteria patient is not tachycardic no significant long trips. Labs are noted below. White blood cell count slightly elevated 12.32, BUN 21. Mildly dehydrated, could be viral URI. Did instruct to follow-up with PCP to discuss stress testing. Heart score is a 5. However patient has remained chest pain-free throughout the duration of her stay. Repeat EKG within normal limits no significant change. Medical Records Medical records reviewed: Yes I reviewed the patient's medical records. Imaging Data Radiologic Study: Imaging: X-Ray Radiologist's impression: TECHNIQUE: Imaging protocol: Radiologic exam of the chest. Views: 1 view. COMPARISON: CR XR PORTABLE CHEST AP 05/31/2022 5:21 AM FINDINGS: Lungs: No consolidation. No Mass Pleural spaces: No pleural effusion. No pneumothorax. Heart/Mediastinum: Unremarkable Bones/joints: No significant abnormality IMPRESSION: No acute findings. Thank you for allowing us to participate in the care of your patient. Dictated and Authenticated by: Nacho Roach MD Lab Data Lab results reviewed: Yes I reviewed the patient's lab results. Labs: Laboratory Tests Range/Units 12/16/22 12/16/22 12/16/22 17:56 17:56 20:39 WBC (4.4-10.8) 10^3/uL 12.32 H RBC (3.93-5.22) 10^6/uL 4.09 Hgb (11.2-15.7) g/dL 12.2 Hct (36.0-46.0) % 36.6 MCV (80-95) fL 90 MCH (27.0-33.0) pg 29.8 MCHC (32.0-36.0) % 33.3 RDW (11.7-14.6) % 14.5 Plt Count (130-400) 10^3/uL 348 MPV (8.0-11.0) fL 9.7 Immature Gran % 0.2 Neutrophils % 57.6 Lymphocytes % 30.6 Monocytes % 7.5 Eosinophils % 3.5 Basophils % 0.6 Nucleated RBC % (0.0-0.3) % 0.0 Absolute Neutrophils (1.2-6.7) 10^3/uL 7.10 H Absolute Lymphocytes (1.2-3.4) 10^3/uL 3.77 H Absolute Monocytes (0.1-0.8) 10^3/uL 0.92 H Absolute Eosinophils (0.0-0.7) 10^3/uL 0.43 Absolute Basophils (0.0-0.2) 10^3/uL 0.07 Sodium (136-145) mmol/L 142 Potassium (3.5-5.1) mmol/L 4.2 Chloride (98-107) mmol/L 104 Carbon Dioxide (21.0-32.0) mmol/L 28.2 Anion Gap (3-11) mmol/L 9.8 BUN (7-18) mg/dL 21 H Creatinine (0.55-1.02) mg/dL 0.9 Est GFR (CKD-EPI 2020) (mL/min/1.73m2) 70.95 Glucose (74-106) mg/dL 92 Calcium (8.5-10.1) mg/dL 8.8 Magnesium (1.8-2.4) mg/dL 2.0 Total Bilirubin (0.2-1.0) mg/dL 0.3 AST (15-37) U/L 31 ALT (14-59) U/L 27 Alkaline Phosphatase (46-116) U/L 93 Troponin I (<or=60) ng/L < 50 < 50 Total Protein (6.4-8.2) g/dL 7.4 Albumin (3.4-5.0) g/dL 4.2 HPI General Mode of arrival: ambulatory . Date/Time Provider Initiated Documentation: 12/16/22 17:40 . Limitations to Documentation: no limitations . Information obtained by: patient, RN notes reviewed and old records reviewed . HPI Narrative: 67-year-old female presents to the ER with chief complaint of midsternal chest pressure which began around 1550 while at work. She did take nitro prior to arrival which relieved her pain. She does have a history of cardiac event approximately 6 months ago which she was seen for at [facility]. She reports that her chest pressure is now resolved. She is a former smoker she is wearing a nicotine patch. She is also a former alcoholic. She does take baby aspirin daily. She did take 1 this morning. Other past medical history includes COPD, hypertension, anxiety, GERD, anxiety. She last saw cardiology in June. Related Data Home Medications Medication Instructions Recorded Confirmed sertraline 100 mg tablet 100 mg PO DAILY 07/12/18 12/16/22 albuterol sulfate 90 mcg/actuation 2 puff inhalation Q6H PRN 10/25/18 12/16/22 aerosol inhaler (Ventolin HFA) omeprazole 20 mg capsule,delayed 20 mg PO DAILY 10/25/18 12/16/22 release budesonide-formoterol HFA 160 2 puff inhalation BID 07/20/19 12/16/22 mcg-4.5 mcg/actuation aerosol inhaler (Symbicort) famotidine 20 mg tablet 20 mg PO DAILY 12/15/20 12/16/22 fluticasone propionate 50 1 spray intranasal BID 12/15/20 12/16/22 mcg/actuation nasal spray,suspension trazodone 50 mg tablet 50 mg PO HS PRN 12/15/20 12/16/22 gabapentin 300 mg capsule 300 mg PO BID 08/19/21 12/16/22 loratadine 10 mg tablet (Claritin) 10 mg PO DAILY 09/12/21 12/16/22 albuterol sulfate 1.25 mg/3 mL 1.25 mg (3 mL) inhalation QID PRN 10/23/21 12/16/22 solution for nebulization shortness of breath or wheezing #75 mL acetaminophen 500 mg tablet 500 mg PO Q6H PRN pain #60 tabs 03/29/22 12/16/22 ipratropium 0.5 mg-albuterol 3 mg 3 ml inhalation Q6H PRN shortness 05/29/22 12/16/22 (2.5 mg base)/3 mL nebulization of breath or wheezing #90 mL soln aspirin 81 mg tablet,delayed 1 tab PO DAILY 06/21/22 12/16/22 release atorvastatin 80 mg tablet 1 tab PO HS 06/21/22 12/16/22 metoprolol succinate 100 mg 1 tab PO DAILY 06/21/22 12/16/22 tablet,extended release 24 hr nicotine 14 mg/24 hr daily 1 patch transdermal DAILY 06/21/22 12/16/22 transdermal patch nitroglycerin 0.4 mg sublingual See Rx Instructions .Route .COMPLEX 06/21/22 12/16/22 tablet tiotropium bromide 18 mcg capsule 1 inh inhalation DAILY 06/21/22 12/16/22 with inhalation device (Spiriva with HandiHaler) Previous Rx's Medication Instructions Recorded albuterol sulfate 1.25 mg/3 mL 1.25 mg (3 mL) inhalation QID PRN 10/23/21 solution for nebulization shortness of breath or wheezing #75 mL acetaminophen 500 mg tablet 500 mg PO Q6H PRN pain #60 tabs 03/29/22 ipratropium 0.5 mg-albuterol 3 mg 3 ml inhalation Q6H PRN shortness 05/29/22 (2.5 mg base)/3 mL nebulization of breath or wheezing #90 mL soln Allergies Allergy/AdvReac Type Severity Reaction Status Date / Time disulfiram [From Antabuse] Allergy Hives Verified 08/07/22 18:03 Sulfa (Sulfonamide Allergy Anaphylaxsi Verified 08/07/22 17:48 Antibiotics) s tree nut Allergy ANGIO EDEMA Verified 08/07/22 17:48 General Stated Complaint: Chest Pain YONATAN: 3 Review of Systems All systems reviewed & are unremarkable except as noted in HPI and below Cardiovascular Cardiovascular: Reports chest pain, Denies leg edema and Reports dyspnea Respiratory Respiratory: Reports dyspnea PFSH All Active Problems (Updated 12/16/22 @ 21:31 by Paloma Ellison NP) Pressure in chest (Acute) Nasal septal perforation (Acute) Insomnia (Acute) Ptosis (Acute) Chronic rhinitis (Acute) Primary osteoarthritis of left knee (Acute) Steroid injection: 01/30/22; 10/27/21; 07/28/21; 04/04/2021; 12/27/2020; 04/19/20 20 Acute exacerbation of chronic obstructive pulmonary disease (Acute) Acute exacerbation of chronic obstructive pulmonary disease (Acute) S/P colonoscopy (Acute ~11/26/18) Colorectal polyp detected on colonoscopy (Acute ~11/26/18) Diverticulosis (Acute ~11/26/18) Encounter for colorectal cancer screening (Acute) Family history of colon cancer requiring screening colonoscopy (Acute) Medical History Alcohol abuse, in remission Anxiety Blood in stool 1 episode Chest pain happened in October 2021 - due to stress at work and had flu COPD (chronic obstructive pulmonary disease) Fever and chills GERD (gastroesophageal reflux disease) Leukocytosis Restless leg syndrome Tobacco abuse Surgical History History of colonoscopy Pt states ruptured spleen s/p colonoscopy 2012 requiring ICU stay and two month recovery. History of hammer toe correction (right) History of knee surgery Torn meniscus repair (left) History of tonsillectomy History of total right knee replacement (TKR) (03/29/22) History of wisdom tooth extraction Family History Father Colon cancer Stage 4 at diagnosis at age 70 Paternal Aunt Colon cancer Paternal Aunt Colon cancer Mother Fallopian tube malignant neoplasm Maternal Uncle Stomach cancer Other Pancreatic cancer Social History Smoking/Tobacco Use Status: Former Tobacco Use Tobacco: How many years used: 40 Smoking risk assessment performed?: Yes Alcohol Intake: former Year quit: 2016 Drug use: Never Substance use type: does not use Details: nicotine patch Housing: house current occupation: [employer] Pets and animals: No Do you feel safe at home: Yes Do you feel safe in your relationship?: Yes Additional Social history: Lives alone in [place], friend Kandice. 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 Moved up from [facility] around 2018. Exam Narrative Exam Narrative: Constitutional: Alert and oriented x3. Appears stated age. Normal body habitus. Head: Normocephalic, no trauma. Eyes: Pupils PERRL, Red reflex noted, EOM's intact. Eyelids symmetrical without lesions, discharge, or swelling. ENT: Bilateral TM's WNL, External ear normal to inspection, no mastoid TTP, swelling, or erythema, Nasal turbinates WNL, no nasal discharge. Normal dentition, Posterior pharynx WNL, no exudate. Chest: RRR, Normal S1, S2, distal pulses intact. Resp: Lungs clear to auscultation bilaterally, no wheezes, rales, or rhonchi. Abdomen: Soft, non-distended, Normoactive bowel sounds all 4 quads. Musculoskeletal: Normal gait, 5/5 strength to all four extremities. Skin: No suspicious rashes or lesions. Capillary refill less than 2 sec. Neurologic: Cranial nerves II-XII intact. Alert and oriented x 3. Motor: No deficits noted. Sensory: Intact bilaterally all 4 extremities. Reflexes: DTR's intact bilaterally.. Hematologic/Lymphatic: No ecchymosis, no lymphadenopathy. Course Vital Signs Vital signs: Vital Signs Temperature 36.7 C 12/16/22 17:05 Pulse 82 12/16/22 17:05 Respiratory Rate 18 12/16/22 17:05 Blood Pressure 118/75 12/16/22 17:05 Pulse Oximetry 95 12/16/22 17:05 Temperature 36.7 C 12/16/22 17:05 Temperature Source Oral 12/16/22 17:05 Pulse 82 12/16/22 17:05 Respiratory Rate 17 12/16/22 17:37 Respiratory Effort Normal, Non-Labored 12/16/22 17:37 Respiratory Depth Normal 12/16/22 17:37 Respiratory Pattern Normal 12/16/22 17:37 Blood Pressure 118/75 12/16/22 17:05 Blood Pressure Position Sitting 12/16/22 17:05 Pulse Oximetry 95 12/16/22 17:05 Oxygen Delivery Method Room Air 12/16/22 17:05 Oxygen Flow Rate 0 12/16/22 17:05
[2022-12-16 18:00] LABS: Abs Immature Grans 0.03 10^3/uL (0.0-0.06); Absolute Eosinophil Count 0.43 10^3/uL (0.0-0.7); Absolute Lymphocyte Count 3.77 10^3/uL (1.2-3.4); Absolute Monocyte Count 0.92 10^3/uL (0.1-0.8); Basophils % 0.6; Eosinophils % 3.5; HCT 36.6 % (36.0-46.0); HGB 12.2 g/dL (11.2-15.7); Immature Grans % 0.2; Lymphocytes % 30.6; MCH 29.8 pg (27.0-33.0); MCHC 33.3 % (32.0-36.0); MCV 90 fL (80-95); MPV 9.7 fL (8.0-11.0); Monocytes % 7.5; Neutrophils % 57.6; Platelet Count 348 10^3/uL (130-400); RBC 4.09 10^6/uL (3.93-5.22); RDW 14.5 % (11.7-14.6); RDW-SD 47.8 fL; WBC 12.32 10^3/uL (4.4-10.8)
[2022-12-16 18:03] LABS: Absolute Basophil Count 0.07 10^3/uL (0.0-0.2)
[2022-12-16] MEDS: Aspirin 81 MG CHEW 243 MG CH (18:15)
[2022-12-16 18:25] LABS: ALT 27 U/L (14-59); AST 31 U/L (15-37); Albumin 4.2 g/dL (3.4-5.0); Alkaline Phosphatase 93 U/L (46-116); Anion Gap 9.8 mmol/L (3-11); BUN 21 mg/dL (7-18); Bilirubin, Total 0.3 mg/dL (0.2-1.0); CO2 28.2 mmol/L (21.0-32.0); CREATININE 0.9 mg/dL (0.55-1.02); Calcium 8.8 mg/dL (8.5-10.1); Chloride 104 mmol/L (98-107); Estimated GFR 70.95 (mL/min/1.73m2); Glucose 92 mg/dL (74-106); Potassium 4.2 mmol/L (3.5-5.1); Sodium 142 mmol/L (136-145); Total Protein 7.4 g/dL (6.4-8.2); Troponin I < 50 ng/L (<or=60)
--- NOTE | 2022-12-16 18:56 | DI.VRAD_ITS ---
PROCEDURE INFORMATION: Exam: XR Chest Exam date and time: 12/16/2022 6:22 PM Age: 67 years old Clinical indication: Other: Chest pain TECHNIQUE: Imaging protocol: Radiologic exam of the chest. Views: 1 view. COMPARISON: CR XR PORTABLE CHEST AP 05/31/2022 5:21 AM FINDINGS: Lungs: No consolidation. No Mass Pleural spaces: No pleural effusion. No pneumothorax. Heart/Mediastinum: Unremarkable Bones/joints: No significant abnormality IMPRESSION: No acute findings. Dictated and Authenticated by: Nacho Roach MD. Ordering:ROBIN Dow MD
[2022-12-16 21:03] LABS: Troponin I < 50 ng/L (<or=60)
[2022-12-16 21:43] VITALS: BP 114/74; PULSE 64; RESP 17; TEMP 36.8; O2SAT 97
== END 2022-12-16 21:57 | disposition home or self-care (01) ==
PROVIDERS: Emergency Provider Registered Nurse Emergency; PCP Nurse Practitioner Family
DX: R07.9 Chest pain, unspecified (principal); R42 Dizziness and giddiness; R11.0 Nausea; J44.9 Chronic obstructive pulmonary disease, unspecified; I10 Essential (primary) hypertension; F41.9 Anxiety disorder, unspecified; K21.9 Gastro-esophageal reflux disease without esophagitis; Z79.82 Long term (current) use of aspirin; Z87.891 Personal history of nicotine dependence
CPT/HCPCS: 80053; 93005; 99283; 71045; 83735; 84484; 85025; 93010

== ENCOUNTER → 2023-01-16 02:11 | Outpatient (CLI) | payer MEDICARE, MEDICAID, SELFPAY ==
[2023-01-16] MEDS: Normal Saline - Diluent 50 ML VIAL IJ ×2 (09:14→09:23)
[2023-01-16] MEDS: Omnipaque 350 MG/ML 500 ML BTL-Imaging package 65 ML IJ ×2 (09:15→09:26)
--- NOTE | 2023-01-16 09:39 | DI.CT_ITS ---
Exam(s) CT ABDOMEN PELVIS CTA EXAM: CT ABDOMEN PELVIS CTA CLINICAL HISTORY: aneurysm, I72.9. TECHNIQUE: Imaging Protocol: Axial CT angiography was performed with multi-slice acquisition and m ulti-planar and/or 3D reconstructions. CONTRAST MATERIAL: Intravenous: Omnipaque 350 Contrast volume:85mL Oral: No COMPARISON: CT CT CHEST PE CTA from 05/29/[address] ANGIOGRAM CHEST ABDOMEN PELVIS W CONTRAST from 08/17/2022 FINDINGS: ABDOMEN AND PELVIS: Abdomen: Celiac axis/mesenteric arteries: No evidence of occlusion or significant stenosis. Mild narrowing at the origin of the celiac axis. There is also mild atherosclerosis at the origin of the superior mese nteric artery causing mild narrowing. Significant areas of stenosis are seen. Renal Arteries: There is atherosclerosis of the left renal artery without significant stenosis. Ther e is no significant stenosis of the right renal arteries. Aorta: No evidence of occlusion or significant stenosis. No aneurysm or dissection. Moderate atheros clerosis is present. Pelvis: Iliac Arteries: There is atherosclerosis present. Partially thrombosed aneurysmal dilatation of the right internal iliac arteries again seen. It measures 9 mm. No significant stenosis is seen in the common iliac arteries, the external iliac arteries or the left internal iliac artery. Common Femoral Arteries: No evidence of occlusion or significant stenosis. Atherosclerosis without s ignificant stenosis. ABDOMEN: Lung bases: Unremarkable. Liver: Normal density. There are few tiny 2-3 mm hypodensities seen in the liver. They are too small for further characterization. Portal, Superior Mesenteric, and Splenic Veins: Unremarkable. Gallbladder and Biliary Tract: No radiodense calculus or dilation. Pancreas: Normal density, no abnormal calcifications or inflammatory process. Spleen: Stable postsurgical changes are seen in the spleen. Adrenals: No masses seen. Kidneys: Normal size, contour and axis. No radiodense stones or obstructive uropathy. No masses seen. Contrast excretion is noted. Bowel: No obstruction or bowel wall thickening. Appendix is unremarkable. Peritoneal Cavity: No ascites, collection or mesenteric inflammatory response. No free air. Lymph Nodes: Within normal limits. Bones: Within normal limits for the patient's age. There is a Schmorl's node in the superior endplat e of L3. Soft Tissues: Unremarkable. PELVIS: Bladder: Symmetric distention, no gross wall thickening. Reproductive Organs: Unremarkable as visualized. Lymph Nodes: Within normal limits. Bones: Within normal limits. IMPRESSION: 1. 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 2. Stable atherosclerosis and mild narrowing as described above. 3. No acute abdominal or pelvic process. RADIATION DOSE DELIVERED: 672.06mGy.cm Total DLP DATA REPOSITORY: All CT scans at this facility are submitted to the National Radiology Data Registry (NRDR) Dose Index Registry (DIR) with the [employer] (ACR). RADIATION OPTIMIZATION: All CT scans at this facility use at least one of these dose optimization te chniques: automated exposure control; mA and/or kV adjustment per patient size (includes targeted exa ms where dose is matched to clinical indication); or iterative reconstruction.
--- NOTE | 2023-01-16 09:39 | DI.CT_ITS ---
Exam(s) CT BRAIN NECK CTA EXAM: CT BRAIN NECK CTA CLINICAL HISTORY: cerebral aneurysm, I67.1, left vertebral artery stenosis. TECHNIQUE: Imaging Protocol: Axial CT angiography was performed with multi-slice acquisition and mu lti-planar and/or 3D reconstructions. CONTRAST MATERIAL: Intravenous: Omnipaque 350 contrast volume:85 mL COMPARISON: CT CT ANGIOGRAM CHEST ABDOMEN PELVIS W CONTRAST from 08/17/2022 FINDINGS: CT Head W/O and W: Ventricles and Extra axial spaces: Normal in size and morphology for the patient's age. Hemorrhage: None. Cerebral parenchyma: No acute territorial infarct. Midline shift: None. Brainstem/Cerebellum: Normal. Calvarium: Normal. Visualized Paranasal sinuses/Mastoids: Clear. Soft Tissues: Unremarkable. Enhancement: Unremarkable. CTA Neck W: Common Carotid: Right: No dissection, occlusion or significant stenosis. Left: No dissection, occlusion or significant stenosis. Mild atherosclerosis at the distal left comm on carotid artery. External Carotid: Right: No occlusion or significant stenosis. Left: No occlusion or significant stenosis. Internal Carotid: Right: No dissection, occlusion or significant stenosis. Atherosclerosis at the origin of the right internal carotid artery. Left: No dissection, occlusion or significant stenosis. Atherosclerosis at the origin of the left in ternal carotid artery. Vertebral Artery: Right: No dissection, occlusion or significant stenosis. Left: No dissection or occlusion. There is again seen marked narrowing of the proximal left vertebr al artery. There is also mild narrowing of the distal left vertebral artery just proximal to its uni on to form the basilar artery. Lung Apices: Emphysematous changes are seen in the lung apices. Bones: Within normal limits for the patient's age. Soft Tissues: There is a 0.7 cm hypodense nodule in the right thyroid gland. No follow-up is recomme nded. Thyroid gland: Please see above under soft tissues. CTA Brain W: Internal Carotid Arteries: Atherosclerosis is seen in the internal carotid arteries bilaterally. Anterior Cerebral Arteries: There is again seen a 2 mm aneurysm arising from the inferior aspect of t he anterior communicating artery. (Series 17, image 25). Right: No aneurysm, occlusion or significant stenosis. Left: No aneurysm, occlusion or significant stenosis. Middle Cerebral Arteries: Right: No occlusion or significant stenosis. There is a 3.4 mm aneurysm at the bifurcation of the r ight middle cerebral artery. (Series 18, image 38). Left: No aneurysm, occlusion or significant stenosis. Posterior Cerebral Arteries: Right: No aneurysm, occlusion or significant stenosis. Left: No aneurysm, occlusion or significant stenosis. Vertebral Arteries: Right: No aneurysm, occlusion or significant stenosis. Left: No aneurysm, occlusion or significant stenosis. Basilar Artery: No aneurysm, occlusion or significant stenosis. IMPRESSION: 1. 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 2. Stable narrowing of the proximal left vertebral artery. There is also mild narrowing of the dista l left vertebral artery proximal to its union to form the basilar artery. 3. No acute intracranial process. 4. Stable narrowing of the proximal left vertebral artery. RADIATION DOSE DELIVERED: 2,148.09mGy.cm Total DLP DATA REPOSITORY: All CT scans at this facility are submitted to the National Radiology Data Registry (NRDR) Dose Index Registry (DIR) with the [employer] (ACR). RADIATION OPTIMIZATION: All CT scans at this facility use at least one of these dose optimization te chniques: automated exposure control; mA and/or kV adjustment per patient size (includes targeted exa ms where dose is matched to clinical indication); or iterative reconstruction.
== END ==
PROVIDERS: PCP Nurse Practitioner Family; Visit Provider Nurse Practitioner Family
DX: I72.3 Aneurysm of iliac artery (principal); K76.89 Other specified diseases of liver; I65.02 Occlusion and stenosis of left vertebral artery
CPT/HCPCS: 70496; 70498; 74174

== ENCOUNTER 2023-03-21 15:08 | Outpatient (REF) | payer MEDICARE, SELFPAY ==
[2023-03-21 16:28] LABS: Calculated LDL 85 mg/dL (<100); Cholesterol 172 mg/dL (<200); HDL Cholesterol 73 mg/dL (40-60); Triglyceride 74 mg/dL (<150)
== END 2023-03-21 15:09 | disposition home or self-care (01) ==
LOC: NCHCN 15:08
PROVIDERS: PCP Nurse Practitioner Family; Visit Provider Nurse Practitioner Family
DX: E78.5 Hyperlipidemia, unspecified (principal)
CPT/HCPCS: 80061

== ENCOUNTER 2023-03-29 10:22 | Outpatient (CLI) | payer MEDICARE, SELFPAY ==
--- NOTE | 2023-03-29 11:10 | DI.RAD_ITS ---
Exam(s) XR KNEE RT 2V AP,LAT EXAM: XR KNEE RT 2V AP,LAT CLINICAL HISTORY: ANNUAL F/U S/P R TKA. TECHNIQUE: 2D digital imaging was performed. Two images were obtained. AP and lateral views were ob tained. COMPARISON: CR,XR XR CHEST 2V PA LATERAL from 10/23/2021 CR XR KNEE RT 1V from 04/10/2022 CR XR STANDING ALIGNMENT from 04/10/2022 FINDINGS: BONES: There are stable post operative changes of a right total knee replacement present. No fractur e or dislocation. There is an old well corticated osseous density lateral to the tibial plateau. JOINTS: The orthopedic hardware is in good position. No evidence of hardware loosening. SOFT TISSUE: Atherosclerosis. IMPRESSION: Stable postoperative changes. DATA REPOSITORY: RADIATION DOSE DELIVERED:
== END 2023-03-29 10:23 | disposition home or self-care (01) ==
LOC: DIORS 10:26
PROVIDERS: PCP Nurse Practitioner Family; Referring Provider Nurse Practitioner Family; Visit Provider Student in an Organized Health Care Education/Training Program
DX: Z96.651 Presence of right artificial knee joint (principal); Z47.1 Aftercare following joint replacement surgery
CPT/HCPCS: 99213; 73560

== ENCOUNTER → 2023-04-25 14:14 | Outpatient (BNVA) | payer MEDICARE, SELFPAY | PROVIDERS: PCP Nurse Practitioner Family; Referring Provider Nurse Practitioner Family; Visit Provider Surgery | DX: R09.A2 Foreign body sensation, throat (principal); Z80.0 Family history of malignant neoplasm of digestive organs; I25.2 Old myocardial infarction | CPT/HCPCS: 99213 ==

== ENCOUNTER 2023-05-10 06:46 | Day surgery (SDC) | payer MEDICARE, SELFPAY ==
--- NOTE | 2023-05-09 18:54 | W.PM.DSUDISC ---
Date of service: 05/10/23 Time of Service: 08:28 Discharge Plan Disposition Patient Disposition: Home Condition: Good Discharge Details Reason For Visit: Diagnostic EGD Attending Provider: Manny Chin Primary Care Provider: Alberta Barrios Home Meds and New Rx's Prescriptions: Continued omeprazole 20 mg capsule,delayed release(DR/EC) 20 mg PO DAILY albuterol sulfate [Ventolin HFA] 90 mcg/actuation HFA aerosol inhaler 2 puff IH Q6H PRN loratadine [Claritin] 10 mg tablet 10 mg PO DAILY gabapentin 300 mg capsule 300 mg PO BID albuterol sulfate 1.25 mg/3 mL solution for nebulization 1.25 mg inhalation QID PRN (Reason: shortness of breath or wheezing) Qty: 75 0RF acetaminophen 500 mg tablet 500 mg PO Q6H PRN (Reason: pain) Qty: 60 2RF sertraline 100 mg Tablet 100 mg PO DAILY budesonide-formoterol [Symbicort] 160-4.5 mcg/actuation Hfa Aerosol Inhaler 2 puff INHALATION BID trazodone 50 mg tablet 50 mg PO HS PRN Patient Comments: TAKE 1 TABLET BY MOUTH AT BEDTIME NEEDED famotidine 20 mg tablet 40 mg PO DAILY Patient Comments: TAKE 1 TABLET BY MOUTH ONCE DAILY fluticasone propionate 50 mcg/actuation spray,suspension 1 spray INTRANASAL BID ipratropium-albuterol 0.5 mg-3 mg(2.5 mg base)/3 mL solution for nebulization 3 ml inhalation Q6H PRN (Reason: shortness of breath or wheezing) Qty: 90 0RF Patient Comments: havent used for about 1 year atorvastatin 80 mg tablet 1 tab PO HS metoprolol succinate 100 mg tablet extended release 24 hr 1 tab PO DAILY aspirin 81 mg tablet,delayed release (DR/EC) 1 tab PO DAILY Patient Comments: TAKE 1 TABLET (81MG) BY MOUTH TWICE DAILY FOR 30 DAYS nitroglycerin 0.4 mg tablet, sublingual See Rx Instructions .ROUTE .COMPLEX Patient Comments: pt. came to ER and was checked out Rx Instructions: 1 tab sublingually tiotropium bromide [Spiriva with HandiHaler] 18 mcg capsule, w/inhalation device 1 inh INHALATION DAILY Discharge Instructions Additional Instructions: Cathie, we were able to complete your EGD today without any difficulty. The exam was totally normal. I did not see anything that would explain the sensation that you have been experiencing. I will go ahead and place an order for an outpatient swallow study. I think we talked about this a little bit in the office. It is a test where you have x-rays performed while you drink a dye that demonstrates the contraction of your esophagus as you swallow. This is more of a functional study to evaluate the process that your esophagus uses to move food along the length of it into your stomach. Once I have the results of that I will be in touch with any other recommendations. 1. If tolerated, consume a soft, low fiber diet for 1-2 days. 2[address] Do not drive, drink alcohol, operate machinery, make critical decisions, or do activities that require coordination or balance for 24 hours. 3 You may experience a sore throat for 24 to 48 hours. You may use throat lozenges or gargle with warm salt water to relieve the discomfort. 4. Because air was put into your stomach during the procedure, you may experience some belching. 5. Go directly to the emergency room if you notice any of the following: Develop chills (warm to touch), or if you have a thermometer and your temperature is above 101 Difficulty breathing or difficultly swallowing Persistent vomiting Severe abdominal pain, other than gas cramps Severe chest pain Black, tarry stools Any bleeding ? exceeding one tablespoon 6. Call your physician if the site where your intravenous was started becomes red, swollen, painful, and warm to touch. 7. Your physician has reviewed your pre-procedure medications. Please continue to take those medications as previously ordered. You will be given specific information/education regarding any changes to your medications before leaving. Activity:: Activity as Tolerated Diet:: As Tolerated Discharge Orders Discharge Orders: Discharge Order (Routine); Ordered 05/09/23 Ordered By: Manny Chin DS: Diagnosis Discharge Diagnosis (1) Globus sensation: Status: Acute Asessment and Plan: Normal EGD; follow-up with outpatient upper GI
--- NOTE | 2023-05-09 18:56 | ENDO_ITS ---
Date of service: 05/10/23 Time of Service: 08:30 Endoscopy Report DATE OF PROCEDURE: 05/10/23 PRE-OP DIAGNOSIS: Globus sensation POST-OP DIAGNOSIS: same PROCEDURE: EGD SURGEON: Manny Chin ANESTHESIA TYPE: General:No Airway ESTIMATED BLOOD LOSS: 0 PATHOLOGY: none sent COMPLICATIONS: None DISPOSITION: same day INDICATIONS: Cathie is a 68-year-old woman with ongoing globus sensation despite medical management. She is here for diagnostic EGD PROCEDURE START TIME: 08:12 PROCEDURE END TIME: :19 FINDINGS: Normal esophagus stomach and duodenum PROCEDURE DESCRIPTION: After the initiation of monitored anesthetic care, and with the assistance of a bite block, I advanced a standard gastroscope through the mouth past the hypopharynx and into the esophagus.? Under the direct vision of the scope, I advanced down the esophagus into the stomach.? The upper mid and lower esophagus all appeared normal. I did not see any evidence of diverticula, strictures, webs, or other esophageal pathology. The Z-line is totally normal-appearing and the GE junction measures 38 cm from the incisors. I advanced the camera down into the stomach proper. I insufflated the stomach until the gastric rugae were obliterated. I examined the entirety of the gastric cardia. I performed retr oflexion. There is no evidence of any hiatal hernia. I then turned the camera back antegrade and proceeded forward. The antrum was normal. The pylorus appeared normal. I was able to navigate across the pylorus into the duodenum. I did not see any abnormalities of the duodenum. I then emptied the duodenum, and brought the camera back into the stomach. I collapsed the stomach and brought the camera back up to the GE junction. Next, I reexamined the entirety of the esophagus. As previously mentioned, I did not see any evidence of any esophageal pathology up to the area of the cricopharyngeus. I advanced back down the esophagus and emptied it completely. I then withdrew the camera, we brought the patient back to the recovery unit.
[2023-05-10 07:02] VITALS: BP 116/59; PULSE 60; RESP 18; TEMP 36.5; O2SAT 96
[2023-05-10] MEDS: Lactated Ringers 1,000 ML 80 ML IV (07:15)
[2023-05-10 07:18] VITALS: BP 116/59; PULSE 60; RESP 18; TEMP 36.5; O2SAT 96
--- NOTE | 2023-05-10 07:47 | ANES.PREOP_ITS ---
General Info Date of Service Date Performed: 05/10/23 Height: 5 ft 9 in Weight: 72.1 kg Body Mass Index (BMI): 23.4 Surgical Procedure: Operation Date: 05/10/23 08:05 Proposed Procedure Side Surgeon p Gastroscopy Manny Cihn MD Actual Procedure Side Surgeon p Gastroscopy Not Applicable Manny Chin MD Meds Allergies and Home Medications Allergies Allergy/AdvReac Type Severity Reaction Status Date / Time disulfiram [From Antabuse] Allergy Hives Verified 05/10/23 07:06 Sulfa (Sulfonamide Allergy Anaphylaxsi Verified 05/10/23 07:06 Antibiotics) s tree nut Allergy ANGIO EDEMA Verified 05/10/23 07:06 Home Medication Medication Instructions Recorded sertraline 100 mg tablet 100 mg PO DAILY 07/12/18 albuterol sulfate 90 mcg/actuation 2 puff inhalation Q6H PRN 10/25/18 aerosol inhaler (Ventolin HFA) omeprazole 20 mg capsule,delayed 20 mg PO DAILY 10/25/18 release budesonide-formoterol HFA 160 2 puff inhalation BID 07/20/19 mcg-4.5 mcg/actuation aerosol inhaler (Symbicort) famotidine 20 mg tablet 40 mg PO DAILY 12/15/20 fluticasone propionate 50 1 spray intranasal BID 12/15/20 mcg/actuation nasal spray,suspension trazodone 50 mg tablet 50 mg PO HS PRN 12/15/20 gabapentin 300 mg capsule 300 mg PO BID 08/19/21 loratadine 10 mg tablet (Claritin) 10 mg PO DAILY 09/12/21 albuterol sulfate 1.25 mg/3 mL 1.25 mg (3 mL) inhalation QID PRN 10/23/21 solution for nebulization shortness of breath or wheezing #75 mL acetaminophen 500 mg tablet 500 mg PO Q6H PRN pain #60 tabs 03/29/22 ipratropium 0.5 mg-albuterol 3 mg 3 ml inhalation Q6H PRN shortness 05/29/22 (2.5 mg base)/3 mL nebulization of breath or wheezing #90 mL soln aspirin 81 mg tablet,delayed 1 tab PO DAILY 06/21/22 release atorvastatin 80 mg tablet 1 tab PO HS 06/21/22 metoprolol succinate 100 mg 1 tab PO DAILY 06/21/22 tablet,extended release 24 hr nitroglycerin 0.4 mg sublingual See Rx Instructions .Route .COMPLEX 06/21/22 tablet tiotropium bromide 18 mcg capsule 1 inh inhalation DAILY 06/21/22 with inhalation device (Spiriva with HandiHaler) Current Visit Medications: Current Medications Generic Name Dose Route Start Last Admin Trade Name Freq PRN Reason Stop Dose Admin Hyoscyamine Sulfate 0.125 mg 05/09/23 18:57 Hyoscyamine 0.125 Mg Sl/Oral/Chew SL 06/08/23 18:56 DIRECTED PRN Ringer's Solution 1,000 mls @ 80 mls/hr 05/10/23 06:00 05/10/23 07:15 IV 05/10/23 23:59 80 mls/hr INFUSION [place] Administration IV Miscellaneous Supplies 1 each 05/10/23 06:00 Iv Access IV 05/10/23 23:59 DIRECTED [place] Ondansetron HCl 4 mg 05/09/23 18:57 Ondansetron 4 Mg/2 Ml Vial IVP 06/08/23 18:56 Q4H PRN PRN Nausea / Vomiting Sodium Chloride 0 ml 05/10/23 06:00 Normal Saline Flush 10 Ml Syr IV 05/10/23 23:59 PRN PRN Sodium Chloride 0 ml 05/10/23 06:00 Normal Saline 10 Ml Vial IJ 05/10/23 23:59 DIRECTED PRN Sterile Water 0 ml 05/10/23 06:00 Water,Injection,Sterile 10 Ml Vial IJ 05/10/23 23:59 DIRECTED PRN PFSH Active Problems Active Problems: Problem Status Onset Code Aneurysm I72.9 Hyperlipidemia E78.5 Globus sensation R09.A2 Nasal septal perforation J34.89 Insomnia G47.00 Ptosis H02.409 Chronic rhinitis J31.0 Primary osteoarthritis of left knee M17.12 Acute exacerbation of chronic obstructive pulmonary disease J44.1 Acute exacerbation of chronic obstructive pulmonary disease J44.1 S/P colonoscopy ~11/26/18 Z98.890 Colorectal polyp detected on colonoscopy ~11/26/18 K63.5 Diverticulosis ~11/26/18 K57.90 Encounter for colorectal cancer screening Z12.11, Z12.12 Family history of colon cancer requiring screening colonoscopy Z80.0 Medical History Medical History Myocardial infarction ,05/31/22, 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[facility] [place] Fever and chills Restless leg syndrome Chest pain happened in October 2021 - due to stress at work and had flu Blood in stool 1 episode Leukocytosis Tobacco abuse Alcohol abuse, in remission COPD (chronic obstructive pulmonary disease) GERD (gastroesophageal reflux disease) Anxiety Surgical History Surgical History History of total right knee replacement (TKR) (03/29/22) History of tonsillectomy History of wisdom tooth extraction History of knee surgery Torn meniscus repair (left) History of hammer toe correction (right) History of colonoscopy Pt states ruptured spleen s/p colonoscopy 2012 requiring ICU stay and two month recovery. Tobacco Smoking/Tobacco Use Status: Former Tobacco Use Alcohol Alcohol Intake: former Year quit: 2016 Substance Use Substance use: Never Substance use type: does not use Details: 7.5 years sober, no nicotine patch on at this time. Vital Signs and Lab Results Vital Signs Most Recent Vital Signs in EMR: Most Recent Vital Signs Temp Pulse Resp BP Pulse Ox 36.5 C 60 18 116/59 L 96 05/10/23 07:18 05/10/23 07:18 05/10/23 07:18 05/10/23 07:18 05/10/23 07:18 Lab Results Blood Type / Crossmatch: No Data to Display Complete Blood Count: No Data to Display Complete Metabolic Panel: No Data to Display Liver Function Panel: No Data to Display Coagulation Panel: No Data to Display Cardiac Panel: No Data to Display Arterial Blood Gas: No Data to Display Venous Blood Gas: No Data to Display Pancreas Panel: No Data to Display Thyroid Panel: No Data to Display Infectious Disease: No Data to Display Blood Cultures: No Data to Display Toxicology Panel: No Data to Display Imaging and Studies Imaging and Studies Study information below may be from another EMR and interpreted by another provider. Please see original notes in EMR for more complete details. EKG Summary: 10/30: sinus. Stress Test Summary: 08/28: no evidence of ischemia. Echocardiogram Summary: 09/28: LVEF 50-55%, no sig valvular lesions. X-Ray Summary: 10/30: hyperinflation. Carotid Artery Summary:: 04/30: no sig stenosis. Pulmonary Function Summary: 2019: severe obstructive dz with sig bronchodilator response, mild air trapping and severe diffusion defect. Anesthesia Assessment and Plan Anesthesia History Personal History: No History of Anesthesia Complications Family History: No Family History of Anesthesia Complications Exercise Tolerance Exercise Tolerance: Metabolic Equivalents>4 Pertinent Negatives Pertinent Negatives: No Major Cardiovascular Symptoms or Complaints and No Major Pulmonary Symptoms or Complaints Cardiac & Pulmonary Exam Cardiac Exam: Normal S1/S2 Heart Sounds Pulmonary Exam: Clear Bilateral Breath Sounds Implantable Cardiac Device Does patient have a Pacemaker or an ICD?: No Airway Exam Known Difficult Airway: No Mallampati Class: 1 Mouth Opening: Normal (> 3cm) Thyromental Distance: Greater than 3 cm Neck Range of Motion: Full ROM Neck Circumference: Normal Teeth Condition: Normal Dentition and Removable Dentures/Plates Upper (Left upper partial out) ASA Classification ASA Score: ASA 2 Emergency Case?: No NPO Status NPO Status: NPO Clears >2 hours, Solids >8 hours Anesthesia Plan Resuscitation Status: Full Code Anesthesia Technique: General Anesthesia Airway Planned: Natural Airway Monitors Used: Standard Monitors
[2023-05-10 07:49] VITALS: BMI 23.4
[2023-05-10 08:24] VITALS: BP 97/59; PULSE 74; RESP 16; TEMP 36.4; O2SAT 95
--- NOTE | 2023-05-10 08:49 | W.ANESPOSTOP ---
Postoperative Evaluation Date, Time and Location Date Performed: 05/10/23 Time Performed: 08:32 Patient Location: Day Surgery Unit Vital Signs Most Recent Imported Vital Signs: Most Recent Vital Signs Temp Pulse Resp BP Pulse Ox 36.4 C L 74 16 97/59 L 95 05/10/23 08:24 05/10/23 08:24 05/10/23 08:24 05/10/23 08:24 05/10/23 08:24 Pain Score Most Recent Pain Score: Most Recent Pain Score Pain Level 0 05/10/23 08:24 Assessment Mental Status: Awake (Alert & Oriented to Patient Baseline) Airway and Respiratory Function: Patent airway with normal (patient baseline) respiratory exam Cardiovascular Function: Hemodynamically Stable Hydration Status: Adequately Hydrated Nausea & Vomiting: No Nausea or Vomiting Pain: Pt. Denies Any Pain Peripheral Nerve Block: Patient did not receive a nerve block
[2023-05-10 09:02] VITALS: BP 111/61; PULSE 65; RESP 18; TEMP 36.4; O2SAT 96
== END 2023-05-10 09:05 | disposition home or self-care (01) ==
LOC: SUR 06:46
PROVIDERS: PCP Nurse Practitioner Family; Visit Provider Surgery
PROC: 0DJ68ZZ Inspection of Stomach, Via Natural or Artificial Opening Endoscopic (ICD-10-PCS; CPT 43235; principal; 2023-05-10 08:00)
DX: R09.A2 Foreign body sensation, throat (principal); Z87.891 Personal history of nicotine dependence; Z80.0 Family history of malignant neoplasm of digestive organs
CPT/HCPCS: 43235; J2704

== ENCOUNTER 2023-07-19 06:27 | Emergency (ER) | payer MEDICARE, SELFPAY ==
--- NOTE | 2023-07-19 06:30 | DI.RAD_ITS ---
Exam(s) XR PORTABLE CHEST AP EXAM: XR PORTABLE CHEST AP CLINICAL HISTORY: SOB, cough, eval for pneumonia. TECHNIQUE: 2D digital imaging was performed. COMPARISON: CR,XR XR PORTABLE CHEST AP from 12/16/2022 FINDINGS: Single AP portable view. Heart size is upper normal. The mediastinum is not widened. Lungs are clear. No infiltrates nor obvious pleural effusions. Healed left side rib fractures again noted. IMPRESSION: No acute pulmonary findings on this single AP portable view of the chest. DATA REPOSITORY: RADIATION DOSE DELIVERED:
--- NOTE | 2023-07-19 06:30 | RT.EKG_ITS ---
APPROVED REPORT Exam: Resting ECG Reason for Exam: sob Patient Location: E HR:83 bpm ECG Measurements Heart Rate 83 AXIS VT 133 P 78 QRSd 78 QRS 79 QT 342 T 78 QTc 403 Conclusion Sinus rhythm...normal P axis, V-rate 60- 99 I have reviewed and interpreted ECG and agree with software generated interpretation.
[2023-07-19 06:34] VITALS: BP 116/52; PULSE 85; RESP 16; TEMP 36.8; O2SAT 96
[2023-07-19] MEDS: Albuterol/Ipratropium 3 ML UPD VIAL 6 ML UPD (06:48)
--- NOTE | 2023-07-19 06:48 | W.ED.GENAD ---
HPI General Date/Time Provider Initiated Documentation: 07/19/23 06:35. HPI Narrative: 68-year-old female with a past medical history of previous ME without stents, and a negative cath, COPD, GERD, high cholesterol, presents today for evaluation of cough and some mild chest tightness. Symptoms been present for the last 3 to 4 days. She was tested for flu and COVID by her PCP, and these were negative. Cough is worsened, it is productive with green sputum. She admits to mild dyspnea. She admits to an achy heavy like chest pain. She is uncertain if it is exertional. She has been taking her breathing treatments at home and these have been helping with her chest pain and shortness of breath. She denies any other complaints at this time. No other modifying factors. Related Data Home Medications Medication Instructions Recorded Confirmed sertraline 100 mg tablet 100 mg PO DAILY 07/12/18 05/10/23 albuterol sulfate 90 mcg/actuation 2 puff inhalation Q6H PRN 10/25/18 05/10/23 aerosol inhaler (Ventolin HFA) omeprazole 20 mg capsule,delayed 20 mg PO DAILY 10/25/18 05/10/23 release budesonide-formoterol HFA 160 2 puff inhalation BID 07/20/19 05/10/23 mcg-4.5 mcg/actuation aerosol inhaler (Symbicort) famotidine 20 mg tablet 40 mg PO DAILY 12/15/20 05/10/23 fluticasone propionate 50 1 spray intranasal BID 12/15/20 05/10/23 mcg/actuation nasal spray,suspension trazodone 50 mg tablet 50 mg PO HS PRN 12/15/20 05/10/23 gabapentin 300 mg capsule 300 mg PO BID 08/19/21 05/10/23 loratadine 10 mg tablet (Claritin) 10 mg PO DAILY 09/12/21 05/10/23 albuterol sulfate 1.25 mg/3 mL 1.25 mg (3 mL) inhalation QID PRN 10/23/21 05/10/23 solution for nebulization shortness of breath or wheezing #75 mL acetaminophen 500 mg tablet 500 mg PO Q6H PRN pain #60 tabs 03/29/22 05/10/23 ipratropium 0.5 mg-albuterol 3 mg 3 ml inhalation Q6H PRN shortness 05/29/22 05/10/23 (2.5 mg base)/3 mL nebulization of breath or wheezing #90 mL soln aspirin 81 mg tablet,delayed 1 tab PO DAILY 06/21/22 05/10/23 release atorvastatin 80 mg tablet 1 tab PO HS 06/21/22 05/10/23 metoprolol succinate 100 mg 1 tab PO DAILY 06/21/22 05/10/23 tablet,extended release 24 hr nitroglycerin 0.4 mg sublingual See Rx Instructions .Route .COMPLEX 06/21/22 05/10/23 tablet tiotropium bromide 18 mcg capsule 1 inh inhalation DAILY 06/21/22 05/10/23 with inhalation device (Spiriva with HandiHaler) Previous Rx's Medication Instructions Recorded albuterol sulfate 1.25 mg/3 mL 1.25 mg (3 mL) inhalation QID PRN 10/23/21 solution for nebulization shortness of breath or wheezing #75 mL acetaminophen 500 mg tablet 500 mg PO Q6H PRN pain #60 tabs 03/29/22 ipratropium 0.5 mg-albuterol 3 mg 3 ml inhalation Q6H PRN shortness 05/29/22 (2.5 mg base)/3 mL nebulization of breath or wheezing #90 mL soln Allergies Allergy/AdvReac Type Severity Reaction Status Date / Time disulfiram [From Antabuse] Allergy Hives Verified 05/10/23 07:06 Sulfa (Sulfonamide Allergy Anaphylaxsi Verified 05/10/23 07:06 Antibiotics) s tree nut Allergy ANGIO EDEMA Verified 05/10/23 07:06 General Stated Complaint: SOB YONATAN: 3 Review of Systems All systems reviewed & are unremarkable except as noted in HPI and below Exam Narrative Exam Narrative: 1.Const: Well-nourished, Well-developed, appearing stated age 2.Eyes: PERRL, no conjunctival injection, and symmetrical lids. 3.ENT: Atraumatic external nose and ears. Moist MM. Neck: Symmetric, trachea midline, No thyromegaly. 4.CVS: +S1/S2, No murmurs or gallops. Peripheral pulses 2+ and equal in all extremities. Brisk capillary refill in all extremities. 5.RESP: Unlabored respiratory effort. Minimal crackles in the lower lung senior. No wheezes. 6.GI: Soft, Nontender/Nondistended, No hepatosplenomegaly. No guarding or rebound. 7.MSK: Normocephalic/Atraumatic, Extremities w/o deformity or ttp No cyanosis or clubbing, Normal movement of all extremities. No swelling of the lower extremities. No calf tenderness. No pitting edema. 8.Skin: Warm, Dry. No rashes or lesions. 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 Sensation grossly intact, no focal neurologic deficits. 10.Psych: (AAO) x3. Appropriate mood and affect Course Vital Signs Vital signs: Vital Signs Temperature 36.8 C 07/19/23 06:34 Pulse 85 07/19/23 06:34 Respiratory Rate 16 07/19/23 06:34 Blood Pressure 116/52 L 07/19/23 06:34 Pulse Oximetry 96 07/19/23 06:34 Temperature 36.8 C 07/19/23 06:34 Pulse 85 07/19/23 06:34 Respiratory Rate 16 07/19/23 06:34 Respiratory Effort Short of Breath 07/19/23 06:42 Respiratory Depth Normal 07/19/23 06:42 Respiratory Pattern Normal 07/19/23 06:42 Blood Pressure 116/52 L 07/19/23 06:34 Pulse Oximetry 96 07/19/23 06:34 Oxygen Delivery Method Room Air 07/19/23 06:34 Oxygen Flow Rate 0 07/19/23 06:34 Pain Level 5 07/19/23 06:34 Medical Decision Making 68-year-old female with a past medical history of previous ME without stents, and a negative cath, COPD, GERD, high cholesterol, presents today for evaluation of cough and some mild chest tightness. Symptoms been present for the last 3 to 4 days. She was tested for flu and COVID by her PCP, and these were negative. Cough is worsened, it is productive with green sputum. She admits to mild dyspnea. She admits to an achy heavy like chest pain. She is uncertain if it is exertional. She has been taking her breathing treatments at home and these have been helping with her chest pain and shortness of breath. She denies any other complaints at this time. No other modifying factors. Exam demonstrates minimal crackles in the bases, vital signs stable. No hypoxemia. Concern for pneumonia versus COPD. Symptoms appear less likely for PE. Will get a D-dimer. We will give 2 breathing treatments for potential COPD component, monitor closely evaluate for concerning etiologies and reassess. We will check a proBNP to evaluate for signs of heart strain. Quality:SDOH Health Related Social Needs: No Data to Display PFSH All Active Problems Aneurysm (Acute) Hyperlipidemia (Acute) Globus sensation (Acute) Nasal septal perforation (Acute) Insomnia (Acute) Ptosis (Acute) Chronic rhinitis (Acute) Primary osteoarthritis of left knee (Acute) Steroid injection: 01/30/22; 10/27/21; 07/28/21; 04/04/2021; 12/27/2020; 04/19/2020 Acute exacerbation of chronic obstructive pulmonary disease (Acute) Acute exacerbation of chronic obstructive pulmonary disease (Acute) S/P colonoscopy (Acute ~11/26/18) Colorectal polyp detected on colonoscopy (Acute ~11/26/18) Diverticulosis (Acute ~11/26/18) Encounter for colorectal cancer screening (Acute) Family history of colon cancer requiring screening colonoscopy (Acute) Medical History Myocardial infarction ,05/31/22, 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 [employer] Fever and chills Restless leg syndrome Chest pain happened in October 2021 - due to stress at work and had flu Blood in stool 1 episode Leukocytosis Tobacco abuse Alcohol abuse, in remission COPD (chronic obstructive pulmonary disease) GERD (gastroesophageal reflux disease) Anxiety Surgical History History of esophagogastroduodenoscopy (~04/2023) History of total right knee replacement (TKR) (03/29/22) History of tonsillectomy History of wisdom tooth extraction History of knee surgery Torn meniscus repair (left) History of hammer toe correction (right) History of colonoscopy Pt states ruptured spleen s/p colonoscopy 2012 requiring ICU stay and two month recovery. Family History Father Colon cancer Stage 4 at diagnosis at age 70 Paternal Aunt Colon cancer Paternal Aunt Colon cancer Mother Fallopian tube malignant neoplasm Maternal Uncle Stomach cancer Other Pancreatic cancer Social History Smoking/Tobacco Use Status: Former Tobacco Use Quit Date: 05/30/22 Tobacco: How many years used: 40 Smoking risk assessment performed?: Yes Alcohol Intake: former Year quit: 2015 Drug use: Never Substance use type: does not use Details: 7.5 years sober, no nicotine patch on at this time. Housing: house current occupation: [employer] Pets and animals: No Do you feel safe at home: Yes Do you feel safe in your relationship?: Yes Additional Social history: Lives alone in [place], friend Kandice. 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 Moved up from [facility] around 2018. Discharge Plan Discharge Details Chief Complaint: SOB Primary Care Provider: Alberta Barrios ED Provider: Paulo Reese Home Meds and New Rx's Prescriptions: No Action omeprazole 20 mg capsule,delayed release(DR/EC) 20 mg PO DAILY albuterol sulfate [Ventolin HFA] 90 mcg/actuation HFA aerosol inhaler 2 puff IH Q6H PRN loratadine [Claritin] 10 mg tablet 10 mg PO DAILY gabapentin 300 mg capsule 300 mg PO BID albuterol sulfate 1.25 mg/3 mL solution for nebulization 1.25 mg inhalation QID PRN (Reason: shortness of breath or wheezing) Qty: 75 0RF acetaminophen 500 mg tablet 500 mg PO Q6H PRN (Reason: pain) Qty: 60 2RF sertraline 100 mg Tablet 100 mg PO DAILY budesonide-formoterol [Symbicort] 160-4.5 mcg/actuation Hfa Aerosol Inhaler 2 puff INHALATION BID trazodone 50 mg tablet 50 mg PO HS PRN Patient Comments: TAKE 1 TABLET BY MOUTH AT BEDTIME NEEDED famotidine 20 mg tablet 40 mg PO DAILY Patient Comments: TAKE 1 TABLET BY MOUTH ONCE DAILY fluticasone propionate 50 mcg/actuation spray,suspension 1 spray INTRANASAL BID ipratropium-albuterol 0.5 mg-3 mg(2.5 mg base)/3 mL solution for nebulization 3 ml inhalation Q6H PRN (Reason: shortness of breath or wheezing) Qty: 90 0RF Patient Comments: havent used for about 1 year atorvastatin 80 mg tablet 1 tab PO HS metoprolol succinate 100 mg tablet extended release 24 hr 1 tab PO DAILY aspirin 81 mg tablet,delayed release (DR/EC) 1 tab PO DAILY Patient Comments: TAKE 1 TABLET (81MG) BY MOUTH TWICE DAILY FOR 30 DAYS nitroglycerin 0.4 mg tablet, sublingual See Rx Instructions .ROUTE .COMPLEX Patient Comments: pt. came to ER and was checked out Rx Instructions: 1 tab sublingually tiotropium bromide [Spiriva with HandiHaler] 18 mcg capsule, w/inhalation device 1 inh INHALATION DAILY
[2023-07-19 07:06] LABS: Abs Immature Grans 0.12 10^3/uL (0.0-0.06); Absolute Eosinophil Count 0.62 10^3/uL (0.0-0.7); Absolute Lymphocyte Count 2.03 10^3/uL (1.2-3.4); Absolute Monocyte Count 0.94 10^3/uL (0.1-0.8); BE (Venous) 2 mmol/L (-2-3); Basophils % 0.6; HCO3 (Venous) 28 mmol/L (23-28); HCT 38.9 % (36.0-46.0); HGB 12.9 g/dL (11.2-15.7); Immature Grans % 0.8; MCH 29.9 pg (27.0-33.0); MCHC 33.2 % (32.0-36.0); MCV 90 fL (80-95); MPV 9.9 fL (8.0-11.0); Neutrophils % 75.6; O2 Sat (Venous) 47 %; Platelet Count 348 10^3/uL (130-400); RBC 4.32 10^6/uL (3.93-5.22); RDW 13.8 % (11.7-14.6); RDW-SD 45.7 fL; TCO2 (Venous) 27 mmol/L (24-29); WBC 15.61 10^3/uL (4.4-10.8); pCO2 (Venous) 55 mmHg (41-51); pH (Venous) 7.32 (7.31-7.41); pO2 (Venous) 28 mmHg
[2023-07-19 07:09] LABS: Absolute Basophil Count 0.09 10^3/uL (0.0-0.2)
[2023-07-19 07:28] LABS: PTT Activated 29.6 sec (23.6-32.8); Prothrombin Time 9.7 sec (9.1-11.1)
[2023-07-19 07:36] LABS: ALT 20 U/L (14-59); AST 17 U/L (15-37); Albumin 3.4 g/dL (3.4-5.0); Alkaline Phosphatase 76 U/L (46-116); Anion Gap 8.7 mmol/L (3-11); BUN 16 mg/dL (7-18); Bilirubin, Total 0.2 mg/dL (0.2-1.0); CO2 29.3 mmol/L (21.0-32.0); CREATININE 0.8 mg/dL (0.55-1.02); Calcium 8.9 mg/dL (8.5-10.1); Chloride 101 mmol/L (98-107); Estimated GFR 81.21 (mL/min/1.73m2); Glucose 97 mg/dL (74-106); NT-proBNP 343 pg/mL (<300); Potassium 3.2 mmol/L (3.5-5.1); Sodium 139 mmol/L (136-145); Total Protein 7.4 g/dL (6.4-8.2); Troponin I < 50 ng/L (< or =60)
[2023-07-19 07:46] LABS: D-Dimer 653 ng/mlFEU (<500)
[2023-07-19] MEDS: Doxycycline Hyclate 100 MG, 2 CAPS/BTL PO (08:13)
[2023-07-19] MEDS: predniSONE 20 MG TAB 60 MG PO (08:13)
[2023-07-19 08:16] LABS: COVID-19 PCR Negative (Negative); Influenza A PCR Negative (Negative); Influenza B PCR Negative (Negative); RSV PCR Negative (Negative)
[2023-07-19 08:17] LABS: Source Nasopharynx
[2023-07-19 08:18] VITALS: BP 98/57; PULSE 98; RESP 18; TEMP 36.8; O2SAT 93
== END 2023-07-19 08:20 | disposition home or self-care (01) ==
PROVIDERS: Emergency Provider Student in an Organized Health Care Education/Training Program; PCP Nurse Practitioner Family
DX: R06.02 Shortness of breath (principal); R05.9 Cough, unspecified; I25.2 Old myocardial infarction; J44.9 Chronic obstructive pulmonary disease, unspecified; Z79.82 Long term (current) use of aspirin; Z11.52 Encounter for screening for COVID-19; Z87.891 Personal history of nicotine dependence
CPT/HCPCS: 36415; 80053; 82805; 87637; 93005; 71045; 83880; 84484; 85025; 85379; 85610; 85730; 93010; 99284; 99285; J7512; J7620

== ENCOUNTER 2023-11-29 15:50 | Outpatient (CLI) | payer MEDICARE, SELFPAY ==
[2023-11-29 16:09] LABS: D-Dimer 577 ng/mlFEU (<500)
== END 2023-11-29 15:51 | disposition home or self-care (01) ==
LOC: LBO 15:52
PROVIDERS: PCP Nurse Practitioner Family; Visit Provider Nurse Practitioner Family
DX: R06.00 Dyspnea, unspecified (principal)
CPT/HCPCS: 36415; 85379

== ENCOUNTER 2023-11-29 16:05 | Outpatient (REF) | payer MEDICARE, SELFPAY ==
[2023-11-29 14:33] LABS: HCT 40.5 % (36.0-46.0); HGB 13.3 g/dL (11.2-15.7); MCH 30.5 pg (27.0-33.0); MCHC 32.8 % (32.0-36.0); MCV 93 fL (80-95); MPV 10.4 fL (8.0-11.0); Platelet Count 372 10^3/uL (130-400); RBC 4.36 10^6/uL (3.93-5.22); RDW 14.6 % (11.7-14.6); RDW-SD 49.8 fL; WBC 8.69 10^3/uL (4.4-10.8)
[2023-11-29 14:55] LABS: Iron 103 ug/dL (50-170); Total Iron Binding Capacity 408 ug/dL (250-450); Transferrin Sat 25 % (15-50)
[2023-11-29 15:18] LABS: ALT 29 U/L (14-59); AST 22 U/L (15-37); Alkaline Phosphatase 78 U/L (46-116); Anion Gap 7.6 mmol/L (3-11); BUN 17 mg/dL (7-18); Bilirubin, Total 0.27 mg/dL (0.2-1.0); CO2 31.4 mmol/L (21.0-32.0); CREATININE 0.7 mg/dL (0.55-1.02); Chloride 104 mmol/L (98-107); Estimated GFR 95.32 (mL/min/1.73m2); Ferritin 36 ng/mL (8-252); Glucose 71 mg/dL (74-106); Potassium 4.3 mmol/L (3.5-5.1); Sodium 143 mmol/L (136-145); Total Protein 7.1 g/dL (6.4-8.2)
[2023-11-29 15:48] LABS: NT-proBNP 214 pg/mL (<300)
== END 2023-11-29 16:06 | disposition home or self-care (01) ==
LOC: NCHCN 16:05
PROVIDERS: PCP Nurse Practitioner Family; Visit Provider Nurse Practitioner Family
DX: R06.00 Dyspnea, unspecified (principal); M25.561 Pain in right knee
CPT/HCPCS: 80053; 85027; 82728; 83540; 83550; 83880

== ENCOUNTER → 2023-12-17 02:33 | Outpatient (CLI) | payer MEDICARE, SELFPAY ==
--- NOTE | 2023-12-17 | DI.CT_ITS ---
Exam(s) CT CHEST WO EXAM: CT CHEST WO CLINICAL HISTORY: Dyspnea, unspecified, R06.00. TECHNIQUE: Imaging protocol: Axial computed tomography images were obtained and coronal and sagittal reformatted images were created and reviewed. CONTRAST MATERIAL: Noncontrast COMPARISON: CT CT ANGIOGRAM CHEST ABDOMEN PELVIS W CONTRAST from 08/17/2022 CR XR PORTABLE CHEST AP from 07/19/2023 FINDINGS: Pulmonary parenchyma: No consolidation. No suspicious nodules. Emphysema: Mild apical paraseptal emphysema. Mild centrilobular emphysematous changes greater in the upper lobes. Tracheobronchial tree: No mucous plugging. No bronchiectasis . Interstitial changes: None. Pleura: No effusion or pneumothorax. Heart: The heart is mildly dilated. The coronary arteries show mild calcifications. Aorta: Thoracic aorta non-dilated. Mild atherosclerotic changes. Lymph nodes: No enlarged lymph nodes. Bones: Mild spinal degenerative changes are seen. No evidence of compression fracture. Old left rib fractures. Upper abdomen: Unremarkable. Soft tissues: Unremarkable. IMPRESSION: No acute abnormality. Mild paraseptal and centrilobular emphysematous changes. RADIATION DOSE DELIVERED: 383.66mGy.cm Total DLP 383.66mGy.cm Total DLP DATA REPOSITORY: All CT scans at this facility are submitted to the National Radiology Data Registry (NRDR) Dose Index Registry (DIR) with the [employer] (ACR). RADIATION OPTIMIZATION: All CT scans at this facility use at least one of these dose optimization te chniques: automated exposure control; mA and/or kV adjustment per patient size (includes targeted exa ms where dose is matched to clinical indication); or iterative reconstruction.
== END ==
PROVIDERS: PCP Nurse Practitioner Family; Visit Provider Nurse Practitioner Family
DX: R06.09 Other forms of dyspnea (principal); J43.2 Centrilobular emphysema; J43.8 Other emphysema
CPT/HCPCS: 71250

== ENCOUNTER → 2024-01-17 01:02 | Outpatient (CLI) | payer MEDICARE, SELFPAY ==
--- NOTE | 2024-01-17 | DI.RAD_ITS ---
Exam(s) XR RIBS RT W PA LAT CHEST CLINICAL HISTORY: Thoracic back pain, M54.6. COMPARISON: CT CT CHEST WO from 12/17/2023 TECHNIQUE:: PA and lateral views of the chest and 3 views of the right ribs were performed. FINDINGS: LUNGS:Clear. No pleural abnormality seen. HEART: Normal. MEDIASTINUM: Normal. BONES: No displaced rib fracture is seen. No bony destructive lesion is seen. OTHER FINDINGS: None. IMPRESSION: 1. Unremarkable radiographic appearance of the right ribs. 2. No acute pulmonary findings.
== END ==
PROVIDERS: PCP Nurse Practitioner Family; Visit Provider Nurse Practitioner Family
DX: M54.6 Pain in thoracic spine (principal)
CPT/HCPCS: 71046; 71100

== ENCOUNTER 2024-01-25 00:16 | Outpatient (CLI) | payer MEDICARE, SELFPAY ==
--- NOTE | 2024-01-25 | DI.CT_ITS ---
Exam(s) CT BRAIN NECK CTA EXAM: CT BRAIN NECK CTA CLINICAL HISTORY: Cerebral aneurysm, nonruptured, I67.1. TECHNIQUE: Imaging Protocol: Axial CT angiography was performed with multi-slice acquisition and mu lti-planar and/or 3D reconstructions. CONTRAST MATERIAL: Intravenous: Omnipaque 350 contrast volume:70 mL COMPARISON: CT CT BRAIN NECK CTA from 01/16/2023 FINDINGS: CT Head W/O and W: Ventricles and Extra axial spaces: Normal in size and morphology for the patient's age. Hemorrhage: None. Cerebral parenchyma: Normal. Midline shift: None. Brainstem/Cerebellum: Normal. Calvarium: Normal. Old right nasal bone fracture. Visualized Paranasal sinuses/Mastoids: There is mucosal thickening in the maxillary sinuses bilateral ly. The remaining visualized paranasal sinuses and mastoid air cells are clear. Soft Tissues: Unremarkable. Enhancement: Unremarkable. CTA Neck W: Common Carotid: Right: No dissection, occlusion or significant stenosis. Atherosclerotic calcification is seen in th e distal right common carotid artery without significant stenosis. Left: No dissection, occlusion or significant stenosis. Atherosclerotic calcification is seen in the distal left common carotid artery and carotid bulb without significant stenosis. External Carotid: Right: No occlusion or significant stenosis. Left: No occlusion or significant stenosis. Internal Carotid: Right: No dissection, occlusion or significant stenosis. Left: No dissection, occlusion or significant stenosis. Atherosclerotic calcification is seen in the proximal left internal carotid artery without significant stenosis. Vertebral Artery: Right: No dissection, occlusion or significant stenosis. Left: No dissection, occlusion or significant stenosis. Lung Apices: Centrilobular emphysematous changes are seen in the lung apices. Bones: Within normal limits for the patient's age. Soft Tissues: Normal. Thyroid gland: There is a stable right thyroid nodule. No follow-up is recommended. CTA Brain W: Internal Carotid Arteries: Normal. Anterior Cerebral Arteries: The 2 mm aneurysm arising from the anterior communicating artery appears stable. Right: No aneurysm, occlusion or significant stenosis. Left: No aneurysm, occlusion or significant stenosis. Middle Cerebral Arteries: Right: No aneurysm, occlusion or significant stenosis. There is no change in size of the 3.4 mm aneu rysm seen at the bifurcation of the right M1 segment of the middle cerebral artery. Left: No aneurysm, occlusion or significant stenosis. Posterior Cerebral Arteries: Right: No aneurysm, occlusion or significant stenosis. Left: No aneurysm, occlusion or significant stenosis. The left posterior cerebral artery arises from the posterior communicating artery which is a normal variant. Vertebral Arteries: Right: No aneurysm, occlusion or significant stenosis. Left: No aneurysm, occlusion or significant stenosis. Basilar Artery: No aneurysm, occlusion or significant stenosis. IMPRESSION: 1. No change in appearance of the right middle cerebral and anterior communicating aneurysms. 2. No acute intracranial process. 3. Otherwise no significant change in appearance the examination. RADIATION DOSE DELIVERED: Total DLP DATA REPOSITORY: All CT scans at this facility are submitted to the National Radiology Data Registry (NRDR) Dose Index Registry (DIR) with the [employer] (ACR). RADIATION OPTIMIZATION: All CT scans at this facility use at least one of these dose optimization te chniques: automated exposure control; mA and/or kV adjustment per patient size (includes targeted exa ms where dose is matched to clinical indication); or iterative reconstruction.
--- NOTE | 2024-01-25 07:45 | DI.MAMMO_ITS ---
Exam(s) MAMMO SCREENING EXAM: MAMMO SCREENING CLINICAL HISTORY: Screening, Z12.39 TECHNIQUE: Bilateral full field digital CC and MLO mammographic images were obtained with 3D tomosyn thesis and utilizing computer aided detection (CAD). COMPARISON: Available for comparison. FINDINGS: The right MLO view exhibits motion artifact and should be repeated. Masses/Architectural Distortion: None seen. Microcalcifications: No suspicious pleomorphic-type are seen. Skin Thickening/Nipple Retraction: None. IMPRESSION: 1. No significant interval change with no specific features of malignancy noted. 2. A repeat right MLO view is requested secondary to patient motion artifact. BI-RADS Category 0 - Incomplete: Need additional imaging evaluation Breast Density - Category B - Scattered areas of fibroglandular density Breast density category C or D implies that the patient has dense breast tissue. Dense breast tissue is very common and is not abnormal but dense breast tissue can make it harder to find cancer on a ma mmogram. Also, dense breast tissue may increase their breast cancer risk. This information about the result of the mammogram report was provided to the patient to raise their awareness. Use this report when you speak with the patient about their risks for breast cancer, which includes their family hist ory. At that time, you may recommend for more screening tests (Ultrasound or MRI) as they might be us eful based on their risk. A negative radiographic report should not delay biopsy if a dominant or clinically suspicious mass is present. Up to ten percent of cancers are not identified on mammography. A negative report may reinforce clinical impression. Adenosis and dense breasts may obscure an underlying neoplasm. False positive reports average 6 to 10%. Patient will receive a letter notifying them of these results.
[2024-01-25] MEDS: Normal Saline - Diluent 50 ML VIAL IJ (08:45)
[2024-01-25] MEDS: Omnipaque 350 MG/ML 500 ML BTL-Imaging package 70 ML IJ (08:46)
== END 2024-01-25 00:36 ==
LOC: DI 00:16
PROVIDERS: PCP Nurse Practitioner Family; Visit Provider Nurse Practitioner Family
DX: Z12.31 Encounter for screening mammogram for malignant neoplasm of breast (principal); I67.1 Cerebral aneurysm, nonruptured
CPT/HCPCS: 70496; 70498; 77063; 77067

== ENCOUNTER 2024-02-07 01:36 | Outpatient (CLI) | payer MEDICARE, SELFPAY ==
--- NOTE | 2024-02-07 | DI.MAMMO_ITS ---
Exam(s) MG MAMMO SCREEN CALL BACK UNI EXAM: MG MAMMO SCREEN CALL BACK UNI CLINICAL HISTORY: F/U MAMMO, PATIENT MOTION ARTIFACT REPEAT RT MLO TECHNIQUE: Mammograms were interpreted according to the usual protocol including computer analysis w ith CAD system, tomosynthesis and C-view imaging. Repeat right MLO view was performed. COMPARISON: 04/21/2010 MAMMO SCREENING DIGITAL BILAT from 06/09/1899 MG MG MAMMO SCREENING from 01/29/2020 MG MG MAMMO SCREENING from 01/25/2024 FINDINGS: The breasts are composed of scattered fibroglandular densities, Breast Density category B. No suspicious masses or suspicious microcalcifications are seen. No skin thickening or abnormal axillary lymph nodes are seen. There has been no significant change from prior exams. IMPRESSION: BI-RADS Category 1, Negative mammogram Yearly screening mammography is recommended. Breast Density - Category B, scattered fibroglandular densities. A negative radiographic report should not delay biopsy if a dominant or clinically suspicious mass is present. Up to ten percent of cancers are not identified on mammography. A negative report may reinforce clinical impression. Adenosis and dense breasts may obscure an underlying neoplasm. False positive reports average 6 to 10%. Patient will receive a letter notifying them of these results.
== END 2024-02-07 01:56 ==
LOC: DI 01:36
PROVIDERS: PCP Nurse Practitioner Family; Visit Provider Nurse Practitioner Family
DX: Z12.31 Encounter for screening mammogram for malignant neoplasm of breast (principal)
CPT/HCPCS: 77063; 77067

== ENCOUNTER → 2024-07-03 08:07 | Outpatient (BNVA) | payer MEDICARE, SELFPAY | PROVIDERS: PCP Nurse Practitioner Family; Referring Provider Nurse Practitioner Family; Visit Provider Physical Therapy Assistant | DX: Z12.11 Encounter for screening for malignant neoplasm of colon (principal); Z86.0100 Personal history of colon polyps, unspecified; Z80.0 Family history of malignant neoplasm of digestive organs ==

== ENCOUNTER 2024-07-03 16:00 | Outpatient (CLI) | payer MEDICARE, SELFPAY ==
--- NOTE | 2024-07-03 14:45 | DI.RAD_ITS ---
Exam(s) XR KNEE LT 4V AP,LAT,IBAN,PAT EXAM: XR KNEE LT 4V AP,LAT,IBAN,PAT CLINICAL HISTORY: LEFT KNEE PAIN. TECHNIQUE: 2D digital imaging was performed. Three views. COMPARISON: CR XR KNEE LT 4V AP,LAT,IBAN,PAT from 04/19/2020 FINDINGS: BONES: No acute fracture is present. No bony destructive lesion is seen. JOINTS: Moderate narrowing of the lateral femoral tibial joint space causing compensatory widening of the medial femoral tibial joint space. Periarticular spurring greater laterally. There is anterior subluxation of the tibia with respect to the distal femur which could indicate an ACL tear. The pat ellofemoral joint space is maintained. A small joint effusion is seen. SOFT TISSUE: Normal. IMPRESSION: Moderate degenerative changes of the lateral femoral tibial joint. Anterior subluxation of the tibia could indicate ACL tear. DATA REPOSITORY: RADIATION DOSE DELIVERED:
== END 2024-07-03 16:01 | disposition home or self-care (01) ==
LOC: DIORS 16:00
PROVIDERS: PCP Nurse Practitioner Family; Referring Provider Nurse Practitioner Family; Visit Provider Physician Assistant
DX: M17.12 Unilateral primary osteoarthritis, left knee (principal)
CPT/HCPCS: 99213; 73564

== ENCOUNTER 2024-07-18 08:56 | Day surgery (SDC) | payer MEDICARE, SELFPAY ==
--- NOTE | 2024-07-17 14:18 | ANES.PREOP_ITS ---
General Info Date of Service Date Performed: 07/18/24 Height: 5 ft 9 in Weight: 67.585 kg Body Mass Index (BMI): 21.9 Surgical Procedure: Operation Date: 07/18/24 10:50 Proposed Procedure Side Surgeon disha Chin MD Meds Allergies and Home Medications Allergies Allergy/AdvReac Type Severity Reaction Status Date / Time disulfiram (From Antabuse) Allergy Hives Verified 07/18/24 09:22 Sulfa (Sulfonamide Allergy Anaphylaxsi Verified 07/18/24 09:22 Antibiotics) s tree nut Allergy ANGIO EDEMA Verified 07/18/24 09:22 Home Medication ?Medication ?Instructions ?Recorded sertraline 100 mg tablet 100 mg PO DAILY 07/12/18 albuterol sulfate 90 mcg/actuation 2 puff inhalation Q6H PRN 10/25/18 aerosol inhaler (Ventolin HFA) omeprazole 20 mg capsule,delayed 20 mg PO DAILY 10/25/18 release fluticasone propionate 50 1 spray intranasal BID 12/15/20 mcg/actuation nasal spray,suspension trazodone 50 mg tablet 50 mg PO HS PRN 12/15/20 loratadine 10 mg tablet (Claritin) 10 mg PO DAILY 09/12/21 albuterol sulfate 1.25 mg/3 mL 1.25 mg (3 mL) inhalation QID PRN 10/23/21 solution for nebulization shortness of breath or wheezing #75 mL acetaminophen 500 mg tablet 500 mg PO Q6H PRN pain #60 tabs 03/29/22 aspirin 81 mg tablet,delayed 1 tab PO DAILY 06/21/22 release atorvastatin 80 mg tablet 1 tab PO HS 06/21/22 nitroglycerin 0.4 mg sublingual See Rx Instructions .Route .COMPLEX 06/21/22 tablet tiotropium bromide 18 mcg capsule 1 inh inhalation DAILY 06/21/22 with inhalation device (Spiriva with HandiHaler) ipratropium 0.5 mg-albuterol 3 mg 3 ml inhalation Q6H #90 mL 07/19/23 (2.5 mg base)/3 mL nebulization soln budesonide-formoterol HFA 160 2 puff inhalation BID 02/04/24 mcg-4.5 mcg/actuation aerosol inhaler (Symbicort) famotidine 20 mg tablet 20 mg PO DAILY 02/04/24 metoprolol succinate 50 mg 50 mg PO DAILY 02/04/24 tablet,extended release 24 hr (Toprol XL) inhalational spacing device 05/05/24 (BreatheRite MDI Spacer) gabapentin 300 mg capsule 300 mg PO BID 07/03/24 Current Visit Medications: Current Medications Generic Name Dose Route Start Last Admin Trade Name Freq PRN Reason Stop Dose Admin Ringer's Solution 1,000 mls @ 80 mls/hr 07/18/24 06:00 IV 07/18/24 23:59 INFUSION [place] IV Miscellaneous Supplies 1 each 07/18/24 06:00 Iv Access IV 07/18/24 23:59 DIRECTED [place] Sodium Chloride 0 ml 07/18/24 06:00 Normal Saline Flush 10 Ml Syr IV 07/18/24 23:59 PRN PRN Sodium Chloride 0 ml 07/18/24 06:00 Normal Saline 10 Ml Vial IJ 07/18/24 23:59 DIRECTED PRN Sterile Water 0 ml 07/18/24 06:00 Water,Injection,Sterile 10 Ml Vial IJ 07/18/24 23:59 DIRECTED PRN PFSH Active Problems Active Problems: Problem Status Onset Code Impacted cerumen, right ear Acute H61.21 Sensation of fullness in left ear Acute H93.8X2 Dyspnea Acute R06.00 Carotid bruit Acute R09.89 Aneurysm Acute I72.9 Hyperlipidemia Acute E78.5 Globus sensation Acute R09.A2 Nasal septal perforation Acute J34.89 Insomnia Acute G47.00 Ptosis Acute H02.409 Chronic rhinitis Acute J31.0 Primary osteoarthritis of left knee Acute M17.12 Acute exacerbation of chronic obstructive pulmonary disease Acute J44.1 Acute exacerbation of chronic obstructive pulmonary disease Acute J44.1 S/P colonoscopy Acute ~11/26/18 Z98.890 Colorectal polyp detected on colonoscopy Acute ~11/26/18 K63.5 Diverticulosis Acute ~11/26/18 K57.90 Family history of colon cancer requiring screening colonoscopy Acute Z80.0 Encounter for colorectal cancer screening Acute Z12.11, Z12.12 Medical History Medical History Middle ear effusion Family history of malignant neoplasm of digestive organ Allergy to food Cough Dizziness and giddiness Acquired genu valgum Thoracic back pain Disorder of nail Myocardial infarction 05/31/22, 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 [facility] [place] with cardiology 02/2024 Fever and chills Restless leg syndrome Chest pain happened in October 2021 - due to stress at work and had flu Blood in stool 1 episode Leukocytosis Tobacco abuse Alcohol abuse, in remission COPD (chronic obstructive pulmonary disease) GERD (gastroesophageal reflux disease) Anxiety Surgical History Surgical History History of esophagogastroduodenoscopy (~04/2023) History of total right knee replacement (TKR) (03/29/22) History of tonsillectomy History of wisdom tooth extraction History of knee surgery Torn meniscus repair (left) History of hammer toe correction (right) History of colonoscopy Pt states ruptured spleen s/p colonoscopy 2012 requiring ICU stay and two month recovery. Tobacco Smoking/Tobacco Use Status: Former Tobacco Use Alcohol Alcohol Intake: former Year quit: 2016 Substance Use Substance use: Never Substance use type: does not use Vital Signs and Lab Results Vital Signs Most Recent Vital Signs in EMR: Temp Pulse Resp BP Pulse Ox 36 C L 79 20 120/76 97 07/18/24 09:04 07/18/24 09:04 07/18/24 09:04 07/18/24 09:04 07/18/24 09:04 Lab Results Blood Type / Crossmatch: No Data to Display Complete Blood Count: No Data to Display Complete Metabolic Panel: No Data to Display Liver Function Panel: No Data to Display Coagulation Panel: No Data to Display Cardiac Panel: No Data to Display Arterial Blood Gas: No Data to Display Venous Blood Gas: No Data to Display Pancreas Panel: No Data to Display Thyroid Panel: No Data to Display Infectious Disease: No Data to Display Blood Cultures: No Data to Display Toxicology Panel: No Data to Display Imaging and Studies Imaging and Studies Study information below may be from another EMR and interpreted by another provider. Please see original notes in EMR for more complete details. EKG Summary: 10/30: sinus. Stress Test Summary: 08/28: no evidence of ischemia. Echocardiogram Summary: 09/28: LVEF 50-55%, no sig valvular lesions. X-Ray Summary: 10/30: hyperinflation. Carotid Artery Summary:: 04/30: no sig stenosis. Pulmonary Function Summary: 2019: severe obstructive dz with sig bronchodilator response, mild air trapping and severe diffusion defect. Anesthesia Assessment and Plan Anesthesia History Personal History: No History of Anesthesia Complications Family History: No Family History of Anesthesia Complications Exercise Tolerance Exercise Tolerance: Metabolic Equivalents>4 Cardiac & Pulmonary Exam Cardiac Exam: Normal S1/S2 Heart Sounds Pulmonary Exam: Clear Bilateral Breath Sounds Implantable Cardiac Device Does patient have a Pacemaker or an ICD?: No Airway Exam Known Difficult Airway: No Mallampati Class: 1 Mouth Opening: Normal (> 3cm) Thyromental Distance: Greater than 3 cm Neck Range of Motion: Full ROM Neck Circumference: Normal Teeth Condition: Normal Dentition and Removable Dentures/Plates Upper (Left upper partial out) ASA Classification ASA Score: ASA 3 Emergency Case?: No NPO Status NPO Status: NPO Clears >2 hours, Solids >8 hours Anesthesia Plan Resuscitation Status: Full Code Anesthesia Technique: General Anesthesia Airway Planned: Natural Airway Monitors Used: Standard Monitors Preoperative Comments:: 67 yo female for colo. Sig PMHx: CAD, coronary artery dissection, iliac artery dilation, MCA aneurysm, RLS, COPD/current smoker (albuterol, symbicort, spiriva), GERD (omeprazole), anxiety, former EtOH (quit 2016), nasal septal perforation. Former smoker. EKG: sinus. ECHO: LVEF 55%. no sig valve issues. stress: 6 mets, no ECG evidence of ischemia. PFT: severe obstructive dz. carotid US: no sig stenosis.
--- NOTE | 2024-07-17 19:15 | PDOC.DSDIS_ITS ---
Date of service: 07/18/24 Discharge Plan Disposition Patient Disposition: Home Condition: Good Discharge Details Reason For Visit: screening colonoscopy Attending Provider: Manny Chin Primary Care Provider: Alberta Barrios Home Meds and New Rx's Prescriptions: Continued omeprazole 20 mg capsule,delayed release(DR/EC) 20 mg PO DAILY albuterol sulfate [Ventolin HFA] 90 mcg/actuation HFA aerosol inhaler 2 puff IH Q6H PRN loratadine [Claritin] 10 mg tablet 10 mg PO DAILY famotidine 20 mg tablet 20 mg PO DAILY Patient Comments: TAKE 1 TABLET BY MOUTH ONCE DAILY budesonide-formoterol [Symbicort] 160-4.5 mcg/actuation HFA aerosol inhaler 2 puff inhalation BID metoprolol succinate [Toprol XL] 50 mg tablet extended release 24 hr 50 mg PO DAILY (DME) BreatheRite MDI Spacer Spacer See Rx Instructions .Route Rx Instructions: As directed gabapentin 300 mg capsule 300 mg PO BID Rx Instructions: Pt reports 300mg at noon 600mg at 6pm. per pt 07/03/24jp albuterol sulfate 1.25 mg/3 mL solution for nebulization 1.25 mg inhalation QID PRN (Reason: shortness of breath or wheezing) Qty: 75 0RF acetaminophen 500 mg tablet 500 mg PO Q6H PRN (Reason: pain) Qty: 60 2RF sertraline 100 mg Tablet 100 mg PO DAILY trazodone 50 mg tablet 50 mg PO HS PRN Patient Comments: TAKE 1 TABLET BY MOUTH AT BEDTIME NEEDED fluticasone propionate 50 mcg/actuation spray,suspension 1 spray INTRANASAL BID atorvastatin 80 mg tablet 1 tab PO HS aspirin 81 mg tablet,delayed release (DR/EC) 1 tab PO DAILY Patient Comments: TAKE 1 TABLET (81MG) BY MOUTH TWICE DAILY FOR 30 DAYS nitroglycerin 0.4 mg tablet, sublingual See Rx Instructions .ROUTE .COMPLEX Patient Comments: pt. came to ER and was checked out Rx Instructions: 1 tab sublingually tiotropium bromide [Spiriva with HandiHaler] 18 mcg capsule, w/inhalation device 1 inh INHALATION DAILY ipratropium-albuterol 0.5 mg-3 mg(2.5 mg base)/3 mL solution for nebulization 3 ml IH Q6H Qty: 90 0RF Discontinued bisacodyl [Dulcolax (bisacodyl)] 5 mg tablet,delayed release (DR/EC) 5 mg PO ONCE Qty: 4 0RF Rx Instructions: Take per colonoscopy instructions provided by ordering providers office polyethylene glycol 3350 17 gram/dose powder 17 g PO ONCE Qty: 238 0RF Rx Instructions: Take per colonoscopy instructions provided by ordering providers office Discharge Instructions Instructions: Diverticulosis Additional Instructions: Cathie, it was very nice meeting you today, and I hope you are comfortable through this colonoscopy, and that you feel well afterwards. Your prep was excellent, and I could see everything fine. Aside from diverticulosis, I did not see any signs of tumors or polyps. Based on your history, I recommend a 5- year interval for your next screening. 1. If tolerated, consume a soft, low fiber diet for 1-2 days. 2[address] Do not drive, drink alcohol, operate machinery, make critical decisions, or do activities that require coordination or balance for 24 hours. 3. Because air was put into your colon during the procedure, expelling air from your rectum (passing gas or farting) is normal. 4. You may not have a bowel movement for 1-3 days because of the colonoscopy prep. This is normal. 5. Go directly to the emergency room if you notice any of the following: Develop chills (warm to touch), or if you have a thermometer and your temperature is above 101 Difficulty breathing or difficultly swallowing Persistent vomiting Severe abdominal pain, other than gas cramps Severe chest pain Black, tarry stools Any bleeding ? exceeding one tablespoon 6. Call your physician if the site where your intravenous was started becomes red, swollen, painful, and warm to touch. 7. Your physician has reviewed your pre-procedure medications. Please continue to take those medications as previously ordered. You will be given specific information/education regarding any changes to your medications before leaving. Activity:: Activity as Tolerated Diet:: As Tolerated Discharge Orders Discharge Orders: Discharge Order (Routine); Ordered 07/17/24 Ordered By: Manny Chin DS: Diagnosis Discharge Diagnosis (1) Encounter for screening colonoscopy: Status: Acute Asessment and Plan: Systemic otherwise negative screening colonoscopy; based on history recommend 5- year interval
--- NOTE | 2024-07-17 19:17 | W.COLOREPORT ---
Date of service: 07/18/24 Time of Service: 11:35 Colonoscopy Report Date of procedure: 07/18/24 Pre-op diagnosis general: screening colonoscopy Post-op diagnosis procedure note: other (Diverticulosis otherwise negative screening colonoscopy) Procedure: colonoscopy Surgeon: Manny Chin Anesthesia Type: General:No Airway Estimated blood loss (mL): 0 Pathology: none sent Complications: None Disposition: same day Indications: Cathie is a 69 year old woman with a family history of colon cancer. She needs her next screening colonsocopy Prep: Miralax/Dulcolax Procedure Start Time: 10:53 Procedure End Time: 11:11 Retraction Time: 13 Findings: Sigmoid diverticulosis Procedure Description: After the induction of anesthesia, and with the patient in left lateral decubitus position, I began by performing an external anorectal exam.? Perineum and skin were normal, as was the anal verge.? There was no evidence of external hemorrhoids.? Next, I performed a digital rectal exam.? I did not appreciate any abnormal findings.? Next, I advanced a colonoscope into the rectal vault.? I performed retroflexion.? This appeared normal using irrigation, I then advanced the colonoscope beyond the rectal folds and into the sigmoid colon before advancing towards the cecum.? Given the patient's history, great care was taken with advancing, and manipulating the scope. the scope was noted to be in the cecum by identification of the ileocecal valve and appendiceal orifice.? I then began withdrawing the colonoscope using repeated irrigation as necessary for full evaluation of the colonic mucosa. There is extensive left-sided and sigmoid diverticulosis once the scope was withdrawn to the level of the rectum, great care was taken to examine portions of the rectal folds.? Finally, the scope was withdrawn and the patient was brought to the same-day surgery recovery unit as the anesthetic wore off. ?The findings and instructions were shared with the patient prior to discharge. [place] Bowel Prep [place] Bowel Prep Right Colon: 3 Left Colon: 3 Transverse Colon: 3 Total Score: 9
[2024-07-18 09:04] VITALS: BP 120/76; PULSE 79; RESP 20; TEMP 36; O2SAT 97
[2024-07-18] MEDS: Lactated Ringers 1,000 ML 80 ML IV (09:35)
[2024-07-18 09:54] VITALS: BMI 21.9
[2024-07-18 11:28] VITALS: BP 112/70; PULSE 83; RESP 18; TEMP 36.2; O2SAT 100
[2024-07-18 12:05] VITALS: BP 125/69; PULSE 92; RESP 18; TEMP 36.8; O2SAT 98
--- NOTE | 2024-07-18 12:28 | W.ANESPOSTOP ---
Postoperative Evaluation Date, Time and Location Date Performed: 07/18/24 Time Performed: 12:28 Patient Location: Day Surgery Unit Vital Signs Most Recent Imported Vital Signs: Most Recent Vital Signs Temp Pulse Resp BP Pulse Ox 36.8 C 92 H 18 125/69 98 07/18/24 12:05 07/18/24 12:05 07/18/24 12:05 07/18/24 12:05 07/18/24 12:05 Pain Score Most Recent Pain Score: Most Recent Pain Score Pain Level 0 07/18/24 12:05 Assessment Mental Status: Awake (Alert & Oriented to Patient Baseline) Airway and Respiratory Function: Patent airway with normal (patient baseline) respiratory exam Cardiovascular Function: Hemodynamically Stable Hydration Status: Adequately Hydrated Nausea & Vomiting: No Nausea or Vomiting Pain: Pt. Denies Any Pain Peripheral Nerve Block: Patient did not receive a nerve block
== END 2024-07-18 12:13 | disposition home or self-care (01) ==
LOC: SUR 08:56
PROVIDERS: PCP Nurse Practitioner Family; Visit Provider Surgery
PROC: 0DJD8ZZ Inspection of Lower Intestinal Tract, Via Natural or Artificial Opening Endoscopic (ICD-10-PCS; CPT 45378; principal; 2024-07-18 10:45)
DX: Z12.11 Encounter for screening for malignant neoplasm of colon (principal); Z80.0 Family history of malignant neoplasm of digestive organs; K57.30 Diverticulosis of large intestine without perforation or abscess without bleeding; K21.9 Gastro-esophageal reflux disease without esophagitis; J44.9 Chronic obstructive pulmonary disease, unspecified
CPT/HCPCS: G0105; J2704

== ENCOUNTER 2024-08-21 13:05 | Outpatient (REF) | payer MEDICARE, SELFPAY ==
[2024-08-21 15:12] LABS: HCT 41.2 % (36.0-46.0); HGB 13.6 g/dL (11.2-15.7); MCH 30.1 pg (27.0-33.0); MCV 91 fL (80-95); MPV 10.6 fL (8.0-11.0); Platelet Count 389 10^3/uL (130-400); RBC 4.52 10^6/uL (3.93-5.22); RDW 13.6 % (11.7-14.6); RDW-SD 46.4 fL; WBC 10.29 10^3/uL (4.4-10.8)
[2024-08-21 15:32] LABS: Iron 74 ug/dL (50-170); Total Iron Binding Capacity 387 ug/dL (250-450); Transferrin Sat 19 % (15-50)
[2024-08-21 16:23] LABS: ALT 28 U/L (14-59); AST 27 U/L (15-37); Albumin 4.3 g/dL (3.4-5.0); Alkaline Phosphatase 85 U/L (46-116); Anion Gap 10.2 mmol/L (3-11); BUN 20 mg/dL (7-18); Bilirubin, Total 0.3 mg/dL (0.2-1.0); CO2 27.8 mmol/L (21.0-32.0); CREATININE 0.7 mg/dL (0.55-1.02); Calcium 9.6 mg/dL (8.5-10.1); Calculated LDL 92 mg/dL (<100); Chloride 106 mmol/L (98-107); Cholesterol 188 mg/dL (<200); Estimated GFR 94.73 (mL/min/1.73m2); Ferritin 57 ng/mL (8-252); Glucose 80 mg/dL (74-106); HDL Cholesterol 87 mg/dL (>or=50); Magnesium 2.2 mg/dL (1.8-2.4); Potassium 4.1 mmol/L (3.5-5.1); Sodium 144 mmol/L (136-145); Total Protein 7.5 g/dL (6.4-8.2); Triglyceride 45 mg/dL (<150)
== END 2024-08-21 13:06 | disposition home or self-care (01) ==
LOC: NCHCN 13:05
PROVIDERS: PCP Nurse Practitioner Family; Visit Provider Nurse Practitioner Family
DX: E78.5 Hyperlipidemia, unspecified (principal); G25.81 Restless legs syndrome
CPT/HCPCS: 80053; 80061; 85027; 82728; 83540; 83550; 83735

== ENCOUNTER → 2024-08-28 13:58 | Outpatient (BNVA) | payer MEDICARE, SELFPAY | PROVIDERS: PCP Nurse Practitioner Family; Referring Provider Nurse Practitioner Family; Visit Provider Student in an Organized Health Care Education/Training Program | DX: M17.12 Unilateral primary osteoarthritis, left knee (principal) | CPT/HCPCS: 20610; J1010 ==

== ENCOUNTER 2025-01-01 10:51 | Outpatient (CLI) | payer MEDICARE, SELFPAY ==
--- NOTE | 2025-01-01 | DI.CT_ITS ---
Exam(s) CT CHEST WO EXAM: CT CHEST WO CLINICAL HISTORY: SOB, R06.02. TECHNIQUE: Imaging protocol: Axial computed tomography images were obtained and coronal and sagittal reformatted images were created and reviewed. Computer aided detection (CAD) was utilized. CONTRAST MATERIAL: Noncontrast COMPARISON: CT CT CHEST WO from 12/17/2023 FINDINGS: Pulmonary parenchyma: No consolidation. No suspicious nodules. Interstitial changes: None. Emphysema: None mild centrilobular and paraseptal emphysematous changes. Tracheobronchial tree: No mucous plugging. No bronchiectasis . Pleura: No effusion or pneumothorax. Heart: The heart is not dilated. The coronary arteries show mild calcifications. Aorta: Thoracic aorta non-dilated. Mild atherosclerotic changes. Lymph nodes: No enlarged lymph nodes. Bones: Degenerative changes are seen. No evidence of compression fracture. Upper abdomen: Chronic splenic calcification. Soft tissues: Unremarkable. IMPRESSION: Mild emphysematous changes. No acute abnormality. RADIATION DOSE DELIVERED: 168.66mGy.cm Total DLP 168.66mGy.cm Total DLP DATA REPOSITORY: All CT scans at this facility are submitted to the National Radiology Data Registry (NRDR) Dose Index Registry (DIR) with the [employer] (A[employer]). RADIATION OPTIMIZATION: All CT scans at this facility use at least one of these dose optimization techniques: automated exposure control; mA and/or kV adjustment per patient size (includes targeted exams where dose is matched to clinical indication); or iterative reconstruction.
== END 2025-01-01 11:11 ==
LOC: DI 10:51
PROVIDERS: PCP Nurse Practitioner Family; Visit Provider Nurse Practitioner Family
DX: R06.02 Shortness of breath (principal); R91.8 Other nonspecific abnormal finding of lung field
CPT/HCPCS: 71250

== ENCOUNTER 2025-01-02 10:00 | Outpatient (CLI) | payer MEDICARE, SELFPAY ==
[2025-01-02 10:57] LABS: Abs Immature Grans 0.04 10^3/uL (0.0-0.06); HCT 41.2 % (36.0-46.0); HGB 13.4 g/dL (11.2-15.7); Immature Grans % 0.4 %; MCH 30.1 pg (27.0-33.0); MCHC 32.5 % (32.0-36.0); MCV 93 fL (80-95); MPV 10.9 fL (8.0-11.0); Platelet Count 306 10^3/uL (130-400); RBC 4.45 10^6/uL (3.93-5.22); RDW 13.4 % (11.7-14.6); RDW-SD 46.2 fL; WBC 10.42 10^3/uL (4.4-10.8)
[2025-01-02 11:46] LABS: Estimated GFR 98.32 (mL/min/1.73m2)
== END 2025-01-02 10:01 | disposition home or self-care (01) ==
LOC: LBO 10:00
PROVIDERS: PCP Nurse Practitioner Family; Visit Provider Nurse Practitioner Family
DX: R06.02 Shortness of breath (principal)
CPT/HCPCS: 36415; 82565; 85025

== ENCOUNTER 2025-01-08 09:38 | Outpatient (CLI) | payer MEDICARE, SELFPAY ==
[2025-01-08 09:42] LABS: Abs Immature Grans 0.02 10^3/uL (0.0-0.06); HCT 40.4 % (36.0-46.0); HGB 13.3 g/dL (11.2-15.7); Immature Grans % 0.2 %; MCH 30.3 pg (27.0-33.0); MCHC 32.9 % (32.0-36.0); MCV 92 fL (80-95); MPV 10.3 fL (8.0-11.0); Platelet Count 319 10^3/uL (130-400); RBC 4.39 10^6/uL (3.93-5.22); RDW 13.3 % (11.7-14.6); RDW-SD 45.6 fL; WBC 8.77 10^3/uL (4.4-10.8)
[2025-01-08 10:09] LABS: ALT 33 U/L (14-59); AST 28 U/L (15-37); Albumin 3.9 g/dL (3.4-5.0); Alkaline Phosphatase 70 U/L (46-116); Anion Gap 7.6 mmol/L (3-11); BUN 15 mg/dL (7-18); Bilirubin, Total 0.4 mg/dL (0.2-1.0); CO2 29.4 mmol/L (21.0-32.0); Calcium 9.1 mg/dL (8.5-10.1); Chloride 104 mmol/L (98-107); Estimated GFR 98.32 (mL/min/1.73m2); Glucose 117 mg/dL (74-106); NT-proBNP 72 pg/mL (<300); Potassium 3.7 mmol/L (3.5-5.1); Sodium 141 mmol/L (136-145); Total Protein 7.3 g/dL (6.4-8.2)
[2025-01-08 10:10] LABS: D-Dimer 643 ng/mlFEU (<500)
== END 2025-01-08 09:39 | disposition home or self-care (01) ==
LOC: LBO 09:38
PROVIDERS: PCP Nurse Practitioner Family; Visit Provider Nurse Practitioner Family
DX: R06.02 Shortness of breath (principal)
CPT/HCPCS: 36415; 80053; 83880; 85025; 85379

== ENCOUNTER → 2025-02-24 10:59 | Outpatient (BNVA) | payer MEDICARE, SELFPAY | PROVIDERS: PCP Nurse Practitioner Family; Referring Provider Nurse Practitioner Family; Visit Provider Physician Assistant | DX: M17.12 Unilateral primary osteoarthritis, left knee (principal) | CPT/HCPCS: 20610; J1010 ==

== ENCOUNTER → 2025-04-02 14:46 | Outpatient (BNVA) | payer MEDICARE, SELFPAY | PROVIDERS: PCP Nurse Practitioner Family; Referring Provider Nurse Practitioner Family; Visit Provider Podiatrist | DX: M20.42 Other hammer toe(s) (acquired), left foot (principal); L84 Corns and callosities; M79.671 Pain in right foot; M79.672 Pain in left foot; L60.3 Nail dystrophy; B35.1 Tinea unguium | CPT/HCPCS: 11755; 17110 ==

== ENCOUNTER 2025-04-22 15:46 | Outpatient (RCR) | payer MEDICARE, SELFPAY | END 2025-05-10 23:59 | disposition home or self-care (01) | LOC: PRC 15:46 | PROVIDERS: PCP Nurse Practitioner Family; Visit Provider Internal Medicine Pulmonary Disease | DX: J44.9 Chronic obstructive pulmonary disease, unspecified (principal); Z51.89 Encounter for other specified aftercare | CPT/HCPCS: 94626 ==

== ENCOUNTER → 2025-04-23 13:19 | Outpatient (BNVA) | payer MEDICARE, SELFPAY | PROVIDERS: PCP Nurse Practitioner Family; Referring Provider Nurse Practitioner Family; Visit Provider Podiatrist | DX: L60.3 Nail dystrophy (principal); B35.1 Tinea unguium; M79.671 Pain in right foot; M79.672 Pain in left foot; L84 Corns and callosities; M20.42 Other hammer toe(s) (acquired), left foot | CPT/HCPCS: 17110 ==

== ENCOUNTER 2025-05-28 15:51 | Outpatient (CLI) | payer MEDICARE, SELFPAY ==
--- NOTE | 2025-05-28 13:36 | DI.RAD_ITS ---
Exam(s) XR KNEE RT 3V AP,LAT,IBAN EXAM: XR KNEE RT 3V AP,LAT,IBAN CLINICAL HISTORY: RIGHT KNEE PAIN. TECHNIQUE: 2D digital imaging was performed. Three views. COMPARISON: CR XR STANDING ALIGNMENT from 04/10/2022 CR XR KNEE RT 1V from 04/10/2022 CR XR KNEE RT 2V AP,LAT from 03/29/2023 CR XR KNEE LT 4V AP,LAT,IBAN,PAT from 07/03/2024 FINDINGS: BONES: No acute fracture is present. No bony destructive lesion is seen. JOINTS: The knee prosthesis is normally aligned. No joint effusion is seen. SOFT TISSUE: Normal. IMPRESSION: Stable appearance of right total knee prosthesis. DATA REPOSITORY: RADIATION DOSE DELIVERED:
--- NOTE | 2025-05-28 13:45 | DI.RAD_ITS ---
Exam(s) XR HIP RT COMPLETE AP PELVIS EXAM: XR HIP RT COMPLETE AP PELVIS CLINICAL HISTORY: RIGHT HIP PAIN. TECHNIQUE: 2D digital imaging was performed. Two views COMPARISON: No exams were available for comparison FINDINGS: BONES: No acute fracture is present. No bony destructive lesion is seen. JOINTS: No dislocation present. There is mild bilateral superior hip joint space narrowing and acetabular spurring. The SI joints and pubic symphysis are unremarkable. SOFT TISSUE: Normal. IMPRESSION: No acute abnormality. Mild degenerative changes of both hips. DATA REPOSITORY: RADIATION DOSE DELIVERED:
== END 2025-05-28 15:52 | disposition home or self-care (01) ==
LOC: DIORS 15:51
PROVIDERS: PCP Nurse Practitioner Family; Referring Provider Nurse Practitioner Family; Visit Provider Physician Assistant
DX: M16.11 Unilateral primary osteoarthritis, right hip (principal); M17.12 Unilateral primary osteoarthritis, left knee
CPT/HCPCS: 20611; 20610; 73562; J1010; 73502